=== PATIENT | male | born 1945 | race Hispanic/Latino ===

== ENCOUNTER 2017-01-03 11:14 | Inpatient (IN) | payer MEDICARE ==
[2017-01-03 11:20] VITALS: BMI 33.9
[2017-01-03] MEDS ORDERED: Morphine 4 mg/ml ISec ONE (11:23)
[2017-01-03] MEDS ORDERED: Amiodarone 150 mg/D5W 100 ml 150 MG/100 ML BAG ONE (11:35)
[2017-01-03] MEDS ORDERED: Amiodarone 360 mg/D5W 200 ml 360 MG/200 ML BAG IV ONE (11:35)
[2017-01-03] MEDS ORDERED: Succinylcholine 200 mg/10 ml Inj IV STA (11:52)
[2017-01-03] MEDS ORDERED: Etomidate 20 mg/10ml Inj IVP STA (11:52)
[2017-01-03 11:54] LABS: BASO # 0.07 K/mm3 (0.0-2.0); BASO % 0.4 % (0.0-3.0); EOS # 0.4 (0.0-0.7); EOS % 2.4 % (1.5-5.0); GRAN # 9.15 (1.4-6.5); GRAN % 57.4 % (50.0-68.0); LYMPH # 5.4 (1.2-3.4); LYMPH % 33.8 % (22.0-35.0); MEAN CELL VOLUME 97.6 fl (80.0-105.0); MEAN CORPUSCULAR HEMOGLOBIN 31.1 pg (25.0-35.0); MEAN CORPUSCULAR HGB CONC 31.9 g/dl (31.0-37.0); MEAN PLATELET VOLUME 10.7 fl (7.0-11.0); RED CELL DISTRIBUTION WIDTH 15.6 % (11.5-14.5); WHITE BLOOD COUNT 15.9 10^3/ul (4.5-11.0)
[2017-01-03] MEDS ORDERED: Sodium Chloride 0.9% 1,000 ML IV STA (11:54)
[2017-01-03] MEDS ORDERED: DOBUTamine 500mg/250ml D5W 500 MG/250 ML BAG IV PRN (12:00)
[2017-01-03] MEDS ORDERED: Amiodarone 360 mg/D5W 200 ml 360 MG/200 ML BAG IV SCH ×2 (12:00→19:32)
[2017-01-03] MEDS ORDERED: DOBUTamine 500mg/250ml D5W 500 MG/250 ML BAG ONE (12:01)
[2017-01-03 12:06] LABS: INR 0.93 (0.93-1.08); PARTIAL THROMBOPLASTIN TIME 30.4 Seconds (25.1-36.5)
[2017-01-03 12:10] LABS: BLOOD UREA NITROGEN 10 mg/dL (7-21); CALCIUM 9.8 mg/dL (8.4-10.5); CARBON DIOXIDE 17 mmol/L (21-33); CHLORIDE 98 mmol/L (98-107); GFR AFRICAN-AMERICAN > 60; SODIUM 142 mmol/L (132-148); TOTAL PROTEIN 7.9 g/dL (5.8-8.3)
[2017-01-03 12:11] LABS: ALB/GLOB RATIO 1.4 (1.1-1.8); ALKALINE PHOSPHATASE 151 U/L (38-126); ALT/SGPT 51 U/L (7-56); AST/SGOT 61 U/L (17-59); BILIRUBIN,TOTAL 0.6 mg/dL (0.2-1.3)
[2017-01-03 12:16] LABS: TROPONIN I 0.02 ng/mL
[2017-01-03 12:27] LABS: VENOUS BLOOD GAS BASE EXCESS -16.5 mmol/L (0.0-2.0); VENOUS BLOOD PH 6.92 (7.32-7.43)
[2017-01-03 12:30] LABS: GLUCOSE,RANDOM 449 mg/dL (70-110)
[2017-01-03] MEDS ORDERED: Propofol 10 mg/ml 1,000 MG/100 ML VIAL ONE ×2 (12:44→15:48)
[2017-01-03] MEDS ORDERED: Morphine 2 mg/ml ISec IVP STA (12:47)
[2017-01-03] MEDS ORDERED: Enoxaparin 40 mg Syringe SC SCH (13:00)
[2017-01-03] MEDS ORDERED: cefTRIAXone 1 gm 1 GM/100 ML BAG IVPB SCH (13:00)
--- NOTE | 2017-01-03 13:07 | ED PDOC ---
Arrival/HPI - General Chief Complaint: Respiratory Distress Time Seen by Provider: 01/03/17 11:15 Historian: Patient, EMS - History of Present Illness Narrative History of Present Illness (Text): 01/03/17 12:50 A 71 year old male, whose past medical history includes CHF, tachyarrhythmia, and DM, presents to the emergency department via EMS for acute respiratory distress. The EMS reports that the patient began feeling shortness of breath yesterday and it worsened this morning. The patient denies any chest pain, fevers, cough, or other complaints at this time. He took a couple of his nitro this morning when he started feeling badly. HPI is limited due to acute care. Family later arrived and reported that he may have had some high salty food and this morning wasn't feeling well. They reported that he was having trouble breathing. Denied any chest pain. PMD: Dr. Pettit Industrial Safety Engineer: Dr. Mcclain Time/Duration: 24 hours Symptom Onset: Sudden Symptom Course: Worsening Context: Home Past Medical History - Provider Review Nursing Documentation Reviewed: Yes - Infectious Disease Hx of Infectious Diseases: None - Cardiac Hx Angina: Yes (unstable angina) Hx Congestive Heart Failure: Yes Hx CO: Yes Hx Hypertension: Yes Hx Pacemaker: Yes Other/Comment: L sided pacemaker+defibrillator. Cardiomyopathy. S/P Angioplasty with stent placement - Pulmonary Hx Respiratory Disorders: Yes Hx Pneumonia: Yes - Neurological Hx Neurological Disorder: No - HEENT Hx HEENT Disorder: No (WEARS RX GLASSES) - Renal Hx Renal Disorder: No - Endocrine/Metabolic Hx Endocrine Disorders: Yes Hx Diabetes Mellitus Type 2: Yes - Hematological/Oncological Hx Blood Disorders: Yes Hx Anemia: Yes Other/Comment: h/o L subclavian vein occlusive thrombosis - Integumentary Hx Dermatological Disorder: No - Musculoskeletal/Rheumatological Hx Arthritis: Yes - Gastrointestinal Hx Gastrointestinal Disorders: No - Genitourinary/Gynecological Hx Genitourinary Disorders: No - Psychiatric Hx Psychophysiologic Disorder: No Hx Emotional Abuse: No Hx Physical Abuse: No Hx Substance Use: No - Surgical History Hx Coronary Stent: Yes - Anesthesia Hx Anesthesia: Yes Hx Anesthesia Reactions: No Hx Malignant Hyperthermia: No - Suicidal Assessment Feels Threatened In Home Enviroment: No Family/Social History - Physician Review Nursing Documentation Reviewed: Yes Family/Social History: No Known Family HX Smoking Status: Former Smoker Hx Alcohol Use: No Hx Substance Use: No Allergies/Home Meds Allergies/Adverse Reactions: Allergies No Known Allergies Allergy (Verified 06/24/15 15:39) Home Medications: Home Meds Medication Instructions Recorded Confirmed Atorvastatin [Lipitor] 40 mg PO DAILY 11/04/14 01/03/17 Glipizide [Glipizide ER] 5 mg PO BID 11/04/14 01/03/17 Isosorbide Mononitrate [Imdur] 60 mg PO BID 11/04/14 01/03/17 metFORMIN [glucOPHAGE] 1,000 mg PO BID 11/04/14 01/03/17 Furosemide [Lasix] 40 mg PO BID 01/28/15 01/03/17 Nitroglycerin [Nitrostat] 0.4 mg SL PRN PRN 01/28/15 01/03/17 Oxycodone HCl/Acetaminophen 1 tab PO BID PRN 01/28/15 01/03/17 [Percocet 5-325 mg Tablet] Cholecalciferol (Vitamin D3) 2,000 iu PO DAILY 03/11/15 01/03/17 [Vitamin D3] Metoprolol Tartrate [Lopressor] 50 mg PO BID 03/11/15 01/03/17 Clopidogrel [Plavix] 75 mg PO DAILY 06/19/16 01/03/17 Review of Systems - Physician Review All systems were reviewed & negative as marked: Yes - Review of Systems Constitutional: absent: Fevers Respiratory: SOB. absent: Cough Cardiovascular: absent: Chest Pain Physical Exam Vital Signs Reviewed: Yes Vital Signs Temp Pulse BP Pulse Ox 01/03/17 12:23 96.1 F L 102 H 102/55 L 82 L 01/03/17 12:16 97 H 90/52 L 84 L 01/03/17 12:09 93 H 85/52 L 01/03/17 12:08 87 77/47 L 01/03/17 12:05 69 80/49 L 01/03/17 12:02 72 71/43 L 01/03/17 11:58 67 62/47 L 01/03/17 11:54 68 69/43 L 01/03/17 11:44 94 H 103/67 01/03/17 11:35 120 H 72/53 L 01/03/17 11:24 72/53 L Temperature: Afebrile Pulse: Tachycardic Respiratory Rate: Tachypneic Appearance: Positive for: Ill-Appearing, Uncomfortable Pain Distress: None Mental Status: Positive for: Confused Finger Stick Blood Glucose: 263 - Systems Exam Head: Present: Atraumatic Pupils: Present: PERRL Extroacular Muscles: Present: EOMI Conjunctiva: Present: Normal Mouth: Present: Moist Mucous Membranes Pharnyx: Present: Normal Nose (External): Present: Atraumatic Nose (Internal): Present: Normal Inspection, No Active Bleeding Neck: Present: Normal Range of Motion. No: Meningeal Signs Respiratory/Chest: Present: Respiratory Distress, Accessory Muscle Use, Rales ( diffuse and b/l), Tachypneic Cardiovascular: Present: Tachycardic Abdomen: Present: Normal Bowel Sounds. No: Tenderness, Distention Back: Present: Normal Inspection Upper Extremity: Present: Normal Inspection Lower Extremity: Present: Normal Inspection Neurological: Present: GCS=15, CN II-XII Intact, Speech Normal, Motor Func Grossly Intact, Normal Sensory Function Psychiatric: Present: Other (drowsy and respiratory distress and answering limited questions) Medical Decision Making ED Course and Treatment: 01/03/17 11:15 Impression: A 71 year old male in respiratory distress. Differential Diagnosis included but are not limited to: CHF exacerbation, Cardiogenic Shock Plan: -- EKG (3) -- Chest X-ray -- Labs -- Urinary Catheter -- Nasogastric Tube -- Fingerstick -- Urinalysis -- Lasix 40mg IVP stat -- Patient was on BiPAP on arrival and we continued this immediately on arrival with Respiratory. Progress Notes: 01/03/17 11:24 Patient went into worsening respiratory distress. His defibillator fired 3 times in the ED. Patient then become unresponsive and pulseless. Started to ventilate patient immediately with BVM. Respiratory already at bedside. ACLS was started on patient immediately. Epi x 1 given. Amiodarone drip initiated. 01/03/17 11:28 Pulse was detected on patient. Etomidate and Succynlcholine were given for RSI. 88% Oxy Sat with BVM. Patient was intubated after 2nd attempt and placed on ventilator. See procedure note. NGT placed. Ramirez placed. 01/03/17 11:39 No pulse was detected. ACLS started again. Epi given x 1. 01/03/17 11:45 Pulse was checked; pulse was detected. 01/03/17 11:48 Patient went into ventricular fibrillation and shocked externally. Defibrillator did not fire. 01/03/17 11:49 Patient went back to paced rhythm. 01/03/17 12:09 Dr. Mcclain, Industrial Safety Engineer was present in the ED. Dobutamine drip started in addition to Levophed drip. He recommended increased Dobutamine and while improving blood pressure and decreasing levophed. A central line was placed in the left IJ by me with ultrasound guidance, minimal blood loss is noted. See procedure note. 01/03/17 12:16 The patient's blood pressure begins to return to normal at 90/52. 01/03/17 12:23 The patient's blood pressure is at 102/55. 01/03/17 12:39 Case was discussed with Dr. Arevalo, ICU Professional Development Manager. Case was accepted. Case was discussed with Dr. Pettit PMD. 01/03/17 13:23. Patient started to have long run of Vtach in the ED. Shocked patient externally. Dr. Arevalo at bedside. We discussed case again with Dr. Mcclain. We agreed to give Amiodarone 300mg IVP. Continued on Amiodarine drip. CXR showed CHF pattern, right great infiltrates then left. Antibiotics discussed with Dr. Mcclain and Dr. Arevalo. Dr. Pettit ordered Rocephin IV. It was communicated to CHEESEMAKING LABORER by Sapna RN to give first dose stat. 01/03/17 13:32 Patient noted to have hypokalemia and treated with IV potassium. Patient noted to have hyperglycemia and treated with IV insulin. Dr. Arevalo aware of treatment. 01/03/17 11:28 PROCEDURE: INTUBATION Performed by the emergency provider Time: 11:28 Consent: Discussion of the risks, benefits, and alternatives to the procedure, along with informed consent was precluded by the urgency of the procedure and the patient condition. Timeout: A timeout to verify the correct patient, procedure, and site was performed. Indication: Respiratory distress Pre-oxygenation: [id number] Medications: Etomidate and Succynlcholine. See MAR for details. ETT Size: 7.5 Confirmation: Cords directly visualized as tube passed, good bilateral breath sounds, positive CO2 detector color change, tube fogging, adequate chest rise, improving pulse oximetry reading, improved skin color, and absence of gastric sounds,. ETT Secured: The cuff was inflated and the tube was secured appropriately at a distance of 23 cm at the lip. Post-Procedure: There were no immediate complications. CXR Confirmation: YES, ETT above the sen 01/03/17 12:09 PROCEDURE: CENTRAL LINE PLACEMENT Performed by the emergency provider, Time: 12:09 Consent: Discussion of the risks, benefits, and alternatives to the procedure, along with informed consent was precluded by the urgency of the procedure and the patient condition. Timeout: A timeout to verify the correct patient, procedure, and site was performed. Indication: Need for multiple line access due to amiodarine, levophed, dobutamine drips Anesthesia: Local anesthesia: None. See MAR for details. Skin Preparation: Hand hygiene performed prior to central venous catheter insertion. Sterile field, sterile drape, sterile technique, and cap and gown were used. The area was cleansed with 2% Chlorhexidine. Patient position: Trendelenberg Location: Left IJ Ultrasound guidance: {YES} Technique: The landmarks for the line placement were identified. The vessel was cannulated and a non-tunneled 7.0 Fr triple lumen andwas placed using the Seldinger technique. Successful placement: {YES}. Line sutured with silk and appropriate dressing applied. Assessment: Good patency and blood return through all three lumens. The ports were appropriately flushed. See post procedure X-Ray interpretation. Central in proper location. Post-procedure: Patient tolerated the procedure well with no immediate complications. - Critical Care Critical Care Minutes: 60 minutes - Lab Interpretations Lab Results: 01/03/17 11:45 01/03/17 11:45 Lab Results 01/03/17 12:05: pO2 26 L, VBG pH 6.92 L*, VBG pCO2 85.0 H*, VBG HCO3 17.4 L, VBG Total CO2 20.0 L, VBG O2 Sat (Calc) 27.3 L, VBG Base Excess -16.5 L, VBG Potassium 4.4, Glucose 433 H*, Lactate 13.3 H*, FiO2 21.0, Sodium 141.0, Chloride 95.0 L, Venous Blood Potassium 4.4 01/03/17 11:45: Magnesium 2.4 H 01/03/17 11:45: Sodium 142, Potassium 3.0 L, Chloride 98, Carbon Dioxide 17 L, Anion Gap 29 H, BUN 10, Creatinine 1.2, Est GFR ( Amer) > 60, Est GFR ( Non-Af Amer) 60, Random Glucose 449 H* D, Calcium 9.8, Total Bilirubin 0.6, AST 61 H, ALT 51, Alkaline Phosphatase 151 H, Lactate Dehydrogenase 448, Total Creatine Kinase 78, Troponin I 0.02 D, NT-Pro-B Natriuret Pep 1570 H, Total Protein 7.9, Albumin 4.6, Globulin 3.3, Albumin/Globulin Ratio 1.4 01/03/17 11:45: WBC 15.9 H D, RBC 5.33, Hgb 16.6, Hct 52.0, MCV 97.6, MCH 31.1, MCHC 31.9, RDW 15.6 H, Plt Count 241, MPV 10.7, Gran % 57.4, Lymph % (Auto) 33.8 , [place] % (Auto) 6.0, Eos % (Auto) 2.4, Baso % (Auto) 0.4, Gran # 9.15 H, Lymph # 5.4 H, [place] # 1.0 H, Eos # 0.4, Baso # 0.07 01/03/17 11:45: PT 10.2, INR 0.93, APTT 30.4 01/03/17 11:22: pCO2 48 H, pO2 80.0, HCO3 13.6 L, ABG pH 7.06 L*, ABG Total CO2 15.1 L, ABG O2 Saturation 94.6 L, ABG O2 Content 19.3, ABG Base Excess -16.7 L, ABG Hemoglobin 14.7, ABG Carboxyhemoglobin 1.4, POC ABG HHb (Measured) 5.3 H, ABG Methemoglobin 0.1, ABG O2 Capacity 20.4, Hgb O2 Saturation 93.2 L, FiO2 100.0 Interpretation: Abnormal lab values - RAD Interpretation Radiology Orders: 01/03/17 11:48 CHEST PORTABLE [RAD] Stat Lace Tearing Supervisor: ED Physician - EKG Interpretation Interpreted by ED Physician: Yes Type: 12 lead EKG - Medication Orders Current Medication Orders: Enoxaparin Sodium (Lovenox) 40 mg SC DAILY SERGIO PRN Reason: Protocol NOREPINEPHRINE BIT/0.9 % NACL (Levophed 4 Mg/ 250 Ml Ns Premixed) 4 mg in 250 mls @ 15 mls/hr IV .[id number] PRN; Protocol; 4 MCG/MIN PRN Reason: TITRATE PER MD ORDER Last Admin: 01/03/17 13:18 Dose: 4 mcg/min, 15 mls/hr eMAR Start Stop Document 01/03/17 13:18 MR (Rec: 01/03/17 13:19 MR [id number]) Intravenous Solution Start Date 01/03/17 Start Time 11:40 Titration Intervention Document 01/03/17 13:18 MR (Rec: 01/03/17 13:19 MR [id number]) Titration Intake Waste Amount 0 Container Volume 250 Titration Dosing Titration Dose 4 IV Rate 15 Intake/Decrease Started Amiodarone HCl/Dextrose (Nexterone 360 Mg In D5w 200 Ml (Premix)) 360 mg in 200 mls @ 33.333 mls/hr IV .Q6H SERGIO; 1 MG/MIN PRN Reason: Protocol Last Admin: 01/03/17 13:22 Dose: 33.333 mls/hr eMAR Start Stop Document 01/03/17 13:22 MR (Rec: 01/03/17 13:31 MR [id number]) Intravenous Solution Start Date 01/03/17 Start Time 11:50 Propofol (Diprivan) 1,000 mg in 100 mls @ 3.402 mls/hr IV .Q24H PRN; Protocol; 5 MCG/KG/MIN PRN Reason: TITRATE PER MD ORDER Last Admin: 01/03/17 14:02 Dose: 5 mcg/kg/min, 3.402 mls/hr eMAR Start Stop Document 01/03/17 14:02 MR (Rec: 01/03/17 14:03 MR [id number]) Intravenous Solution Start Date 01/03/17 Start Time 12:46 Titration Intervention Document 01/03/17 14:02 MR (Rec: 01/03/17 14:03 MR [id number]) Titration Intake Waste Amount 0 Container Volume 100 Titration Dosing Titration Dose 5 IV Rate 3.402 Intake/Decrease Started Doxycycline Hyclate 100 mg/ (Sodium Chloride) 100 mls @ 100 mls/hr IVPB Q12 SERGIO PRN Reason: Protocol Potassium Chloride (Potassium Chloride 20 Meq/100 Ml) 20 meq in 100 mls @ 50 mls/hr IVPB Q2H SERGIO Stop: 01/03/17 16:59 Last Admin: 01/03/17 14:05 Dose: 50 mls/hr eMAR Start Stop Document 01/03/17 14:05 MR (Rec: 01/03/17 14:05 [id number]) Intravenous Solution Start Date 01/03/17 Start Time 13:42 End Date 01/03/17 End time 14:42 Total Infusion Time 60 Ceftriaxone Sodium (Rocephin 1 Gram Ivpb) 1 gm in 100 mls @ 100 mls/hr IVPB DAILY SERGIO PRN Reason: Protocol Milrinone Lactate/Dextrose (Primacor 20mg/100ml D5w) 100 mls @ 6.804 mls/hr IV .[id number] PRN; Protocol; 0.2 MCG/KG/MIN PRN Reason: TITRATE PER MD ORDER Fentanyl Citrate (Fentanyl Citrate/Sodium Chloride 1 Mg/100 Ml) 1,000 mcg in 100 mls @ 2 mls/hr IV .Q24H PRN; Protocol; 20 MCG/HR PRN Reason: TITRATE PER MD ORDER Last Admin: 01/03/17 14:07 Dose: 20 mcg/hr, 2 mls/hr eMAR Start Stop Document 01/03/17 14:07 MR (Rec: 01/03/17 14:08 [id number]) Intravenous Solution Start Date 01/03/17 Start Time 13:54 Titration Intervention Document 01/03/17 14:07 MR (Rec: 01/03/17 14:08 [id number]) Titration Intake Waste Amount 0 Container Volume 100 Titration Dosing Titration Dose 20 IV Rate 2 Intake/Decrease Started Pantoprazole Sodium (Protonix Inj) 40 mg IVP Q12 SERGIO Discontinued Medications Etomidate (Amidate) 30 mg IVP STAT STA Stop: 01/03/17 11:53 Last Admin: 01/03/17 11:32 Dose: 30 mg IVP Administration Document 01/03/17 11:32 MR (Rec: 01/03/17 13:17 [id number]) Charges for Administration # of IVP Administrations 1 Furosemide (Lasix) 40 mg IVP STAT STA Stop: 01/03/17 12:48 Last Admin: 01/03/17 11:24 Dose: 40 mg MAR Blood Pressure Document 01/03/17 11:24 MR (Rec: 01/03/17 14:04 MR [id number]) Blood Pressure Blood Pressure (100/60-150/90) 72/53 IVP Administration Document 01/03/17 11:24 MR (Rec: 01/03/17 14:04 MR [id number]) Charges for Administration # of IVP Administrations 1 Sodium Chloride (Sodium Chloride 0.9%) 1,000 mls @ 999 mls/hr IV .Q1H1M STA Stop: 01/03/17 12:54 Last Admin: 01/03/17 13:20 Dose: 999 mls/hr eMAR Start Stop Document 01/03/17 13:20 MR (Rec: 01/03/17 13:20 MR [id number]) Intravenous Solution Start Date 01/03/17 Start Time 11:37 End Date 01/03/17 End time 12:37 Total Infusion Time 60 Potassium Chloride 10 meq/ (Sodium Chloride) 105 mls @ 105 mls/hr IV ONCE ONE Stop: 01/03/17 13:32 Last Admin: 01/03/17 14:00 Dose: 105 mls/hr eMAR Start Stop Document 01/03/17 14:00 MR (Rec: 01/03/17 14:02 MR [id number]) Intravenous Solution Start Date 01/03/17 Start Time 13:42 End Date 01/03/17 End time 14:40 Total Infusion Time 58 Insulin Human Regular (Humulin R) 6 units IV STAT STA Stop: 01/03/17 13:54 Last Admin: 01/03/17 14:12 Dose: 6 units eMAR Start Stop Document 01/03/17 14:12 MR (Rec: 01/03/17 14:13 MR [id number]) Intravenous Solution Start Date 01/03/17 Start Time 13:57 End Date 01/03/17 End time 13:57 Total Infusion Time 0 MAR Blood Glucose Document 01/03/17 14:12 MR (Rec: 01/03/17 14:13 MR [id number]) Blood Glucose Finger Stick Blood Glucose (70-120) 460 Morphine Sulfate (Morphine) 2 mg IVP STAT STA Stop: 01/03/17 12:48 Last Admin: 01/03/17 11:24 Dose: 2 mg MAR Pain Assessment Document 01/03/17 11:24 MR (Rec: 01/03/17 14:05 MR [id number]) Pain Reassessment Is this a pain reassessment? No Sleep Is patient sleeping during reassessment? No Description Pain Behavior Facial Grimacing IVP Administration Document 01/03/17 11:24 MR (Rec: 01/03/17 14:05 MR [id number]) Charges for Administration # of IVP Administrations 1 Succinylcholine Chloride (Quelicin) 100 mg IV STAT STA Stop: 01/03/17 11:53 Last Admin: 01/03/17 13:19 Dose: 100 mg eMAR Start Stop Document 01/03/17 13:19 MR (Rec: 01/03/17 13:19 MR [id number]) Intravenous Solution Start Date 01/03/17 Start Time 11:32 End Date 01/03/17 End time 11:32 Total Infusion Time 0 - Scribe Statement The provider has reviewed the documentation as recorded by the Sammi Stallings Provider Scribe Attestation: All medical record entries made by the Scribswati were at my direction and personally dictated by me. I have reviewed the chart and agree that the record accurately reflects my personal performance of the history, physical exam, medical decision making, and the department course for this patient. I have also personally directed, reviewed, and agree with the discharge instructions and disposition. Disposition/Present on Arrival - Present on Arrival Any Indicators Present on Arrival: Yes History of DVT/PE: Yes History of Uncontrolled Diabetes: No Urinary Catheter: No History of Decub. Ulcer: No History Surgical Site Infection Following: None - Disposition Have Diagnosis and Disposition been Completed?: Yes Diagnosis: Congestive heart failure, Hypokalemia, Cardiogenic shock, Hyperglycemia Disposition: HOSPITALIZED Disposition Time: 12:39 Patient Plan: Admission Patient Problems: Current Active Problems Problem Status Onset Cardiogenic shock Acute Congestive heart failure Acute Hyperglycemia Acute Hypokalemia Acute Condition: CRITICAL
--- NOTE | 2017-01-03 13:16 | RAD ---
HISTORY: SOB. COMPARISON: No comparison made with chest radiograph 12/26/2016 FINDINGS: In situ ETT, tip of which lies approximately 3.6 cm above sen. Is in situ left subclavian central venous line with tip in the brachiocephalic vein. LUNGS: Mild pulmonary vascular congestive changes with bilateral lower lobe alveolar-type infiltrates right greater than left. Questionable small left effusion. PLEURA: As above. No apparent pneumothorax Pneumothorax . CARDIOVASCULAR: No change multi lead pacemaker/ defibrillator. Heart remains enlarged. OSSEOUS STRUCTURES: No significant abnormalities. VISUALIZED UPPER ABDOMEN: Normal. OTHER FINDINGS: None. IMPRESSION: Above ETT and left subclavian central line as above. Mild pulmonary vascular congestive changes with bilateral lower lobe alveolar-type infiltrates right greater than left. Questionable small left effusion.
[2017-01-03] MEDS: NOREPINEPHRINE BIT/0.9 % NACL 4 MG/250 ML BAG IV PRN ×2 (13:18→15:57)
[2017-01-03] MEDS ORDERED: Milrinone 20mg/100ml D5W 100 ML IV PRN (13:28)
[2017-01-03 13:42] LABS: ARTERIAL BLOOD GAS HCO3 13.6 mmol/L (21-28); ARTERIAL BLOOD GAS O2 CAPACITY 20.4 mL/dl (16-24); ARTERIAL BLOOD GAS O2 CONTENT 19.3 ML/dl (15-23); ARTERIAL BLOOD HGB O2 SAT 93.2 % (95.0-98.0); CARBOXYHEMOGLOBIN 1.4 % (0.5-1.5); HHB 5.3 % (0-5); METHEMOGLOBIN 0.1 % (0.0-3.0)
[2017-01-03] MEDS ORDERED: Insulin Regular 1 UNITS/0.01 ML ML IV STA (13:53)
--- NOTE | 2017-01-03 13:54 | CON ---
DATE: 01/03/2017 HISTORY OF PRESENT ILLNESS: The patient is a 71-year-old male who presented to the emergency room with progressive shortness of breath, with marked respiratory distress as well as hypotension. The patient was intubated. I was called to see the patient in the emergency room where the patient was on a ventilator. His blood pressure was in the 60 systolic. 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 He has symptoms of CAD, which he has documented patent stents. A recent stress test showed a compromised left ventricle with no new ischemic areas. On discussion with the family, it is likely that the patient has experienced dietary indiscretion over the past 24 hours and slowly became short of breath overnight until this morning, had difficulty in terms of breathing. His other risk factors includes diabetes mellitus. SOCIAL HISTORY: The patient does not smoke. REVIEW OF SYSTEMS: A 14-point review of systems is unavailable. PHYSICAL EXAMINATION: VITAL SIGNS: After conversion from Levophed to dobutamine, the patient currently has blood pressure of 117/80 with heart rates in the 90s. NECK: Negative JVD. LUNGS: Decreased breath sounds bilaterally. HEART: S1 and S2. EXTREMITIES: Without edema. DIAGNOSTIC STUDIES: EKG shows no wide complex rhythm, consistent with left bundle-branch block. LABORATORY DATA: Initial troponin is unremarkable. BUN and creatinine unremarkable. Hemoglobin is 16 with a white count of 15.9. IMPRESSION: 1. Acute pulmonary edema. 2. Respiratory failure. 3. End-stage dilated cardiomyopathy. 4. Coronary artery disease. 5. Diabetes mellitus. 7. Cardiogenic shock. PLAN: Given these findings, it is likely the patient's salt overload has led to fluid overload with pulmonary edema and transient hypoxia with hypotension. IV dobutamine has been able to stabilize his hemodynamics. From a cardiac perspective, if he makes urine and is able to diurese, we should be able to hopefully attempt to extubate the patient. If he survives this hospitalization, we will transfer the patient to [facility] for potential evaluation for heart transplantation. Anuj Mcclain MD
[2017-01-03] MEDS ORDERED: Insulin Regular 1 UNITS/0.01 ML ML ONE (13:55)
[2017-01-03] MEDS: Propofol 10 mg/ml 1,000 MG/100 ML VIAL IV PRN ×2 (14:02→20:25)
[2017-01-03 14:04] LABS: ARTERIAL BLOOD GAS PH 7.06 (7.35-7.45)
[2017-01-03] MEDS: Fentanyl 1000mcg/100ml NS 1,000 MCG/100 ML BAG IV PRN ×2 (14:07→23:15)
[2017-01-03] MEDS ORDERED: Insulin Lispro (humaLOG) MEDIUM Coverage SC SCH (15:00)
[2017-01-03] MEDS: DOBUTamine 500mg/250ml D5W 500 MG/250 ML BAG IV PRN (15:08)
[2017-01-03] MEDS ORDERED: Influenza Vaccine 60 mcg/0.5 mL SYR (4YR UP) IM ONE (15:19)
[2017-01-03] MEDS ORDERED: Pneumococcal 23-Valent Vaccine IM ONE (15:19)
[2017-01-03 16:32] LABS: TROPONIN I 9.76 ng/mL
[2017-01-03 16:36] LABS: VENOUS BLOOD GAS BASE EXCESS -9.8 mmol/L (0.0-2.0)
[2017-01-03 16:45] LABS: VENOUS BLOOD PH 7.18 (7.32-7.43)
[2017-01-03 16:51] LABS: ABG MECHANICAL RATE 18; ARTERIAL BLOOD GAS PH 7.21 (7.35-7.45); ATERIAL BLOOD GAS PEEP 5
[2017-01-03] MEDS ORDERED: Propofol 10 mg/ml Inj (20 ML) IVP ONE (17:14)
--- NOTE | 2017-01-03 17:26 | CON ---
DATE: 01/03/2017 HISTORY OF PRESENT ILLNESS: This 71-year-old male with past and history of severe left ventricular systolic dysfunction, tachyarrhythmia, status post pacemaker defibrillator, who presented to ER this time in acute respiratory distress. The patient reportedly had some chest tightness that was preceeded by indulgence on salty and fatty diet. His shortness of breath was getting worse since yesterday and culminated by today's admission to [facility] ER. Initially, ASHRAF was on exertion; however, later became evident also at the rest. No fevers. No cough. No other complaints. PAST MEDICAL HISTORY: CHF, MT, hypertension, pacemaker, diabetes type 2. ALLERGIES: NKDA. SOCIAL HISTORY: The patient is an ex-smoker. No alcohol or illicit drug abuse. HOME MEDICATION: Lipitor, glipizide, Imdur, metformin, Lasix, nitroglycerin p.r.n., Percocet, vitamin D3, metoprolol, Plavix. REVIEW OF SYSTEM: Reveal a 12-point review of system other than mentioned in history of present illness is negative. FAMILY HISTORY: Noncontributory. Chest x-ray showed right interstitial infiltrate versus vascular congestion; however, it would be asymmetric as right side has more prominent congestion than the left one. EKG showed left bundle-branch block. Cardiology service at bedside at present time. PHYSICAL EXAMINATION: VITAL SIGNS: Heart rate varies between 105 to 120, blood pressure currently 102/55, oxygen saturation 95% on 100% FiO2. The patient is intubated. ABG is pending. HEENT: Head and neck atraumatic. LUNGS: Few crackles bibasilar. HEART: Regular rate and rhythm. S1 and S2 distant. ABDOMEN: Soft, nontender, nondistended. MUSCULOSKELETAL: Trace bilateral pedal and ankle edema. NEUROLOGIC: The patient is sedated with propofol. LABORATORY DATA: WBC 15.9, hemoglobin 16.6, platelet count 241. Sodium 142, potassium 3 supplemented, magnesium 2.4, AST 61, ALT 51, bilirubin 0.6, pro-BNP 1517. VBG before intubation 6.92, lactic acid 13.3. ASSESSMENT AND PLAN: This is 71-year-old gentleman who presented in cardiogenic shock with MODS including pulmonary edema, respiratory failure, requiring intubation, BARRY, encephalopathy, severe lactic acidosis likely due to new ischemic event in the setting of already existing severe LV systolic dysfunction. Neuro: The patient is sedated with propofol. Propofol will also help with afterload reduction which may increase 02 delivery and CI Pulmonary: We will continue with conservative fluid management, protective lung ventilation strategy including lung tidal volume 6 to 8 mL per predicted body weight and maintain plateau pressure below 30 cm of water. Head of bed elevated at >35 degrees, oral hygiene, DVT and GI prophylaxis. Cardiovascular: The patient is in cardiogenic shock. We will maintain perfusion pressure with an vasopressor support with Levophed. Ionotropic support will be provided with dobutmaine. Afterload reduction provided with propofol and positive pressure ventilation. Spoke with Dr. Mcclain (Cardiology service), if continue to deteriorate will put ABP in. The patient is known to have severe left ventricular systolic dysfunction with ejection fraction at about 13% and severe pulmonary hypertension. The patient had a few episodes of sustained VT and was given amiodarone bolus and then started on drip which is continued at present time. Pacemaker and defibrillator would need to be interrogated. GI: The patient will be n.p.o. on GI prophylaxis. ID: The patient has leukocytosis and has asymmetric interstitial infiltrate on the right side. The patient will be covered with ceftriaxone and doxycycline. Azithromycin will be avoided due to potential for QTc prolongation, and the patient is already has ventricular tachycardia. Septic workup initiated. Procalcitonin will be ordered. Blood, urine culture, urine for streptococcal and Legionella antigen will be orders well. Renal: The patient has acute kidney injury most likely related to cardiogenic shock. We will maintain mean arterial pressure about 65, we will avoid nephrotoxic medication but not at expense of treatment of underlying disease. We will try to tread on faint balance between the kidney hyperperfusion and conservative fluid management to optimize respiratory status carefully. Endocrine: We will continue to maintain blood glucose within 140 to 180 range according to night sugar trial. We will continue with DVT and GI prophylaxis. Addendum: troponin returned at 9.2 after being intermediate first. aspirin, plavix and TAC started (bolus wasnt given as patient received Lovenox 40 mg s/c earlier). procalcitonin <0.05-->unlikely bacterial infection-->may peel off abx. Levophed weaned down to 10 mcg/min from 30, insulin drip and bicarb drip started with accu q1, will repeat CBC and CMP, to make sure lytes, AG and glucose improved, fi02 down to 70-->will increase PEEP to keep tapering fi02 down, CXR daily, adjuted vent setting will repeat ABG, Lactic acid down to 6 from 13, acidosis improved 7.21 from 6.95 ccm time 40 min Kieran Arevalo MD [place]
[2017-01-03] MEDS: Insulin Regular 100 UNITS in Sodium Chloride 0.9% 99 ML IV PRN (18:34)
[2017-01-03] MEDS ORDERED: Heparin25000 units/250ml 1/2NS 25,000 UNITS/250 ML BAG IV SCH (18:45)
--- NOTE | 2017-01-03 18:58 | PCM.SEPTIC ---
Sepsis Progress Note - Reassessment Type Reassessment Type: Non-invasive reassessment - Non Invasive Reassessment Were the most recent vital sign reviewed: Yes Vital Sign (Latest): Temp Pulse Resp BP Pulse Ox 98 F 116 H 21 124/67 94 L 01/03/17 16:00 01/03/17 16:50 01/03/17 16:50 01/03/17 16:35 01/03/17 16:50 Cardiovascular: Yes: Tachycardia Respiratory: Yes: Decreased Breath Sounds Capillary Refill: Delayed Pulses: Decreased Radial, Decreased Dorsalis Pedis, Decreased Posterior Tibialis Skin: Pale
[2017-01-03 19:10] LABS: PH,URINE 5.5 (4.7-8.0); URINE BILIRUBIN NEGATIVE (NEGATIVE); URINE BLOOD LARGE (NEGATIVE); URINE GLUCOSE (UA) >=1000 mg/dL (NEGATIVE); URINE KETONE NEGATIVE (NEGATIVE); URINE LEUKOCYTE ESTERASE NEGATIVE Leu/uL (NEGATIVE); URINE PROTEIN 100 mg/dL (<30 mg/dL); URINE UROBILINOGEN 0.2 E.U./dL (<1 E.U./dL)
[2017-01-03 19:13] LABS: BASO # 0.02 K/mm3 (0.0-2.0); BASO % 0.1 % (0.0-3.0); GRAN # 15.07 (1.4-6.5); GRAN % 92.5 % (50.0-68.0); HEMATOCRIT 43.9 % (42.0-52.0); LYMPH # 0.8 (1.2-3.4); LYMPH % 5.2 % (22.0-35.0); MEAN CORPUSCULAR HEMOGLOBIN 30.8 pg (25.0-35.0); MEAN CORPUSCULAR HGB CONC 32.8 g/dl (31.0-37.0); MEAN PLATELET VOLUME 10.1 fl (7.0-11.0); MONO # 0.4 (0.1-0.6); MONO % 2.2 % (1.0-6.0); PLATELET COUNT 193 10^3/uL (120.0-450.0); RED CELL DISTRIBUTION WIDTH 15.8 % (11.5-14.5); WHITE BLOOD COUNT 16.3 10^3/ul (4.5-11.0)
[2017-01-03 19:14] LABS: MEAN CELL VOLUME 93.8 fl (80.0-105.0)
[2017-01-03 19:15] LABS: URINE APPEARANCE CLOUDY (CLEAR); URINE COLOR YELLOW (YELLOW)
[2017-01-03 19:18] LABS: URINE RBC TNTC /hpf (0-2); URINE WBC 0 - 2 /hpf (0-6)
[2017-01-03 19:19] LABS: URINE BACTERIA MOD (NEG)
[2017-01-03 19:34] VITALS: RESP 22
[2017-01-03 19:37] LABS: ALB/GLOB RATIO 1.3 (1.1-1.8); CALCIUM 7.8 mg/dL (8.4-10.5); POTASSIUM 4.5 mmol/L (3.6-5.0); TOTAL PROTEIN 6.1 g/dL (5.8-8.3)
[2017-01-03 19:38] LABS: BILIRUBIN,TOTAL 0.8 mg/dL (0.2-1.3)
--- NOTE | 2017-01-03 19:42 | CARD ---
APPROVED REPORT EKG Measurement Heart [id number] <Conclusion> Electronic ventricular pacemaker
--- NOTE | 2017-01-03 19:43 | CARD ---
APPROVED REPORT EKG Measurement Heart [id number] [id number] <Conclusion> Electronic ventricular pacemaker
[2017-01-03 19:53] LABS: BAND 3 % (0-2); MYELOCYTE 1 %; NEUTROPHIL 90 % (50.0-70.0)
[2017-01-03 19:54] LABS: PLATELET ESTIMATE NORMAL (NORMAL)
[2017-01-03] MEDS: Levalbuterol 0.63 MG/3 ML Inhal Soln UD IH SCH (20:20)
[2017-01-03 20:54] LABS: ARTERIAL BLOOD GAS HCO3 17.3 mmol/L (21-28); ARTERIAL BLOOD GAS O2 CAPACITY 19.6 mL/dl (16-24); ARTERIAL BLOOD GAS O2 CONTENT 18.5 ML/dl (15-23); ARTERIAL BLOOD GAS PH 7.34 (7.35-7.45); ARTERIAL BLOOD HGB O2 SAT 92.1 % (95.0-98.0); CARBOXYHEMOGLOBIN 1.4 % (0.5-1.5); HHB 5.6 % (0-5); METHEMOGLOBIN 0.9 % (0.0-3.0)
--- NOTE | 2017-01-03 21:56 | OP ---
PROCEDURE DATE: 01/03/2017 HISTORY: The patient is in cardiogenic shock. PROCEDURE: Arterial line placement, left axillary artery. INDICATION: Hemodynamic monitoring. DESCRIPTION OF PROCEDURE: After obtaining an informed consent, operational area was sterilized. Maximum barrier precautions used. Axillary artery cannulated by sterile Seldinger technique with real-time ultrasound guidance. Guidewire removed, hemostasis achieved, sterile dressing applied. Good waveform appreciated. Blood pressure 140/80. Levophed tapering started. Family notified. No immediate complications. ESTIMATED BLOOD LOSS: minimal. Kieran Arevalo MD [place]
[2017-01-03] MEDS: Midazolam 100 mg/100ml in NS 100 MG/100 ML SOL IV PRN (21:58)
--- NOTE | 2017-01-03 23:42 | HP ---
HISTORY OF PRESENT ILLNESS: The patient is a 71-year-old male who was brought into the [facility] Emergency Room by the [facility], most of the history is obtained through the [facility] triage ER physician note and the and the family. According to the ER triage note, the patient came to the emergency room by [facility]. The patient was brought in the Emergency Room for short shortness of breath for 2 days, which was getting worse in the morning. The patient was brought into the ER with CPAP and BiPAP on. While the patient was in the Emergency Room, the patient had a cardiac arrest with V-tach cardiac arrest. The patient was intubated by the ER physician in the ER and the patient had a defibrillator shock with that and the patient had a period of asystole and the patient was given epinephrine and atropine in the Emergency Room as per the ER physician. The patient was intubated in the Emergency Room. The patient's states that the he has been alone for last 4 to 5 days, and according to the patient's family, the patient has probable been eating high salty food and the patient was supposed to come down to the family in [place] where the patient's was. While in the ER, the patient went into worsening respiratory distress. His defibrillator fired x3. The patient became unresponsive and pulseless. The patient was ventilated. The patient's ACLS was started, epinephrine was given, amiodarone was initiated. The patient regained pulse at 11:28, pulse ox was 88%. The patient was intubated in the ER after second attempt, placed on ventilator. NG tube was placed. The patient's ACLS continued. The patient was given epinephrine. The patient was noted to be in ventricular fibrillation. The patient was shocked, defibrillator did not fire this time. The patient was converted into paced rhythm. The patient was evaluated and seen in the Emergency Room by Dr. Mcclain, where dobutamine drip was started, Levophed drip was started. Central line was placed via the left internal jugular, ultrasound guided. The patient regained blood pressure up to 90/52 to 102/55. The patient was seen and evaluated in the ER by Dr. Arevalo, the ICU coal shoveler. The patient had sustained run of ventricular tachycardia. The patient was then shocked externally. The patient was given amiodarone bolus 300 mg and drip was started. The patient was intubated with 7.5-Anguillan ET tube. Central line was placed. CODE STATUS: FULL CODE. LIVING WILL ADVANCE DIRECTIVE: None. Height is 6 feet. Weight is 250. BMI is 34. HOME MEDICATIONS: Metformin 1000 mg twice a day, Percocet 5/325 b.i.d. p.r.n. Supplement nitroglycerin. Lopressor 50 twice a day, Imdur 60 mg twice a day, glipizide 5 or 10 mg twice a day, Lasix 40 mg twice a day, Plavix 75 mg daily, vitamin D3 2000 international units daily, Lipitor 40 mg daily, and Ecotrin 81 mg daily. SOCIAL HISTORY: Positive for former smoker. Denies alcohol or drug use. PAST MEDICAL AND SURGICAL HISTORY: History of lung carcinoma treated, history of coronary artery disease, history of ischemic dilated cardiomyopathy, history of cardiac arrhythmia, history of ventricular tachycardia, history of AICD placement, history of left upper extremity DVT post AICD placement, history of cervical spine degenerative disk disease with cervical disk disease and chronic pain syndrome, history of angina, history of dilated ischemic cardiomyopathy, history of congestive heart failure, history of hypovitaminosis D, history of vitamin B12 deficiency, history of iron-deficiency anemia, history of dyslipidemia, history of atherosclerotic heart disease, history of nicotine dependence in the past, history of lipoma. The patient has history of angioplasty and stent placement of the circumflex artery, history of stent placement of the left anterior descending artery, history of left ventricle ejection fraction of 15%. 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 The patient's past medical history is also significant for left ventricle ejection fraction of 12-13%, history of pulmonary arterial hypertension with right ventricular systolic pressure of 68 mmHg. History of left ventricular hypertrophy, history of septal and apical hypokinesis, history of severely impaired left ventricle systolic function, history of moderately dilated left atrium, history of [id number] mitral regurgitation, [id number] pulmonary arterial hypertension and tricuspid regurgitation. The patient's past medical history is also significant for last cardiac catheterization in 03/2015, history of angioplasty stent placement of the left anterior descending, obtuse marginal branch of the circumflex, history of PTCA of the AV groove branch of the circumflex, history of dilated cardiomyopathy, history of IV Primacor treatment with not positive response. The patient's past medical history is also significant for ischemic cardiomyopathy, history of degenerative joint disease of the knees and the cervical spine, history of hypovitaminosis D, history of multivessel coronary artery disease, history of non-ST elevation myocardial infarction, history of lung carcinoma status post chemotherapy, history of former smoker. PHYSICAL EXAMINATION: GENERAL: The patient is seen in ICU bed 6. The patient is intubated. VITAL SIGNS: T-max is 96.1; heart rate 120, 94, 67, 87, 93, 97 and 102; blood pressure 72/53, 72/53, 103/67, 69/43, 80/49, 77/49, 90/52, 102/55; respiration 43, that is only documented respiration; O2 sat 94, 84, and 82. LABORATORY DATA: WBC 15.9, hemoglobin/hematocrit 16.6/52.0, platelet 241. PT/PTT 10.2/30.4. VBG shows a lactate of 13.3. ABG on 100% FIO2, pH of 7.06, pCO2 of 48, pO2 of 80, bicarb is 14, saturation 95%. Chemistry; sodium 142, potassium 3.0, chloride 98, CO2 of 13, anion gap 29, BUN 10, creatinine 1.2, GFR greater than 60. Random glucose 449 and 460. Calcium 9.8, magnesium 2.4. AST 61, alk phos 151. Troponin . BNP 1570. Chest x-ray was reviewed, which shows right middle lobe and right lower lobe infiltrate and haziness and opacity with increased vascular markings bilaterally.. The patient's EKG was reviewed which shows intermittent paced rhythm with left bundle-branch block pattern. IMPRESSION AND PLAN: 1. Ventricular tachycardia, ventricular fibrillation, cardiac arrest. 2. Brief period of asystole. 3. Ventilator-dependent respiratory failure. 4. Acute systolic congestive heart failure. 5. Cardiogenic versus hypotensive versus septic shock with hypotension. 6. Tachycardia. 7. Hypothermia. 8. Hypertension. 9. Hypoxemia. 10. Leukocytosis. 11. Lactic acidosis. 12. Metabolic acidosis. 13. Hypokalemia. 14. Increased anion gap metabolic acidosis. 15. Hyperglycemia. 16. Transaminitis. 17. Acute systolic congestive heart failure and pulmonary edema with elevated BNP of 1570. 18. Status post left internal jugular triple-lumen catheter placement. 19. Status post cardiac resuscitation. 20. Questionable aspiration versus community-acquired pneumonia. 21. Acute systolic congestive heart failure with pulmonary vascular congestion. 22. Bilateral multilobar pneumonia. 23. Transient left bundle-branch block pattern with nonspecific ST changes. 24. Ventricular tachycardia, ventricle fibrillation arrest. PLAN: At this time, the patient has been admitted to ICU. The patient is to be maintained on ventilator support. The patient has been started on Levophed and dobutamine drip. The patient has been ordered serial BNP, lactic acid ordered, serial CMP, cardiac enzymes, LFTs, CBC ordered, repeat daily ABGs ordered. Blood urine cultures ordered. Consultation with Cardiology and Infectious Disease. Procalcitonin level ordered. The patient received etomidate 30 mg in the ER. The patient is started on IV amiodarone drip. The patient is on Vibramycin 100 mg IV q. 12. The patient is on fentanyl drip with 20 mcg per hour. The patient is on amiodarone drip at 1 mg per minute. The patient is on Humalog medium dose sliding scale coverage q. 6. The patient was given Lasix 40 IV in the ER and 6 units of IV insulin was given in the ER. The patient is on Lovenox 40 mg subcu daily. The patient is on Levophed drip at 4 mcg per minute. The patient's potassium has been supplemented with IV potassium riders. The patient is on milrinone drip, Primacor drip at 0.2 mcg/kg/minute. The patient is on Diprivan drip at 5 mcg/kg/minute. The patient is started on GI prophylaxis with Protonix 40 IV q. 12, Rocephin 1 g IV daily. The patient is on Xopenex 0.63 mg q. 6 hours. daily chest x-ray ordered, daily EKG ordered. SCDs, VAMSI stockings, Ramirez catheter NG tube ordered. The patient's condition, diagnosis, test results overall clinical condition, recommendation by all the physicians involved in the care of the patient was discussed and explained to the patient's and the family who I met in the ICU waiting room and I have extensively discussed every detail of the patient's present clinical condition and past medical history in layman's language. All questions concerned answered. I have also explained to the patient's and the family about the patient's extremely critical condition and high risk of developing multiple complications and worsening clinical condition. I have specifically stated to the patient's and the family that the patient's family need to be prepared for any kind of situation and the scenario and there is an extremely high likelihood that the patient will develop multiple complications and his likelihood of developing more complications is much higher at this present condition. Time spent in review of entire management, review of entire data, discussing with family and discussed with the nursing staff more than 1 hour 55 minutes. Dictated and electronically signed, not read. Signing off, Andres Pettit MD
[2017-01-04 00:19] LABS: TROPONIN I 87.9 ng/mL
[2017-01-04] MEDS: NOREPINEPHRINE BIT/0.9 % NACL 4 MG/250 ML BAG IV PRN ×2 (01:15→05:57)
[2017-01-04] MEDS: Levalbuterol 0.63 MG/3 ML Inhal Soln UD IH SCH (01:18)
[2017-01-04 01:52] LABS: TROPONIN I 82.6 ng/mL
--- NOTE | 2017-01-04 04:18 | CP.PCM.CON ---
History of Present Illness - History of Present Illness History of Present Illness: Surgery Consult note. Dr. Coleman Surgery consulted for emergent TLC access. 71yo M with PMHx of Hx of Lung CA, CAD, Left upper extremity DVT, CHF, here with cardiogenic shock. Critical Care attending requested emergent need for TLC catheter. As per staff, they noticed left IJ which was placed earlier today seemed to be pulled back almost out of the skin and IV fluids and infusions from the left IJ were noted to be leaking out around the patient's neck. Patient 's family was at bedside and gave written consent. Review of Systems - Review of Systems Systems not reviewed;Unavailable: Acuity of Condition, Unstable Vital Signs, Altered Mental Status, Intubated Past Patient History - Infectious Disease Hx of Infectious Diseases: None - Past Social History Smoking Status: Former Smoker - CARDIAC Hx Angina: Yes (unstable angina) Hx Congestive Heart Failure: Yes Hx Heart Attack: Yes Hx Hypertension: Yes Hx Pacemaker: Yes Other/Comment: L sided pacemaker+defibrillator. Cardiomyopathy. S/P Angioplasty with stent placement - PULMONARY Hx Respiratory Disorders: Yes Hx Pneumonia: Yes - NEUROLOGICAL Hx Neurological Disorder: No - HEENT Hx HEENT Problems: No (WEARS RX GLASSES) - RENAL Hx Chronic Kidney Disease: No - ENDOCRINE/METABOLIC Hx Endocrine Disorders: Yes Hx Diabetes Mellitus Type 2: Yes - HEMATOLOGICAL/ONCOLOGICAL Hx Blood Disorders: Yes Hx Anemia: Yes Other/Comment: h/o L subclavian vein occlusive thrombosis - INTEGUMENTARY Hx Dermatological Problems: No - MUSCULOSKELETAL/RHEUMATOLOGICAL Hx Falls: No - GASTROINTESTINAL Hx Gastrointestinal Disorders: No - GENITOURINARY/GYNECOLOGICAL Hx Genitourinary Disorders: No - PSYCHIATRIC Hx Substance Use: No - SURGICAL HISTORY Hx Coronary Stent: Yes - ANESTHESIA Hx Anesthesia: Yes Hx Anesthesia Reactions: No Hx Malignant Hyperthermia: No Meds Allergies/Adverse Reactions: Allergies Allergy/AdvReac Type Severity Reaction Status Date / Time No Known Allergies Allergy Verified 06/24/15 15:39 - Medications Medications: Current Medications Aspirin (Aspirin Chewable) 81 mg PO DAILY SERGIO Clopidogrel Bisulfate (Plavix) 75 mg PO DAILY SERGIO NOREPINEPHRINE BIT/0.9 % NACL (Levophed 4 Mg/ 250 Ml Ns Premixed) 4 mg in 250 mls @ 15 mls/hr IV .U61C33M PRN; Protocol; 4 MCG/MIN PRN Reason: TITRATE PER MD ORDER Last Titration: 01/04/17 02:05 Dose: 15 mcg/min, 56.25 mls/hr Propofol (Diprivan) 1,000 mg in 100 mls @ 3.402 mls/hr IV .Q24H PRN; Protocol; 5 MCG/KG/MIN PRN Reason: TITRATE PER MD ORDER Last Titration: 01/03/17 22:10 Dose: 0 mcg/kg/min, 0 mls/hr Ceftriaxone Sodium (Rocephin 1 Gram Ivpb) 1 gm in 100 mls @ 100 mls/hr IVPB DAILY SERGIO PRN Reason: Protocol Last Admin: 01/03/17 15:12 Dose: 100 mls/hr Fentanyl Citrate (Fentanyl Citrate/Sodium Chloride 1 Mg/100 Ml) 1,000 mcg in 100 mls @ 2 mls/hr IV .Q24H PRN; Protocol; 20 MCG/HR PRN Reason: TITRATE PER MD ORDER Last Titration: 01/04/17 00:15 Dose: 100 mcg/hr, 10 mls/hr Dobutamine HCl/Dextrose (Dobutamine/Dextrose 5% 500mg/250ml) 500 mg in 250 mls @ 17.01 mls/hr IV .[id number] PRN; Protocol; 5 MCG/KG/MIN PRN Reason: TITRATE PER PROTOCOL Last Admin: 01/03/17 15:08 Dose: 17.01 mls/hr Insulin Human Regular 100 (units/ Sodium Chloride) 100 mls @ 0 mls/hr IV .Q0M PRN; Protocol; Titrate PRN Reason: TITRATE PER MD ORDER Last Titration: 01/04/17 02:38 Dose: 4 unit/hr, 4 mls/hr Sodium Bicarbonate 75 meq/ (Sodium Chloride) 1,075 mls @ 125 mls/hr IV .Q8H36M SERGIO Last Admin: 01/03/17 18:30 Dose: 125 mls/hr Heparin Sodium/Sodium Chloride (Heparin 62765 Units/250ml 1/2 Normal Saline) 25 ,000 units in 250 mls @ 13.608 mls/hr IV .[id number] SERGIO; 12 UNITS/KG/HR PRN Reason: Protocol Last Titration: 01/04/17 03:25 Dose: 0 units/kg/hr, 0 mls/hr Amiodarone HCl/Dextrose (Nexterone 360 Mg In D5w 200 Ml (Premix)) 360 mg in 200 mls @ 16.667 mls/hr IV .Q12H SERGIO; 0.5 MG/MIN PRN Reason: Protocol Last Admin: 01/03/17 17:30 Dose: 16.667 mls/hr Midazolam 100 mg/100ml in NS (Midazolam 100 Mg/100ml In Ns) 100 mg in 100 mls @ 1 mls/hr IV .Q24H PRN; Protocol; 1 MG/HR PRN Reason: Agitation Last Titration: 01/04/17 01:15 Dose: 4 mg/hr, 4 mls/hr Doxycycline Hyclate 100 mg/ (Sodium Chloride) 100 mls @ 100 mls/hr IVPB 0600, 1800 SERGIO PRN Reason: Protocol Levalbuterol HCl (Xopenex) 0.63 mg IH [id number] SERGIO Last Admin: 01/04/17 01:18 Dose: Not Given Pantoprazole Sodium (Protonix Inj) 40 mg IVP Q12 SERGIO Last Admin: 01/03/17 22:51 Dose: 40 mg Physical Exam - Constitutional Appears: Toxic, Chronically Ill - Head Exam Head Exam: ATRAUMATIC, NORMAL INSPECTION, NORMOCEPHALIC - Neck Exam Additional comments: left IJ noted to be pulled back and only about 5cm were still inside skin. Left IJ side noted to be saturated with leaking IV fluids - Respiratory Exam Respiratory Exam: NORMAL BREATHING PATTERN. absent: Accessory Muscle Use, Rales , Rhonchi, Respiratory Distress Additional comments: Intubated - Cardiovascular Exam Cardiovascular Exam: absent: JVD - Extremities Exam Extremities exam: Positive for: normal inspection Results - Vital Signs Recent Vital Signs: Last Vital Signs Temp 98 F 01/03/17 16:00 Pulse 132 H 01/03/17 22:10 Resp 22 01/03/17 17:00 BP 80/50 L 01/03/17 22:00 Pulse Ox 93 L 01/03/17 22:10 - Labs Result Diagrams: 01/03/17 19:00 01/03/17 19:00 Labs: Laboratory Results - last 24 hr 01/03/17 01/03/17 01/03/17 13:52 15:00 15:00 WBC RBC Hgb Hct MCV MCH MCHC RDW Plt Count MPV Gran % Lymph % (Auto) [place] % (Auto) Eos % (Auto) Baso % (Auto) Gran # Lymph # [place] # Eos # Baso # Neutrophils % (Manual) Band Neutrophils % Lymphocytes % (Manual) Monocytes % (Manual) Myelocytes % Platelet Evaluation APTT pCO2 pO2 HCO3 ABG pH ABG Total CO2 ABG O2 Saturation ABG O2 Content ABG Base Excess ABG Hemoglobin ABG Carboxyhemoglobin POC ABG HHb (Measured) ABG Methemoglobin ABG O2 Capacity ABG Potassium VBG pH VBG pCO2 VBG HCO3 VBG Total CO2 VBG O2 Sat (Calc) VBG Base Excess VBG Potassium Hgb O2 Saturation Sodium Chloride Glucose Lactate Mechanical Rate FiO2 Tidal Volume PEEP Potassium Carbon Dioxide Anion Gap BUN Creatinine Est GFR ( Amer) Est GFR (Non-Af Amer) POC Glucose (mg/dL) 460 H* Random Glucose Lactic Acid 7.3 H* Calcium Total Bilirubin AST ALT Alkaline Phosphatase Total Creatine Kinase 1292 H CK-MB (CK-2) 106.0 H CK-MB (CK-2) % 8.2 H Troponin I 9.76 H* D Total Protein Albumin Globulin Albumin/Globulin Ratio Arterial Blood Potassium Venous Blood Potassium Urine Color Urine Appearance Urine pH Ur Specific [place] Urine Protein Urine Glucose (UA) Urine Ketones Urine Blood Urine Nitrate Urine Bilirubin Urine Urobilinogen Ur Leukocyte Esterase Urine RBC Urine WBC Urine Bacteria Blood Type Antibody Screen BBK History Checked 01/03/17 01/03/17 01/03/17 15:42 16:25 16:25 WBC RBC Hgb Hct MCV MCH MCHC RDW Plt Count MPV Gran % Lymph % (Auto) [place] % (Auto) Eos % (Auto) Baso % (Auto) Gran # Lymph # [place] # Eos # Baso # Neutrophils % (Manual) Band Neutrophils % Lymphocytes % (Manual) Monocytes % (Manual) Myelocytes % Platelet Evaluation APTT pCO2 pO2 44 HCO3 ABG pH ABG Total CO2 ABG O2 Saturation ABG O2 Content ABG Base Excess ABG Hemoglobin ABG Carboxyhemoglobin POC ABG HHb (Measured) ABG Methemoglobin ABG O2 Capacity ABG Potassium VBG pH 7.18 L* VBG pCO2 50.0 VBG HCO3 18.7 L VBG Total CO2 20.2 L VBG O2 Sat (Calc) 77.0 H VBG Base Excess -9.8 L VBG Potassium 5.4 H Hgb O2 Saturation Sodium 137.0 Chloride 100.0 Glucose 463 H* Lactate 6.6 H* Mechanical Rate FiO2 21.0 Tidal Volume PEEP Potassium Carbon Dioxide Anion Gap BUN Creatinine Est GFR ( Amer) Est GFR (Non-Af Amer) POC Glucose (mg/dL) 364 H Random Glucose Lactic Acid Calcium Total Bilirubin AST ALT Alkaline Phosphatase Total Creatine Kinase CK-MB (CK-2) CK-MB (CK-2) % Troponin I Total Protein Albumin Globulin Albumin/Globulin Ratio Arterial Blood Potassium Venous Blood Potassium 5.4 H Urine Color Urine Appearance Urine pH Ur Specific [place] Urine Protein Urine Glucose (UA) Urine Ketones Urine Blood Urine Nitrate Urine Bilirubin Urine Urobilinogen Ur Leukocyte Esterase Urine RBC Urine WBC Urine Bacteria Blood Type O NEGATIVE Antibody Screen Negative BBK History Checked Patient has bt 01/03/17 01/03/17 01/03/17 16:45 18:23 19:00 WBC RBC Hgb Hct MCV MCH MCHC RDW Plt Count MPV Gran % Lymph % (Auto) [place] % (Auto) Eos % (Auto) Baso % (Auto) Gran # Lymph # [place] # Eos # Baso # Neutrophils % (Manual) Band Neutrophils % Lymphocytes % (Manual) Monocytes % (Manual) Myelocytes % Platelet Evaluation APTT pCO2 40 pO2 89.0 HCO3 16.0 L ABG pH 7.21 L ABG Total CO2 17.2 L ABG O2 Saturation 97.1 ABG O2 Content ABG Base Excess -11.3 L ABG Hemoglobin ABG Carboxyhemoglobin POC ABG HHb (Measured) ABG Methemoglobin ABG O2 Capacity ABG Potassium 4.7 VBG pH VBG pCO2 VBG HCO3 VBG Total CO2 VBG O2 Sat (Calc) VBG Base Excess VBG Potassium Hgb O2 Saturation Sodium 136.0 Chloride 103.0 Glucose 432 H* Lactate 5.7 H* Mechanical Rate 18 FiO2 100.0 Tidal Volume 500 PEEP 5 Potassium Carbon Dioxide Anion Gap BUN Creatinine Est GFR ( Amer) Est GFR (Non-Af Amer) POC Glucose (mg/dL) 331 H Random Glucose Lactic Acid Calcium Total Bilirubin AST ALT Alkaline Phosphatase Total Creatine Kinase CK-MB (CK-2) CK-MB (CK-2) % Troponin I Total Protein Albumin Globulin Albumin/Globulin Ratio Arterial Blood Potassium 4.7 Venous Blood Potassium Urine Color Yellow Urine Appearance Cloudy Urine pH 5.5 Ur Specific [place] >= 1.030 Urine Protein 100 H Urine Glucose (UA) >=1000 Urine Ketones Negative Urine Blood Large H Urine Nitrate Negative Urine Bilirubin Negative Urine Urobilinogen 0.2 Ur Leukocyte Esterase Negative Urine RBC Tntc Urine WBC 0 - 2 Urine Bacteria Mod Blood Type Antibody Screen BBK History Checked 01/03/17 01/03/17 01/03/17 19:00 19:00 19:00 WBC 16.3 H RBC 4.68 Hgb 14.4 D Hct 43.9 MCV 93.8 D MCH 30.8 MCHC 32.8 RDW 15.8 H Plt Count 193 MPV 10.1 Gran % 92.5 H Lymph % (Auto) 5.2 L [place] % (Auto) 2.2 Eos % (Auto) 0.0 L Baso % (Auto) 0.1 Gran # 15.07 H Lymph # 0.8 L [place] # 0.4 Eos # 0.0 Baso # 0.02 Neutrophils % (Manual) 90 H Band Neutrophils % 3 H Lymphocytes % (Manual) 5 L Monocytes % (Manual) 1 Myelocytes % 1 Platelet Evaluation Normal APTT 34.4 pCO2 pO2 HCO3 ABG pH ABG Total CO2 ABG O2 Saturation ABG O2 Content ABG Base Excess ABG Hemoglobin ABG Carboxyhemoglobin POC ABG HHb (Measured) ABG Methemoglobin ABG O2 Capacity ABG Potassium VBG pH VBG pCO2 VBG HCO3 VBG Total CO2 VBG O2 Sat (Calc) VBG Base Excess VBG Potassium Hgb O2 Saturation Sodium 137 Chloride 105 Glucose Lactate Mechanical Rate FiO2 Tidal Volume PEEP Potassium 4.5 Carbon Dioxide 20 L Anion Gap 17 BUN 16 Creatinine 1.5 Est GFR ( Amer) 56 Est GFR (Non-Af Amer) 46 POC Glucose (mg/dL) Random Glucose 349 H* D Lactic Acid Calcium 7.8 L Total Bilirubin 0.8 AST 415 H D ALT 124 H Alkaline Phosphatase 119 Total Creatine Kinase 2700 H CK-MB (CK-2) 190.0 H CK-MB (CK-2) % Troponin I 47.00 H* D Total Protein 6.1 Albumin 3.4 Globulin 2.7 Albumin/Globulin Ratio 1.3 Arterial Blood Potassium Venous Blood Potassium Urine Color Urine Appearance Urine pH Ur Specific [place] Urine Protein Urine Glucose (UA) Urine Ketones Urine Blood Urine Nitrate Urine Bilirubin Urine Urobilinogen Ur Leukocyte Esterase Urine RBC Urine WBC Urine Bacteria Blood Type Antibody Screen BBK History Checked 01/03/17 01/03/17 01/03/17 19:48 20:35 20:45 WBC RBC Hgb Hct MCV MCH MCHC RDW Plt Count MPV Gran % Lymph % (Auto) [place] % (Auto) Eos % (Auto) Baso % (Auto) Gran # Lymph # [place] # Eos # Baso # Neutrophils % (Manual) Band Neutrophils % Lymphocytes % (Manual) Monocytes % (Manual) Myelocytes % Platelet Evaluation APTT pCO2 32 L pO2 32 62.0 L HCO3 17.3 L ABG pH 7.34 L ABG Total CO2 18.3 L ABG O2 Saturation 94.3 L ABG O2 Content 18.5 ABG Base Excess -7.3 L ABG Hemoglobin 14.3 ABG Carboxyhemoglobin 1.4 POC ABG HHb (Measured) 5.6 H ABG Methemoglobin 0.9 ABG O2 Capacity 19.6 ABG Potassium VBG pH 7.30 L VBG pCO2 46.0 VBG HCO3 22.6 VBG Total CO2 24.0 VBG O2 Sat (Calc) 66.7 H VBG Base Excess -4.0 L VBG Potassium 4.0 Hgb O2 Saturation 92.1 L Sodium 141.0 Chloride 104.0 Glucose 276 H Lactate 4.0 H* Mechanical Rate FiO2 21.0 50.0 Tidal Volume PEEP Potassium Carbon Dioxide Anion Gap BUN Creatinine Est GFR ( Amer) Est GFR (Non-Af Amer) POC Glucose (mg/dL) 302 H Random Glucose Lactic Acid Calcium Total Bilirubin AST ALT Alkaline Phosphatase Total Creatine Kinase CK-MB (CK-2) CK-MB (CK-2) % Troponin I Total Protein Albumin Globulin Albumin/Globulin Ratio Arterial Blood Potassium Venous Blood Potassium 4.0 Urine Color Urine Appearance Urine pH Ur Specific [place] Urine Protein Urine Glucose (UA) Urine Ketones Urine Blood Urine Nitrate Urine Bilirubin Urine Urobilinogen Ur Leukocyte Esterase Urine RBC Urine WBC Urine Bacteria Blood Type Antibody Screen BBK History Checked 01/03/17 01/03/17 01/03/17 20:53 21:28 22:29 WBC RBC Hgb Hct MCV MCH MCHC RDW Plt Count MPV Gran % Lymph % (Auto) [place] % (Auto) Eos % (Auto) Baso % (Auto) Gran # Lymph # [place] # Eos # Baso # Neutrophils % (Manual) Band Neutrophils % Lymphocytes % (Manual) Monocytes % (Manual) Myelocytes % Platelet Evaluation APTT pCO2 pO2 HCO3 ABG pH ABG Total CO2 ABG O2 Saturation ABG O2 Content ABG Base Excess ABG Hemoglobin ABG Carboxyhemoglobin POC ABG HHb (Measured) ABG Methemoglobin ABG O2 Capacity ABG Potassium VBG pH VBG pCO2 VBG HCO3 VBG Total CO2 VBG O2 Sat (Calc) VBG Base Excess VBG Potassium Hgb O2 Saturation Sodium Chloride Glucose Lactate Mechanical Rate FiO2 Tidal Volume PEEP Potassium Carbon Dioxide Anion Gap BUN Creatinine Est GFR ( Amer) Est GFR (Non-Af Amer) POC Glucose (mg/dL) 247 H 216 H 184 H Random Glucose Lactic Acid Calcium Total Bilirubin AST ALT Alkaline Phosphatase Total Creatine Kinase CK-MB (CK-2) CK-MB (CK-2) % Troponin I Total Protein Albumin Globulin Albumin/Globulin Ratio Arterial Blood Potassium Venous Blood Potassium Urine Color Urine Appearance Urine pH Ur Specific [place] Urine Protein Urine Glucose (UA) Urine Ketones Urine Blood Urine Nitrate Urine Bilirubin Urine Urobilinogen Ur Leukocyte Esterase Urine RBC Urine WBC Urine Bacteria Blood Type Antibody Screen BBK History Checked 01/03/17 01/03/17 01/04/17 22:45 23:32 00:42 WBC RBC Hgb Hct MCV MCH MCHC RDW Plt Count MPV Gran % Lymph % (Auto) [place] % (Auto) Eos % (Auto) Baso % (Auto) Gran # Lymph # [place] # Eos # Baso # Neutrophils % (Manual) Band Neutrophils % Lymphocytes % (Manual) Monocytes % (Manual) Myelocytes % Platelet Evaluation APTT pCO2 pO2 HCO3 ABG pH ABG Total CO2 ABG O2 Saturation ABG O2 Content ABG Base Excess ABG Hemoglobin ABG Carboxyhemoglobin POC ABG HHb (Measured) ABG Methemoglobin ABG O2 Capacity ABG Potassium VBG pH VBG pCO2 VBG HCO3 VBG Total CO2 VBG O2 Sat (Calc) VBG Base Excess VBG Potassium Hgb O2 Saturation Sodium Chloride Glucose Lactate Mechanical Rate FiO2 Tidal Volume PEEP Potassium Carbon Dioxide Anion Gap BUN Creatinine Est GFR ( Amer) Est GFR (Non-Af Amer) POC Glucose (mg/dL) 183 H 172 H Random Glucose Lactic Acid Calcium Total Bilirubin AST ALT Alkaline Phosphatase Total Creatine Kinase 3902 H CK-MB (CK-2) 159.0 H CK-MB (CK-2) % 4.1 H Troponin I 87.90 H* D Total Protein Albumin Globulin Albumin/Globulin Ratio Arterial Blood Potassium Venous Blood Potassium Urine Color Urine Appearance Urine pH Ur Specific [place] Urine Protein Urine Glucose (UA) Urine Ketones Urine Blood Urine Nitrate Urine Bilirubin Urine Urobilinogen Ur Leukocyte Esterase Urine RBC Urine WBC Urine Bacteria Blood Type Antibody Screen BBK History Checked 01/04/17 01/04/17 01:00 02:40 WBC RBC Hgb Hct MCV MCH MCHC RDW Plt Count MPV Gran % Lymph % (Auto) [place] % (Auto) Eos % (Auto) Baso % (Auto) Gran # Lymph # [place] # Eos # Baso # Neutrophils % (Manual) Band Neutrophils % Lymphocytes % (Manual) Monocytes % (Manual) Myelocytes % Platelet Evaluation APTT 102.1 H* pCO2 pO2 HCO3 ABG pH ABG Total CO2 ABG O2 Saturation ABG O2 Content ABG Base Excess ABG Hemoglobin ABG Carboxyhemoglobin POC ABG HHb (Measured) ABG Methemoglobin ABG O2 Capacity ABG Potassium VBG pH VBG pCO2 VBG HCO3 VBG Total CO2 VBG O2 Sat (Calc) VBG Base Excess VBG Potassium Hgb O2 Saturation Sodium Chloride Glucose Lactate Mechanical Rate FiO2 Tidal Volume PEEP Potassium Carbon Dioxide Anion Gap BUN Creatinine Est GFR ( Amer) Est GFR (Non-Af Amer) POC Glucose (mg/dL) Random Glucose Lactic Acid Calcium Total Bilirubin AST ALT Alkaline Phosphatase Total Creatine Kinase 3631 H CK-MB (CK-2) 119.0 H CK-MB (CK-2) % Troponin I 82.60 H* Total Protein Albumin Globulin Albumin/Globulin Ratio Arterial Blood Potassium Venous Blood Potassium Urine Color Urine Appearance Urine pH Ur Specific [place] Urine Protein Urine Glucose (UA) Urine Ketones Urine Blood Urine Nitrate Urine Bilirubin Urine Urobilinogen Ur Leukocyte Esterase Urine RBC Urine WBC Urine Bacteria Blood Type Antibody Screen BBK History Checked Assessment & Plan - Assessment and Plan (Free Text) Assessment: 71yo M in probable shock, surgery consulted for Triple Lumen Catheter access. - Consent obtained and on chart. - Placed Right IJ TLC under direct US guidance - Please refer to the procedure note. Ernst West PGY1 surg pager: [phone]
--- NOTE | 2017-01-04 04:27 | PCM.PROC ---
Procedures Attestation:: I certify that I have explained the specified Operation(s) or Procedure(s), risks, benefits and reasonable alternatives to the Patient and/or other person responsible. The opportunity was given to ask questions and all questions answered - Central Line Placement Right Internal Jugular Triple Lumen Catheter Aseptic technique was employed throughout the procedure: Hand Hygiene done prior to procedure, Full sterile barriers (mask, hair cover, sterile gown, sterile gloves), Full body sterile drape, Chloraprep Antiseptic: 30 second prep for IJ or SC sites CVP Time Out Performed: Yes Pt. Placed on Pulse Ox Monitor: Yes Central Line Prep: Chlorhexidine-Alcohol Combination Amount of Anesthesia Used (mls): 0 (Patient already intubated and sedated) Ultrasound Used for Placement: Yes Central Line Lumen Inserted: triple Central Line Length: 20 cm Post Procedure: Sutured in Place, Good Blood Return, All Ports Aspirated, Flushed, Capped, Sterile Dressing Applied Secured by: Suture Post procedure dressing: Chlorhexidine disc (Biopatch) Post Procedure X-Ray: Yes Patient Tolerated Procedure: Well, No Complications Immediate Complications: None Additional Comments: Patient tolerated procedure well. No immediate complications noted. Post- procedure Xray obtained with adequate placement of Right IJ TLC
[2017-01-04 05:13] LABS: BASO # 0.04 K/mm3 (0.0-2.0); BASO % 0.2 % (0.0-3.0); GRAN # 15.05 (1.4-6.5); GRAN % 79.5 % (50.0-68.0); HEMATOCRIT 42.3 % (42.0-52.0); LYMPH # 2.5 (1.2-3.4); LYMPH % 13.3 % (22.0-35.0); MEAN CELL VOLUME 92.2 fl (80.0-105.0); MEAN CORPUSCULAR HEMOGLOBIN 30.9 pg (25.0-35.0); MEAN CORPUSCULAR HGB CONC 33.6 g/dl (31.0-37.0); MEAN PLATELET VOLUME 10.4 fl (7.0-11.0); MONO # 1.3 (0.1-0.6); RED CELL DISTRIBUTION WIDTH 15.9 % (11.5-14.5); WHITE BLOOD COUNT 18.9 10^3/ul (4.5-11.0)
[2017-01-04 05:46] LABS: ALB/GLOB RATIO 1.2 (1.1-1.8); BILIRUBIN,DIRECT 0.5 mg/dL (0.0-0.4); BILIRUBIN,TOTAL 0.5 mg/dL (0.2-1.3); MAGNESIUM 1.5 mg/dL (1.7-2.2); POTASSIUM 4.7 mmol/L (3.6-5.0); TOTAL PROTEIN 5.9 g/dL (5.8-8.3)
[2017-01-04 05:51] LABS: ARTERIAL BLOOD GAS HCO3 18.9 mmol/L (21-28); ARTERIAL BLOOD GAS O2 CAPACITY 19.6 mL/dl (16-24); ARTERIAL BLOOD GAS O2 CONTENT 19.4 ML/dl (15-23); ARTERIAL BLOOD GAS PH 7.34 (7.35-7.45); CARBOXYHEMOGLOBIN 1.1 % (0.5-1.5); HHB 1.2 % (0-5); METHEMOGLOBIN 0.7 % (0.0-3.0)
[2017-01-04] MEDS ORDERED: Piperacillin/Tazobact 3.375 gm 100 ML IVPB SCH (06:00)
[2017-01-04] MEDS ORDERED: Vancomycin 1gm in NS 250ml 1 GM/250 ML BAG IVPB STA (06:46)
[2017-01-04] MEDS: Fentanyl 1000mcg/100ml NS 1,000 MCG/100 ML BAG IV PRN ×2 (06:47→12:30)
[2017-01-04] MEDS: Meropenem 500 MG in Sodium Chloride 0.9% 50 ML IVPB SCH ×3 (07:03→21:44)
[2017-01-04] MEDS ORDERED: Magnesium Sulfate 1 gm in D5W 1 GM/100 ML BAG IVPB ONE (07:31)
[2017-01-04] MEDS ORDERED: Magnesium Sulfate 2 GM in Sodium Chloride 0.9% 100 ML IVPB ONE (08:05)
--- NOTE | 2017-01-04 09:03 | RAD ---
HISTORY: placement COMPARISON: 01/03/2017 FINDINGS: LUNGS: There is a dense alveolar infiltrate at the right lung base. There is a new right internal jugular line that terminates at the junction of the SVC and right atrium. There is no pneumothorax PLEURA: No significant pleural effusion identified, no pneumothorax apparent. CARDIOVASCULAR: Normal. OSSEOUS STRUCTURES: No significant abnormalities. VISUALIZED UPPER ABDOMEN: Normal. OTHER FINDINGS: Endotracheal and nasogastric tubes unchanged IMPRESSION: There is a dense alveolar infiltrate at the right lung base. There is a new right internal jugular line that terminates at the junction of the SVC and right atrium. There is no pneumothorax
[2017-01-04] MEDS: Midazolam 100 mg/100ml in NS 100 MG/100 ML SOL IV PRN (09:07)
[2017-01-04] MEDS ORDERED: Sodium Chloride 0.9% 250 ML IV SCH (09:15)
--- NOTE | 2017-01-04 10:03 | PN ---
DATE: 01/04/2017 SUBJECTIVE: The patient is seen and examined at bedside. He is sedated with fentanyl 150 mcg per hour and Versed 4 mg per hour. He is on PRVC 450/25/10/50. On that setting, his oxygen saturation is 97%. He is on Levophed 4 mcg per minute. He is on dobutamine 5 mcg/kg/minute. OBJECTIVE: VITAL SIGNS: His blood pressure on that varies between 100 and 102/50 to 51 with mean arterial pressure of 68. Temperature 101.7, heart rate 124, respiratory rate 25. ENT: Head and neck atraumatic. LUNGS: Some crackles and bronchial sounds in the left base. HEART: Regular rate and rhythm. S1, S2 distant. ABDOMEN: Soft, nontender and nondistended. MUSCULOSKELETAL: No C/C/E. SKIN: Color moist. PSYCH: The patient is sedated. LABORATORY DATA: Sodium 139, potassium 4.7, chloride 17, carbon dioxide 25, BUN 23, creatinine 2.4 up from 1.5. 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 Lactic acid 2.1, magnesium 1.5. AST 430, ALT 125 (amiodarone stopped, even though shock liver is more likely diagnosis. Continued amiodarone may need to risk him due to its potential contribution to transaminitis). CPK 3631. Troponin 82.6 down from 87.9. ProBNP 15,000, albumin 3.3, PTT 102.1. The patient is on heparin drip. WBC 18.9, hemoglobin 14.2, platelet count 184. Urine is negative for leukocyte esterase and bilirubin as well as negative for nitrates. Blood gas today morning showed 7.34/35/102 on 60% FiO2 (FiO2 went down to 50%). MEDICATIONS: Amiodarone was stopped. Statins were stopped. Due to substantial rise in LFTs, Tylenol p.r.n. was stopped for the same reason. Aspirin, Plavix, dobutamine, doxycycline, heparin drip, insulin drip currently at 4 units per hour, (Xopenex held), magnesium supplementation, meropenem, norepinephrine, Protonix 40 mg IV q. 12 h., bicarb drip was held yesterday, vancomycin and Versed. Chest x-ray today showed more dense infiltrate in the right lower lobe. ASSESSMENT AND PLAN: This is 71-year-old gentleman with cardiogenic shock due to ischemic coronary event complicated by sustained ventricular tachycardia, required cardioversion x2. Cardiogenic shock with multiorgan dysfunction syndrome including respiratory failure, shock liver, acute kidney injury, encephalopathy, lactic acidosis. Neuro: The patient is sedated with fentanyl drip and Versed. Propofol was tried before, however, despite incremental doses, the patient continued to be agitated. We will try to wean sedation as much as tolerated to RASS-2. Pulmonary: The patient has dense right lower lobe infiltrate. We will continue with protective lung ventilation strategy to maintain tidal volume 6-8 mL per predicted body weight and plateau pressure less than 30 cm of water. Head of bed elevated more than 35 degrees. Oral hygiene. VAP bundle. The patient is on 50% FiO2 went PEEP 10. If tolerates well, we might go down on PEEP little bit. Once shock resolves, we will proceed with diuresis. Conservative 02 and fluid management Cardiovascular: The patient is in cardiogenic shock due to ischemic coronary event. In light of rising leukocytosis, dense RLL infiltrate and fever , cant rule out component of distribituve shock pathophysiology The patient was on amiodarone which is stopped now due to rising transaminitis. Statins are stopped as well due to rising transaminitis. The patient is on aspirin, Plavix and therapeutic anticoagulation as the patient is in shock and on inotropic support with dobutamine. beta-blockers withheld. May hold Plavix now as patient may need CT surgery for LVADs implantation (discussed with Dr. Mcclain-cardiology service). The patient is known to have very low ejection fraction at baseline which most likely exacerbated by recent ischemic or hypotensive event. Cardiology service is following the patient as well. 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 Positive pressure ventilation provides afterload reduction as well. ID: The patient has rising leukocytosis, fever and right lower lobe infiltrate. Possibility of community-acquired pneumonia cannot be ruled out; however, in the setting of very low procalcitonin, viral infection appears to be more likely. I will start the patient on Tamiflu, will do rapid flu test and discuss this with Dr. Walter. Blood, urine culture, sputum culture as well as urine for Legionella and streptococcal antigen were sent. The patient is on broad-spectrum antibiotics by ID service. We will trend procalcitonin as well. GI: Once the patient's vasopressors requirements decreased little bit more, we will start enteral nutrition. Continue with GI prophylaxis and head of bed elevated more than 35 degrees. Endocrine: We will maintain blood glucose within 140-180 range. At present time, the patient is on insulin drip, however, we will switch to regular insulin sliding scale. We will continue with GI prophylaxis. ccm time 40 min Kieran Arevalo MD [place]
[2017-01-04] MEDS: Insulin Regular 100 UNITS in Sodium Chloride 0.9% 99 ML IV PRN (10:39)
--- NOTE | 2017-01-04 11:11 | PN ---
DATE OF SERVICE: 01/04/2017 LOCATION: Patient is seen in ICU, bed 6. SUBJECTIVE: Patient's family is at bedside. The patient is still intubated on ventilator on. Overnight events were noted. The patient has been spiking high-grade fever. T-max in the last 24 hours and 12 hours is 103.8 down to 101.5. Telemetry shows sinus tachycardia in 120s, 130s. Blood pressure averaging around systolic high 80s to low 90s systolic, diastolic in 50 mmHg. Respiratory rate in high 20s to low 30s per minute. O2 saturation is 97-98% on vent. The patient's output has only been 300 mL and draining dark urine. Overnight nurse's notes were reviewed. The patient had a right internal jugular new triple-lumen catheter placement. The patient had a left axillary arterial line placed. OBJECTIVE: HEENT: The patient's head examination normocephalic, atraumatic. HEENT examination shows positive ET tube, positive NG tube. [place] conjunctivae. Anicteric sclerae. Dry oral mucosa. NECK: No neck rigidity. CHEST: Positive left upper chest defibrillator. LUNGS: Shows positive rhonchi, creps bilaterally right more than the left. CARDIOVASCULAR: S1, S2, tachycardic rhythm. Positive systolic murmur, right second intercostal space, left sternal border, left second intercostal space. ABDOMEN: Protuberant. GENITALIA: Male. Positive Ramirez catheter. EXTREMITY: Shows no pitting edema, no calf tenderness, no Homans' sign. NEUROLOGIC: Neurologically, patient is sedated on ventilator. MUSCULOSKELETAL: Shows a body mass index of 35.9. Cranial nerves II-XII limited. Gait examination, bedridden. PSYCHIATRIC: Not applicable. VASCULAR: Palpable pulses. DIAGNOSTICS: On 01/04/2017; WBC count has increased to 19,000 from 15.9, hemoglobin/hematocrit 14.2/42.3, platelets 184. Granulocytes; 79% segs, 90% neutrophil, 3 bands. PTT is 102.1. The patient is started on heparin drip. ABG on 60% FiO2; pH of 7.34, pCO2 of 35, pO2 of 108, bicarb 19, saturation of 98.8%. Sodium 139, potassium 4.7, chloride 107, CO2 of 25, anion gap 12, BUN 23, creatinine 2.4, GFR 32. Fingerstick blood sugar 175, 174, 149, 139. Lactic acid is down to 2.1 from 7.3 yesterday. Magnesium 1.5, calcium 8.0, AST 430 up from 61 on admission, ALT is 125 up from 51 from admission. BNP is 15,000 up from 1570 on admission. Peak troponin is 87.9. Peak CPK is 3900. Procalcitonin less than 0.05. Urine; pH 5.5, specific gravity greater than 1.030, 100 protein, glucose greater than 1000, large blood, too numerous to count RBC, moderate bacteria. Influenza serologies are negative. Blood type O negative. Chest x-ray was done on 01/04/2017, which shows right lower lobe, right middle lobe dense infiltrate with new right internal jugular triple-lumen catheter. ET tube and NG tube unchanged. EKG done today, 01/04/2017, shows paced rhythm. IMPRESSION AND PLAN: 1. Ventilator-dependent respiratory failure. 2. Cardiogenic shock versus hypotensive hypovolemic shock versus septic shock. 3. Multiple organ dysfunction syndrome. 4. Acute renal failure and acute kidney injury. 5. Severe lactic acidosis and increase anion gap metabolic acidosis. 6. End-stage dilated ischemic cardiomyopathy. 7. Status post ventricular tachycardia, ventricular fibrillation, cardiac arrest. 8. High-grade fever of greater than 103 degrees Fahrenheit. 9. Sinus tachycardia. 10. Refractory/persistent hypotension. 11. Decreasing urine output and with acute kidney injury and acute renal failure. 12. Leukocytosis with granulocytosis and bandemia. 13. Acute myocardial infarction with elevated troponin. 14. Increase anion gap metabolic acidosis with lactic acidosis. 15. Uncontrolled diabetes mellitus with hyperglycemia. 16. Hypomagnesemia. 17. Shocked liver with severe transaminitis. 18. Elevated CPK and elevated troponin secondary to acute myocardial infarction and cardiogenic shock. 19. Probable acute systolic pulmonary edema and systolic congestive heart failure with elevated BNP. 20. Status post right internal jugular triple-lumen catheter placement. 21. Status post left axillary arterial line placement. 22. Left axillary arterial line placement. 23. Right lower lobe and right middle lobe pneumonia, questionable community-acquired versus aspiration versus healthcare-associated pneumonia. 24. Acute systolic congestive heart failure. 25. Multilobar bilateral alveolar infiltrate. 26. Multivessel coronary artery disease. 27. Cardiogenic shock. 1. Ventricular tachycardia, ventricular fibrillation, cardiac arrest. 2. Brief period of asystole. 3. Ventilator-dependent respiratory failure. 4. Acute systolic congestive heart failure. 5. Cardiogenic versus hypotensive versus septic shock with hypotension. 6. Tachycardia. 7. Hypothermia. 8. Hypertension. 9. Hypoxemia. 10. Leukocytosis. 11. Lactic acidosis. 12. Metabolic acidosis. 13. Hypokalemia. 14. Increased anion gap metabolic acidosis. 15. Hyperglycemia. 16. Transaminitis. 17. Acute systolic congestive heart failure and pulmonary edema with elevated BNP of 1570. 18. Status post left internal jugular triple-lumen catheter placement. 19. Status post cardiac resuscitation. 20. Questionable aspiration versus community-acquired pneumonia. 21. Acute systolic congestive heart failure with pulmonary vascular congestion. 22. Bilateral multilobar pneumonia. 23. Transient left bundle-branch block pattern with nonspecific ST changes. 24. Ventricular tachycardia, ventricle fibrillation arrest. 1. Ventricular tachycardia, ventricular fibrillation, cardiac arrest. 2. Brief period of asystole. 3. Ventilator-dependent respiratory failure. 4. Acute systolic congestive heart failure. 5. Cardiogenic versus hypotensive versus septic shock with hypotension. 6. Tachycardia. 7. Hypothermia. 8. Hypertension. 9. Hypoxemia. 10. Leukocytosis. 11. Lactic acidosis. 12. Metabolic acidosis. 13. Hypokalemia. 14. Increased anion gap metabolic acidosis. 15. Hyperglycemia. 16. Transaminitis. 17. Acute systolic congestive heart failure and pulmonary edema with elevated BNP of 1570. 18. Status post left internal jugular triple-lumen catheter placement. 19. Status post cardiac resuscitation. 20. Questionable aspiration versus community-acquired pneumonia. 21. Acute systolic congestive heart failure with pulmonary vascular congestion. 22. Bilateral multilobar pneumonia. 23. Transient left bundle-branch block pattern with nonspecific ST changes. 24. Ventricular tachycardia, ventricle fibrillation arrest. PLAN: At this time, the patient has been ordered serial labs. Serial ABGs ordered. The patient's blood cultures, urine cultures pending. Sputum cultures still pending. Current Consultations: Cardiology, Dr. Mcclain. Infectious Disease, Dr. Walter. Nephrology, Dr. High. Patient's medications are; patient's amiodarone has been held because of transaminitis. The patient is on aspirin 81 daily, dobutamine drip, Ventolin drip, heparin drip and insulin drip. The patient is being given magnesium sulfate rider. The patient is on meropenem 500 IV q.8. Levophed drip is active on MAR at 4 mcg per minute. Plavix 75 daily, Protonix 40 IV q.12, bicarb drip at 125 mL an hour. The patient was given fluid bolus of 250 mL. The patient is on Tylenol suppository q.6 p.r.n. Patient was given 1 g of vancomycin by Dr. Walter. Patient is on doxycycline 100 mg IV q.12, Xopenex nebulizer 0.63 every 6 hours. Repeat chest x-ray, repeat EKG ordered. Echo with Doppler ordered. The patient is on VAMSI stockings, SCDs. I have met with the patient's and the rest of the family at bedside. I have explained to the patient's and the family about overall the patient's worsening clinical condition and multisystem organ dysfunction was explained to the patient's and the rest of the family in layman's language. I have also explained to the patient's family about patient's critical condition. Also, patient's family was explained about the likelihood of patient's developing more complication is extremely high at this situation. The patient will be continued to be treated aggressively in the intensive care unit with all multispecialty consultation. Time spent in the entire management more than 35 minutes. Dictated and electronically signed, not read. Signing off, Andres Pettit MD [facility]
--- NOTE | 2017-01-04 11:42 | PN ---
DATE: 01/04/2017 SUBJECTIVE: The patient remains on a ventilator. OBJECTIVE: VITAL SIGNS: Blood pressure is between 93 and 100 systolic on IV dobutamine. Temperature is now 101. The heart rate is approximately 110-120. NECK: Negative JVD. LUNG: Decreased breath sounds. HEART: S1 and S2. EXTREMITIES: Without change. LABORATORY DATA: Hemoglobin is 14.2, white count is up to 18.9. Chemistries, glucose is 149 and BUN and creatinine are 23 and 2.4. IMPRESSION: 1. Cardiogenic shock. 2. Acute pulmonary edema. 3. End-stage dilated cardiomyopathy. 4. Acute renal injury. 5. Transient hypotension resulting in multiorgan injury. PLAN: Given these findings, I have contacted [facility] for possible transfer to the heart failure program for possible LVAD. I have discussed this with the family in detail. Anuj Mcclain MD
--- NOTE | 2017-01-04 12:40 | US ---
PROCEDURE: Ultrasound of the Kidneys HISTORY: [facility] COMPARISON: None available. TECHNIQUE: Sonogram of the kidneys. FINDINGS: RIGHT KIDNEY: Measures: 5.9 x 10.4 cm. Normal in size, contour and echogenicity. No stone, solid mass lesion or hydronephrosis visualized. LEFT KIDNEY: Measures: 5.4 x 12.7 cm. Normal in size, contour and echogenicity. No stone, solid mass lesion or hydronephrosis visualized. OTHER FINDINGS: None. IMPRESSION: Unremarkable renal sonogram.
--- NOTE | 2017-01-04 13:51 | CP.PCM.CON ---
History of Present Illness - History of Present Illness History of Present Illness: Initial Nephrology Consultation: Assessment: critical Oliguric Acute Kidney Injury (N17.9) likely due to acute tubular necrosis due to cardiogenic/acute PR and septic shock, requiring pressors Hypomagnesemia, acute respi failure, lactic acidosis hx of severe systolic CHF, hx of PPM, pulmonary HTN, DM, HTN Plan No acute need for renal replacement therapy at this time but may need soon. pt apparently planned for transfer to tertiary care center by cardiology which will be better from renal perspective too as he can receive CRRT there if and when needed. maintain hemodynamics stable as possible. No ACEI/ARB due to BARRY supplement electolytes agree with holding bicarb drip as pH much better now Monitor Input/Output, daily weights and renal function with basic metabolic panel no contraindication from renal perspective for him to get PICC line as pt in B[place] but due to life threatening condition, will need IV access. Check urine Na, spot protein/creatinine and albumin/creatinine ratio, renal sonogram. Dose meds/antibiotics for reduced GFR <10. Avoid fleets enema/magnesium based laxatives. Avoid nephrotoxins/NSAIDs/ iodinated contrast (unless needed emergently) Glycemic control Further work up/management as per primary team Thanks for allowing me to participate in care of your patient. Will follow patient with you. Please call if any Qs. d/w ICU Dr Pablito Moyer Office: [phone] Chief Complaint; unable reason for consult: BARRY HPI: Pt is a 71 y/o M with hx of severe systolic CHF, hx of PPM, pulmonary HTN, DM, HTN presented with complaints of shortness of breath and was intubated for acute respi failure as pt had cardiogenic/septic shock with lactic acidosis, elevated troponin. renal consulted for BARRY pt intubated unable to provide any hx No recent iodinated contrast exposure. had episodes of low BP and required pressors. ROS: Unable Physical Examination: General Appearance: obese male. ill appearing, intubated, sedated, vent setting as 50% FiO2 and PEEP 8 RR 25 TV 450, O2 sat 93% Vitals reviewed and noted as below Head; Atraumatic, normocephalic ENT: no ulcers no thrush. Tongue is midline. Oropharynx: no rash or ulcers. he is orally intubated EYES: Pupils are equal, round and sluggish to light accommodation.Sclera is anicteric. Neck; supple no lymphadenopathy, no thyromegaly or bruit Lungs: intubated Breath sounds bilateral equal and clear anteriorly Heart: Increased rate. s1s2 normal. No rub or gallop. Extremities: no edema. No varicose veins Neurological: Patient is sedated Skin: Warm and dry. Normal turgor. No rash. Palpitation: Normal elasticity for age Abdomen: Abdomen is soft. Bowel sounds +. There is no abdominal tenderness, no guarding/rigidity no organomegaly Psych: unable MSK: no joint tenderness or swelling. Digits and nails normal, no deformity : kidney or bladder not palpable. has blood in urine Labs/imaging/EKG reviewed. Past medical history, past surgical history, family history, social history, allergy reviewed and noted as below Family hx: no hx of CKD. Rest non-contributory work up: renal sono neg ABG pH 7.34 Trop 90 Past Patient History - Infectious Disease Hx of Infectious Diseases: None - Past Social History Smoking Status: Former Smoker - CARDIAC Hx Angina: Yes (unstable angina) Hx Congestive Heart Failure: Yes Hx Heart Attack: Yes Hx Hypertension: Yes Hx Pacemaker: Yes Other/Comment: L sided pacemaker+defibrillator. Cardiomyopathy. S/P Angioplasty with stent placement - PULMONARY Hx Respiratory Disorders: Yes Hx Pneumonia: Yes - NEUROLOGICAL Hx Neurological Disorder: No - HEENT Hx HEENT Problems: No (WEARS RX GLASSES) - RENAL Hx Chronic Kidney Disease: No - ENDOCRINE/METABOLIC Hx Endocrine Disorders: Yes Hx Diabetes Mellitus Type 2: Yes - HEMATOLOGICAL/ONCOLOGICAL Hx Blood Disorders: Yes Hx Anemia: Yes Other/Comment: h/o L subclavian vein occlusive thrombosis - INTEGUMENTARY Hx Dermatological Problems: No - MUSCULOSKELETAL/RHEUMATOLOGICAL Hx Falls: No - GASTROINTESTINAL Hx Gastrointestinal Disorders: No - GENITOURINARY/GYNECOLOGICAL Hx Genitourinary Disorders: No - PSYCHIATRIC Hx Substance Use: No - SURGICAL HISTORY Hx Coronary Stent: Yes - ANESTHESIA Hx Anesthesia: Yes Hx Anesthesia Reactions: No Hx Malignant Hyperthermia: No Meds Allergies/Adverse Reactions: Allergies Allergy/AdvReac Type Severity Reaction Status Date / Time No Known Allergies Allergy Verified 06/24/15 15:39 - Medications Medications: Current Medications Acetaminophen (Tylenol 650 Mg Supp) 650 mg RC Q6H PRN PRN Reason: Fever >=99.5f Aspirin (Aspirin Chewable) 81 mg PO DAILY [facility] Last Admin: 01/04/17 10:53 Dose: 81 mg Clopidogrel Bisulfate (Plavix) 75 mg PO DAILY [facility] Last Admin: 01/04/17 10:53 Dose: 75 mg NOREPINEPHRINE BIT/0.9 % NACL (Levophed 4 Mg/ 250 Ml Ns Premixed) 4 mg in 250 mls @ 15 mls/hr IV .[id number] PRN; Protocol; 4 MCG/MIN PRN Reason: TITRATE PER MD ORDER Last Titration: 01/04/17 07:25 Dose: 0 mcg/min, 0 mls/hr Propofol (Diprivan) 1,000 mg in 100 mls @ 3.402 mls/hr IV .Q24H PRN; Protocol; 5 MCG/KG/MIN PRN Reason: TITRATE PER MD ORDER Last Titration: 01/03/17 22:10 Dose: 0 mcg/kg/min, 0 mls/hr Fentanyl Citrate (Fentanyl Citrate/Sodium Chloride 1 Mg/100 Ml) 1,000 mcg in 100 mls @ 2 mls/hr IV .Q24H PRN; Protocol; 20 MCG/HR PRN Reason: TITRATE PER MD ORDER Last Admin: 01/04/17 12:30 Dose: 150 mcg/hr, 15 mls/hr Dobutamine HCl/Dextrose (Dobutamine/Dextrose 5% 500mg/250ml) 500 mg in 250 mls @ 17.01 mls/hr IV .[id number] PRN; Protocol; 5 MCG/KG/MIN PRN Reason: TITRATE PER PROTOCOL Last Admin: 01/03/17 15:08 Dose: 17.01 mls/hr Insulin Human Regular 100 (units/ Sodium Chloride) 100 mls @ 0 mls/hr IV .Q0M PRN; Protocol; Titrate PRN Reason: TITRATE PER MD ORDER Last Titration: 01/04/17 13:24 Dose: 4 unit/hr, 4 mls/hr Sodium Bicarbonate 75 meq/ (Sodium Chloride) 1,075 mls @ 125 mls/hr IV .[id number] [facility] Last Admin: 01/03/17 18:30 Dose: 125 mls/hr Heparin Sodium/Sodium Chloride (Heparin 54164 Units/250ml 1/2 Normal Saline) 25 ,000 units in 250 mls @ 13.608 mls/hr IV .[id number] SERGIO; 12 UNITS/KG/HR PRN Reason: Protocol Last Titration: 01/04/17 12:21 Dose: 7 units/kg/hr, 7.938 mls/hr Amiodarone HCl/Dextrose (Nexterone 360 Mg In D5w 200 Ml (Premix)) 360 mg in 200 mls @ 16.667 mls/hr IV .Q12H SERGIO; 0.5 MG/MIN PRN Reason: Protocol Last Admin: 01/03/17 17:30 Dose: 16.667 mls/hr Midazolam 100 mg/100ml in NS (Midazolam 100 Mg/100ml In Ns) 100 mg in 100 mls @ 1 mls/hr IV .Q24H PRN; Protocol; 1 MG/HR PRN Reason: Agitation Last Admin: 01/04/17 09:07 Dose: 4 mg/hr, 4 mls/hr Doxycycline Hyclate 100 mg/ (Sodium Chloride) 100 mls @ 100 mls/hr IVPB 0600, 1800 SERGIO PRN Reason: Protocol Last Admin: 01/04/17 05:31 Dose: 100 mls/hr Meropenem 500 mg/ Sodium (Chloride) 50 mls @ 100 mls/hr IVPB Q8 SERGIO PRN Reason: Protocol Stop: 01/12/17 07:01 Last Admin: 01/04/17 07:03 Dose: 100 mls/hr Sodium Chloride (Sodium Chloride 0.9%) 250 mls @ 999 mls/hr IV .Q16M SERG[facility] Last Admin: 01/04/17 09:15 Dose: 999 mls/hr Levalbuterol HCl (Xopenex) 0.63 mg IH [id number] SERGIO Last Admin: 01/04/17 01:18 Dose: Not Given Pantoprazole Sodium (Protonix Inj) 40 mg IVP Q12 SERGIO Last Admin: 01/04/17 10:52 Dose: 40 mg Results - Vital Signs Recent Vital Signs: Last Vital Signs Temp 101.5 F H 01/04/17 08:00 Pulse 124 H 01/04/17 08:00 Resp 22 01/03/17 17:00 BP 93/50 L 01/04/17 08:00 Pulse Ox 97 01/04/17 08:00 - Labs Result Diagrams: 01/04/17 04:45 01/04/17 04:45 Labs: Laboratory Results - last 24 hr 01/03/17 01/03/17 01/03/17 13:52 15:00 15:00 WBC RBC Hgb Hct MCV MCH MCHC RDW Plt Count MPV Gran % Lymph % (Auto) Mcdowell % (Auto) Eos % (Auto) Baso % (Auto) Gran # Lymph # Mcdowell # Eos # Baso # Neutrophils % (Manual) Band Neutrophils % Lymphocytes % (Manual) Monocytes % (Manual) Myelocytes % Platelet Evaluation APTT pCO2 pO2 HCO3 ABG pH ABG Total CO2 ABG O2 Saturation ABG O2 Content ABG Base Excess ABG Hemoglobin ABG Carboxyhemoglobin POC ABG HHb (Measured) ABG Methemoglobin ABG O2 Capacity ABG Potassium VBG pH VBG pCO2 VBG HCO3 VBG Total CO2 VBG O2 Sat (Calc) VBG Base Excess VBG Potassium Hgb O2 Saturation Sodium Chloride Glucose Lactate Mechanical Rate FiO2 Tidal Volume PEEP Potassium Carbon Dioxide Anion Gap BUN Creatinine Est GFR ( Amer) Est GFR (Non-Af Amer) POC Glucose (mg/dL) 460 H* Random Glucose Lactic Acid 7.3 H* Calcium Magnesium Total Bilirubin Direct Bilirubin AST ALT Alkaline Phosphatase Total Creatine Kinase 1292 H CK-MB (CK-2) 106.0 H CK-MB (CK-2) % 8.2 H Troponin I 9.76 H* D NT-Pro-B Natriuret Pep Total Protein Albumin Globulin Albumin/Globulin Ratio Arterial Blood Potassium Venous Blood Potassium Urine Color Urine Appearance Urine pH Ur Specific Rescue Urine Protein Urine Glucose (UA) Urine Ketones Urine Blood Urine Nitrate Urine Bilirubin Urine Urobilinogen Ur Leukocyte Esterase Urine RBC Urine WBC Urine Bacteria U Random Total Protein Ur Random Sodium Influenza Typ A,B (EIA) Ur L.pneumophila Ag Blood Type Antibody Screen BBK History Checked 01/03/17 01/03/17 01/03/17 15:42 16:25 16:25 WBC RBC Hgb Hct MCV MCH MCHC RDW Plt Count MPV Gran % Lymph % (Auto) Mcdowell % (Auto) Eos % (Auto) Baso % (Auto) Gran # Lymph # Mcd[place] # Eos # Baso # Neutrophils % (Manual) Band Neutrophils % Lymphocytes % (Manual) Monocytes % (Manual) Myelocytes % Platelet Evaluation APTT pCO2 pO2 44 HCO3 ABG pH ABG Total CO2 ABG O2 Saturation ABG O2 Content ABG Base Excess ABG Hemoglobin ABG Carboxyhemoglobin POC ABG HHb (Measured) ABG Methemoglobin ABG O2 Capacity ABG Potassium VBG pH 7.18 L* VBG pCO2 50.0 VBG HCO3 18.7 L VBG Total CO2 20.2 L VBG O2 Sat (Calc) 77.0 H VBG Base Excess -9.8 L VBG Potassium 5.4 H Hgb O2 Saturation Sodium 137.0 Chloride 100.0 Glucose 463 H* Lactate 6.6 H* Mechanical Rate FiO2 21.0 Tidal Volume PEEP Potassium Carbon Dioxide Anion Gap BUN Creatinine Est GFR ( Amer) Est GFR (Non-Af Amer) POC Glucose (mg/dL) 364 H Random Glucose Lactic Acid Calcium Magnesium Total Bilirubin Direct Bilirubin AST ALT Alkaline Phosphatase Total Creatine Kinase CK-MB (CK-2) CK-MB (CK-2) % Troponin I NT-Pro-B Natriuret Pep Total Protein Albumin Globulin Albumin/Globulin Ratio Arterial Blood Potassium Venous Blood Potassium 5.4 H Urine Color Urine Appearance Urine pH Ur Specific Rescue Urine Protein Urine Glucose (UA) Urine Ketones Urine Blood Urine Nitrate Urine Bilirubin Urine Urobilinogen Ur Leukocyte Esterase Urine RBC Urine WBC Urine Bacteria U Random Total Protein Ur Random Sodium Influenza Typ A,B (EIA) Ur L.pneumophila Ag Blood Type O NEGATIVE Antibody Screen Negative BBK History Checked Patient has bt 01/03/17 01/03/17 01/03/17 16:45 18:23 19:00 WBC RBC Hgb Hct MCV MCH MCHC RDW Plt Count MPV Gran % Lymph % (Auto) Mcdowell % (Auto) Eos % (Auto) Baso % (Auto) Gran # Lymph # Mcd[place] # Eos # Baso # Neutrophils % (Manual) Band Neutrophils % Lymphocytes % (Manual) Monocytes % (Manual) Myelocytes % Platelet Evaluation APTT pCO2 40 pO2 89.0 HCO3 16.0 L ABG pH 7.21 L ABG Total CO2 17.2 L ABG O2 Saturation 97.1 ABG O2 Content ABG Base Excess -11.3 L ABG Hemoglobin ABG Carboxyhemoglobin POC ABG HHb (Measured) ABG Methemoglobin ABG O2 Capacity ABG Potassium 4.7 VBG pH VBG pCO2 VBG HCO3 VBG Total CO2 VBG O2 Sat (Calc) VBG Base Excess VBG Potassium Hgb O2 Saturation Sodium 136.0 Chloride 103.0 Glucose 432 H* Lactate 5.7 H* Mechanical Rate 18 FiO2 100.0 Tidal Volume 500 PEEP 5 Potassium Carbon Dioxide Anion Gap BUN Creatinine Est GFR ( Amer) Est GFR (Non-Af Amer) POC Glucose (mg/dL) 331 H Random Glucose Lactic Acid Calcium Magnesium Total Bilirubin Direct Bilirubin AST ALT Alkaline Phosphatase Total Creatine Kinase CK-MB (CK-2) CK-MB (CK-2) % Troponin I NT-Pro-B Natriuret Pep Total Protein Albumin Globulin Albumin/Globulin Ratio Arterial Blood Potassium 4.7 Venous Blood Potassium Urine Color Yellow Urine Appearance Cloudy Urine pH 5.5 Ur Specific Rescue >= 1.030 Urine Protein 100 H Urine Glucose (UA) >=1000 Urine Ketones Negative Urine Blood Large H Urine Nitrate Negative Urine Bilirubin Negative Urine Urobilinogen 0.2 Ur Leukocyte Esterase Negative Urine RBC Tntc Urine WBC 0 - 2 Urine Bacteria Mod U Random Total Protein Ur Random Sodium Influenza Typ A,B (EIA) Ur L.pneumophila Ag Blood Type Antibody Screen BBK History Checked 01/03/17 01/03/17 01/03/17 19:00 19:00 19:00 WBC 16.3 H RBC 4.68 Hgb 14.4 D Hct 43.9 MCV 93.8 D MCH 30.8 MCHC 32.8 RDW 15.8 H Plt Count 193 MPV 10.1 Gran % 92.5 H Lymph % (Auto) 5.2 L Mcdowell % (Auto) 2.2 Eos % (Auto) 0.0 L Baso % (Auto) 0.1 Gran # 15.07 H Lymph # 0.8 L Mcdowell # 0.4 Eos # 0.0 Baso # 0.02 Neutrophils % (Manual) 90 H Band Neutrophils % 3 H Lymphocytes % (Manual) 5 L Monocytes % (Manual) 1 Myelocytes % 1 Platelet Evaluation Normal APTT 34.4 pCO2 pO2 HCO3 ABG pH ABG Total CO2 ABG O2 Saturation ABG O2 Content ABG Base Excess ABG Hemoglobin ABG Carboxyhemoglobin POC ABG HHb (Measured) ABG Methemoglobin ABG O2 Capacity ABG Potassium VBG pH VBG pCO2 VBG HCO3 VBG Total CO2 VBG O2 Sat (Calc) VBG Base Excess VBG Potassium Hgb O2 Saturation Sodium 137 Chloride 105 Glucose Lactate Mechanical Rate FiO2 Tidal Volume PEEP Potassium 4.5 Carbon Dioxide 20 L Anion Gap 17 BUN 16 Creatinine 1.5 Est GFR ( Amer) 56 Est GFR (Non-Af Amer) 46 POC Glucose (mg/dL) Random Glucose 349 H* D Lactic Acid Calcium 7.8 L Magnesium Total Bilirubin 0.8 Direct Bilirubin AST 415 H D ALT 124 H Alkaline Phosphatase 119 Total Creatine Kinase 2700 H CK-MB (CK-2) 190.0 H CK-MB (CK-2) % Troponin I 47.00 H* D NT-Pro-B Natriuret Pep Total Protein 6.1 Albumin 3.4 Globulin 2.7 Albumin/Globulin Ratio 1.3 Arterial Blood Potassium Venous Blood Potassium Urine Color Urine Appearance Urine pH Ur Specific Rescue Urine Protein Urine Glucose (UA) Urine Ketones Urine Blood Urine Nitrate Urine Bilirubin Urine Urobilinogen Ur Leukocyte Esterase Urine RBC Urine WBC Urine Bacteria U Random Total Protein Ur Random Sodium Influenza Typ A,B (EIA) Ur L.pneumophila Ag Blood Type Antibody Screen BBK History Checked 01/03/17 01/03/17 01/03/17 19:48 20:35 20:45 WBC RBC Hgb Hct MCV MCH MCHC RDW Plt Count MPV Gran % Lymph % (Auto) Mcdowell % (Auto) Eos % (Auto) Baso % (Auto) Gran # Lymph # Mcd[place] # Eos # Baso # Neutrophils % (Manual) Band Neutrophils % Lymphocytes % (Manual) Monocytes % (Manual) Myelocytes % Platelet Evaluation APTT pCO2 32 L pO2 32 62.0 L HCO3 17.3 L ABG pH 7.34 L ABG Total CO2 18.3 L ABG O2 Saturation 94.3 L ABG O2 Content 18.5 ABG Base Excess -7.3 L ABG Hemoglobin 14.3 ABG Carboxyhemoglobin 1.4 POC ABG HHb (Measured) 5.6 H ABG Methemoglobin 0.9 ABG O2 Capacity 19.6 ABG Potassium VBG pH 7.30 L VBG pCO2 46.0 VBG HCO3 22.6 VBG Total CO2 24.0 VBG O2 Sat (Calc) 66.7 H VBG Base Excess -4.0 L VBG Potassium 4.0 Hgb O2 Saturation 92.1 L Sodium 141.0 Chloride 104.0 Glucose 276 H Lactate 4.0 H* Mechanical Rate FiO2 21.0 50.0 Tidal Volume PEEP Potassium Carbon Dioxide Anion Gap BUN Creatinine Est GFR ( Amer) Est GFR (Non-Af Amer) POC Glucose (mg/dL) 302 H Random Glucose Lactic Acid Calcium Magnesium Total Bilirubin Direct Bilirubin AST ALT Alkaline Phosphatase Total Creatine Kinase CK-MB (CK-2) CK-MB (CK-2) % Troponin I NT-Pro-B Natriuret Pep Total Protein Albumin Globulin Albumin/Globulin Ratio Arterial Blood Potassium Venous Blood Potassium 4.0 Urine Color Urine Appearance Urine pH Ur Specific Rescue Urine Protein Urine Glucose (UA) Urine Ketones Urine Blood Urine Nitrate Urine Bilirubin Urine Urobilinogen Ur Leukocyte Esterase Urine RBC Urine WBC Urine Bacteria U Random Total Protein Ur Random Sodium Influenza Typ A,B (EIA) Ur L.pneumophila Ag Blood Type Antibody Screen BBK History Checked 01/03/17 01/03/17 01/03/17 20:53 21:28 22:29 WBC RBC Hgb Hct MCV MCH MCHC RDW Plt Count MPV Gran % Lymph % (Auto) Mcdowell % (Auto) Eos % (Auto) Baso % (Auto) Gran # Lymph # Mcd[place] # Eos # Baso # Neutrophils % (Manual) Band Neutrophils % Lymphocytes % (Manual) Monocytes % (Manual) Myelocytes % Platelet Evaluation APTT pCO2 pO2 HCO3 ABG pH ABG Total CO2 ABG O2 Saturation ABG O2 Content ABG Base Excess ABG Hemoglobin ABG Carboxyhemoglobin POC ABG HHb (Measured) ABG Methemoglobin ABG O2 Capacity ABG Potassium VBG pH VBG pCO2 VBG HCO3 VBG Total CO2 VBG O2 Sat (Calc) VBG Base Excess VBG Potassium Hgb O2 Saturation Sodium Chloride Glucose Lactate Mechanical Rate FiO2 Tidal Volume PEEP Potassium Carbon Dioxide Anion Gap BUN Creatinine Est GFR ( Amer) Est GFR (Non-Af Amer) POC Glucose (mg/dL) 247 H 216 H 184 H Random Glucose Lactic Acid Calcium Magnesium Total Bilirubin Direct Bilirubin AST ALT Alkaline Phosphatase Total Creatine Kinase CK-MB (CK-2) CK-MB (CK-2) % Troponin I NT-Pro-B Natriuret Pep Total Protein Albumin Globulin Albumin/Globulin Ratio Arterial Blood Potassium Venous Blood Potassium Urine Color Urine Appearance Urine pH Ur Specific Rescue Urine Protein Urine Glucose (UA) Urine Ketones Urine Blood Urine Nitrate Urine Bilirubin Urine Urobilinogen Ur Leukocyte Esterase Urine RBC Urine WBC Urine Bacteria U Random Total Protein Ur Random Sodium Influenza Typ A,B (EIA) Ur L.pneumophila Ag Blood Type Antibody Screen BBK History Checked 01/03/17 01/03/17 01/04/17 22:45 23:32 00:42 WBC RBC Hgb Hct MCV MCH MCHC RDW Plt Count MPV Gran % Lymph % (Auto) Mcdowell % (Auto) Eos % (Auto) Baso % (Auto) Gran # Lymph # [place]cd[place] # Eos # Baso # Neutrophils % (Manual) Band Neutrophils % Lymphocytes % (Manual) Monocytes % (Manual) Myelocytes % Platelet Evaluation APTT pCO2 pO2 HCO3 ABG pH ABG Total CO2 ABG O2 Saturation ABG O2 Content ABG Base Excess ABG Hemoglobin ABG Carboxyhemoglobin POC ABG HHb (Measured) ABG Methemoglobin ABG O2 Capacity ABG Potassium VBG pH VBG pCO2 VBG HCO3 VBG Total CO2 VBG O2 Sat (Calc) VBG Base Excess VBG Potassium Hgb O2 Saturation Sodium Chloride Glucose Lactate Mechanical Rate FiO2 Tidal Volume PEEP Potassium Carbon Dioxide Anion Gap BUN Creatinine Est GFR ( Amer) Est GFR (Non-Af Amer) POC Glucose (mg/dL) 183 H 172 H Random Glucose Lactic Acid Calcium Magnesium Total Bilirubin Direct Bilirubin AST ALT Alkaline Phosphatase Total Creatine Kinase 3902 H CK-MB (CK-2) 159.0 H CK-MB (CK-2) % 4.1 H Troponin I 87.90 H* D NT-Pro-B Natriuret Pep Total Protein Albumin Globulin Albumin/Globulin Ratio Arterial Blood Potassium Venous Blood Potassium Urine Color Urine Appearance Urine pH Ur Specific Rescue Urine Protein Urine Glucose (UA) Urine Ketones Urine Blood Urine Nitrate Urine Bilirubin Urine Urobilinogen Ur Leukocyte Esterase Urine RBC Urine WBC Urine Bacteria U Random Total Protein Ur Random Sodium Influenza Typ A,B (EIA) Ur L.pneumophila Ag Blood Type Antibody Screen BBK History Checked 01/04/17 01/04/17 01/04/17 01:00 01:31 02:38 WBC RBC Hgb Hct MCV MCH MCHC RDW Plt Count MPV Gran % Lymph % (Auto) [place]cd[place] % (Auto) Eos % (Auto) Baso % (Auto) Gran # Lymph # Mcd[place] # Eos # Baso # Neutrophils % (Manual) Band Neutrophils % Lymphocytes % (Manual) Monocytes % (Manual) Myelocytes % Platelet Evaluation APTT pCO2 pO2 HCO3 ABG pH ABG Total CO2 ABG O2 Saturation ABG O2 Content ABG Base Excess ABG Hemoglobin ABG Carboxyhemoglobin POC ABG HHb (Measured) ABG Methemoglobin ABG O2 Capacity ABG Potassium VBG pH VBG pCO2 VBG HCO3 VBG Total CO2 VBG O2 Sat (Calc) VBG Base Excess VBG Potassium Hgb O2 Saturation Sodium Chloride Glucose Lactate Mechanical Rate FiO2 Tidal Volume PEEP Potassium Carbon Dioxide Anion Gap BUN Creatinine Est GFR ( Amer) Est GFR (Non-Af Amer) POC Glucose (mg/dL) 168 H 162 H Random Glucose Lactic Acid Calcium Magnesium Total Bilirubin Direct Bilirubin AST ALT Alkaline Phosphatase Total Creatine Kinase 3631 H CK-MB (CK-2) 119.0 H CK-MB (CK-2) % Troponin I 82.60 H* NT-Pro-B Natriuret Pep Total Protein Albumin Globulin Albumin/Globulin Ratio Arterial Blood Potassium Venous Blood Potassium Urine Color Urine Appearance Urine pH Ur Specific Rescue Urine Protein Urine Glucose (UA) Urine Ketones Urine Blood Urine Nitrate Urine Bilirubin Urine Urobilinogen Ur Leukocyte Esterase Urine RBC Urine WBC Urine Bacteria U Random Total Protein Ur Random Sodium Influenza Typ A,B (EIA) Ur L.pneumophila Ag Blood Type Antibody Screen BBK History Checked 01/04/17 01/04/17 01/04/17 02:40 04:16 04:45 WBC 18.9 H RBC 4.59 Hgb 14.2 Hct 42.3 MCV 92.2 MCH 30.9 MCHC 33.6 RDW 15.9 H Plt Count 184 MPV 10.4 Gran % 79.5 H Lymph % (Auto) 13.3 L Mcdowell % (Auto) 7.0 H Eos % (Auto) 0.0 L Baso % (Auto) 0.2 Gran # 15.05 H Lymph # 2.5 Mcdowell # 1.3 H Eos # 0.0 Baso # 0.04 Neutrophils % (Manual) Band Neutrophils % Lymphocytes % (Manual) Monocytes % (Manual) Myelocytes % Platelet Evaluation APTT 102.1 H* pCO2 pO2 HCO3 ABG pH ABG Total CO2 ABG O2 Saturation ABG O2 Content ABG Base Excess ABG Hemoglobin ABG Carboxyhemoglobin POC ABG HHb (Measured) ABG Methemoglobin ABG O2 Capacity ABG Potassium VBG pH VBG pCO2 VBG HCO3 VBG Total CO2 VBG O2 Sat (Calc) VBG Base Excess VBG Potassium Hgb O2 Saturation Sodium Chloride Glucose Lactate Mechanical Rate FiO2 Tidal Volume PEEP Potassium Carbon Dioxide Anion Gap BUN Creatinine Est GFR ( Amer) Est GFR (Non-Af Amer) POC Glucose (mg/dL) 139 H Random Glucose Lactic Acid Calcium Magnesium Total Bilirubin Direct Bilirubin AST ALT Alkaline Phosphatase Total Creatine Kinase CK-MB (CK-2) CK-MB (CK-2) % Troponin I NT-Pro-B Natriuret Pep Total Protein Albumin Globulin Albumin/Globulin Ratio Arterial Blood Potassium Venous Blood Potassium Urine Color Urine Appearance Urine pH Ur Specific Rescue Urine Protein Urine Glucose (UA) Urine Ketones Urine Blood Urine Nitrate Urine Bilirubin Urine Urobilinogen Ur Leukocyte Esterase Urine RBC Urine WBC Urine Bacteria U Random Total Protein Ur Random Sodium Influenza Typ A,B (EIA) Ur L.pneumophila Ag Blood Type Antibody Screen BBK History Checked 01/04/17 01/04/17 01/04/17 04:45 04:45 05:09 WBC RBC Hgb Hct MCV MCH MCHC RDW Plt Count MPV Gran % Lymph % (Auto) Mcd[place] % (Auto) Eos % (Auto) Baso % (Auto) Gran # Lymph # Mcd[place] # Eos # Baso # Neutrophils % (Manual) Band Neutrophils % Lymphocytes % (Manual) Monocytes % (Manual) Myelocytes % Platelet Evaluation APTT pCO2 pO2 HCO3 ABG pH ABG Total CO2 ABG O2 Saturation ABG O2 Content ABG Base Excess ABG Hemoglobin ABG Carboxyhemoglobin POC ABG HHb (Measured) ABG Methemoglobin ABG O2 Capacity ABG Potassium VBG pH VBG pCO2 VBG HCO3 VBG Total CO2 VBG O2 Sat (Calc) VBG Base Excess VBG Potassium Hgb O2 Saturation Sodium 139 Chloride 107 Glucose Lactate Mechanical Rate FiO2 Tidal Volume PEEP Potassium 4.7 Carbon Dioxide 25 Anion Gap 12 BUN 23 H Creatinine 2.4 H Est GFR ( Amer) 32 Est GFR (Non-Af Amer) 27 POC Glucose (mg/dL) 174 H Random Glucose 149 H Lactic Acid 2.1 Calcium 8.0 L Magnesium 1.5 L Total Bilirubin 0.5 Direct Bilirubin 0.5 H AST 430 H ALT 125 H Alkaline Phosphatase 91 Total Creatine Kinase CK-MB (CK-2) CK-MB (CK-2) % Troponin I NT-Pro-B Natriuret Pep 61719 H Total Protein 5.9 Albumin 3.3 Globulin 2.7 Albumin/Globulin Ratio 1.2 Arterial Blood Potassium Venous Blood Potassium Urine Color Urine Appearance Urine pH Ur Specific Rescue Urine Protein Urine Glucose (UA) Urine Ketones Urine Blood Urine Nitrate Urine Bilirubin Urine Urobilinogen Ur Leukocyte Esterase Urine RBC Urine WBC Urine Bacteria U Random Total Protein Ur Random Sodium Influenza Typ A,B (EIA) Ur L.pneumophila Ag Blood Type Antibody Screen BBK History Checked 01/04/17 01/04/17 01/04/17 05:48 07:18 07:41 WBC RBC Hgb Hct MCV MCH MCHC RDW Plt Count MPV Gran % Lymph % (Auto) [place]cd[place] % (Auto) Eos % (Auto) Baso % (Auto) Gran # Lymph # Mcd[place] # Eos # Baso # Neutrophils % (Manual) Band Neutrophils % Lymphocytes % (Manual) Monocytes % (Manual) Myelocytes % Platelet Evaluation APTT pCO2 35 pO2 108.0 H HCO3 18.9 L ABG pH 7.34 L ABG Total CO2 20.0 L ABG O2 Saturation 98.8 H ABG O2 Content 19.4 ABG Base Excess -6.1 L ABG Hemoglobin 14.1 ABG Carboxyhemoglobin 1.1 POC ABG HHb (Measured) 1.2 ABG Methemoglobin 0.7 ABG O2 Capacity 19.6 ABG Potassium VBG pH VBG pCO2 VBG HCO3 VBG Total CO2 VBG O2 Sat (Calc) VBG Base Excess VBG Potassium Hgb O2 Saturation 97.0 Sodium Chloride Glucose Lactate Mechanical Rate FiO2 60.0 Tidal Volume PEEP Potassium Carbon Dioxide Anion Gap BUN Creatinine Est GFR ( Amer) Est GFR (Non-Af Amer) POC Glucose (mg/dL) 175 H Random Glucose Lactic Acid Calcium Magnesium Total Bilirubin Direct Bilirubin AST ALT Alkaline Phosphatase Total Creatine Kinase CK-MB (CK-2) CK-MB (CK-2) % Troponin I NT-Pro-B Natriuret Pep Total Protein Albumin Globulin Albumin/Globulin Ratio Arterial Blood Potassium Venous Blood Potassium Urine Color Urine Appearance Urine pH Ur Specific Rescue Urine Protein Urine Glucose (UA) Urine Ketones Urine Blood Urine Nitrate Urine Bilirubin Urine Urobilinogen Ur Leukocyte Esterase Urine RBC Urine WBC Urine Bacteria U Random Total Protein Ur Random Sodium Influenza Typ A,B (EIA) Negative for flu a/b Ur L.pneumophila Ag Blood Type Antibody Screen BBK History Checked 01/04/17 01/04/17 01/04/17 08:30 09:50 10:34 WBC RBC Hgb Hct MCV MCH MCHC RDW Plt Count MPV Gran % Lymph % (Auto) Mcdowell % (Auto) Eos % (Auto) Baso % (Auto) Gran # Lymph # Mcdowell # Eos # Baso # Neutrophils % (Manual) Band Neutrophils % Lymphocytes % (Manual) Monocytes % (Manual) Myelocytes % Platelet Evaluation APTT pCO2 pO2 HCO3 ABG pH ABG Total CO2 ABG O2 Saturation ABG O2 Content ABG Base Excess ABG Hemoglobin ABG Carboxyhemoglobin POC ABG HHb (Measured) ABG Methemoglobin ABG O2 Capacity ABG Potassium VBG pH VBG pCO2 VBG HCO3 VBG Total CO2 VBG O2 Sat (Calc) VBG Base Excess VBG Potassium Hgb O2 Saturation Sodium Chloride Glucose Lactate Mechanical Rate FiO2 Tidal Volume PEEP Potassium Carbon Dioxide Anion Gap BUN Creatinine Est GFR ( Amer) Est GFR (Non-Af Amer) POC Glucose (mg/dL) 193 H Random Glucose Lactic Acid Calcium Magnesium Total Bilirubin Direct Bilirubin AST ALT Alkaline Phosphatase Total Creatine Kinase CK-MB (CK-2) CK-MB (CK-2) % Troponin I NT-Pro-B Natriuret Pep Total Protein Albumin Globulin Albumin/Globulin Ratio Arterial Blood Potassium Venous Blood Potassium Urine Color Urine Appearance Urine pH Ur Specific Rescue Urine Protein Urine Glucose (UA) Urine Ketones Urine Blood Urine Nitrate Urine Bilirubin Urine Urobilinogen Ur Leukocyte Esterase Urine RBC Urine WBC Urine Bacteria U Random Total Protein 298 Ur Random Sodium 41 Influenza Typ A,B (EIA) Ur L.pneumophila Ag Negative Blood Type Antibody Screen BBK History Checked 01/04/17 01/04/17 01/04/17 11:05 11:31 13:21 WBC RBC Hgb Hct MCV MCH MCHC RDW Plt Count MPV Gran % Lymph % (Auto) Mcdowell % (Auto) Eos % (Auto) Baso % (Auto) Gran # Lymph # Mcdowell # Eos # Baso # Neutrophils % (Manual) Band Neutrophils % Lymphocytes % (Manual) Monocytes % (Manual) Myelocytes % Platelet Evaluation APTT 93.2 H pCO2 pO2 HCO3 ABG pH ABG Total CO2 ABG O2 Saturation ABG O2 Content ABG Base Excess ABG Hemoglobin ABG Carboxyhemoglobin POC ABG HHb (Measured) ABG Methemoglobin ABG O2 Capacity ABG Potassium VBG pH VBG pCO2 VBG HCO3 VBG Total CO2 VBG O2 Sat (Calc) VBG Base Excess VBG Potassium Hgb O2 Saturation Sodium Chloride Glucose Lactate Mechanical Rate FiO2 Tidal Volume PEEP Potassium Carbon Dioxide Anion Gap BUN Creatinine Est GFR ( Amer) Est GFR (Non-Af Amer) POC Glucose (mg/dL) 144 H 158 H Random Glucose Lactic Acid Calcium Magnesium Total Bilirubin Direct Bilirubin AST ALT Alkaline Phosphatase Total Creatine Kinase CK-MB (CK-2) CK-MB (CK-2) % Troponin I NT-Pro-B Natriuret Pep Total Protein Albumin Globulin Albumin/Globulin Ratio Arterial Blood Potassium Venous Blood Potassium Urine Color Urine Appearance Urine pH Ur Specific Rescue Urine Protein Urine Glucose (UA) Urine Ketones Urine Blood Urine Nitrate Urine Bilirubin Urine Urobilinogen Ur Leukocyte Esterase Urine RBC Urine WBC Urine Bacteria U Random Total Protein Ur Random Sodium Influenza Typ A,B (EIA) Ur L.pneumophila Ag Blood Type Antibody Screen BBK History Checked
--- NOTE | 2017-01-04 14:47 | CON ---
DATE: The patient is seen earlier this morning in the ICU 128, bed 6. The patient's and daughter were at the bedside. History has been obtained from the patient's and daughter. CHIEF COMPLAINT: Respiratory failure x1 duration. HISTORY OF PRESENT ILLNESS: This is a 71-year-old male with past medical history significant for lung cancer and the patient has severe ischemic cardiomyopathy with left ventricular ejection fraction of 15%. Lung cancer was treated in the past with Dr. 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 The patient's states that he was perfectly fine and then he became acutely short of breath and the event was acute in presentation. He did not have any fevers or chills at home. No chest pain. No abdominal pain, diarrhea or constipation. No bright red blood per rectum. The patient was admitted to the emergency room, was seen by Dr. Will Terry, who states that the patient past medical history of tachyarrhythmia, congestive heart failure, diabetes, admitted with shortness of breath. In the emergency room, the patient was treated and the patient is intubated on a ventilator in the ICU. The patient did have a temperature of 103 and now intubated on a ventilator. No diarrhea. No bright red blood per rectum. The patient is unresponsive. PAST MEDICAL HISTORY: Significant for severe cardiomyopathy with ejection fraction of 15%, lung cancer with rib metastasis, congestive heart failure, coronary artery disease, myocardial infarction, hypertension, diabetes mellitus, and arthritis. PAST SURGICAL HISTORY: Significant for defibrillator and cardiac catheterization. ALLERGIES: THE PATIENT HAS NO KNOWN ALLERGIES. SOCIAL HISTORY: He is an ex-smoker and had stopped smoking. MEDICATIONS AT HOME: Include metformin, oxycodone, nitroglycerine, metoprolol, isosorbide, glipizide, furosemide, Plavix, Lipitor, and aspirin. PHYSICAL EXAMINATION: GENERAL: He is intubated on a ventilator, appears critical. VITAL SIGNS: Temperature of 101.5, T-max is 103, heart rate of 125, and blood pressure 93/54. The patient did have a blood pressure less than 86/49. HEENT: Reveals ET tube in place. NECK: Supple. LUNGS: Have decreased breath sounds. HEART: Normal S1 and S2. ABDOMEN: Soft and nontender. LABORATORY DATA: Reveals white count of 15,900, hemoglobin of 16, and platelets of 241. Chemistries reveals the patient has a BUN of 23, creatinine of 2.4, initial creatinine yesterday was 1.2, AST is 430, and ALT of 125 with alkaline phosphatase of normal. Procalcitonin is less than 0.05. Urinalysis reveals 0-2 WBCs, too numerous to count RBCs, moderate bacteria. Influenza serology is negative. Microbiology is pending. The patient had a chest x-ray with pulmonary vascular congestion changes and bilateral lower alveolar type infiltrate, right greater than the left, multi-lead pacemaker defibrillator is noted. ASSESSMENT AND PLAN: This is a 71-year-old male with severe end-stage cardiomyopathy with 15% ejection fraction, lung cancer with rib metastasis, congestive heart failure, coronary artery disease, myocardial infarction, hypertension, diabetes mellitus, arthritis, and defibrillator, admitted with septic shock with respiratory failure, intubated on a ventilator with community-acquired pneumonia, with acute systolic congestive heart failure on top of chronic congestive heart failure and acute kidney injury, must rule out bacteremia. We will check on the blood cultures, urine cultures, sputum cultures, urine for Legionella antigen, treat the patient with one dose of vancomycin, meropenem, and doxycycline since the patient has prolonged QTc interval, unable to use quinolones and macrolides pending initial workup results. Case was discussed with the patient's and daughter at length. Case is also discussed with Dr. Pettit at length and nursing staff. We will follow up closely with you. Chapito Walter MD
[2017-01-04] MEDS: DOBUTamine 500mg/250ml D5W 500 MG/250 ML BAG IV PRN (17:45)
[2017-01-04] MEDS: Propofol 10 mg/ml 1,000 MG/100 ML VIAL IV PRN (18:02)
--- NOTE | 2017-01-04 21:12 | CT ---
EXAM: CT Head Without Intravenous Contrast EXAM DATE/TIME: 01/04/2017 3:41 PM CLINICAL HISTORY: 71 years old, male; Signs and symptoms; Altered mental status/memory loss; Additional info: Cardiogenic shock; Intubated; Eval TECHNIQUE: Axial computed tomography images of the head/brain without intravenous contrast. All CT scans at this facility use one or more dose reduction techniques, viz.: automated exposure control; ma/kV adjustment per patient size (including targeted exams where dose is matched to indication; i.e. head); or iterative reconstruction technique. COMPARISON: There are no prior studies for comparison. FINDINGS: Artifacts: Streak artifact degrades image quality. Motion artifact degrades image quality. Brain: There is prominence of sulci gyri and ventricles. There is no midline shift. Allowing for streak and motion, there are no focal hemorrhages or masses. Hylton-white differentiation is visualized. Ventricles: See above. Bones: Cranial vault is intact. Soft tissues: unremarkable Sinuses: There are small air-fluid levels in the maxillary sinuses. There is mucoperiosteal thickening in the frontal, ethmoid and sphenoid sinuses. Ears and mastoids: Middle ears and mastoids are unremarkable. Orbits: Orbital contents are unremarkable. Tubes, lines and devices: Endotracheal tube is present. IMPRESSION: Limited by patient motion, mild atrophy, no bleed
[2017-01-04 22:04] LABS: CALCIUM 7.5 mg/dL (8.4-10.5); MAGNESIUM 2.1 mg/dL (1.7-2.2); PHOSPHOROUS 3.6 mg/dL (2.5-4.5); POTASSIUM 4.3 mmol/L (3.6-5.0)
[2017-01-04 23:40] VITALS: TEMP 100.6; O2SAT 99
[2017-01-04 23:42] VITALS: BP 99/53
--- NOTE | 2017-01-04 23:54 | CON ---
HISTORY OF PRESENT ILLNESS: This is a 71-year-old male with past medical history of lung cancer and severe ischemic cardiomyopathy with ventricular ejection fraction less than 15%. The patient's family at bedside called to evaluate the patient. The patient came to the hospital because he was severely short of breath. In the hospital, he was intubated and they are trying to transfer him to [facility], they called for a Neurology consult. PAST MEDICAL HISTORY: As above. ALLERGIES: NO KNOWN DRUG ALLERGY. PHYSICAL EXAMINATION: HEENT: Normocephalic and atraumatic. NECK: Supple. NEUROLOGIC: The patient was intubated and not following simple commands and sedated, pupil sluggishly reactive to light and no spontaneous movement of either extremities was noted, but moves with noxious stimuli. Deep tendon reflexes 1+. Both plantars are downgoing. Sensory appears possibly intact. Cerebellar, gait deferred. IMPRESSION: A 71-year-old male with end-stage cardiomyopathy and lung cancer with metastasis to the ribs, severe congestive heart failure, coronary artery disease, hypertension, diabetes, arthritis and defibrillator, admitted with septic shock and with the respiratory failure. Dr. Mcclain is on the case and they are trying to transfer him to [facility], need Cardiology and Neurology consult. Workup in progress. We will follow up. We will do CAT scan of the head without contrast. Norman Lucas MD
[2017-01-05] MEDS: Propofol 10 mg/ml 1,000 MG/100 ML VIAL IV PRN (00:16)
[2017-01-05] MEDS ORDERED: DOBUTamine 500mg/250ml D5W 500 MG/250 ML BAG IV PRN (00:56)
[2017-01-05 02:47] VITALS: PULSE 110
[2017-01-05 03:05] LABS: CREATININE, RANDOM URINE 184 mg/dL (20-370)
--- NOTE | 2017-01-05 09:11 | CARD ---
APPROVED REPORT EXAM: Two-dimensional and M-mode echocardiogram with Doppler and color Doppler. Other Information Quality : PoorRhythm : INDICATION Congestive Heart Failure 2D DIMENSIONS IVSd1.1 (0.7-1.1cm)LVDd6.4 (3.9-5.9cm) PWd1.3 (0.7-1.1cm)LVDs6.0 (2.5-4.0cm) FS (%) 6.4 %LVEF (%)14.0 (>50%) M-Mode DIMENSIONS Aortic Root3.30 (2.2-3.7cm)Aortic Cusp Exc.2.00 (1.5-2.0cm) Aortic Valve AoV Peak [id number]/s Mitral Valve E/A ratio0.0 TDI E/Lateral E'0.0E/Medial E'0.0 Pulmonary Valve PV Peak Uzbuqgyt16.0cm/sPV Peak Grad.2mmHg Tricuspid Valve TR Peak [id number] [id number] Peak Gr.31mmHg [id number] LEFT VENTRICLE The Left Ventricle is mildly dilated. There is normal left ventricular wall thickness. Left ventricle systolic function is severely impaired. The Ejection Fraction is 10-15%. There is severe global hypokinesis (limited Study of LV) RIGHT VENTRICLE The right ventricle is normal size. ATRIA The left atrium size is normal. The right atrium size is normal. The interatrial septum is intact with no evidence for an atrial septal defect. AORTIC VALVE The aortic valve is normal in structure. MITRAL VALVE The mitral valve is normal in structure. TRICUSPID VALVE The tricuspid valve is not well visualized. There is mild to moderate tricuspid regurgitation. There is moderate pulmonary hypertension. PULMONIC VALVE The pulmonic valve is not well visualized. GREAT VESSELS The aortic root is normal in size. PERICARDIAL EFFUSION There is no pericardial effusion. <Conclusion> This is a limited study on vented patient in ICU. The Left Ventricle is mildly dilated. There is normal left ventricular wall thickness. Left ventricle systolic function is severely impaired. The Ejection Fraction is 10-15%. There is severe global hypokinesis (limited Study of LV) There is mild to moderate tricuspid regurgitation. There is moderate pulmonary hypertension.
--- NOTE | 2017-01-05 09:29 | CARD ---
APPROVED REPORT EKG Measurement Heart [id number] <Conclusion> Undetermined rhythm Possible V. Paced with PVC's and NSVT - 5 beats, new Wandering baseline and low voltage. STTW changes c/w ischemia. Prolonged QTc
--- NOTE | 2017-01-05 09:42 | CARD ---
APPROVED REPORT EKG Measurement Heart [id number] <Conclusion> Electronic ventricular pacemaker: 100 % V. Paced/A. Sensed. No change
--- NOTE | 2017-01-07 22:27 | CP.PCM.DIS ---
Provider - Provider Date of Admission: 01/03/17 12:45 Attending physician: Andres Pettit MD Primary care physician: Andres Pettit MD Time Spent in preparation of Discharge (in minutes): 45 Hospital Course - Lab Results Lab Results: Micro Results 01/04/17 15:30 Sputum Gram Stain - Final 01/04/17 15:30 Sputum Sputum Culture - Final Staphylococcus Aureus 01/04/17 04:35 Blood-Venous Blood Culture - Preliminary NO GROWTH AFTER 3 DAYS 01/04/17 02:40 Blood-Venous Blood Culture - Preliminary NO GROWTH AFTER 3 DAYS 01/04/17 05:15 Urine,Ramirez Urine Culture - Final No Growth (<1,000 CFU/ML) 01/03/17 22:15 Urine Urine Culture - Final No Growth (<1,000 CFU/ML) 01/03/17 15:55 Nose MRSA Culture (Admit) - Final MRSA NOT DETECTED Most Recent Lab Values WBC 18.9 10^3/ul (4.5-11.0) H 01/04/17 04:45 RBC 4.59 10^6/uL (3.5-6.1) 01/04/17 04:45 Hgb 14.2 g/dL (14.0-18.0) 01/04/17 04:45 Hct 42.3 % (42.0-52.0) 01/04/17 04:45 MCV 92.2 fl (80.0-105.0) 01/04/17 04:45 MCH 30.9 pg (25.0-35.0) 01/04/17 04:45 MCHC 33.6 g/dl (31.0-37.0) 01/04/17 04:45 RDW 15.9 % (11.5-14.5) H 01/04/17 04:45 Plt Count 184 10^3/uL (120.0-450.0) 01/04/17 04:45 MPV 10.4 fl (7.0-11.0) 01/04/17 04:45 Gran % 79.5 % (50.0-68.0) H 01/04/17 04:45 Lymph % (Auto) 13.3 % (22.0-35.0) L 01/04/17 04:45 Williams % (Auto) 7.0 % (1.0-6.0) H 01/04/17 04:45 Eos % (Auto) 0.0 % (1.5-5.0) L 01/04/17 04:45 Baso % (Auto) 0.2 % (0.0-3.0) 01/04/17 04:45 Gran # 15.05 (1.4-6.5) H 01/04/17 04:45 Lymph # 2.5 (1.2-3.4) 01/04/17 04:45 Williams # 1.3 (0.1-0.6) H 01/04/17 04:45 Eos # 0.0 (0.0-0.7) 01/04/17 04:45 Baso # 0.04 K/mm3 (0.0-2.0) 01/04/17 04:45 Neutrophils % (Manual) 90 % (50.0-70.0) H 01/03/17 19:00 Band Neutrophils % 3 % (0-2) H 01/03/17 19:00 Lymphocytes % (Manual) 5 % (22.0-35.0) L 01/03/17 19:00 Monocytes % (Manual) 1 % (1.0-6.0) 01/03/17 19:00 Myelocytes % 1 % 01/03/17 19:00 Platelet Evaluation Normal (NORMAL) 01/03/17 19:00 PT 10.2 SECONDS (9.4-12.5) 01/03/17 11:45 INR 0.93 (0.93-1.08) 01/03/17 11:45 APTT 30.8 Seconds (25.1-36.5) 01/04/17 21:41 pCO2 35 mm/Hg (35-45) 01/04/17 05:48 pO2 108.0 mm/Hg (80-100) H 01/04/17 05:48 HCO3 18.9 mmol/L (21-28) L 01/04/17 05:48 ABG pH 7.34 (7.35-7.45) L 01/04/17 05:48 ABG Total CO2 20.0 mmol.L (22-28) L 01/04/17 05:48 ABG O2 Saturation 98.8 % (95-98) H 01/04/17 05:48 ABG O2 Content 19.4 ML/dl (15-23) 01/04/17 05:48 ABG Base Excess -6.1 mmol/L (-2.0-3.0) L 01/04/17 05:48 ABG Hemoglobin 14.1 g/dL (11.7-17.4) 01/04/17 05:48 ABG Carboxyhemoglobin 1.1 % (0.5-1.5) 01/04/17 05:48 POC ABG HHb (Measured) 1.2 % (0-5) 01/04/17 05:48 ABG Methemoglobin 0.7 % (0.0-3.0) 01/04/17 05:48 ABG O2 Capacity 19.6 mL/dl (16-24) 01/04/17 05:48 ABG Potassium 4.7 mmol/L (3.6-5.2) 01/03/17 16:45 VBG pH 7.30 (7.32-7.43) L 01/03/17 20:35 VBG pCO2 46.0 (40-60) 01/03/17 20:35 VBG HCO3 22.6 mmol/l (21-28) 01/03/17 20:35 VBG Total CO2 24.0 mmol.L (22-28) 01/03/17 20:35 VBG O2 Sat (Calc) 66.7 % (40-65) H 01/03/17 20:35 VBG Base Excess -4.0 mmol/L (0.0-2.0) L 01/03/17 20:35 VBG Potassium 4.0 mmol/L (3.6-5.2) 01/03/17 20:35 Hgb O2 Saturation 97.0 % (95.0-98.0) 01/04/17 05:48 Sodium 141.0 mmol/L (132-148) 01/03/17 20:35 Chloride 104.0 mmol/L (98-107) 01/03/17 20:35 Glucose 276 mg/dl (75-110) H 01/03/17 20:35 Lactate 4.0 mmol/L (0.7-2.1) H* 01/03/17 20:35 Mechanical Rate 18 01/03/17 16:45 FiO2 60.0 % 01/04/17 05:48 Tidal Volume 500 01/03/17 16:45 PEEP 5 01/03/17 16:45 Sodium 136 mmol/L (132-148) 01/04/17 21:41 Potassium 4.3 mmol/L (3.6-5.0) 01/04/17 21:41 Chloride 108 mmol/L (98-107) H 01/04/17 21:41 Carbon Dioxide 20 mmol/L (21-33) L 01/04/17 21:41 Anion Gap 13 (10-20) 01/04/17 21:41 BUN 33 mg/dL (7-21) H 01/04/17 21:41 Creatinine 3.2 mg/dl (0.8-1.5) H 01/04/17 21:41 Est GFR ( Amer) 23 01/04/17 21:41 Est GFR (Non-Af Amer) 19 01/04/17 21:41 POC Glucose (mg/dL) 151 mg/dL (65-110) H 01/05/17 02:13 Random Glucose 138 mg/dL (70-110) H 01/04/17 21:41 Lactic Acid 2.1 mmol/L (0.7-2.1) 01/04/17 04:45 Calcium 7.5 mg/dL (8.4-10.5) L 01/04/17 21:41 Phosphorus 3.6 mg/dL (2.5-4.5) 01/04/17 21:41 Magnesium 2.1 mg/dL (1.7-2.2) 01/04/17 21:41 Total Bilirubin 0.5 mg/dL (0.2-1.3) 01/04/17 04:45 Direct Bilirubin 0.5 mg/dL (0.0-0.4) H 01/04/17 04:45 AST 430 U/L (17-59) H 01/04/17 04:45 ALT 125 U/L (7-56) H 01/04/17 04:45 Alkaline Phosphatase 91 U/L (38-126) 01/04/17 04:45 Lactate Dehydrogenase 448 U/L (333-699) 01/03/17 11:45 Total Creatine Kinase 3631 U/L (35-230) H 01/04/17 01:00 CK-MB (CK-2) 119.0 ng/mL (0.0-3.6) H 01/04/17 01:00 CK-MB (CK-2) % 4.1 % (2.5-3.0) H 01/03/17 22:45 Troponin I 82.60 ng/mL H* 01/04/17 01:00 NT-Pro-B Natriuret Pep 63841 pg/mL (0-450) H 01/04/17 04:45 Total Protein 5.9 g/dL (5.8-8.3) 01/04/17 04:45 Albumin 3.3 g/dL (3.0-4.8) 01/04/17 04:45 Globulin 2.7 gm/dL 01/04/17 04:45 Albumin/Globulin Ratio 1.2 (1.1-1.8) 01/04/17 04:45 Procalcitonin < 0.05 NG/ML (0.19-0.49) L 01/03/17 11:45 Arterial Blood Potassium 4.7 mmol/L (3.6-5.2) 01/03/17 16:45 Venous Blood Potassium 4.0 mmol/L (3.6-5.2) 01/03/17 20:35 Urine Color Yellow (YELLOW) 01/03/17 19:00 Urine Appearance Cloudy (CLEAR) 01/03/17 19:00 Urine pH 5.5 (4.7-8.0) 01/03/17 19:00 Ur Specific [place] >= 1.030 (1.005-1.035) 01/03/17 19:00 Urine Protein 100 mg/dL (<30 mg/dL) H 01/03/17 19:00 Urine Glucose (UA) >=1000 mg/dL (NEGATIVE) 01/03/17 19:00 Urine Ketones Negative mg/dL (NEGATIVE) 01/03/17 19:00 Urine Blood Large (NEGATIVE) H 01/03/17 19:00 Urine Nitrate Negative (NEGATIVE) 01/03/17 19:00 Urine Bilirubin Negative (NEGATIVE) 01/03/17 19:00 Urine Urobilinogen 0.2 E.U./dL (<1 E.U./dL) 01/03/17 19:00 Ur Leukocyte Esterase Negative Ramya/uL (NEGATIVE) 01/03/17 19:00 Urine RBC Tntc /hpf (0-2) 01/03/17 19:00 Urine WBC 0 - 2 /hpf (0-6) 01/03/17 19:00 Urine Bacteria Mod (NEG) 01/03/17 19:00 U Random Total Protein 2238 mg/g creat (22-128) H 01/04/17 10:34 Ur Random Sodium 41 meq/L 01/04/17 10:34 Influenza Typ A,B (EIA) Negative for flu a/b (NEGATIVE) 01/04/17 07:41 Ur L.pneumophila Ag Negative (NEGATIVE) 01/04/17 08:30 Blood Type O NEGATIVE 01/03/17 16:25 Antibody Screen Negative 01/03/17 16:25 BBK History Checked Patient has bt 01/03/17 16:25 - Hospital Course Hospital Course: LOCATION: Patient is seen in ICU, bed 6. SUBJECTIVE: Patient's family is at bedside. The patient is still intubated on ventilator on. Overnight events were noted. The patient has been spiking high-grade fever. T-max in the last 24 hours and 12 hours is 103.8 down to 101.5. Telemetry shows sinus tachycardia in 120s, 130s. Blood pressure averaging around systolic high 80s to low 90s systolic, diastolic in 50 mmHg. Respiratory rate in high 20s to low 30s per minute. O2 saturation is 97-98% on vent. The patient's output has only been 300 mL and draining dark urine. Overnight nurse's notes were reviewed. The patient had a right internal jugular new triple-lumen catheter placement. The patient had a left axillary arterial line placed. OBJECTIVE: HEENT: The patient's head examination normocephalic, atraumatic. HEENT examination shows positive ET tube, positive NG tube. [place] conjunctivae. Anicteric sclerae. Dry oral mucosa. NECK: No neck rigidity. CHEST: Positive left upper chest defibrillator. LUNGS: Shows positive rhonchi, creps bilaterally right more than the left. CARDIOVASCULAR: S1, S2, tachycardic rhythm. Positive systolic murmur, right second intercostal space, left sternal border, left second intercostal space. ABDOMEN: Protuberant. GENITALIA: Male. Positive Ramirez catheter. EXTREMITY: Shows no pitting edema, no calf tenderness, no Homans' sign. NEUROLOGIC: Neurologically, patient is sedated on ventilator. MUSCULOSKELETAL: Shows a body mass index of 35.9. Cranial nerves II-XII limited. Gait examination, bedridden. PSYCHIATRIC: Not applicable. VASCULAR: Palpable pulses. DIAGNOSTICS: On 01/04/2017; WBC count has increased to 19,000 from 15.9, hemoglobin/hematocrit 14.2/42.3, platelets 184. Granulocytes; 79% segs, 90% neutrophil, 3 bands. PTT is 102.1. The patient is started on heparin drip. ABG on 60% FiO2; pH of 7.34, pCO2 of 35, pO2 of 108, bicarb 19, saturation of 98.8%. Sodium 139, potassium 4.7, chloride 107, CO2 of 25, anion gap 12, BUN 23, creatinine 2.4, GFR 32. Fingerstick blood sugar 175, 174, 149, 139. Lactic acid is down to 2.1 from 7.3 yesterday. Magnesium 1.5, calcium 8.0, AST 430 up from 61 on admission, ALT is 125 up from 51 from admission. BNP is 15,000 up from 1570 on admission. Peak troponin is 87.9. Peak CPK is 3900. Procalcitonin less than 0.05. Urine; pH 5.5, specific gravity greater than 1.030, 100 protein, glucose greater than 1000, large blood, too numerous to count RBC, moderate bacteria. Influenza serologies are negative. Blood type O negative. Chest x-ray was done on 01/04/2017, which shows right lower lobe, right middle lobe dense infiltrate with new right internal jugular triple-lumen catheter. ET tube and NG tube unchanged. EKG done today, 01/04/2017, shows paced rhythm. IMPRESSION AND PLAN: 1. Ventilator-dependent respiratory failure. 2. Cardiogenic shock versus hypotensive hypovolemic shock versus septic shock. 3. Multiple organ dysfunction syndrome. 4. Acute renal failure and acute kidney injury. 5. Severe lactic acidosis and increase anion gap metabolic acidosis. 6. End-stage dilated ischemic cardiomyopathy. 7. Status post ventricular tachycardia, ventricular fibrillation, cardiac arrest. 8. High-grade fever of greater than 103 degrees Fahrenheit. 9. Sinus tachycardia. 10. Refractory/persistent hypotension. 11. Decreasing urine output and with acute kidney injury and acute renal failure. 12. Leukocytosis with granulocytosis and bandemia. 13. Acute myocardial infarction with elevated troponin. 14. Increase anion gap metabolic acidosis with lactic acidosis. 15. Uncontrolled diabetes mellitus with hyperglycemia. 16. Hypomagnesemia. 17. Shocked liver with severe transaminitis. 18. Elevated CPK and elevated troponin secondary to acute myocardial infarction and cardiogenic shock. 19. Probable acute systolic pulmonary edema and systolic congestive heart failure with elevated BNP. 20. Status post right internal jugular triple-lumen catheter placement. 21. Status post left axillary arterial line placement. 22. Left axillary arterial line placement. 23. Right lower lobe and right middle lobe pneumonia, questionable community-acquired versus aspiration versus healthcare-associated pneumonia. 24. Acute systolic congestive heart failure. 25. Multilobar bilateral alveolar infiltrate. 26. Multivessel coronary artery disease. 27. Cardiogenic shock. 1. Ventricular tachycardia, ventricular fibrillation, cardiac arrest. 2. Brief period of asystole. 3. Ventilator-dependent respiratory failure. 4. Acute systolic congestive heart failure. 5. Cardiogenic versus hypotensive versus septic shock with hypotension. 6. Tachycardia. 7. Hypothermia. 8. Hypertension. 9. Hypoxemia. 10. Leukocytosis. 11. Lactic acidosis. 12. Metabolic acidosis. 13. Hypokalemia. 14. Increased anion gap metabolic acidosis. 15. Hyperglycemia. 16. Transaminitis. 17. Acute systolic congestive heart failure and pulmonary edema with elevated BNP of 1570. 18. Status post left internal jugular triple-lumen catheter placement. 19. Status post cardiac resuscitation. 20. Questionable aspiration versus community-acquired pneumonia. 21. Acute systolic congestive heart failure with pulmonary vascular congestion. 22. Bilateral multilobar pneumonia. 23. Transient left bundle-branch block pattern with nonspecific ST changes. 24. Ventricular tachycardia, ventricle fibrillation arrest. 1. Ventricular tachycardia, ventricular fibrillation, cardiac arrest. 2. Brief period of asystole. 3. Ventilator-dependent respiratory failure. 4. Acute systolic congestive heart failure. 5. Cardiogenic versus hypotensive versus septic shock with hypotension. 6. Tachycardia. 7. Hypothermia. 8. Hypertension. 9. Hypoxemia. 10. Leukocytosis. 11. Lactic acidosis. 12. Metabolic acidosis. 13. Hypokalemia. 14. Increased anion gap metabolic acidosis. 15. Hyperglycemia. 16. Transaminitis. 17. Acute systolic congestive heart failure and pulmonary edema with elevated BNP of 1570. 18. Status post left internal jugular triple-lumen catheter placement. 19. Status post cardiac resuscitation. 20. Questionable aspiration versus community-acquired pneumonia. 21. Acute systolic congestive heart failure with pulmonary vascular congestion. 22. Bilateral multilobar pneumonia. 23. Transient left bundle-branch block pattern with nonspecific ST changes. 24. Ventricular tachycardia, ventricle fibrillation arrest. PLAN: At this time, the patient has been ordered serial labs. Serial ABGs ordered. The patient's blood cultures, urine cultures pending. Sputum cultures still pending. Current Consultations: Cardiology, Dr. Mcclain. Infectious Disease, Dr. Walter. Nephrology, Dr. High. Patient's medications are; patient's amiodarone has been held because of transaminitis. The patient is on aspirin 81 daily, dobutamine drip, Ventolin drip, heparin drip and insulin drip. The patient is being given magnesium sulfate rider. The patient is on meropenem 500 IV q.8. Levophed drip is active on MAR at 4 mcg per minute. Plavix 75 daily, Protonix 40 IV q.12, bicarb drip at 125 mL an hour. The patient was given fluid bolus of 250 mL. The patient is on Tylenol suppository q.6 p.r.n. Patient was given 1 g of vancomycin by Dr. Walter. Patient is on doxycycline 100 mg IV q.12, Xopenex nebulizer 0.63 every 6 hours. Repeat chest x-ray, repeat EKG ordered. Echo with Doppler ordered. The patient is on VAMSI stockings, SCDs. I have met with the patient's and the rest of the family at bedside. I have explained to the patient's and the family about overall the patient's worsening clinical condition and multisystem organ dysfunction was explained to the patient's and the rest of the family in layman's language. I have also explained to the patient's family about patient's critical condition. Also, patient's family was explained about the likelihood of patient's developing more complication is extremely high at this situation. The patient will be continued to be treated aggressively in the intensive care unit with all multispecialty consultation. Time spent in the entire management more than 35 minutes. Dictated and electronically signed, not read. Signing off, Andres Pettit MD Discharge Exam - Head Exam Head Exam: ATRAUMATIC, NORMAL INSPECTION, NORMOCEPHALIC - Additional Findings Additional findings: LOCATION: Patient is seen in ICU, bed 6. SUBJECTIVE: Patient's family is at bedside. The patient is still intubated on ventilator on. Overnight events were noted. The patient has been spiking high-grade fever. T-max in the last 24 hours and 12 hours is 103.8 down to 101.5. Telemetry shows sinus tachycardia in 120s, 130s. Blood pressure averaging around systolic high 80s to low 90s systolic, diastolic in 50 mmHg. Respiratory rate in high 20s to low 30s per minute. O2 saturation is 97-98% on vent. The patient's output has only been 300 mL and draining dark urine. Overnight nurse's notes were reviewed. The patient had a right internal jugular new triple-lumen catheter placement. The patient had a left axillary arterial line placed. OBJECTIVE: HEENT: The patient's head examination normocephalic, atraumatic. HEENT examination shows positive ET tube, positive NG tube. [place] conjunctivae. Anicteric sclerae. Dry oral mucosa. NECK: No neck rigidity. CHEST: Positive left upper chest defibrillator. LUNGS: Shows positive rhonchi, creps bilaterally right more than the left. CARDIOVASCULAR: S1, S2, tachycardic rhythm. Positive systolic murmur, right second intercostal space, left sternal border, left second intercostal space. ABDOMEN: Protuberant. GENITALIA: Male. Positive Ramirez catheter. EXTREMITY: Shows no pitting edema, no calf tenderness, no Homans' sign. NEUROLOGIC: Neurologically, patient is sedated on ventilator. MUSCULOSKELETAL: Shows a body mass index of 35.9. Cranial nerves II-XII limited. Gait examination, bedridden. PSYCHIATRIC: Not applicable. VASCULAR: Palpable pulses. DIAGNOSTICS: On 01/04/2017; WBC count has increased to 19,000 from 15.9, hemoglobin/hematocrit 14.2/42.3, platelets 184. Granulocytes; 79% segs, 90% neutrophil, 3 bands. PTT is 102.1. The patient is started on heparin drip. ABG on 60% FiO2; pH of 7.34, pCO2 of 35, pO2 of 108, bicarb 19, saturation of 98.8%. Sodium 139, potassium 4.7, chloride 107, CO2 of 25, anion gap 12, BUN 23, creatinine 2.4, GFR 32. Fingerstick blood sugar 175, 174, 149, 139. Lactic acid is down to 2.1 from 7.3 yesterday. Magnesium 1.5, calcium 8.0, AST 430 up from 61 on admission, ALT is 125 up from 51 from admission. BNP is 15,000 up from 1570 on admission. Peak troponin is 87.9. Peak CPK is 3900. Procalcitonin less than 0.05. Urine; pH 5.5, specific gravity greater than 1.030, 100 protein, glucose greater than 1000, large blood, too numerous to count RBC, moderate bacteria. Influenza serologies are negative. Blood type O negative. Chest x-ray was done on 01/04/2017, which shows right lower lobe, right middle lobe dense infiltrate with new right internal jugular triple-lumen catheter. ET tube and NG tube unchanged. EKG done today, 01/04/2017, shows paced rhythm. IMPRESSION AND PLAN: 1. Ventilator-dependent respiratory failure. 2. Cardiogenic shock versus hypotensive hypovolemic shock versus septic shock. 3. Multiple organ dysfunction syndrome. 4. Acute renal failure and acute kidney injury. 5. Severe lactic acidosis and increase anion gap metabolic acidosis. 6. End-stage dilated ischemic cardiomyopathy. 7. Status post ventricular tachycardia, ventricular fibrillation, cardiac arrest. 8. High-grade fever of greater than 103 degrees Fahrenheit. 9. Sinus tachycardia. 10. Refractory/persistent hypotension. 11. Decreasing urine output and with acute kidney injury and acute renal failure. 12. Leukocytosis with granulocytosis and bandemia. 13. Acute myocardial infarction with elevated troponin. 14. Increase anion gap metabolic acidosis with lactic acidosis. 15. Uncontrolled diabetes mellitus with hyperglycemia. 16. Hypomagnesemia. 17. Shocked liver with severe transaminitis. 18. Elevated CPK and elevated troponin secondary to acute myocardial infarction and cardiogenic shock. 19. Probable acute systolic pulmonary edema and systolic congestive heart failure with elevated BNP. 20. Status post right internal jugular triple-lumen catheter placement. 21. Status post left axillary arterial line placement. 22. Left axillary arterial line placement. 23. Right lower lobe and right middle lobe pneumonia, questionable community-acquired versus aspiration versus healthcare-associated pneumonia. 24. Acute systolic congestive heart failure. 25. Multilobar bilateral alveolar infiltrate. 26. Multivessel coronary artery disease. 27. Cardiogenic shock. 1. Ventricular tachycardia, ventricular fibrillation, cardiac arrest. 2. Brief period of asystole. 3. Ventilator-dependent respiratory failure. 4. Acute systolic congestive heart failure. 5. Cardiogenic versus hypotensive versus septic shock with hypotension. 6. Tachycardia. 7. Hypothermia. 8. Hypertension. 9. Hypoxemia. 10. Leukocytosis. 11. Lactic acidosis. 12. Metabolic acidosis. 13. Hypokalemia. 14. Increased anion gap metabolic acidosis. 15. Hyperglycemia. 16. Transaminitis. 17. Acute systolic congestive heart failure and pulmonary edema with elevated BNP of 1570. 18. Status post left internal jugular triple-lumen catheter placement. 19. Status post cardiac resuscitation. 20. Questionable aspiration versus community-acquired pneumonia. 21. Acute systolic congestive heart failure with pulmonary vascular congestion. 22. Bilateral multilobar pneumonia. 23. Transient left bundle-branch block pattern with nonspecific ST changes. 24. Ventricular tachycardia, ventricle fibrillation arrest. 1. Ventricular tachycardia, ventricular fibrillation, cardiac arrest. 2. Brief period of asystole. 3. Ventilator-dependent respiratory failure. 4. Acute systolic congestive heart failure. 5. Cardiogenic versus hypotensive versus septic shock with hypotension. 6. Tachycardia. 7. Hypothermia. 8. Hypertension. 9. Hypoxemia. 10. Leukocytosis. 11. Lactic acidosis. 12. Metabolic acidosis. 13. Hypokalemia. 14. Increased anion gap metabolic acidosis. 15. Hyperglycemia. 16. Transaminitis. 17. Acute systolic congestive heart failure and pulmonary edema with elevated BNP of 1570. 18. Status post left internal jugular triple-lumen catheter placement. 19. Status post cardiac resuscitation. 20. Questionable aspiration versus community-acquired pneumonia. 21. Acute systolic congestive heart failure with pulmonary vascular congestion. 22. Bilateral multilobar pneumonia. 23. Transient left bundle-branch block pattern with nonspecific ST changes. 24. Ventricular tachycardia, ventricle fibrillation arrest. PLAN: At this time, the patient has been ordered serial labs. Serial ABGs ordered. The patient's blood cultures, urine cultures pending. Sputum cultures still pending. Current Consultations: Cardiology, Dr. Mcclain. Infectious Disease, Dr. Walter. Nephrology, Dr. High. Patient's medications are; patient's amiodarone has been held because of transaminitis. The patient is on aspirin 81 daily, dobutamine drip, Ventolin drip, heparin drip and insulin drip. The patient is being given magnesium sulfate rider. The patient is on meropenem 500 IV q.8. Levophed drip is active on APR at 4 mcg per minute. Plavix 75 daily, Protonix 40 IV q.12, bicarb drip at 125 mL an hour. The patient was given fluid bolus of 250 mL. The patient is on Tylenol suppository q.6 p.r.n. Patient was given 1 g of vancomycin by Dr. Walter. Patient is on doxycycline 100 mg IV q.12, Xopenex nebulizer 0.63 every 6 hours. Repeat chest x-ray, repeat EKG ordered. Echo with Doppler ordered. The patient is on VAMSI stockings, SCDs. I have met with the patient's and the rest of the family at bedside. I have explained to the patient's and the family about overall the patient's worsening clinical condition and multisystem organ dysfunction was explained to the patient's and the rest of the family in layman's language. I have also explained to the patient's family about patient's critical condition. Also, patient's family was explained about the likelihood of patient's developing more complication is extremely high at this situation. The patient will be continued to be treated aggressively in the intensive care unit with all multispecialty consultation. Time spent in the entire management more than 35 minutes. Dictated and electronically signed, not read. Signing off, Andres Pettit MD Discharge Plan - Follow Up Plan Condition: CRITICAL Disposition: OTHER INSTITUTION Instructions: Heart Failure (ED) Additional Instructions: PATIENT TRANSFERRED TO [facility] BY FOR MEDICAL AND CARDIAC CARE FOR EVALUATION OF LVAD. Referrals: Andres Pettit MD [Primary Care Provider] - Follow up with primary
== END 2017-01-05 02:30 | disposition short-term general hospital (02) | DRG 871 ==
LOC: ED 11:14 → ERH 12:45 → CCU 12:57
PROVIDERS: ADMIT Internal Medicine; ATTEND Internal Medicine
PROC: 5A1945Z Respiratory Ventilation, 24-96 Consecutive Hours (ICD-10-PCS; principal; 2017-01-03)
PROC: 0BH17EZ Insertion of Endotracheal Airway into Trachea, Via Natural or Artificial Opening (ICD-10-PCS; 2017-01-03)
PROC: 03H633Z Insertion of Infusion Device into Left Axillary Artery, Percutaneous Approach (ICD-10-PCS; 2017-01-03)
PROC: 3E053XZ Introduction of Vasopressor into Peripheral Artery, Percutaneous Approach (ICD-10-PCS; 2017-01-03)
PROC: 5A2204Z Restoration of Cardiac Rhythm, Single (ICD-10-PCS; 2017-01-03)
PROC: 02HV33Z Insertion of Infusion Device into Superior Vena Cava, Percutaneous Approach (ICD-10-PCS; 2017-01-04)
PROC: B543ZZA Ultrasonography of Right Jugular Veins, Guidance (ICD-10-PCS; 2017-01-04)
DX: A41.9 Sepsis, unspecified organism (principal); I21.9 Acute myocardial infarction, unspecified; I49.01 Ventricular fibrillation; J96.91 Respiratory failure, unspecified with hypoxia; N17.0 Acute kidney failure with tubular necrosis; K72.00 Acute and subacute hepatic failure without coma; J18.9 Pneumonia, unspecified organism; I50.23 Acute on chronic systolic (congestive) heart failure; R57.0 Cardiogenic shock; R57.1 Hypovolemic shock; G93.40 Encephalopathy, unspecified; I46.9 Cardiac arrest, cause unspecified; R65.21 Severe sepsis with septic shock; C79.51 Secondary malignant neoplasm of bone; E87.2 Acidosis; I42.0 Dilated cardiomyopathy; E11.65 Type 2 diabetes mellitus with hyperglycemia; I11.0 Hypertensive heart disease with heart failure; I25.5 Ischemic cardiomyopathy; I25.10 Atherosclerotic heart disease of native coronary artery without angina pectoris; E87.6 Hypokalemia; M17.0 Bilateral primary osteoarthritis of knee; E55.9 Vitamin D deficiency, unspecified; I44.7 Left bundle-branch block, unspecified; E83.42 Hypomagnesemia; M50.30 Other cervical disc degeneration, unspecified cervical region; Z79.84 Long term (current) use of oral hypoglycemic drugs; Z87.891 Personal history of nicotine dependence; Z95.810 Presence of automatic (implantable) cardiac defibrillator; Z85.118 Personal history of other malignant neoplasm of bronchus and lung; I25.2 Old myocardial infarction; Z86.718 Personal history of other venous thrombosis and embolism

== ENCOUNTER 2017-06-26 12:42 | Inpatient (IN) | payer MEDICARE, OTHER ==
[2017-06-26 12:44] VITALS: BMI 31.4
[2017-06-26] MEDS ORDERED: Nitroglycerin 50mg in D5W 50 MG/250 ML BOTTLE IV ONE (12:53)
[2017-06-26] MEDS ORDERED: Albuterol-Ipratrop 3 mg / 0.5 (3 ml) UD IH STA ×2 (12:53→13:54)
[2017-06-26] MEDS ORDERED: Nitroglycerin 2% Ointment Foilpak UD TOP ONE (12:53)
[2017-06-26] MEDS ORDERED: Aspirin 325 mg EC Tablets PO STA (12:53)
[2017-06-26] MEDS ORDERED: Nitroglycerin 2% Ointment Foilpak UD TOP STA (12:55)
[2017-06-26] MEDS ORDERED: Nitroglycerin 50mg in D5W 50 MG/250 ML BOTTLE IV PRN (13:00)
--- NOTE | 2017-06-26 13:04 | ED PDOC ---
Arrival/HPI - General Chief Complaint: Shortness Of Breath Time Seen by Provider: 06/26/17 12:53 Historian: Patient, Spouse ( at bedside), EMS - History of Present Illness Narrative History of Present Illness (Text): 06/26/17 12:58 72 year old male, whose past medical history includes Lung carcinoma, CAD, ventricular tachycardia, history of left upper extremity DVT, CHF, diabetes, and cardiac arrest and intubated on 01/04/17, presents to the emergency department via EMS complaining of acute onset of shortness of breath after getting out of the shower this morning. As per , patient became diaphoretic and acutely shortness of breath. Patient denies chest pain. EMS was contacted who arrived and found patient severely diaphoretic, and applied a non- rebreather mask and noted pt's Pulse Ox displaying ~ 80%; pt was immediately placed on CPAP and given lasix 20mg IV and 1 SL Nitroglycerin, pt was quickly transported to Emergency department for further eval. As per , patient also gained 8 pounds over the last 2 days. pt also admits to stop taking his lasix over the last 2 days because he ran out of his medication, and even took a friends lasix; Patient denies any fever/chills, chest pain/palpitations, abdominal pain/nausea/vomiting, numbness/tingling, urinary/bowel changes/ complaints, fall/trauma, or any other complaints. 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 PMD: Dr. Pettit Ticketing Clerk: Dr. Mcclain Time/Duration: Prior to Arrival Symptom Onset: Sudden Symptom Course: Unchanged Activities at Onset: Light Context: Home Past Medical History - Provider Review Nursing Documentation Reviewed: Yes - Travel History Have you recently traveled outside [place] w/in the past 3 mons?: No - Past History Past History: No Previous - Infectious Disease Hx of Infectious Diseases: None - Tetanus Immunization Tetanus Immunization: Unknown - Cardiac Hx HI: Yes Hx Pacemaker: Yes - Pulmonary Hx Respiratory Disorders: Yes Hx Pneumonia: Yes - Neurological Hx Neurological Disorder: No - HEENT Hx HEENT Disorder: No (WEARS RX GLASSES) - Renal Hx Renal Disorder: No - Endocrine/Metabolic Hx Endocrine Disorders: Yes Hx Diabetes Mellitus Type 2: Yes - Hematological/Oncological Hx Blood Disorders: Yes Hx Anemia: Yes Other/Comment: h/o L subclavian vein occlusive thrombosis - Integumentary Hx Dermatological Disorder: No - Musculoskeletal/Rheumatological Hx Falls: No - Gastrointestinal Hx Gastrointestinal Disorders: No - Genitourinary/Gynecological Hx Genitourinary Disorders: No - Psychiatric Hx Psychophysiologic Disorder: No Hx Emotional Abuse: No Hx Physical Abuse: No Hx Substance Use: No - Surgical History Hx Coronary Stent: Yes - Anesthesia Hx Anesthesia: Yes Hx Anesthesia Reactions: No Hx Malignant Hyperthermia: No - Suicidal Assessment Feels Threatened In Home Enviroment: No Family/Social History - Physician Review Nursing Documentation Reviewed: Yes Family/Social History: No Known Family HX Smoking Status: Former Smoker Hx Alcohol Use: No Hx Substance Use: No Hx Substance Use Treatment: No Allergies/Home Meds Allergies/Adverse Reactions: Allergies No Known Allergies Allergy (Verified 06/26/17 17:11) Home Medications: Home Meds Medication Instructions Recorded Confirmed Amiodarone [Cordarone] 200 mg PO DAILY 02/22/17 06/26/17 Atorvastatin [Lipitor] 40 mg PO DAILY 02/22/17 06/26/17 Carvedilol [Coreg] 12.5 mg PO BID 02/22/17 06/26/17 Cholecalciferol (Vitamin D3) 1,000 unit PO BID 02/22/17 06/26/17 [Vitamin D3] MetFORMIN [glucOPHAGE] 1,000 mg PO BID 02/22/17 06/26/17 Multivitamin [Daily Benjamin] 1 tab PO DAILY 02/22/17 06/26/17 Sacubitril/Valsartan [Entresto 24 1 each PO BID 02/22/17 06/26/17 mg-26 mg Tablet] Spironolactone [Aldactone] 12.5 mg PO DAILY 02/22/17 06/26/17 Torsemide [Demadex] 20 mg PO TID 02/22/17 06/26/17 Cyanocobalamin (Vitamin B-12) 1 vial IM Q30D 06/26/17 06/26/17 [B-12 Compliance] Dexlansoprazole [Dexilant] 1 cap PO DAILY 06/26/17 06/26/17 Ezetimibe [Zetia] 1 tab PO DAILY 06/26/17 06/26/17 Febuxostat [Uloric] 80 mg PO DAILY 06/26/17 06/26/17 Folic Acid [Folic Acid] 1 tab PO DAILY 06/26/17 06/26/17 Levothyroxine [Synthroid] 1 tab PO DAILY 06/26/17 06/26/17 Magnesium Oxide [Mag-Ox] 1 tab PO DAILY 06/26/17 06/26/17 oxyCODONE/Acetaminophen [Percocet 1 tab PO TID PRN 06/26/17 06/26/17 5/325 mg Tab] Review of Systems - Physician Review All systems were reviewed & negative as marked: Yes - Review of Systems Constitutional: Fatigue. absent: Fevers, Night Sweats, Other Eyes: Normal ENT: Normal Respiratory: SOB Cardiovascular: absent: Chest Pain, Palpitations Gastrointestinal: absent: Abdominal Pain, Stool Changes, Diarrhea, Nausea, Vomiting Genitourinary Male: absent: Urinary Output Changes Musculoskeletal: Normal Skin: Normal Neurological: Normal Endocrine: Normal Hemo/Lymphatic: Normal Psychiatric: Normal Physical Exam - Physical Exam Narrative Physical Exam (Text): General: alert/awake, GCS = 15, oriented x 3, resting in bed, uncomfortable, cooperative, interactive; + severe distress due to sob Head: NC/AT EYE: PERRLA, EOMI, sclera anicteric, no nystagmus, no photophobia; visual field intact b/l Facial: WNL Oral: uvula/tongue are midline, no exudate/lesions, no drooling/stridor, no dysphonia; fair dentitions; BIPAP - facemask is noted NECK: intact ROM, no midline tenderness, no nuchal rigidity, no meningeal signs ; NO JVD noted, no step off Chest: decr BS noted to right lung field, b/l rales/slight wheezing noted; + tachypenia, mild accessory muscle use noted, + right mild rhonchi is noted; no chest tendernes noted, no crepitus noted Cardiac: +S1, +S2, no m/r/r Abdominal: +BS, soft/nd/nt, well nourished/slight obese patient; no masses/ rebound/guarding/rigidity; no mcburney's point tenderness, no thomas's sign ext: intact ROM, strength 5/5 grossly intact in all limbs, neurovasc intact b/l ; no pitting edema noted b/l, no wendi's sign noted b/l SKIN: cap refill ~ 1 sec, no ulcerations, no petechiae, no rashes; + slight diaphoresis; + mild pallor NEURO: CNII-XII WNL, no facial asymmetries, no slurr speech, oriented x 3 NIH stroke scale ~ 0 Psych: normal insight, normal affect Vital Signs Reviewed: Yes Vital Signs Temp Pulse Pulse Resp BP BP Pulse Ox 06/26/17 14:55 98 F 70 20 116/70 98 06/26/17 14:36 136/70 06/26/17 12:54 160/107 H 06/26/17 12:53 70 26 H 180/109 H 92 L 06/26/17 12:45 97.8 F 114 H 28 H 152/107 H 88 L Temperature: Afebrile Blood Pressure: Hypertensive Pulse: Tachycardic Respiratory Rate: Tachypneic Appearance: Positive for: Well-Appearing, Non-Toxic, Ill-Appearing, Uncomfortable Pain Distress: None Mental Status: Positive for: Alert and Oriented X 3 - Systems Exam Head: Present: Atraumatic, Normocephalic Medical Decision Making ED Course and Treatment: 06/26/17 13:00 Impression: sob/on bipap/severe diaphoresis 72 year old male presents for acute onset of shortness of breath after getting out of the shower this morning. I have considered all differential diagnoses regarding patients chief medical complaints/clinical findings which include but are not limited to: r/o acute on chronic chf; r/o cardiac disorder, r/o infection Plan: -- ABG -- EKG -- Labs -- Chest X-ray -- Douneb, Ecotrin, Lasix, Nitro-Bid 2% Oint, Nitroglycerin -- BIPAP/CPAP -- Urinalysis -- Reassess and disposition Prior Visits: Notes and results from previous visits were reviewed. Patient last seen in the ED on 01/03/17 presents for acute respiratory distress. Patient was admitted. Progress Notes: pt is currently on BiPAP, will continue to monitor 06/26/17 13:[address] Bush (intensivisits economics instructor), who is aware, and agrees with the plan, will continue to monitor. 06/26/17 13:[address] Pettit, who is aware and agrees with the plan. Accepts patient into his service. 06/26/17 13:45 with patient on the BiPAP x 30min, pt is appearing improved, with improved breathing pt denied chest pain pt denied lightheadedness LUNG re-exam: improved aeration is noted, + decr BS remains to right lung umaña ; decr rales noted bibasiliar, no wheezing noted b/l, NO tachypenia, no accessory muscle use noted with improving breathing, i do not recommend intubation currently, family agrees will admit patient to Dr Pettit and place in the ICU 1400 - Dr Bush is at bedside, re-eval patient, agrees with Emergency department mgt/txt/dx, will accept patient into the ICU 1430 - Family/patient are made aware of pt's medical results agrees with admission Re-evaluation Time: 13:45 Reassessment Condition: Improving,but remains with symptoms - Critical Care Critical Care Minutes: 60 minutes Critical Care Time: Excluding Proc Time Narrative Critical Care (Text): 06/26/17 17:59 critical care time: 60min, excluding procedure time, excluding time teaching residents/students/mid-level providers; including initial eval/diagnosis, diagnostic interpretation, re-eval, consultations, final disposition - Lab Interpretations Lab Results: 06/26/17 13:05 06/26/17 13:05 Lab Results 06/26/17 13:05: Sodium 145, Potassium 5.1 H, Chloride 108 H, Carbon Dioxide 20 L , Anion Gap 23 H, BUN 17, Creatinine 1.2, Est GFR ( Amer) > 60, Est GFR ( Non-Af Amer) 60, Random Glucose 254 H, Calcium 8.8, Magnesium 2.4 H, Total Bilirubin 0.5, AST 32, ALT 25, Alkaline Phosphatase 112, Lactate Dehydrogenase 460, Total Creatine Kinase 50, Troponin I < 0.01 D, NT-Pro-B Natriuret Pep 1800 H, Total Protein 7.7, Albumin 4.6, Globulin 3.1, Albumin/Globulin Ratio 1.5 06/26/17 13:05: PT 9.9, INR 0.86 L, APTT 28.5 06/26/17 13:05: WBC 18.2 H, RBC 4.41, Hgb 13.8 L, Hct 42.0, MCV 95.2 D, MCH 31.3, MCHC 32.9, RDW 15.0 H, Plt Count 256, MPV 10.0, Gran % 69.3 H, Lymph % ( Auto) 25.0, [place] % (Auto) 3.8, Eos % (Auto) 1.4 L, Baso % (Auto) 0.5, Gran # 12.60 H, Lymph # (Auto) 4.6 H, [place] # (Auto) 0.7 H, Eos # (Auto) 0.3, Baso # ( Auto) 0.10 I have reviewed the lab results: Yes Interpretation: Abnormal lab values (elevated WBCs, elevated BNP) - RAD Interpretation Narrative RAD Interpretations (Text): 06/26/17 13:48 PROCEDURE: Chest X-ray Dictator : Brian Tolentino MD Report Date : 06/26/2017 13:26:12 IMPRESSION: There is dense alveolar infiltrate in the right lower lobe consistent with pneumonia Radiology Orders: 06/26/17 12:54 CHEST PORTABLE [RAD] Stat Veneer Taper: Radiologist - EKG Interpretation EKG Interpretation (Text): 06/26/17 17:58 pacemaker rate at 100 bpm, diffuse low voltage inf leads, no ectopy, ABNL EKG; unchanged compare with old ekg 12/2016 Interpreted by ED Physician: Yes Type: 12 lead EKG Comparison: Similar to previous EKG - Medication Orders Current Medication Orders: Amiodarone HCl (Cordarone) 200 mg PO DAILY [facility] Aspirin (Aspirin Chewable) 81 mg PO DAILY [facility] Atorvastatin Calcium (Lipitor) 40 mg PO DAILY [facility] Carvedilol (Coreg) 12.5 mg PO BID [facility] Last Admin: 06/26/17 17:56 Dose: 12.5 mg [facility] Pulse and Blood Pressure Document 06/26/17 17:56 ED (Rec: 06/26/17 17:57 ED [facility]) Pulse Pulse Rate (60-90) 90 Blood Pressure Blood Pressure (100/60-150/90) 113/66 Cholecalciferol (Vitamin D) 1,000 intlu PO BID [facility] Last Admin: 06/26/17 18:03 Dose: 1,000 intlu Clopidogrel Bisulfate (Plavix) 75 mg PO DAILY [facility] Ezetimibe (Zetia) 10 mg PO DAILY [facility] Folic Acid (Folic Acid) 1 mg PO DAILY [facility] Furosemide (Lasix) 40 mg IVP Q12H [facility] Last Admin: 06/26/17 14:36 Dose: 40 mg MAR Blood Pressure Document 06/26/17 14:36 [facility] (Rec: 06/26/17 14:36 [id number] Blood Pressure Blood Pressure (100/60-150/90) 136/70 IVP Administration Document 06/26/17 14:36 [facility] (Rec: 06/26/17 14:36 [id number][facility] Charges for Administration # of IVP Administrations 2 Heparin Sodium (Porcine) (Heparin) 5,000 units SC Q8 [facility]GIO PRN Reason: Protocol Nitroglycerin/Dextrose (Nitroglycerin 50 Mg/250 Ml D5w) 50 mg in 250 mls @ 1.5 mls/hr IV .Q24H PRN; Protocol; 5 MCG/MIN PRN Reason: Other Last Admin: 06/26/17 12:55 Dose: 5 mcg/min, 1.5 mls/hr eMAR Start Stop Document 06/26/17 12:55 [facility] (Rec: 06/26/17 14:34 [id number][facility] Intravenous Solution Start Date 06/26/17 Start Time 12:55 [facility] Pulse and Blood Pressure Document 06/26/17 12:55 [facility] (Rec: 06/26/17 14:34 [id number] Pulse Pulse Rate (60-90) 71 Blood Pressure Blood Pressure (100/60-150/90) 160/107 Titration Intervention Document 06/26/17 12:55 [facility] (Rec: 06/26/17 14:34 [id number][facility] Titration Intake Waste Amount 0 Container Volume 250 Titration Dosing Titration Dose 5 IV Rate 1.5 Intake/Decrease Started Doxycycline Hyclate 100 mg/ (Sodium Chloride) 100 mls @ 100 mls/hr IVPB Q12 SERGIO PRN Reason: Protocol Milrinone Lactate/Dextrose (Primacor 20mg/100ml D5w) 100 mls @ 10.869 mls/hr IV .Q9H13M PRN; Protocol; 0.375 MCG/KG/MIN PRN Reason: TITRATE PER MD ORDER Insulin Human Lispro (Humalog Med) 0 units SC Q6H [facility]GIO PRN Reason: Protocol Insulin Human NPH (Humulin N) 10 units SC ACBD [facility] Levalbuterol HCl (Xopenex) 0.63 mg IH [id number] [facility] Levothyroxine Sodium (Synthroid) 25 mcg PO DAILY [facility] Methylprednisolone (Solu-Medrol) 20 mg IVP Q12 [facility] Non-Formulary Medication (Febuxostat [Uloric]) 80 mg PO DAILY [facility] Oxycodone/Acetaminophen (Percocet 5/325 Mg Tab) 1 tab PO TID PRN PRN Reason: Pain, severe (8-10) Stop: 06/29/17 14:41 Last Admin: 06/26/17 18:38 Dose: 1 tab MAR Pain Assessment Document 06/26/17 18:38 ED (Rec: 06/26/17 18:40 ED [facility]) Pain Reassessment Is this a pain reassessment? Yes Sleep Is patient sleeping during reassessment? No Presence of Pain Presence of Pain Yes Pain Scale Used Pain Scale Used Numeric Location Upper or Lower Lower Pain Location Body Site Back Description Description Intermittent Intensity of Pain at present 7 Alleviating Factors/Management Medication Techniques Alleviating Factors Medication Pantoprazole Sodium (Protonix Inj) 40 mg IVP DAILY [facility] Sacubitril/Valsartan (Entresto 24 Mg-26 Mg Tablet) 1 each PO BID [facility] Last Admin: 06/26/17 18:30 Dose: 1 each Spironolactone (Aldactone) 12.5 mg PO DAILY [facility] Discontinued Medications Albuterol/Ipratropium (Duoneb 3 Mg/0.5 Mg (3 Ml) Ud) 3 ml IH STAT STA Stop: 06/26/17 12:54 Last Admin: 06/26/17 12:53 Dose: 3 ml Albuterol/Ipratropium (Duoneb 3 Mg/0.5 Mg (3 Ml) Ud) 3 ml IH STAT STA Stop: 06/26/17 13:55 Last Admin: 06/26/17 14:35 Dose: 3 ml Aspirin (Ecotrin) 325 mg PO STAT STA Stop: 06/26/17 12:54 Last Admin: 06/26/17 14:17 Dose: 325 mg Furosemide (Lasix) 60 mg IVP STAT STA Stop: 06/26/17 12:54 Last Admin: 06/26/17 12:54 Dose: 60 mg Comments: duplicate MAR Blood Pressure Document 06/26/17 12:54 MARKETING PROFESSOR (Rec: 06/26/17 14:27 MARKETING PROFESSOR [id number]) Blood Pressure Blood Pressure (100/60-150/90) 160/107 IVP Administration Document 06/26/17 12:54 [facility] (Rec: 06/26/17 14:27 [id number][facility] Charges for Administration # of IVP Administrations 1 Ceftriaxone Sodium (Rocephin 1 Gram Ivpb) 1 gm in 100 mls @ 200 mls/hr IVPB STAT STA PRN Reason: Protocol Stop: 06/26/17 13:53 Last Admin: 06/26/17 14:19 Dose: 200 mls/hr eMAR Start Stop Document 06/26/17 14:19 [facility] (Rec: 06/26/17 14:20 [id number][facility] Intravenous Solution Start Date 06/26/17 Start Time 14:19 End Date 06/26/17 End time 14:49 Total Infusion Time 30 Azithromycin (Zithromax 500mg In Ns) 500 mg in 250 mls @ 167 mls/hr IVPB STAT STA PRN Reason: Protocol Stop: 06/26/17 14:54 Piperacillin Sod/Tazobactam Sod (Zosyn 4.5 Gm In Ns 100ml) 4.5 gm in 100 mls @ 200 mls/hr IVPB STAT STA PRN Reason: Protocol Stop: 06/26/17 14:30 Last Admin: 06/26/17 15:15 Dose: 200 mls/hr eMAR Start Stop Document 06/26/17 15:15 ED (Rec: 06/26/17 18:06 [facility]) Intravenous Solution Start Date 06/26/17 Start Time 15:15 End Date 06/26/17 End time 16:15 Total Infusion Time 60 Vancomycin HCl (Vancomycin 1gm) 1 gm in 250 mls @ 167 mls/hr IVPB STAT STA PRN Reason: Protocol Stop: 06/26/17 16:00 Last Admin: 06/26/17 18:01 Dose: 167 mls/hr eMAR Start Stop Document 06/26/17 18:01 ED (Rec: 06/26/17 18:02 ED [id number] Intravenous Solution Start Date 06/26/17 Start Time 18:01 End Date 06/26/17 End time 19:35 Total Infusion Time 94 Insulin Human NPH (Humulin N) 10 units SC AC SERGIO Last Admin: 06/26/17 18:30 Dose: 10 units MAR Blood Glucose Document 06/26/17 18:30 ED (Rec: 06/26/17 18:32 ED [id number]) Blood Glucose Finger Stick Blood Glucose (70-120) 130 Subcutaneous Administrations Document 06/26/17 18:30 ED (Rec: 06/26/17 18:32 ED [id number]) Injection Site MAR Injection Site Right Arm Charges for Administration # of Subcutaneous Administrations 1 Oxycodone/Acetaminophen (Percocet 5/325 Mg Tab) 1 tab PO STAT STA Stop: 06/26/17 13:56 Last Admin: 06/26/17 14:17 Dose: 1 tab MAR Pain Assessment Document 06/26/17 14:17 MARKETING PROFESSOR (Rec: 06/26/17 14:18 MARKETING PROFESSOR [id number] Pain Reassessment Is this a pain reassessment? No Oxycodone/Acetaminophen (Percocet 5/325 Mg Tab) 1 tab PO TID PRN PRN Reason: Pain, severe (8-10) Stop: 06/30/17 14:41 Pantoprazole Sodium (Protonix Inj) 40 mg IVP Q12 [facility] - Scribe Statement The provider has reviewed the documentation as recorded by the Sammi Gleason Provider Scribe Attestation: All medical record entries made by the Scribe were at my direction and personally dictated by me. I have reviewed the chart and agree that the record accurately reflects my personal performance of the history, physical exam, medical decision making, and the department course for this patient. I have also personally directed, reviewed, and agree with the discharge instructions and disposition. Disposition/Present on Arrival - Present on Arrival Any Indicators Present on Arrival: No History of DVT/PE: No History of Uncontrolled Diabetes: No Urinary Catheter: Yes (light red urine inserted in ed) History of Decub. Ulcer: No History Surgical Site Infection Following: None - Disposition Have Diagnosis and Disposition been Completed?: Yes Diagnosis: Respiratory distress, acute, Pneumonia, Acute on chronic congestive heart failure, At risk for sepsis, Elevated blood pressure reading Disposition: HOSPITALIZED Disposition Time: 13:30 Patient Plan: Admission, ICU Patient Problems: Current Active Problems Problem Status Onset Respiratory distress, acute Acute Pneumonia Acute Acute on chronic congestive heart failure Acute At risk for sepsis Acute Elevated blood pressure reading Acute Condition: STABLE
[2017-06-26 13:16] LABS: BASO # 0.1 K/mm3 (0.0-2.0); BASO % 0.5 % (0.0-3.0); EOS # 0.3 (0.0-0.7); EOS % 1.4 % (1.5-5.0); GRAN # 12.6 (1.4-6.5); GRAN % 69.3 % (50.0-68.0); HEMOGLOBIN 13.8 g/dL (14.0-18.0); LYMPH # 4.6 (1.2-3.4); MEAN CELL VOLUME 95.2 fl (80.0-105.0); MEAN CORPUSCULAR HEMOGLOBIN 31.3 pg (25.0-35.0); MEAN CORPUSCULAR HGB CONC 32.9 g/dl (31.0-37.0); MONO # 0.7 (0.1-0.6); MONO % 3.8 % (1.0-6.0); RBC 4.41 10^6/uL (3.5-6.1); WHITE BLOOD COUNT 18.2 10^3/ul (4.5-11.0)
[2017-06-26] MEDS ORDERED: cefTRIAXone 1 gm 1 GM/100 ML BAG IVPB STA (13:24)
[2017-06-26] MEDS ORDERED: Azithromycin 500MG/NS 250ml 500 MG/250 ML BAG IVPB STA (13:25)
[2017-06-26 13:27] LABS: ALB/GLOB RATIO 1.5 (1.1-1.8); ALBUMIN 4.6 g/dL (3.0-4.8); ALT/SGPT 25 U/L (7-56); AST/SGOT 32 U/L (17-59); BLOOD UREA NITROGEN 17 mg/dL (7-21); CALCIUM 8.8 mg/dL (8.4-10.5); GFR AFRICAN-AMERICAN > 60; GFR NON-AFRICAN AMERICAN 60
--- NOTE | 2017-06-26 13:27 | RAD ---
HISTORY: acute sob COMPARISON: 02/21/2017 FINDINGS: LUNGS: There is dense alveolar infiltrate in the right lower lobe consistent with pneumonia PLEURA: No significant pleural effusion identified, no pneumothorax apparent. CARDIOVASCULAR: Normal. OSSEOUS STRUCTURES: No significant abnormalities. VISUALIZED UPPER ABDOMEN: Normal. OTHER FINDINGS: Pacemaker IMPRESSION: There is dense alveolar infiltrate in the right lower lobe consistent with pneumonia
[2017-06-26 13:29] LABS: INR 0.86 (0.93-1.08); PARTIAL THROMBOPLASTIN TIME 28.5 Seconds (25.1-36.5); PROTHROMBIN TIME 9.9 SECONDS (9.4-12.5)
[2017-06-26 13:38] LABS: B-TYPE NATRIURETIC PEPTIDE 1800 pg/mL (0-450); TROPONIN I < 0.01 ng/mL
[2017-06-26 13:46] LABS: ARTERIAL BLOOD GAS HCO3 17.1 mmol/L (21-28); ARTERIAL BLOOD GAS HEMOGLOBIN 13.2 g/dL (11.7-17.4); ARTERIAL BLOOD GAS O2 CAPACITY 18.6 mL/dl (16-24); ARTERIAL BLOOD GAS O2 CONTENT 17.8 ML/dl (15-23); ARTERIAL BLOOD GAS O2 SAT 95.6 % (95-98); ARTERIAL BLOOD GAS PCO2 34 mm/Hg (35-45); ARTERIAL BLOOD GAS PH 7.31 (7.35-7.45); ARTERIAL BLOOD GAS TCO2 18.1 mmol.L (22-28)
[2017-06-26] MEDS ORDERED: Oxycodone/Acetaminophen 5/325 mg Tab PO STA (13:55)
[2017-06-26] MEDS ORDERED: Piperacill/Tazo 4.5gm in NS 4.5 GM/100 ML BAG IVPB STA (14:01)
--- NOTE | 2017-06-26 14:13 | CP.PCM.HP ---
<Edu Gutiérrez - Last Filed: 06/26/17 15:07> History of Present Illness - History of Present Illness History of Present Illness: 72 year old male, whose past medical history includes Lung carcinoma treated with chemotherapy, CAD with ischemic cardiomyopathy, ventricular tachycardia, defibrillator, history of left upper extremity DVT, CHF, diabetes, and cardiac arrest with intubated on 01/04/17, presents with shortness of breath after getting out of the shower this morning. As per , patient became diaphoretic and acutely shortness of breath. states patient has not been taking his diuretic for the past 2 days because he ran out of it. Patient states he uses 2 pillows at night to elevate head and for the past 3 days he has been feeling worse. He denies any orthopnea. EMS was contacted who arrived and found patient severely diaphoretic with oxygen saturation of 80%. He was placed on CPAP immediately and given lasix 20mg IV. As per , patient also gained 10 pounds over the last 2 days. Patient denies any chest pain, palpitations, fever, chills , abdominal pain, nausea, vomiting, or any other complaints at this time. PMH: Lung carcinoma treated with chemotherapy, CAD with stents, ventricular tachycardia, defibrillator, history of left upper extremity DVT, CHF, diabetes, and cardiac arrest with intubated on 01/04/17, arthritis PSH: stent placement Allergies: NKDA Meds: Per MAR Social History: quit smoking at 29, denies alcohol or illicit drug use Family History: father had NM when he was 19 Present on Admission - Present on Admission Any Indicators Present on Admission: No Review of Systems - Constitutional Constitutional: absent: Anorexia, Chills - EENT Eyes: absent: Blurred Vision, Change in Vision Nose/Mouth/Throat: absent: Nasal Congestion, Nasal Discharge - Cardiovascular Cardiovascular: Dyspnea, Lightheadedness. absent: Chest Pain, Edema, Orthopnea , Palpitations - Respiratory Respiratory: Dyspnea, Dyspnea on Exertion. absent: Cough, Hemoptysis, Wheezing , Pain on Inspiration, Excessive Mucous Production, Pain with Coughing - Gastrointestinal Gastrointestinal: absent: Abdominal Pain, Bloating, Nausea, Vomiting - Genitourinary Genitourinary: absent: Difficulty Urinating, Dysuria - Neurological Neurological: absent: Dizziness, Syncope Past Patient History - Infectious Disease Hx of Infectious Diseases: None - Past Social History Smoking Status: Former Smoker - CARDIAC Hx Heart Attack: Yes Hx Pacemaker: Yes - PULMONARY Hx Respiratory Disorders: Yes Hx Pneumonia: Yes - NEUROLOGICAL Hx Neurological Disorder: No - HEENT Hx HEENT Problems: No (WEARS RX GLASSES) - RENAL Hx Chronic Kidney Disease: No - ENDOCRINE/METABOLIC Hx Endocrine Disorders: Yes Hx Diabetes Mellitus Type 2: Yes - HEMATOLOGICAL/ONCOLOGICAL Hx Blood Disorders: Yes Hx Anemia: Yes Other/Comment: h/o L subclavian vein occlusive thrombosis - INTEGUMENTARY Hx Dermatological Problems: No - MUSCULOSKELETAL/RHEUMATOLOGICAL Hx Falls: No - GASTROINTESTINAL Hx Gastrointestinal Disorders: No - GENITOURINARY/GYNECOLOGICAL Hx Genitourinary Disorders: No - PSYCHIATRIC Hx Psychophysiologic Disorder: No Hx Emotional Abuse: No Hx Physical Abuse: No Hx Substance Use: No - SURGICAL HISTORY Hx Coronary Stent: Yes - ANESTHESIA Hx Anesthesia: Yes Hx Anesthesia Reactions: No Hx Malignant Hyperthermia: No Meds Allergies/Adverse Reactions: Allergies Allergy/AdvReac Type Severity Reaction Status Date / Time No Known Allergies Allergy Verified 06/26/17 17:11 Physical Exam - Constitutional Appears: Toxic - Head Exam Head Exam: ATRAUMATIC, NORMAL INSPECTION, NORMOCEPHALIC - Eye Exam Eye Exam: Normal appearance - ENT Exam ENT Exam: Mucous Membranes Moist - Respiratory Exam Respiratory Exam: Decreased Breath Sounds, Rales Additional comments: on BIPAP - Cardiovascular Exam Cardiovascular Exam: +S1, +S2 - GI/Abdominal Exam GI & Abdominal Exam: Normal Bowel Sounds, Soft. absent: Distended - Extremities Exam Extremities exam: Positive for: pedal pulses present. Negative for: calf tenderness, pedal edema - Neurological Exam Neurological exam: Alert, Oriented x3 - Skin Skin Exam: Diaphoretic Results - Vital Signs Recent Vital Signs: Last Vital Signs Temp 97.8 F 06/26/17 12:45 Pulse 114 H 06/26/17 12:45 Resp 28 H 06/26/17 12:45 BP 152/107 H 06/26/17 12:45 Pulse Ox 88 L 06/26/17 12:45 - Labs Result Diagrams: 06/26/17 13:05 06/26/17 13:05 Labs: Laboratory Results - last 24 hr 06/26/17 13:42 pCO2 34 L pO2 88.0 HCO3 17.1 L ABG pH 7.31 L ABG Total CO2 18.1 L ABG O2 Saturation 95.6 ABG O2 Content 17.8 ABG Base Excess -8.2 L ABG Hemoglobin 13.2 ABG Carboxyhemoglobin 0.2 L POC ABG HHb (Measured) 4.4 ABG Methemoglobin 0.0 ABG O2 Capacity 18.6 Hgb O2 Saturation 95.4 FiO2 100.0 Assessment & Plan - Assessment and Plan (Free Text) Assessment: 72 year old male, whose past medical history includes Lung carcinoma treated with chemotherapy, CAD, ventricular tachycardia, defibrillator, history of left upper extremity DVT, CHF, diabetes, and cardiac arrest with intubated on , presents with shortness of breath after getting out of the shower this morning. Patient has gained 10 pounds in 2 days and has not taken his diuretic. Plan: 1. Shortness of Breath -likely secondary to CHF exacerbation with possible underlying Pneumonia -chest xray shows congestion, possible pneumonia -ABG showing improvement in oxygenation with pA02 of 88 and pCO2 of 34 -BIPAP -VBG with shock panel -Lasix 40 IVP Q12 -Solumedrol with tapering daily -duonebs scheduled and PRN -given one dose of vancomycin -continue azithromycin and doxycycline -BNP 1800 -echo pending -MUGA scan pending -ID consulted, Boshossian, follow recs -ICU consult, follow recs -CT chest without contrast pending -milrinone drip per ICU for decompensated CHF -daily weights -Strict Is and Os 2. Leukocytosis -procal pending -continue with antibiotics -ID consulted, follow recs -blood and urine cultures pending 3. DM -hold oral hypoglycemics -basal NPH 10 units at breakfast and dinner -ISS Humalog medium -Accuchecks -low salt, carb consistent diet 4. CAD with history of arrhythmia -continue home plavix -continue home statin -continue amiodarone -continue home coreg 5. History of provoked DVT in upper extremity -heparin SC 6. Hypokalemia -K 5.1 -no acute EKG changes -continue to monitor GI/DVT Prophylaxis -Protonix -DVT prophylaxis <Andres Pettit - Last Filed: 06/30/17 09:27> Results - Vital Signs Recent Vital Signs: Last Vital Signs Temp 98 F 06/27/17 16:00 Pulse 68 06/28/17 11:00 Resp 18 06/28/17 11:00 BP 98/52 L 06/28/17 10:00 Pulse Ox 98 06/28/17 10:00 - Labs Result Diagrams: 06/28/17 05:55 06/28/17 05:55 Attending/Attestation - Attestation I have personally seen and examined this patient.: Yes I have fully participated in the care of the patient.: Yes I have reviewed all pertinent clinical information: Yes Notes (Text): Please see/read my dictated notes.
[2017-06-26] MEDS ORDERED: Vancomycin 1gm in NS 250ml 1 GM/250 ML BAG IVPB STA (14:31)
[2017-06-26 15:10] LABS: VENOUS BLOOD GAS BASE EXCESS -4.7 mmol/L (0.0-2.0); VENOUS BLOOD GAS PO2 53 mm/Hg (30-55); VENOUS BLOOD PH 7.27 (7.32-7.43)
--- NOTE | 2017-06-26 16:03 | CT ---
PROCEDURE: CT Chest without contrast HISTORY: Pneumonia; rule out ben malignancy COMPARISON: Comparison made with CT chest 12/28/2015. TECHNIQUE: Contiguous axial images were obtained through the chest without intravenous contrast enhancement. Sagittal and coronal reconstructions were performed. Radiation dose (DLP): 793.88 mGy-cm. This CT exam was performed using one or more of the following dose reduction techniques: Automated exposure control, adjustment of the mA and/or kV according to patient size, and/or use of iterative reconstruction technique. FINDINGS: LUNGS: There are the fluffy alveolar-type infiltrates throughout of both right and right upper lobes on former more significant than the latter. The changes in the right upper lobe lung more translucent. Similar but less severe alveolar-type appearing infiltrates seen in the left upper and lower lobes. . . Note that the changes in the upper lobes are more translucent and less dense than the right lower lobe infiltrates Findings could represent multifocal pneumonia however the possibility of a asymmetric pulmonary edema/ CHF not excluded. There are small bilateral effusions right larger than left MEDIASTINUM: Cardiomegaly. Small pericardial effusion. Multiple small to borderline enlarged nonspecific mediastinal lymph nodes, the largest right paratracheal lymph node measures approximately 19 mm. Evaluation for hilar adenopathy is limited due to the lack of circulating intravenous contrast material. Central airways are midline and patent. No large central endoluminal lesions. There is a small hiatal hernia with slight wall thickening of the distal esophagus likely due to protrusion of gastric mucosa. PLEURA: As above. No evidence of pneumothorax BONES: Multilevel degenerative spondylosis of the thoracic spine. No acute compression fractures nor retropulsed fragments. UPPER ABDOMEN: Grossly unremarkable. OTHER FINDINGS: None. IMPRESSION: There are the fluffy alveolar-type infiltrates throughout of both right and right upper lobes on former more significant than the latter. The changes in the right upper lobe lung more translucent. Similar but less severe alveolar-type appearing infiltrates seen in the left upper and lower lobes. . . Note that the changes in the upper lobes are more translucent and less dense than the right lower lobe infiltrates Findings could represent multifocal pneumonia however the possibility of a asymmetric pulmonary edema/ CHF not excluded. There are small bilateral effusions right larger than left Cardiomegaly with small pericardial effusion. Borderline on right paratracheal mediastinal lymph node. The the
[2017-06-26] MEDS ORDERED: Insulin Lispro (humaLOG) MEDIUM Coverage SC SCH (16:30)
[2017-06-26] MEDS ORDERED: Insulin Reg-LOW-Coverage SC SCH (16:30)
[2017-06-26] MEDS ORDERED: Insulin Human NPH 1 UNITS/0.01 ML SC SCH (16:30)
[2017-06-26] MEDS ORDERED: Non Formulary Medication (Cholecalciferol (Vitamin D3) [Vitamin D3] 1,000 UNIT) PO SCH (18:00)
[2017-06-26] MEDS ORDERED: SACUBITRIL 24mg/VALSARTAN 26mg tab PO SCH (18:00)
[2017-06-26] MEDS: Cholecalciferol 1,000 INTLU TAB PO SCH (18:03)
--- NOTE | 2017-06-26 18:05 | CON ---
DATE: 06/26/2017 HISTORY OF PRESENT ILLNESS: This is a 72-year-old gentleman with history of severe left ventricular systolic dysfunction, cardiac arrest about 6 months ago, history of DVT, diabetes mellitus, hypertension, who presented this time with acute onset of shortness of breath, triggered by some exertion. It appears that the patient initially had some chest tightness; however, no acute pain, no fever, no chills, no abdominal pain, no nausea, no vomiting. The SOB was associated with some diaphoresis and was accentuated by physical exertion. Upon arrival of EMS, the patient was found to be hypoxemic with oxygen saturation 80%, despite almost 100% FiO2 supplementation. The patient was taken to [facility] where he was placed on BiPAP, given diuretics, antibiotics with subsequent clinical improvement. PAST MEDICAL HISTORY: Lung cancer, coronary artery disease, ventricular tachycardia, CHF, diabetes mellitus type 2, cardiac arrest on 01/04/2017. ALLERGIES: NKDA. FAMILY HISTORY: Noncontributory. SOCIAL HISTORY: No alcohol or illicit drug abuse. No tobacco smoking. REVIEW OF SYSTEMS: Review of 12-point systems other than mentioned in the history of present illness is negative. MEDICATIONS AT HOME : Vitamin D3, Uloric, Zetia, Percocet, Synthroid, magnesium oxide, folic acid, Demadex, Dexilant, vitamin B12, Coreg, Lipitor, Glucophage, Plavix, Aldactone, Entresto, aspirin, amiodarone. PHYSICAL EXAMINATION: VITAL SIGNS: Temperature 97.8, heart rate 114, blood pressure 152/107, respiratory rate 28 on admission with subsequent improvement about 20, on BiPAP 15/7. FiO2 dropped down to 80% with oxygen saturation about 95%-98% on the monitor. HEENT: Head and neck atraumatic. LUNGS: Few crackles bibasilar, few wheezes bilaterally. HEART: Regular rate and rhythm. S1 and S2 normal. ABDOMEN: Soft, nontender, nondistended. MUSCULOSKELETAL: Trace bilateral pedal and ankle edema. NEURO: The patient moves all extremities spontaneously. SKIN: Moist. PSYCHIATRIC: The patient is alert, awake, in mild respiratory distress; however, reports subjectively feeling better since admission to [facility] ER. LABORATORY DATA: Sodium 145, potassium 5.1, chloride 108, carbon dioxide 20, BUN 17, creatinine 1.2, glucose 254, AST 32, ALT 25, total bilirubin 0.5. ProBNP 1800. Troponin less than 0.01. WBC 18.2, hemoglobin 13.8, platelet count 256. INR 0.86. ABG showed 7.31/34/88 on 100% FiO2. Chest x-ray Showed bilateral vascular congestion with more prominent right lower lobe infiltrate (lobar). ASSESSMENT AND PLAN: This is a 72-year-old gentleman, who presented with hypoxemic respiratory failure secondary to either congestive heart failure exacerbation or acute severe community-acquired pneumonia. At present time, we will proceed with BiPAP application, nitroglycerin drip, milrinone drip. We will continue with Entresto for afterload reduction. I will hold beta blockers until we have a little bit more of a gist as to his hemodynamic status. I agree with conservative fluid management with aggressive diuresis (as hemodynamics allows). Meanwhile, I will continue with empiric antibiotic coverage, septic workup, procalcitonin and CRP were ordered. The patient is currently on Zosyn, vancomycin and doxycycline. One dose of azithromycin was given in the Emergency Room. Urine for Legionella and streptococcal antigen will be sent. The patient will be started on low-dose steroids and Solu-Medrol 20 mg IV every 12. ID consult was called for consultation by primary medical doctor. We will repeat troponin and if negative we will forgo therapeutic anticoagulation. Nevertheless, we will proceed with dual antiplatelet therapy, statins. We will continue to taper down oxygen supplementation. However, we will maintain O2 sat more than 90. ccm time 40 min Kieran Arevalo MD [facility]
[2017-06-26] MEDS: SACUBITRIL 24mg/VALSARTAN 26mg tab PO SCH (18:30)
[2017-06-26] MEDS: Oxycodone/Acetaminophen 5/325 mg Tab PO PRN (18:38)
[2017-06-26] MEDS: Levalbuterol 0.63 MG/3 ML Inhal Soln UD IH SCH (20:00)
[2017-06-26 20:19] LABS: VENOUS BLOOD GAS BASE EXCESS -1.7 mmol/L (0.0-2.0); VENOUS BLOOD GAS PO2 188 mm/Hg (30-55); VENOUS BLOOD PH 7.42 (7.32-7.43)
[2017-06-26 20:28] LABS: URIC ACID 6.6 mg/dL (3.5-8.5)
[2017-06-26 20:40] LABS: TROPONIN I 0.09 ng/mL
[2017-06-26] MEDS ORDERED: Pneumococcal 23-Valent Vaccine IM ONE (20:44)
--- NOTE | 2017-06-26 21:11 | CARD ---
APPROVED REPORT EKG Measurement Heart [id number] OR [id number] <Conclusion> Atrial sensed, ventricular paced rhythm
[2017-06-26] MEDS: Insulin Lispro (humaLOG) MEDIUM Coverage SC SCH (21:30)
[2017-06-26] MEDS: MethylPREDNISolone 40 mg Vial IVP SCH (21:31)
[2017-06-26] MEDS: Meropenem IV 1 gm in NS 50 ML IVPB SCH (22:11)
[2017-06-26] MEDS ORDERED: Oxycodone/Acetaminophen 5/325 mg Tab PO ONE (23:42)
[2017-06-27] MEDS: Milrinone 20mg/100ml D5W 100 ML IV PRN ×3 (00:34→22:17)
[2017-06-27] MEDS: Levalbuterol 0.63 MG/3 ML Inhal Soln UD IH SCH ×4 (02:41→19:47)
[2017-06-27] MEDS: Insulin Lispro (humaLOG) MEDIUM Coverage SC SCH ×3 (04:39→22:03)
--- NOTE | 2017-06-27 04:43 | HP ---
HISTORY OF PRESENT ILLNESS: The patient is a 72-year-old male who presented to the [facility] Emergency Room by the [facility] complaining of shortness of breath. According to the patient and the patient's , the patient has been shortness of breath since last 2 days and the patient also noted dyspnea on exertion during his cardiac rehab, but did not pay attention. The patient was brought to the emergency room by [facility] on CPAP. The patient received Lasix 20 IV in the field . The patient also did not contact the office for his medications. Apparently, the patient has been out of his diuretics for some time, but did not call the office for appointment and medication refill. The patient was examined. The patient's vital signs, diagnostic data all reviewed. For further details of the patient's medical history, please review the history and physical examination by the medical tech. IMPRESSION: 1. Shortness of breath with dyspnea and exertion. 2. Hypoxemia. 3. Possible impending BiPAP requiring respiratory failure. 4. Transient tachycardia. 5. Uncontrolled hypertension. 6. Leukocytosis with granulocytosis. 7. Lactic acidosis. 8. Increased anion gap metabolic acidosis. 9. Insulin-requiring diabetes mellitus with hyperglycemia. 10. Mild hyperkalemia. 11. Bilateral multilobar community-acquired pneumonia with bilateral alveolar infiltrates. 12. Acute exacerbation of systolic congestive heart failure and pulmonary edema. 13. Cardiomegaly. 14. Pericardial effusion. 15. Nonspecific mediastinal and paratracheal lymphadenopathy. 16. Hiatal hernia. 17. Questionable gastroesophageal reflux with distal esophageal wall thickening. 18. Multilevel degenerative joint disease of the thoracic spine and spondylosis. 19. Multifocal multilobar bilateral pneumonia with acute exacerbation of systolic congestive heart failure and pulmonary edema. 20. Status post automatic implantable cardioverter-defibrillator. 21. History of cardiac arrest. 22. History of cardiogenic shock. 23. Hypoxic respiratory failure, BiPAP requiring. 24. History of lung carcinoma, history of coronary artery disease, history of coronary angioplasty, history of dilated ischemic cardiomyopathy. 25. History of ventricular tachycardia, history of defibrillator implant, history of left upper extremity provoked deep vein thrombosis, post automatic implantable cardioverter-defibrillator implant, history of congestive heart failure, history of insulin-requiring diabetes mellitus, history of kidney injury, history of cardiac arrest, history of vitamin B12 deficiency, history of iron-deficiency anemia, history of leukocytosis, history of hypovitaminosis D, history of hyperuricemia, history of narcotic-dependent cervical spine degenerative disk disease, history of hypothyroidism, history of hypomagnesemia, history of vitamin B12 deficiency, history of hyperlipidemia, history of ventilator-dependent respiratory failure, history of cardiogenic shock, hypotensive, hypovolemic shock and septic shock, history of multiple organ dysfunction syndrome, history of acute renal failure, history of end-stage dilated ischemic cardiomyopathy, history of ventricle tachycardia, ventricle fibrillation, cardiac arrest, history of acute myocardial infarction, history of uncontrolled diabetes mellitus, history of shock liver with severe transaminitis, history of multilobar pneumonia, history of hypothermia, history of hypoxemia, history of multivessel coronary artery disease with history of multiple angioplasty and stent placement, history of left upper extremity deep vein thrombosis placement, history of moderate to severe pulmonary hypertension, history of moderate mitral regurgitation, history of multiple non-ST elevation myocardial infarction, history of lung carcinoma status post chemotherapy. Please refer to the detailed history and physical examination dictated by the medical tech for other details. At present, the patient was treated in the emergency room by the ER physician. The patient is to be admitted to ICU. The patient will be continued on BiPAP. The patient has been ordered serial labs, serial cardiac enzymes. Blood cultures ordered. Urine cultures ordered. CONSULTATIONS: Cardiology and Infectious Disease. Procalcitonin level is ordered. The patient is resumed on Aldactone 12.5 daily, aspirin 81 daily, amiodarone 200 mg daily, Coreg 12.5 twice a day. The patient is started on Vibramycin 100 mg IV every 12 hours. The patient is resumed on Entresto twice a day. Uloric 80 mg daily, folic acid 1 mg daily, heparin 5000 subcu every 8 hours, Humalog medium dose sliding scale coverage every 6 hours, NPH 10 units before breakfast and dinner. The patient has been ordered Lasix 40 IV every 12 hours, Lipitor 40 daily. The patient was treated in the emergency room with IV nitroglycerin. The patient is on Percocet 5/325 one tablet t.i.d. p.r.n., Plavix 75 daily. The patient is started on Pulmicort drip at 0.375 mcg daily, Protonix 40 IV daily, Solu-Medrol was started at 20 IV every 12 hours by pairer inspector, Synthroid 25 mcg daily. The patient received vancomycin 1 g IV in the emergency room. The patient is on vitamin D3 2000 units daily, Xopenex nebulizer 0.63 mg every 6 hours, Zetia 10 mg daily. The patient received Zosyn 4.5 g IV in the emergency room. The patient is to be treated with chest PT and BiPAP at 15/7, 100% FIO2, rate of 16. The patient has been ordered repeat EKG, echo with Doppler ordered. Consistent carbohydrate diet ordered. Bladder scan every shift. Fingerstick blood sugar. Head of the bed, SCDs, VAMSI stockings all ordered. The patient's condition, diagnosis, management discussed at length with the patient and the patient's in the ICU. All questions concerned answered, which they acknowledged and understand. The patient was re-advised about strict compliance with medication, diet, activity, and the close followup in the office. The patient was re-advised to contact the office in case of medication refills and in case if the patient is not feeling well. All above discussed and explained to the patient and the patient's at length and all questions concerned answered. Time spent in the entire management, treatment, review of all the diagnostic data, and discussion more than 1 hour 55 minutes. Dictated and electronically signed, not read. Andres Pettit MD
[2017-06-27] MEDS: Meropenem IV 1 gm in NS 50 ML IVPB SCH ×3 (05:52→22:02)
[2017-06-27] MEDS: Oxycodone/Acetaminophen 5/325 mg Tab PO PRN ×3 (06:55→22:04)
[2017-06-27 06:56] LABS: VENOUS BLOOD GAS BASE EXCESS -0.3 mmol/L (0.0-2.0); VENOUS BLOOD GAS PO2 37 mm/Hg (30-55); VENOUS BLOOD PH 7.41 (7.32-7.43)
[2017-06-27 06:59] LABS: URINE BILIRUBIN NEGATIVE (NEGATIVE); URINE BLOOD NEGATIVE (NEGATIVE); URINE GLUCOSE (UA) NEGATIVE (NEGATIVE); URINE LEUKOCYTE ESTERASE NEGATIVE Leu/uL (NEGATIVE); URINE PROTEIN NEGATIVE mg/dL (<30 mg/dL); URINE UROBILINOGEN 0.2 E.U./dL (<1 E.U./dL)
[2017-06-27 07:00] LABS: BASO # 0.01 K/mm3 (0.0-2.0); BASO % 0.1 % (0.0-3.0); GRAN # 9.11 (1.4-6.5); GRAN % 90.2 % (50.0-68.0); LYMPH # 0.6 (1.2-3.4); LYMPH % 5.9 % (22.0-35.0); MEAN CELL VOLUME 91.9 fl (80.0-105.0); MEAN CORPUSCULAR HEMOGLOBIN 30.4 pg (25.0-35.0); MEAN PLATELET VOLUME 9.5 fl (7.0-11.0); MONO # 0.4 (0.1-0.6); MONO % 3.8 % (1.0-6.0); PLATELET COUNT 201 10^3/uL (120.0-450.0); RBC 3.69 10^6/uL (3.5-6.1); WHITE BLOOD COUNT 10.1 10^3/ul (4.5-11.0)
[2017-06-27 07:03] LABS: URINE APPEARANCE CLEAR (CLEAR); URINE COLOR YELLOW (YELLOW)
[2017-06-27 07:11] LABS: HEMOGLOBIN 11.2 g/dL (14.0-18.0)
[2017-06-27 07:16] LABS: LDL CHOLESTEROL 84 mg/dL (0-129)
[2017-06-27 07:33] LABS: ALB/GLOB RATIO 1.5 (1.1-1.8); ALT/SGPT 31 U/L (7-56); AST/SGOT 31 U/L (17-59); BILIRUBIN,DIRECT 0.3 mg/dL (0.0-0.4); BLOOD UREA NITROGEN 22 mg/dL (7-21); CALCIUM 8.3 mg/dL (8.4-10.5); GFR AFRICAN-AMERICAN > 60; GFR NON-AFRICAN AMERICAN 50; HDL CHOLESTEROL 45 mg/dL (29-60)
[2017-06-27 08:10] LABS: LYMPHOCYTE 5 % (22.0-35.0); MONOCYTE 4 % (1.0-6.0); NEUTROPHIL 91 % (50.0-70.0); PLATELET ESTIMATE NORMAL (NORMAL)
[2017-06-27] MEDS: Insulin Human NPH 1 UNITS/0.01 ML SC SCH ×2 (08:24→15:58)
[2017-06-27 08:50] LABS: TROPONIN I 0.08 ng/mL
--- NOTE | 2017-06-27 09:23 | CP.PCM.PN ---
<Edu Gutiérrez - Last Filed: 06/27/17 10:53> Subjective - Date & Time of Evaluation Date of Evaluation: 06/27/17 Time of Evaluation: 06:00 - Subjective Subjective: Patient seen and evaluated bedside. No acute issues overnight. Patient state he feels better and shortness of breath has improved. He was seated comfortably in chair out of bed. He denies any chest pain, palpitations, abdominal pain or any other complaints. Objective - Vital Signs/Intake and Output Vital Signs (last 24 hours): Temp Pulse Resp BP Pulse Ox 97.8 F 93 H 18 99/59 L 94 L 06/27/17 06:00 06/27/17 06:00 06/27/17 05:45 06/27/17 06:00 06/27/17 06:15 Intake and Output: 06/27/17 06/27/17 06:59 18:59 Intake Total 632 Output Total 1200 Balance -568 - Medications Medications: Current Medications Amiodarone HCl (Cordarone) 200 mg PO DAILY [facility] Aspirin (Aspirin Chewable) 81 mg PO DAILY [facility] Atorvastatin Calcium (Lipitor) 40 mg PO DAILY [facility] Carvedilol (Coreg) 12.5 mg PO BID [facility] Last Admin: 06/26/17 17:56 Dose: 12.5 mg Cholecalciferol (Vitamin D) 1,000 intlu PO BID [facility] Last Admin: 06/26/17 18:03 Dose: 1,000 intlu Clopidogrel Bisulfate (Plavix) 75 mg PO DAILY [facility] Ezetimibe (Zetia) 10 mg PO DAILY [facility] Folic Acid (Folic Acid) 1 mg PO DAILY [facility] Furosemide (Lasix) 40 mg IVP Q12H [facility] Last Admin: 06/27/17 02:30 Dose: 40 mg Heparin Sodium (Porcine) (Heparin) 5,000 units SC Q8 [facility] PRN Reason: Protocol Last Admin: 06/27/17 05:52 Dose: 5,000 units Nitroglycerin/Dextrose (Nitroglycerin 50 Mg/250 Ml D5w) 50 mg in 250 mls @ 1.5 mls/hr IV .Q24H PRN; Protocol; 5 MCG/MIN PRN Reason: Other Last Admin: 06/26/17 12:55 Dose: 5 mcg/min, 1.5 mls/hr Doxycycline Hyclate 100 mg/ (Sodium Chloride) 100 mls @ 100 mls/hr IVPB Q12 [facility] PRN Reason: Protocol Last Admin: 06/26/17 21:32 Dose: 100 mls/hr Milrinone Lactate/Dextrose (Primacor 20mg/100ml D5w) 100 mls @ 10.869 mls/hr IV .Q9H13M PRN; Protocol; 0.375 MCG/KG/MIN PRN Reason: TITRATE PER MD ORDER Last Admin: 06/27/17 00:34 Dose: 0.375 mcg/kg/min, 10.869 mls/hr Meropenem (Merrem Iv 1 Gm Premix) 50 mls @ 100 mls/hr IVPB Q8 [facility] PRN Reason: Protocol Stop: 07/05/17 22:01 Last Admin: 06/27/17 05:52 Dose: 100 mls/hr Insulin Human Lispro (Humalog Med) 0 units SC Q6H [facility] PRN Reason: Protocol Last Admin: 06/27/17 04:39 Dose: Not Given Insulin Human NPH (Humulin N) 10 units SC ACBD [facility] Last Admin: 06/27/17 08:24 Dose: 10 units Levalbuterol HCl (Xopenex) 0.63 mg IH [id number] [facility] Last Admin: 06/27/17 07:36 Dose: 0.63 mg Levothyroxine Sodium (Synthroid) 25 mcg PO DAILY [facility] Methylprednisolone (Solu-Medrol) 20 mg IVP Q12 [facility] Last Admin: 06/26/17 21:31 Dose: 20 mg Non-Formulary Medication (Febuxostat [Uloric]) 80 mg PO DAILY [facility] Oxycodone/Acetaminophen (Percocet 5/325 Mg Tab) 1 tab PO QID [facility] Stop: 06/30/17 10:01 Pantoprazole Sodium (Protonix Inj) 40 mg IVP DAILY [facility] Sacubitril/Valsartan (Entresto 24 Mg-26 Mg Tablet) 1 each PO BID [facility] Last Admin: 06/26/17 18:30 Dose: 1 each Spironolactone (Aldactone) 12.5 mg PO DAILY [facility] - Labs Labs: 06/27/17 06:00 06/27/17 06:00 PT 9.9 SECONDS (9.4-12.5) 06/26/17 13:05 INR 0.86 (0.93-1.08) L 06/26/17 13:05 APTT 28.5 Seconds (25.1-36.5) 06/26/17 13:05 Assessment and Plan - Assessment and Plan (Free Text) Assessment: 72 year old male, whose past medical history includes Lung carcinoma treated with chemotherapy, CAD, ventricular tachycardia, defibrillator, history of left upper extremity DVT, CHF, diabetes, and cardiac arrest with intubated on , presents with shortness of breath after getting out of the shower this morning. Patient has gained 10 pounds in 2 days and has not taken his diuretic. Plan: 1. Decompensated CHF with questionable pneumonia -initial chest xray shows congestion, possible pneumonia -ABG showing improvement in oxygenation -BIPAP as needed -VBG with shock panel -Lasix 40 IVP Q12 -Solumedrol with tapering daily -duonebs scheduled and PRN -given one dose of vancomycin -azithromycin and doxycycline -BNP 1800 initial -echo pending -MUGA scan pending -ID consulted, [place], follow recs -ICU consult, follow recs -CT chest without contrast : fluffy alveolar-type infiltrates throughout of both right and right upper lobes on former more significant than the latter. The changes in the right upper lobe lung more translucent. Similar but less severe alveolar-type appearing infiltrates seen in the left upper and lower lobes. . . Note that the changes in the upper lobes are more translucent and less dense than the right lower lobe infiltrates Findings could represent multifocal pneumonia however the possibility of a asymmetric pulmonary edema/ CHF not excluded. There are small bilateral effusions right larger than left -daily weights -Strict Is and Os 2. Leukocytosis-resolved -procal pending -ID consulted, follow recs -blood and urine cultures pending 3. DM -hold oral hypoglycemics -basal NPH 10 units at breakfast and dinner -ISS Humalog medium -Accuchecks -low salt, carb consistent diet 4. CAD with history of arrhythmia -continue home plavix -continue home statin -continue amiodarone -continue home coreg 5. History of provoked DVT in upper extremity -heparin SC 6. Hypokalemia-resolved -continue to monitor GI/DVT Prophylaxis -Protonix -DVT prophylaxis <Andres Pettit - Last Filed: 06/30/17 09:27> Objective - Vital Signs/Intake and Output Vital Signs (last 24 hours): Temp Pulse Resp BP Pulse Ox 98 F 68 18 98/52 L 98 06/27/17 16:00 06/28/17 11:00 06/28/17 11:00 06/28/17 10:00 06/28/17 10:00 - Labs Labs: 06/28/17 05:55 06/28/17 05:55 PT 9.9 SECONDS (9.4-12.5) 06/26/17 13:05 INR 0.86 (0.93-1.08) L 06/26/17 13:05 APTT 28.5 Seconds (25.1-36.5) 06/26/17 13:05 Attending/Attestation - Attestation I have personally seen and examined this patient.: Yes I have fully participated in the care of the patient.: Yes I have reviewed all pertinent clinical information, including history, physical exam and plan: Yes Notes (Text): Please see/read my dictated notes.
[2017-06-27] MEDS ORDERED: Levothyroxine 25 MCG TAB PO SCH (10:00)
[2017-06-27] MEDS ORDERED: SACUBITRIL 24mg/VALSARTAN 26mg tab PO SCH (10:00)
[2017-06-27] MEDS ORDERED: Oxycodone/Acetaminophen 5/325 mg Tab PO SCH (10:00)
--- NOTE | 2017-06-27 10:05 | CP.CCUPN ---
<Willis Owen - Last Filed: 06/27/17 10:02> CCU Subjective - Physician Review Subjective (Free Text): ICU Progress Note Pt seen and examined at bedside. No acute overnight events. Patient resting comfortably out of bed in chair. Patient states that breathing is improved. Pt denies CP, SOB, n/v/d, abdominal pain, fever, chills, CASTE[place]OS, or dizziness. CCU Objective - Vital Signs / Intake & Output Vital Signs (Last 4 hours): Vital Signs Pulse Ox 06/27/17 06:15 94 L Intake and Output (Last 8hrs): Intake & Output 06/26/17 06/27/17 06/27/17 22:59 06:59 14:59 Intake Total 866 632 Output Total 1900 1200 Balance -1034 -568 Weight 96.615 kg Intake: IV 626 332 Right Forearm 26 200 Right Hand 600 132 Oral 240 300 Output: Urine 1900 1200 Urine, Voided 1900 1200 Stool 0 Other: Voiding Method Urinal # Bowel Movements 0 - Physical Exam Head: Positive for: Atraumatic, Normocephalic Mouth: Positive for: Moist Mucous Membranes Neck: Positive for: Normal Range of Motion Respiratory/Chest: Positive for: Clear to Auscultation. Negative for: Respiratory Distress, Wheezes, Rales, Rhonchi Cardiovascular: Positive for: Regular Rate and Rhythm, Normal S1, S2. Negative for: Murmurs, Rub, Gallop, Muffled Abdomen: Positive for: Tenderness. Negative for: Distention, Peritoneal Signs, Rebound Upper Extremity: Positive for: Normal Inspection. Negative for: Cyanosis, Edema Lower Extremity: Positive for: Normal Inspection. Negative for: Edema Neurological: Positive for: GCS=15, CN II-XII Intact, Speech Normal Skin: Positive for: Warm, Dry, Rashes, Normal Color Psychiatric: Positive for: Alert, Oriented x 3, Normal Insight, Normal Concentration - Medications Active Medications: Active Medications Generic Name Dose Route Start Last Admin Trade Name Freq PRN Reason Stop Dose Admin Amiodarone HCl 200 mg 06/27/17 10:00 Cordarone PO DAILY [facility] Aspirin 81 mg 06/27/17 10:00 Aspirin Chewable PO DAILY [facility] Atorvastatin Calcium 40 mg 06/27/17 10:00 Lipitor PO DAILY [facility] Carvedilol 12.5 mg 06/26/17 18:00 06/26/17 17:56 Coreg PO 12.5 mg BID SERGIO Administration Cholecalciferol 1,000 intlu 06/26/17 18:00 06/26/17 18:03 Vitamin D PO 1,000 intlu BID SERGOI Administration Clopidogrel Bisulfate 75 mg 06/27/17 10:00 Plavix PO DAILY SERGIO Ezetimibe 10 mg 06/27/17 10:00 Zetia PO DAILY SERGIO Folic Acid 1 mg 06/27/17 10:00 Folic Acid PO DAILY SERGIO Furosemide 40 mg 06/26/17 14:15 06/27/17 02:30 Lasix IVP 40 mg Q12H SERGIO Administration Heparin Sodium (Porcine) 5,000 units 06/26/17 22:00 06/27/17 05:52 Heparin SC 5,000 units Q8 SERGIO Administration Protocol Nitroglycerin/Dextrose 50 mg in 250 mls @ 1.5 mls/hr 06/26/17 13:00 06/26/17 12:55 Nitroglycerin 50 Mg/250 Ml D5w IV 5 mcg/min .Q24H PRN 1.5 mls/hr Other Administration Protocol 5 MCG/MIN Doxycycline Hyclate 100 mg/ 100 mls @ 100 mls/hr 06/26/17 22:00 06/26/17 21: 32 Sodium Chloride IVPB 100 mls/hr Q12 SERGIO Administration Protocol Milrinone Lactate/Dextrose 100 mls @ 10.869 mls/hr 06/26/17 14:29 06/27/17 00 :34 Primacor 20mg/100ml D5w IV 0.375 mcg/kg/min .Q9H13M PRN 10.869 mls/hr TITRATE PER MD ORDER Administration Protocol 0.375 MCG/KG/MIN Meropenem 50 mls @ 100 mls/hr 06/26/17 22:00 06/27/17 05:52 Merrem Iv 1 Gm Premix IVPB 07/05/17 22:01 100 mls/hr Q8 SERGIO Administration Protocol Insulin Human Lispro 0 units 06/26/17 15:01 06/27/17 04:39 Humalog Med SC Not Given Q6H SERGIO Protocol Insulin Human NPH 10 units 06/27/17 07:30 06/27/17 08:24 Humulin N SC 10 units ACBD SERGIO Administration Levalbuterol HCl 0.63 mg 06/26/17 15:00 06/27/17 07:36 Xopenex IH 0.63 mg [id number] SERGIO Administration Levothyroxine Sodium 25 mcg 06/27/17 10:00 Synthroid PO DAILY SERGIO Methylprednisolone 20 mg 06/26/17 22:00 06/26/17 21:31 Solu-Medrol IVP 20 mg Q12 SERGIO Administration Non-Formulary Medication 80 mg 06/27/17 10:00 Febuxostat [Uloric] PO DAILY SERGIO Oxycodone/Acetaminophen 1 tab 06/27/17 10:00 Percocet 5/325 Mg Tab PO 06/30/17 10:01 QID SERGIO Pantoprazole Sodium 40 mg 06/27/17 10:00 Protonix Inj IVP DAILY [facility] Sacubitril/Valsartan 1 each 06/26/17 18:00 06/26/17 18:30 Entresto 24 Mg-26 Mg Tablet PO 1 each BID SERGIO Administration Spironolactone 12.5 mg 06/27/17 10:00 Aldactone PO DAILY SERGIO - Patient Studies Lab Studies: Lab Studies 06/27/17 06/27/17 06/27/17 Range/Units 08:15 07:52 06:30 WBC (4.5-11.0) 10^3/ul RBC (3.5-6.1) 10^6/uL Hgb (14.0-18.0) g/dL Hct (42.0-52.0) % MCV (80.0-105.0) fl MCH (25.0-35.0) pg MCHC (31.0-37.0) g/dl RDW (11.5-14.5) % Plt Count (120.0-450.0) 10^3/uL MPV (7.0-11.0) fl Gran % (50.0-68.0) % Lymph % (Auto) (22.0-35.0) % [place] % (Auto) (1.0-6.0) % Eos % (Auto) (1.5-5.0) % Baso % (Auto) (0.0-3.0) % Gran # (1.4-6.5) Lymph # (Auto) (1.2-3.4) [place] # (Auto) (0.1-0.6) Eos # (Auto) (0.0-0.7) Baso # (Auto) (0.0-2.0) K/mm3 Neutrophils % (Manual) (50.0-70.0) % Lymphocytes % (Manual) (22.0-35.0) % Monocytes % (Manual) (1.0-6.0) % Platelet Evaluation (NORMAL) pCO2 (35-45) mm/Hg pO2 37 (80-100) mm/Hg HCO3 (21-28) mmol/L ABG pH (7.35-7.45) ABG Total CO2 (22-28) mmol.L ABG O2 Saturation (95-98) % ABG O2 Content (15-23) ML/dl ABG Base Excess (-2.0-3.0) mmol/L ABG Hemoglobin (11.7-17.4) g/dL ABG Carboxyhemoglobin (0.5-1.5) % POC ABG HHb (Measured) (0-5) % ABG Methemoglobin (0.0-3.0) % ABG O2 Capacity (16-24) mL/dl VBG pH 7.41 (7.32-7.43) VBG pCO2 38.0 L (40-60) VBG HCO3 24.1 (21-28) mmol/l VBG Total CO2 25.3 (22-28) mmol.L VBG O2 Sat (Calc) 74.2 H (40-65) % VBG Base Excess -0.3 L (0.0-2.0) mmol/L VBG Potassium 4.4 (3.6-5.2) mmol/L Hgb O2 Saturation (95.0-98.0) % Sodium 138.0 (132-148) mmol/L Chloride 105.0 (98-107) mmol/L Glucose 194 H (75-110) mg/dl Lactate 1.5 (0.7-2.1) mmol/L FiO2 21.0 % Potassium (3.6-5.0) mmol/L Carbon Dioxide (21-33) mmol/L Anion Gap (10-20) BUN (7-21) mg/dL Creatinine (0.8-1.5) mg/dl Est GFR ( Amer) Est GFR (Non-Af Amer) POC Glucose (mg/dL) 161 H (65-110) mg/dL Random Glucose (70-110) mg/dL Uric Acid (3.5-8.5) mg/dL Calcium (8.4-10.5) mg/dL Magnesium (1.7-2.2) mg/dL Total Bilirubin (0.2-1.3) mg/dL Direct Bilirubin (0.0-0.4) mg/dL AST (17-59) U/L ALT (7-56) U/L Alkaline Phosphatase (38-126) U/L Total Creatine Kinase 47 (35-230) U/L Troponin I 0.08 ng/mL Total Protein (5.8-8.3) g/dL Albumin (3.0-4.8) g/dL Globulin gm/dL Albumin/Globulin Ratio (1.1-1.8) Triglycerides (35-160) mg/dL Cholesterol (130-200) mg/dL LDL Cholesterol Direct (0-129) mg/dL HDL Cholesterol (29-60) mg/dL Venous Blood Potassium 4.4 (3.6-5.2) mmol/L Urine Color (YELLOW) Urine Appearance (CLEAR) Urine pH (4.7-8.0) Ur Specific [place] (1.005-1.035) Urine Protein (<30 mg/dL) mg/dL Urine Glucose (UA) (NEGATIVE) mg/dL Urine Ketones (NEGATIVE) mg/dL Urine Blood (NEGATIVE) Urine Nitrate (NEGATIVE) Urine Bilirubin (NEGATIVE) Urine Urobilinogen (<1 E.U./dL) E.U./dL Ur Leukocyte Esterase (NEGATIVE) Ramya/uL 06/27/17 06/27/17 06/27/17 Range/Units 06:30 06:00 06:00 WBC 10.1 D (4.5-11.0) 10^3/ul RBC 3.69 (3.5-6.1) 10^6/uL Hgb 11.2 L D (14.0-18.0) g/dL Hct 33.9 L (42.0-52.0) % MCV 91.9 D (80.0-105.0) fl MCH 30.4 (25.0-35.0) pg MCHC 33.0 (31.0-37.0) g/dl RDW 15.0 H (11.5-14.5) % Plt Count 201 (120.0-450.0) 10^3/uL MPV 9.5 (7.0-11.0) fl Gran % 90.2 H (50.0-68.0) % Lymph % (Auto) 5.9 L (22.0-35.0) % [place] % (Auto) 3.8 (1.0-6.0) % Eos % (Auto) 0.0 L (1.5-5.0) % Baso % (Auto) 0.1 (0.0-3.0) % Gran # 9.11 H (1.4-6.5) Lymph # (Auto) 0.6 L (1.2-3.4) [place] # (Auto) 0.4 (0.1-0.6) Eos # (Auto) 0.0 (0.0-0.7) Baso # (Auto) 0.01 (0.0-2.0) K/mm3 Neutrophils % (Manual) 91 H (50.0-70.0) % Lymphocytes % (Manual) 5 L (22.0-35.0) % Monocytes % (Manual) 4 (1.0-6.0) % Platelet Evaluation Normal (NORMAL) pCO2 (35-45) mm/Hg pO2 (80-100) mm/Hg HCO3 (21-28) mmol/L ABG pH (7.35-7.45) ABG Total CO2 (22-28) mmol.L ABG O2 Saturation (95-98) % ABG O2 Content (15-23) ML/dl ABG Base Excess (-2.0-3.0) mmol/L ABG Hemoglobin (11.7-17.4) g/dL ABG Carboxyhemoglobin (0.5-1.5) % POC ABG HHb (Measured) (0-5) % ABG Methemoglobin (0.0-3.0) % ABG O2 Capacity (16-24) mL/dl VBG pH (7.32-7.43) VBG pCO2 (40-60) VBG HCO3 (21-28) mmol/l VBG Total CO2 (22-28) mmol.L VBG O2 Sat (Calc) (40-65) % VBG Base Excess (0.0-2.0) mmol/L VBG Potassium (3.6-5.2) mmol/L Hgb O2 Saturation (95.0-98.0) % Sodium 143 (132-148) mmol/L Chloride 105 (98-107) mmol/L Glucose (75-110) mg/dl Lactate (0.7-2.1) mmol/L FiO2 % Potassium 4.5 (3.6-5.0) mmol/L Carbon Dioxide 23 (21-33) mmol/L Anion Gap 20 (10-20) BUN 22 H (7-21) mg/dL Creatinine 1.4 (0.8-1.5) mg/dl Est GFR ( Amer) > 60 Est GFR (Non-Af Amer) 50 POC Glucose (mg/dL) (65-110) mg/dL Random Glucose 182 H (70-110) mg/dL Uric Acid (3.5-8.5) mg/dL Calcium 8.3 L (8.4-10.5) mg/dL Magnesium 2.0 (1.7-2.2) mg/dL Total Bilirubin 0.6 (0.2-1.3) mg/dL Direct Bilirubin 0.3 (0.0-0.4) mg/dL AST 31 (17-59) U/L ALT 31 (7-56) U/L Alkaline Phosphatase 63 (38-126) U/L Total Creatine Kinase (35-230) U/L Troponin I ng/mL Total Protein 6.7 (5.8-8.3) g/dL Albumin 4.0 (3.0-4.8) g/dL Globulin 2.7 gm/dL Albumin/Globulin Ratio 1.5 (1.1-1.8) Triglycerides 167 H (35-160) mg/dL Cholesterol 167 (130-200) mg/dL LDL Cholesterol Direct 84 (0-129) mg/dL HDL Cholesterol 45 (29-60) mg/dL Venous Blood Potassium (3.6-5.2) mmol/L Urine Color Yellow (YELLOW) Urine Appearance Clear (CLEAR) Urine pH 6.0 (4.7-8.0) Ur Specific [place] 1.015 (1.005-1.035) Urine Protein Negative (<30 mg/dL) mg/dL Urine Glucose (UA) Negative (NEGATIVE) mg/dL Urine Ketones Negative (NEGATIVE) mg/dL Urine Blood Negative (NEGATIVE) Urine Nitrate Negative (NEGATIVE) Urine Bilirubin Negative (NEGATIVE) Urine Urobilinogen 0.2 (<1 E.U./dL) E.U./dL Ur Leukocyte Esterase Negative (NEGATIVE) Ramya/uL 06/27/17 06/26/17 06/26/17 Range/Units 04:34 20:27 20:05 WBC (4.5-11.0) 10^3/ul RBC (3.5-6.1) 10^6/uL Hgb (14.0-18.0) g/dL Hct (42.0-52.0) % MCV (80.0-105.0) fl MCH (25.0-35.0) pg MCHC (31.0-37.0) g/dl RDW (11.5-14.5) % Plt Count (120.0-450.0) 10^3/uL MPV (7.0-11.0) fl Gran % (50.0-68.0) % Lymph % (Auto) (22.0-35.0) % [place] % (Auto) (1.0-6.0) % Eos % (Auto) (1.5-5.0) % Baso % (Auto) (0.0-3.0) % Gran # (1.4-6.5) Lymph # (Auto) (1.2-3.4) [place] # (Auto) (0.1-0.6) Eos # (Auto) (0.0-0.7) Baso # (Auto) (0.0-2.0) K/mm3 Neutrophils % (Manual) (50.0-70.0) % Lymphocytes % (Manual) (22.0-35.0) % Monocytes % (Manual) (1.0-6.0) % Platelet Evaluation (NORMAL) pCO2 (35-45) mm/Hg pO2 188 H (80-100) mm/Hg HCO3 (21-28) mmol/L ABG pH (7.35-7.45) ABG Total CO2 (22-28) mmol.L ABG O2 Saturation (95-98) % ABG O2 Content (15-23) ML/dl ABG Base Excess (-2.0-3.0) mmol/L ABG Hemoglobin (11.7-17.4) g/dL ABG Carboxyhemoglobin (0.5-1.5) % POC ABG HHb (Measured) (0-5) % ABG Methemoglobin (0.0-3.0) % ABG O2 Capacity (16-24) mL/dl VBG pH 7.42 (7.32-7.43) VBG pCO2 34.0 L (40-60) VBG HCO3 22.1 (21-28) mmol/l VBG Total CO2 23.1 (22-28) mmol.L VBG O2 Sat (Calc) 96.9 H (40-65) % VBG Base Excess -1.7 L (0.0-2.0) mmol/L VBG Potassium 4.8 (3.6-5.2) mmol/L Hgb O2 Saturation (95.0-98.0) % Sodium 137.0 (132-148) mmol/L Chloride 107.0 (98-107) mmol/L Glucose 202 H (75-110) mg/dl Lactate 2.4 H (0.7-2.1) mmol/L FiO2 21.0 % Potassium (3.6-5.0) mmol/L Carbon Dioxide (21-33) mmol/L Anion Gap (10-20) BUN (7-21) mg/dL Creatinine (0.8-1.5) mg/dl Est GFR ( Amer) Est GFR (Non-Af Amer) POC Glucose (mg/dL) 170 H 173 H (65-110) mg/dL Random Glucose (70-110) mg/dL Uric Acid (3.5-8.5) mg/dL Calcium (8.4-10.5) mg/dL Magnesium (1.7-2.2) mg/dL Total Bilirubin (0.2-1.3) mg/dL Direct Bilirubin (0.0-0.4) mg/dL AST (17-59) U/L ALT (7-56) U/L Alkaline Phosphatase (38-126) U/L Total Creatine Kinase (35-230) U/L Troponin I ng/mL Total Protein (5.8-8.3) g/dL Albumin (3.0-4.8) g/dL Globulin gm/dL Albumin/Globulin Ratio (1.1-1.8) Triglycerides (35-160) mg/dL Cholesterol (130-200) mg/dL LDL Cholesterol Direct (0-129) mg/dL HDL Cholesterol (29-60) mg/dL Venous Blood Potassium 4.8 (3.6-5.2) mmol/L Urine Color (YELLOW) Urine Appearance (CLEAR) Urine pH (4.7-8.0) Ur Specific [place] (1.005-1.035) Urine Protein (<30 mg/dL) mg/dL Urine Glucose (UA) (NEGATIVE) mg/dL Urine Ketones (NEGATIVE) mg/dL Urine Blood (NEGATIVE) Urine Nitrate (NEGATIVE) Urine Bilirubin (NEGATIVE) Urine Urobilinogen (<1 E.U./dL) E.U./dL Ur Leukocyte Esterase (NEGATIVE) Ramya/uL 06/26/17 06/26/17 06/26/17 Range/Units 20:05 17:52 15:00 WBC (4.5-11.0) 10^3/ul RBC (3.5-6.1) 10^6/uL Hgb (14.0-18.0) g/dL Hct (42.0-52.0) % MCV (80.0-105.0) fl MCH (25.0-35.0) pg MCHC (31.0-37.0) g/dl RDW (11.5-14.5) % Plt Count (120.0-450.0) 10^3/uL MPV (7.0-11.0) fl Gran % (50.0-68.0) % Lymph % (Auto) (22.0-35.0) % [place] % (Auto) (1.0-6.0) % Eos % (Auto) (1.5-5.0) % Baso % (Auto) (0.0-3.0) % Gran # (1.4-6.5) Lymph # (Auto) (1.2-3.4) [place] # (Auto) (0.1-0.6) Eos # (Auto) (0.0-0.7) Baso # (Auto) (0.0-2.0) K/mm3 Neutrophils % (Manual) (50.0-70.0) % Lymphocytes % (Manual) (22.0-35.0) % Monocytes % (Manual) (1.0-6.0) % Platelet Evaluation (NORMAL) pCO2 (35-45) mm/Hg pO2 53 (80-100) mm/Hg HCO3 (21-28) mmol/L ABG pH (7.35-7.45) ABG Total CO2 (22-28) mmol.L ABG O2 Saturation (95-98) % ABG O2 Content (15-23) ML/dl ABG Base Excess (-2.0-3.0) mmol/L ABG Hemoglobin (11.7-17.4) g/dL ABG Carboxyhemoglobin (0.5-1.5) % POC ABG HHb (Measured) (0-5) % ABG Methemoglobin (0.0-3.0) % ABG O2 Capacity (16-24) mL/dl VBG pH 7.27 L (7.32-7.43) VBG pCO2 49.0 (40-60) VBG HCO3 22.5 (21-28) mmol/l VBG Total CO2 24.0 (22-28) mmol.L VBG O2 Sat (Calc) 85.6 H (40-65) % VBG Base Excess -4.7 L (0.0-2.0) mmol/L VBG Potassium 6.0 H (3.6-5.2) mmol/L Hgb O2 Saturation (95.0-98.0) % Sodium 135.0 (132-148) mmol/L Chloride 104.0 (98-107) mmol/L Glucose 253 H (75-110) mg/dl Lactate 2.4 H (0.7-2.1) mmol/L FiO2 21.0 % Potassium (3.6-5.0) mmol/L Carbon Dioxide (21-33) mmol/L Anion Gap (10-20) BUN (7-21) mg/dL Creatinine (0.8-1.5) mg/dl Est GFR ( Amer) Est GFR (Non-Af Amer) POC Glucose (mg/dL) 130 H (65-110) mg/dL Random Glucose (70-110) mg/dL Uric Acid 6.6 (3.5-8.5) mg/dL Calcium (8.4-10.5) mg/dL Magnesium (1.7-2.2) mg/dL Total Bilirubin (0.2-1.3) mg/dL Direct Bilirubin (0.0-0.4) mg/dL AST (17-59) U/L ALT (7-56) U/L Alkaline Phosphatase (38-126) U/L Total Creatine Kinase 52 (35-230) U/L Troponin I 0.09 D ng/mL Total Protein (5.8-8.3) g/dL Albumin (3.0-4.8) g/dL Globulin gm/dL Albumin/Globulin Ratio (1.1-1.8) Triglycerides (35-160) mg/dL Cholesterol (130-200) mg/dL LDL Cholesterol Direct (0-129) mg/dL HDL Cholesterol (29-60) mg/dL Venous Blood Potassium 6.0 H (3.6-5.2) mmol/L Urine Color (YELLOW) Urine Appearance (CLEAR) Urine pH (4.7-8.0) Ur Specific [place] (1.005-1.035) Urine Protein (<30 mg/dL) mg/dL Urine Glucose (UA) (NEGATIVE) mg/dL Urine Ketones (NEGATIVE) mg/dL Urine Blood (NEGATIVE) Urine Nitrate (NEGATIVE) Urine Bilirubin (NEGATIVE) Urine Urobilinogen (<1 E.U./dL) E.U./dL Ur Leukocyte Esterase (NEGATIVE) Ramya/uL 06/26/17 Range/Units 13:42 WBC (4.5-11.0) 10^3/ul RBC (3.5-6.1) 10^6/uL Hgb (14.0-18.0) g/dL Hct (42.0-52.0) % MCV (80.0-105.0) fl MCH (25.0-35.0) pg MCHC (31.0-37.0) g/dl RDW (11.5-14.5) % Plt Count (120.0-450.0) 10^3/uL MPV (7.0-11.0) fl Gran % (50.0-68.0) % Lymph % (Auto) (22.0-35.0) % [place] % (Auto) (1.0-6.0) % Eos % (Auto) (1.5-5.0) % Baso % (Auto) (0.0-3.0) % Gran # (1.4-6.5) Lymph # (Auto) (1.2-3.4) [place] # (Auto) (0.1-0.6) Eos # (Auto) (0.0-0.7) Baso # (Auto) (0.0-2.0) K/mm3 Neutrophils % (Manual) (50.0-70.0) % Lymphocytes % (Manual) (22.0-35.0) % Monocytes % (Manual) (1.0-6.0) % Platelet Evaluation (NORMAL) pCO2 34 L (35-45) mm/Hg pO2 88.0 (80-100) mm/Hg HCO3 17.1 L (21-28) mmol/L ABG pH 7.31 L (7.35-7.45) ABG Total CO2 18.1 L (22-28) mmol.L ABG O2 Saturation 95.6 (95-98) % ABG O2 Content 17.8 (15-23) ML/dl ABG Base Excess -8.2 L (-2.0-3.0) mmol/L ABG Hemoglobin 13.2 (11.7-17.4) g/dL ABG Carboxyhemoglobin 0.2 L (0.5-1.5) % POC ABG HHb (Measured) 4.4 (0-5) % ABG Methemoglobin 0.0 (0.0-3.0) % ABG O2 Capacity 18.6 (16-24) mL/dl VBG pH (7.32-7.43) VBG pCO2 (40-60) VBG HCO3 (21-28) mmol/l VBG Total CO2 (22-28) mmol.L VBG O2 Sat (Calc) (40-65) % VBG Base Excess (0.0-2.0) mmol/L VBG Potassium (3.6-5.2) mmol/L Hgb O2 Saturation 95.4 (95.0-98.0) % Sodium (132-148) mmol/L Chloride (98-107) mmol/L Glucose (75-110) mg/dl Lactate (0.7-2.1) mmol/L FiO2 100.0 % Potassium (3.6-5.0) mmol/L Carbon Dioxide (21-33) mmol/L Anion Gap (10-20) BUN (7-21) mg/dL Creatinine (0.8-1.5) mg/dl Est GFR ( Amer) Est GFR (Non-Af Amer) POC Glucose (mg/dL) (65-110) mg/dL Random Glucose (70-110) mg/dL Uric Acid (3.5-8.5) mg/dL Calcium (8.4-10.5) mg/dL Magnesium (1.7-2.2) mg/dL Total Bilirubin (0.2-1.3) mg/dL Direct Bilirubin (0.0-0.4) mg/dL AST (17-59) U/L ALT (7-56) U/L Alkaline Phosphatase (38-126) U/L Total Creatine Kinase (35-230) U/L Troponin I ng/mL Total Protein (5.8-8.3) g/dL Albumin (3.0-4.8) g/dL Globulin gm/dL Albumin/Globulin Ratio (1.1-1.8) Triglycerides (35-160) mg/dL Cholesterol (130-200) mg/dL LDL Cholesterol Direct (0-129) mg/dL HDL Cholesterol (29-60) mg/dL Venous Blood Potassium (3.6-5.2) mmol/L Urine Color (YELLOW) Urine Appearance (CLEAR) Urine pH (4.7-8.0) Ur Specific [place] (1.005-1.035) Urine Protein (<30 mg/dL) mg/dL Urine Glucose (UA) (NEGATIVE) mg/dL Urine Ketones (NEGATIVE) mg/dL Urine Blood (NEGATIVE) Urine Nitrate (NEGATIVE) Urine Bilirubin (NEGATIVE) Urine Urobilinogen (<1 E.U./dL) E.U./dL Ur Leukocyte Esterase (NEGATIVE) Ramya/uL Laboratory Results - last 24 hr 06/26/17 06/26/17 06/26/17 13:42 15:00 17:52 WBC RBC Hgb Hct MCV MCH MCHC RDW Plt Count MPV Gran % Lymph % (Auto) [place] % (Auto) Eos % (Auto) Baso % (Auto) Gran # Lymph # (Auto) [place] # (Auto) Eos # (Auto) Baso # (Auto) Neutrophils % (Manual) Lymphocytes % (Manual) Monocytes % (Manual) Platelet Evaluation pCO2 34 L pO2 88.0 53 HCO3 17.1 L ABG pH 7.31 L ABG Total CO2 18.1 L ABG O2 Saturation 95.6 ABG O2 Content 17.8 ABG Base Excess -8.2 L ABG Hemoglobin 13.2 ABG Carboxyhemoglobin 0.2 L POC ABG HHb (Measured) 4.4 ABG Methemoglobin 0.0 ABG O2 Capacity 18.6 VBG pH 7.27 L VBG pCO2 49.0 VBG HCO3 22.5 VBG Total CO2 24.0 VBG O2 Sat (Calc) 85.6 H VBG Base Excess -4.7 L VBG Potassium 6.0 H Hgb O2 Saturation 95.4 Sodium 135.0 Chloride 104.0 Glucose 253 H Lactate 2.4 H FiO2 100.0 21.0 Potassium Carbon Dioxide Anion Gap BUN Creatinine Est GFR ( Amer) Est GFR (Non-Af Amer) POC Glucose (mg/dL) 130 H Random Glucose Uric Acid Calcium Magnesium Total Bilirubin Direct Bilirubin AST ALT Alkaline Phosphatase Total Creatine Kinase Troponin I Total Protein Albumin Globulin Albumin/Globulin Ratio Triglycerides Cholesterol LDL Cholesterol Direct HDL Cholesterol Venous Blood Potassium 6.0 H Urine Color Urine Appearance Urine pH Ur Specific [place] Urine Protein Urine Glucose (UA) Urine Ketones Urine Blood Urine Nitrate Urine Bilirubin Urine Urobilinogen Ur Leukocyte Esterase 06/26/17 06/26/17 06/26/17 20:05 20:05 20:27 WBC RBC Hgb Hct MCV MCH MCHC RDW Plt Count MPV Gran % Lymph % (Auto) [place] % (Auto) Eos % (Auto) Baso % (Auto) Gran # Lymph # (Auto) [place] # (Auto) Eos # (Auto) Baso # (Auto) Neutrophils % (Manual) Lymphocytes % (Manual) Monocytes % (Manual) Platelet Evaluation pCO2 pO2 188 H HCO3 ABG pH ABG Total CO2 ABG O2 Saturation ABG O2 Content ABG Base Excess ABG Hemoglobin ABG Carboxyhemoglobin POC ABG HHb (Measured) ABG Methemoglobin ABG O2 Capacity VBG pH 7.42 VBG pCO2 34.0 L VBG HCO3 22.1 VBG Total CO2 23.1 VBG O2 Sat (Calc) 96.9 H VBG Base Excess -1.7 L VBG Potassium 4.8 Hgb O2 Saturation Sodium 137.0 Chloride 107.0 Glucose 202 H Lactate 2.4 H FiO2 21.0 Potassium Carbon Dioxide Anion Gap BUN Creatinine Est GFR ( Amer) Est GFR (Non-Af Amer) POC Glucose (mg/dL) 173 H Random Glucose Uric Acid 6.6 Calcium Magnesium Total Bilirubin Direct Bilirubin AST ALT Alkaline Phosphatase Total Creatine Kinase 52 Troponin I 0.09 D Total Protein Albumin Globulin Albumin/Globulin Ratio Triglycerides Cholesterol LDL Cholesterol Direct HDL Cholesterol Venous Blood Potassium 4.8 Urine Color Urine Appearance Urine pH Ur Specific [place] Urine Protein Urine Glucose (UA) Urine Ketones Urine Blood Urine Nitrate Urine Bilirubin Urine Urobilinogen Ur Leukocyte Esterase 06/27/17 06/27/17 06/27/17 04:34 06:00 06:00 WBC 10.1 D RBC 3.69 Hgb 11.2 L D Hct 33.9 L MCV 91.9 D MCH 30.4 MCHC 33.0 RDW 15.0 H Plt Count 201 MPV 9.5 Gran % 90.2 H Lymph % (Auto) 5.9 L [place] % (Auto) 3.8 Eos % (Auto) 0.0 L Baso % (Auto) 0.1 Gran # 9.11 H Lymph # (Auto) 0.6 L [place] # (Auto) 0.4 Eos # (Auto) 0.0 Baso # (Auto) 0.01 Neutrophils % (Manual) 91 H Lymphocytes % (Manual) 5 L Monocytes % (Manual) 4 Platelet Evaluation Normal pCO2 pO2 HCO3 ABG pH ABG Total CO2 ABG O2 Saturation ABG O2 Content ABG Base Excess ABG Hemoglobin ABG Carboxyhemoglobin POC ABG HHb (Measured) ABG Methemoglobin ABG O2 Capacity VBG pH VBG pCO2 VBG HCO3 VBG Total CO2 VBG O2 Sat (Calc) VBG Base Excess VBG Potassium Hgb O2 Saturation Sodium 143 Chloride 105 Glucose Lactate FiO2 Potassium 4.5 Carbon Dioxide 23 Anion Gap 20 BUN 22 H Creatinine 1.4 Est GFR ( Amer) > 60 Est GFR (Non-Af Amer) 50 POC Glucose (mg/dL) 170 H Random Glucose 182 H Uric Acid Calcium 8.3 L Magnesium 2.0 Total Bilirubin 0.6 Direct Bilirubin 0.3 AST 31 ALT 31 Alkaline Phosphatase 63 Total Creatine Kinase Troponin I Total Protein 6.7 Albumin 4.0 Globulin 2.7 Albumin/Globulin Ratio 1.5 Triglycerides 167 H Cholesterol 167 LDL Cholesterol Direct 84 HDL Cholesterol 45 Venous Blood Potassium Urine Color Urine Appearance Urine pH Ur Specific [place] Urine Protein Urine Glucose (UA) Urine Ketones Urine Blood Urine Nitrate Urine Bilirubin Urine Urobilinogen Ur Leukocyte Esterase 06/27/17 06/27/17 06/27/17 06:30 06:30 07:52 WBC RBC Hgb Hct MCV MCH MCHC RDW Plt Count MPV Gran % Lymph % (Auto) [place] % (Auto) Eos % (Auto) Baso % (Auto) Gran # Lymph # (Auto) [place] # (Auto) Eos # (Auto) Baso # (Auto) Neutrophils % (Manual) Lymphocytes % (Manual) Monocytes % (Manual) Platelet Evaluation pCO2 pO2 37 HCO3 ABG pH ABG Total CO2 ABG O2 Saturation ABG O2 Content ABG Base Excess ABG Hemoglobin ABG Carboxyhemoglobin POC ABG HHb (Measured) ABG Methemoglobin ABG O2 Capacity VBG pH 7.41 VBG pCO2 38.0 L VBG HCO3 24.1 VBG Total CO2 25.3 VBG O2 Sat (Calc) 74.2 H VBG Base Excess -0.3 L VBG Potassium 4.4 Hgb O2 Saturation Sodium 138.0 Chloride 105.0 Glucose 194 H Lactate 1.5 FiO2 21.0 Potassium Carbon Dioxide Anion Gap BUN Creatinine Est GFR ( Amer) Est GFR (Non-Af Amer) POC Glucose (mg/dL) 161 H Random Glucose Uric Acid Calcium Magnesium Total Bilirubin Direct Bilirubin AST ALT Alkaline Phosphatase Total Creatine Kinase Troponin I Total Protein Albumin Globulin Albumin/Globulin Ratio Triglycerides Cholesterol LDL Cholesterol Direct HDL Cholesterol Venous Blood Potassium 4.4 Urine Color Yellow Urine Appearance Clear Urine pH 6.0 Ur Specific [place] 1.015 Urine Protein Negative Urine Glucose (UA) Negative Urine Ketones Negative Urine Blood Negative Urine Nitrate Negative Urine Bilirubin Negative Urine Urobilinogen 0.2 Ur Leukocyte Esterase Negative 06/27/17 08:15 WBC RBC Hgb Hct MCV MCH MCHC RDW Plt Count MPV Gran % Lymph % (Auto) [place] % (Auto) Eos % (Auto) Baso % (Auto) Gran # Lymph # (Auto) [place] # (Auto) Eos # (Auto) Baso # (Auto) Neutrophils % (Manual) Lymphocytes % (Manual) Monocytes % (Manual) Platelet Evaluation pCO2 pO2 HCO3 ABG pH ABG Total CO2 ABG O2 Saturation ABG O2 Content ABG Base Excess ABG Hemoglobin ABG Carboxyhemoglobin POC ABG HHb (Measured) ABG Methemoglobin ABG O2 Capacity VBG pH VBG pCO2 VBG HCO3 VBG Total CO2 VBG O2 Sat (Calc) VBG Base Excess VBG Potassium Hgb O2 Saturation Sodium Chloride Glucose Lactate FiO2 Potassium Carbon Dioxide Anion Gap BUN Creatinine Est GFR ( Amer) Est GFR (Non-Af Amer) POC Glucose (mg/dL) Random Glucose Uric Acid Calcium Magnesium Total Bilirubin Direct Bilirubin AST ALT Alkaline Phosphatase Total Creatine Kinase 47 Troponin I 0.08 Total Protein Albumin Globulin Albumin/Globulin Ratio Triglycerides Cholesterol LDL Cholesterol Direct HDL Cholesterol Venous Blood Potassium Urine Color Urine Appearance Urine pH Ur Specific [place] Urine Protein Urine Glucose (UA) Urine Ketones Urine Blood Urine Nitrate Urine Bilirubin Urine Urobilinogen Ur Leukocyte Esterase EKG/Cardiology Studies: Cardiology / EKG Studies 06/27/17 05:00 EKG [ELECTROCARDIOGRAM] DAILY Comment: Reason For Exam: CMP 06/28/17 05:00 EKG [ELECTROCARDIOGRAM] DAILY Comment: Reason For Exam: CMP 06/29/17 05:00 EKG [ELECTROCARDIOGRAM] DAILY Comment: Reason For Exam: CMP Fingerstick Blood Sugar Results: 161 Critical Care Progress Note - Nutrition Nutrition: Nutrition Category Date Time Status Consistent Carbohydrate [DIET] Diets 06/26/17 Dinner Ordered Assessment/Plan - Assessment and Plan (Free Text) Assessment: 72 yo M with PMH of lung cancer, CAD, ventricular tachycardia, DM2, and cardiac arrest [place] [facility] [place] onset of shortness of breath. Patient was admitted to ICU due to hypoxemic respiratory failure 2/2 CHF exacerbation. Patient was placed on BIPAP, nitro gtt, and milrinone gtt with improvement of his symptoms. Plan: Neuro: - AAOx3 - Maintain normothermia CV: - Hemodynamically stable - Maintain MAP > 65 - Echo (12/28): EF 14%, severe global hypokinesis, moderate pulmonary HTN - Repeat Echo ordered - Cont Milrinone gtt - Cont Lasix 40 mg IVP q12h - Cont Entresto, Aldactone, Coreg, Plavix, Lipitor, Amiodarone, ASA, Zetia - Cardio consulted Pulm: - Chest CT showed fluffly alveolar-type infiltrates b/l upper lobes, possible multifocal pneumonia vs. pulmonary edema/CHF, small b/l effusions, cardiomegaly - CXR showed dense alveolar infiltrate in the RLL consistent with pneumonia - Maintain O2 > 90% - O2 via NC prn - BIPAP prn - Cont Xopenex - Cont solumedrol 20 mg IVP q12h GI: - Carb consistent diet - Protonix for GI PPx Renal: - Maintain euvolemia - Monitor I's and O's - Monitor electrolytes and replete as needed Heme: - Heparin and AE hose for DVT PPx ID: - Procal ordered - Cont Doxycycline, Merrem - ID consulted Endo: - Maintain euglycemia - Cont Synthroid - Insulin NPH ACBD - ISS-med - Diabetic education Pt was seen and discussed in detail with Dr. Davison. Gerardo Owen, PGY1 <Charlie Davison - Last Filed: 06/27/17 12:01> CCU Objective - Vital Signs / Intake & Output Vital Signs (Last 4 hours): Vital Signs Pulse BP 06/27/17 10:07 92 H 104/55 L 06/27/17 10:06 88 104/55 L Intake and Output (Last 8hrs): Intake & Output 06/26/17 06/27/17 06/27/17 22:59 06:59 14:59 Intake Total 866 732 Output Total 1900 1200 Balance -1034 -468 Weight 213 lb Intake: IV 626 432 Right Forearm 26 200 Right Hand 600 132 Oral 240 300 Output: Urine 1900 1200 Urine, Voided 1900 1200 Stool 0 Other: Voiding Method Urinal # Bowel Movements 0 - Medications Active Medications: Active Medications Generic Name Dose Route Start Last Admin Trade Name Freq PRN Reason Stop Dose Admin Amiodarone HCl 200 mg 06/27/17 10:00 06/27/17 10:06 Cordarone PO 200 mg DAILY SERGIO Administration Aspirin 81 mg 06/27/17 10:00 06/27/17 10:08 Aspirin Chewable PO 81 mg DAILY SERGIO Administration Atorvastatin Calcium 40 mg 06/27/17 10:00 06/27/17 10:09 Lipitor PO 40 mg DAILY SERGIO Administration Carvedilol 12.5 mg 06/26/17 18:00 06/27/17 10:07 Coreg PO 12.5 mg BID SERGIO Administration Cholecalciferol 1,000 intlu 06/26/17 18:00 06/27/17 10:07 Vitamin D PO 1,000 intlu BID SERGIO Administration Clopidogrel Bisulfate 75 mg 06/27/17 10:00 06/27/17 10:08 Plavix PO 75 mg DAILY SERGIO Administration Ezetimibe 10 mg 06/27/17 10:00 06/27/17 10:07 Zetia PO 10 mg DAILY SERGIO Administration Folic Acid 1 mg 06/27/17 10:00 06/27/17 10:06 Folic Acid PO 1 mg DAILY SERGIO Administration Furosemide 40 mg 06/26/17 14:15 06/27/17 02:30 Lasix IVP 40 mg Q12H SERGIO Administration Heparin Sodium (Porcine) 5,000 units 06/26/17 22:00 06/27/17 05:52 Heparin SC 5,000 units Q8 SERGIO Administration Protocol Doxycycline Hyclate 100 mg/ 100 mls @ 100 mls/hr 06/26/17 22:00 06/27/17 10: 09 Sodium Chloride IVPB 100 mls/hr Q12 SERGIO Administration Protocol Milrinone Lactate/Dextrose 100 mls @ 10.869 mls/hr 06/26/17 14:29 06/27/17 10 :11 Primacor 20mg/100ml D5w IV 0.375 mcg/kg/min .[id number] PRN 10.869 mls/hr TITRATE PER MD ORDER Administration Protocol 0.375 MCG/KG/MIN Meropenem 50 mls @ 100 mls/hr 06/26/17 22:00 06/27/17 05:52 Merrem Iv 1 Gm Premix IVPB 07/05/17 22:01 100 mls/hr Q8 SERGIO Administration Protocol Insulin Human Lispro 0 units 06/26/17 15:01 06/27/17 04:39 Humalog Med SC Not Given Q6H SERGIO Protocol Insulin Human NPH 10 units 06/27/17 07:30 06/27/17 08:24 Humulin N SC 10 units ACBD SERGIO Administration Levalbuterol HCl 0.63 mg 06/26/17 15:00 06/27/17 07:36 Xopenex IH 0.63 mg [id number] SERGIO Administration Levothyroxine Sodium 25 mcg 06/27/17 10:00 06/27/17 10:06 Synthroid PO 25 mcg DAILY SERGIO Administration Oxycodone/Acetaminophen 1 tab 06/27/17 10:50 Percocet 5/325 Mg Tab PO 06/30/17 11:01 Q6H PRN Pain, moderate (4-7) Pantoprazole Sodium 40 mg 06/28/17 07:30 Protonix Ec Tab PO ACB SERGIO Sacubitril/Valsartan 1 each 06/26/17 18:00 06/27/17 10:11 Entresto 24 Mg-26 Mg Tablet PO 1 each BID SERGIO Administration Spironolactone 12.5 mg 06/27/17 10:00 06/27/17 10:01 Aldactone PO 12.5 mg DAILY SERGIO Administration - Patient Studies Lab Studies: Lab Studies 06/27/17 06/27/17 06/27/17 Range/Units 08:15 07:52 06:30 WBC (4.5-11.0) 10^3/ul RBC (3.5-6.1) 10^6/uL Hgb (14.0-18.0) g/dL Hct (42.0-52.0) % MCV (80.0-105.0) fl MCH (25.0-35.0) pg MCHC (31.0-37.0) g/dl RDW (11.5-14.5) % Plt Count (120.0-450.0) 10^3/uL MPV (7.0-11.0) fl Gran % (50.0-68.0) % Lymph % (Auto) (22.0-35.0) % [place] % (Auto) (1.0-6.0) % Eos % (Auto) (1.5-5.0) % Baso % (Auto) (0.0-3.0) % Gran # (1.4-6.5) Lymph # (Auto) (1.2-3.4) [place] # (Auto) (0.1-0.6) Eos # (Auto) (0.0-0.7) Baso # (Auto) (0.0-2.0) K/mm3 Neutrophils % (Manual) (50.0-70.0) % Lymphocytes % (Manual) (22.0-35.0) % Monocytes % (Manual) (1.0-6.0) % Platelet Evaluation (NORMAL) pCO2 (35-45) mm/Hg pO2 37 (80-100) mm/Hg HCO3 (21-28) mmol/L ABG pH (7.35-7.45) ABG Total CO2 (22-28) mmol.L ABG O2 Saturation (95-98) % ABG O2 Content (15-23) ML/dl ABG Base Excess (-2.0-3.0) mmol/L ABG Hemoglobin (11.7-17.4) g/dL ABG Carboxyhemoglobin (0.5-1.5) % POC ABG HHb (Measured) (0-5) % ABG Methemoglobin (0.0-3.0) % ABG O2 Capacity (16-24) mL/dl VBG pH 7.41 (7.32-7.43) VBG pCO2 38.0 L (40-60) VBG HCO3 24.1 (21-28) mmol/l VBG Total CO2 25.3 (22-28) mmol.L VBG O2 Sat (Calc) 74.2 H (40-65) % VBG Base Excess -0.3 L (0.0-2.0) mmol/L VBG Potassium 4.4 (3.6-5.2) mmol/L Hgb O2 Saturation (95.0-98.0) % Sodium 138.0 (132-148) mmol/L Chloride 105.0 (98-107) mmol/L Glucose 194 H (75-110) mg/dl Lactate 1.5 (0.7-2.1) mmol/L FiO2 21.0 % Potassium (3.6-5.0) mmol/L Carbon Dioxide (21-33) mmol/L Anion Gap (10-20) BUN (7-21) mg/dL Creatinine (0.8-1.5) mg/dl Est GFR ( Amer) Est GFR (Non-Af Amer) POC Glucose (mg/dL) 161 H (65-110) mg/dL Random Glucose (70-110) mg/dL Hemoglobin A1c (4.2-6.5) % Uric Acid (3.5-8.5) mg/dL Calcium (8.4-10.5) mg/dL Magnesium (1.7-2.2) mg/dL Total Bilirubin (0.2-1.3) mg/dL Direct Bilirubin (0.0-0.4) mg/dL AST (17-59) U/L ALT (7-56) U/L Alkaline Phosphatase (38-126) U/L Total Creatine Kinase 47 (35-230) U/L Troponin I 0.08 ng/mL C-React Prot High Sens (1.00-3.00) mg/L Total Protein (5.8-8.3) g/dL Albumin (3.0-4.8) g/dL Globulin gm/dL Albumin/Globulin Ratio (1.1-1.8) Triglycerides (35-160) mg/dL Cholesterol (130-200) mg/dL LDL Cholesterol Direct (0-129) mg/dL HDL Cholesterol (29-60) mg/dL Venous Blood Potassium 4.4 (3.6-5.2) mmol/L Urine Color (YELLOW) Urine Appearance (CLEAR) Urine pH (4.7-8.0) Ur Specific [place] (1.005-1.035) Urine Protein (<30 mg/dL) mg/dL Urine Glucose (UA) (NEGATIVE) mg/dL Urine Ketones (NEGATIVE) mg/dL Urine Blood (NEGATIVE) Urine Nitrate (NEGATIVE) Urine Bilirubin (NEGATIVE) Urine Urobilinogen (<1 E.U./dL) E.U./dL Ur Leukocyte Esterase (NEGATIVE) Ramya/uL 06/27/17 06/27/17 06/27/17 Range/Units 06:30 06:00 06:00 WBC (4.5-11.0) 10^3/ul RBC (3.5-6.1) 10^6/uL Hgb (14.0-18.0) g/dL Hct (42.0-52.0) % MCV (80.0-105.0) fl MCH (25.0-35.0) pg MCHC (31.0-37.0) g/dl RDW (11.5-14.5) % Plt Count (120.0-450.0) 10^3/uL MPV (7.0-11.0) fl Gran % (50.0-68.0) % Lymph % (Auto) (22.0-35.0) % [place] % (Auto) (1.0-6.0) % Eos % (Auto) (1.5-5.0) % Baso % (Auto) (0.0-3.0) % Gran # (1.4-6.5) Lymph # (Auto) (1.2-3.4) [place] # (Auto) (0.1-0.6) Eos # (Auto) (0.0-0.7) Baso # (Auto) (0.0-2.0) K/mm3 Neutrophils % (Manual) (50.0-70.0) % Lymphocytes % (Manual) (22.0-35.0) % Monocytes % (Manual) (1.0-6.0) % Platelet Evaluation (NORMAL) pCO2 (35-45) mm/Hg pO2 (80-100) mm/Hg HCO3 (21-28) mmol/L ABG pH (7.35-7.45) ABG Total CO2 (22-28) mmol.L ABG O2 Saturation (95-98) % ABG O2 Content (15-23) ML/dl ABG Base Excess (-2.0-3.0) mmol/L ABG Hemoglobin (11.7-17.4) g/dL ABG Carboxyhemoglobin (0.5-1.5) % POC ABG HHb (Measured) (0-5) % ABG Methemoglobin (0.0-3.0) % ABG O2 Capacity (16-24) mL/dl VBG pH (7.32-7.43) VBG pCO2 (40-60) VBG HCO3 (21-28) mmol/l VBG Total CO2 (22-28) mmol.L VBG O2 Sat (Calc) (40-65) % VBG Base Excess (0.0-2.0) mmol/L VBG Potassium (3.6-5.2) mmol/L Hgb O2 Saturation (95.0-98.0) % Sodium 143 (132-148) mmol/L Chloride 105 (98-107) mmol/L Glucose (75-110) mg/dl Lactate (0.7-2.1) mmol/L FiO2 % Potassium 4.5 (3.6-5.0) mmol/L Carbon Dioxide 23 (21-33) mmol/L Anion Gap 20 (10-20) BUN 22 H (7-21) mg/dL Creatinine 1.4 (0.8-1.5) mg/dl Est GFR ( Amer) > 60 Est GFR (Non-Af Amer) 50 POC Glucose (mg/dL) (65-110) mg/dL Random Glucose 182 H (70-110) mg/dL Hemoglobin A1c 6.4 (4.2-6.5) % Uric Acid (3.5-8.5) mg/dL Calcium 8.3 L (8.4-10.5) mg/dL Magnesium 2.0 (1.7-2.2) mg/dL Total Bilirubin 0.6 (0.2-1.3) mg/dL Direct Bilirubin 0.3 (0.0-0.4) mg/dL AST 31 (17-59) U/L ALT 31 (7-56) U/L Alkaline Phosphatase 63 (38-126) U/L Total Creatine Kinase (35-230) U/L Troponin I ng/mL C-React Prot High Sens (1.00-3.00) mg/L Total Protein 6.7 (5.8-8.3) g/dL Albumin 4.0 (3.0-4.8) g/dL Globulin 2.7 gm/dL Albumin/Globulin Ratio 1.5 (1.1-1.8) Triglycerides 167 H (35-160) mg/dL Cholesterol 167 (130-200) mg/dL LDL Cholesterol Direct 84 (0-129) mg/dL HDL Cholesterol 45 (29-60) mg/dL Venous Blood Potassium (3.6-5.2) mmol/L Urine Color Yellow (YELLOW) Urine Appearance Clear (CLEAR) Urine pH 6.0 (4.7-8.0) Ur Specific [place] 1.015 (1.005-1.035) Urine Protein Negative (<30 mg/dL) mg/dL Urine Glucose (UA) Negative (NEGATIVE) mg/dL Urine Ketones Negative (NEGATIVE) mg/dL Urine Blood Negative (NEGATIVE) Urine Nitrate Negative (NEGATIVE) Urine Bilirubin Negative (NEGATIVE) Urine Urobilinogen 0.2 (<1 E.U./dL) E.U./dL Ur Leukocyte Esterase Negative (NEGATIVE) Ramya/uL 06/27/17 06/27/17 06/26/17 Range/Units 06:00 04:34 20:27 WBC 10.1 D (4.5-11.0) 10^3/ul RBC 3.69 (3.5-6.1) 10^6/uL Hgb 11.2 L D (14.0-18.0) g/dL Hct 33.9 L (42.0-52.0) % MCV 91.9 D (80.0-105.0) fl MCH 30.4 (25.0-35.0) pg MCHC 33.0 (31.0-37.0) g/dl RDW 15.0 H (11.5-14.5) % Plt Count 201 (120.0-450.0) 10^3/uL MPV 9.5 (7.0-11.0) fl Gran % 90.2 H (50.0-68.0) % Lymph % (Auto) 5.9 L (22.0-35.0) % [place] % (Auto) 3.8 (1.0-6.0) % Eos % (Auto) 0.0 L (1.5-5.0) % Baso % (Auto) 0.1 (0.0-3.0) % Gran # 9.11 H (1.4-6.5) Lymph # (Auto) 0.6 L (1.2-3.4) [place] # (Auto) 0.4 (0.1-0.6) Eos # (Auto) 0.0 (0.0-0.7) Baso # (Auto) 0.01 (0.0-2.0) K/mm3 Neutrophils % (Manual) 91 H (50.0-70.0) % Lymphocytes % (Manual) 5 L (22.0-35.0) % Monocytes % (Manual) 4 (1.0-6.0) % Platelet Evaluation Normal (NORMAL) pCO2 (35-45) mm/Hg pO2 (80-100) mm/Hg HCO3 (21-28) mmol/L ABG pH (7.35-7.45) ABG Total CO2 (22-28) mmol.L ABG O2 Saturation (95-98) % ABG O2 Content (15-23) ML/dl ABG Base Excess (-2.0-3.0) mmol/L ABG Hemoglobin (11.7-17.4) g/dL ABG Carboxyhemoglobin (0.5-1.5) % POC ABG HHb (Measured) (0-5) % ABG Methemoglobin (0.0-3.0) % ABG O2 Capacity (16-24) mL/dl VBG pH (7.32-7.43) VBG pCO2 (40-60) VBG HCO3 (21-28) mmol/l VBG Total CO2 (22-28) mmol.L VBG O2 Sat (Calc) (40-65) % VBG Base Excess (0.0-2.0) mmol/L VBG Potassium (3.6-5.2) mmol/L Hgb O2 Saturation (95.0-98.0) % Sodium (132-148) mmol/L Chloride (98-107) mmol/L Glucose (75-110) mg/dl Lactate (0.7-2.1) mmol/L FiO2 % Potassium (3.6-5.0) mmol/L Carbon Dioxide (21-33) mmol/L Anion Gap (10-20) BUN (7-21) mg/dL Creatinine (0.8-1.5) mg/dl Est GFR ( Amer) Est GFR (Non-Af Amer) POC Glucose (mg/dL) 170 H 173 H (65-110) mg/dL Random Glucose (70-110) mg/dL Hemoglobin A1c (4.2-6.5) % Uric Acid (3.5-8.5) mg/dL Calcium (8.4-10.5) mg/dL Magnesium (1.7-2.2) mg/dL Total Bilirubin (0.2-1.3) mg/dL Direct Bilirubin (0.0-0.4) mg/dL AST (17-59) U/L ALT (7-56) U/L Alkaline Phosphatase (38-126) U/L Total Creatine Kinase (35-230) U/L Troponin I ng/mL C-React Prot High Sens (1.00-3.00) mg/L Total Protein (5.8-8.3) g/dL Albumin (3.0-4.8) g/dL Globulin gm/dL Albumin/Globulin Ratio (1.1-1.8) Triglycerides (35-160) mg/dL Cholesterol (130-200) mg/dL LDL Cholesterol Direct (0-129) mg/dL HDL Cholesterol (29-60) mg/dL Venous Blood Potassium (3.6-5.2) mmol/L Urine Color (YELLOW) Urine Appearance (CLEAR) Urine pH (4.7-8.0) Ur Specific [place] (1.005-1.035) Urine Protein (<30 mg/dL) mg/dL Urine Glucose (UA) (NEGATIVE) mg/dL Urine Ketones (NEGATIVE) mg/dL Urine Blood (NEGATIVE) Urine Nitrate (NEGATIVE) Urine Bilirubin (NEGATIVE) Urine Urobilinogen (<1 E.U./dL) E.U./dL Ur Leukocyte Esterase (NEGATIVE) Ramya/uL 06/26/17 06/26/17 06/26/17 Range/Units 20:05 20:05 20:05 WBC (4.5-11.0) 10^3/ul RBC (3.5-6.1) 10^6/uL Hgb (14.0-18.0) g/dL Hct (42.0-52.0) % MCV (80.0-105.0) fl MCH (25.0-35.0) pg MCHC (31.0-37.0) g/dl RDW (11.5-14.5) % Plt Count (120.0-450.0) 10^3/uL MPV (7.0-11.0) fl Gran % (50.0-68.0) % Lymph % (Auto) (22.0-35.0) % [place] % (Auto) (1.0-6.0) % Eos % (Auto) (1.5-5.0) % Baso % (Auto) (0.0-3.0) % Gran # (1.4-6.5) Lymph # (Auto) (1.2-3.4) [place] # (Auto) (0.1-0.6) Eos # (Auto) (0.0-0.7) Baso # (Auto) (0.0-2.0) K/mm3 Neutrophils % (Manual) (50.0-70.0) % Lymphocytes % (Manual) (22.0-35.0) % Monocytes % (Manual) (1.0-6.0) % Platelet Evaluation (NORMAL) pCO2 (35-45) mm/Hg pO2 188 H (80-100) mm/Hg HCO3 (21-28) mmol/L ABG pH (7.35-7.45) ABG Total CO2 (22-28) mmol.L ABG O2 Saturation (95-98) % ABG O2 Content (15-23) ML/dl ABG Base Excess (-2.0-3.0) mmol/L ABG Hemoglobin (11.7-17.4) g/dL ABG Carboxyhemoglobin (0.5-1.5) % POC ABG HHb (Measured) (0-5) % ABG Methemoglobin (0.0-3.0) % ABG O2 Capacity (16-24) mL/dl VBG pH 7.42 (7.32-7.43) VBG pCO2 34.0 L (40-60) VBG HCO3 22.1 (21-28) mmol/l VBG Total CO2 23.1 (22-28) mmol.L VBG O2 Sat (Calc) 96.9 H (40-65) % VBG Base Excess -1.7 L (0.0-2.0) mmol/L VBG Potassium 4.8 (3.6-5.2) mmol/L Hgb O2 Saturation (95.0-98.0) % Sodium 137.0 (132-148) mmol/L Chloride 107.0 (98-107) mmol/L Glucose 202 H (75-110) mg/dl Lactate 2.4 H (0.7-2.1) mmol/L FiO2 21.0 % Potassium (3.6-5.0) mmol/L Carbon Dioxide (21-33) mmol/L Anion Gap (10-20) BUN (7-21) mg/dL Creatinine (0.8-1.5) mg/dl Est GFR ( Amer) Est GFR (Non-Af Amer) POC Glucose (mg/dL) (65-110) mg/dL Random Glucose (70-110) mg/dL Hemoglobin A1c (4.2-6.5) % Uric Acid 6.6 (3.5-8.5) mg/dL Calcium (8.4-10.5) mg/dL Magnesium (1.7-2.2) mg/dL Total Bilirubin (0.2-1.3) mg/dL Direct Bilirubin (0.0-0.4) mg/dL AST (17-59) U/L ALT (7-56) U/L Alkaline Phosphatase (38-126) U/L Total Creatine Kinase 52 (35-230) U/L Troponin I 0.09 D ng/mL C-React Prot High Sens 3.73 H (1.00-3.00) mg/L Total Protein (5.8-8.3) g/dL Albumin (3.0-4.8) g/dL Globulin gm/dL Albumin/Globulin Ratio (1.1-1.8) Triglycerides (35-160) mg/dL Cholesterol (130-200) mg/dL LDL Cholesterol Direct (0-129) mg/dL HDL Cholesterol (29-60) mg/dL Venous Blood Potassium 4.8 (3.6-5.2) mmol/L Urine Color (YELLOW) Urine Appearance (CLEAR) Urine pH (4.7-8.0) Ur Specific [place] (1.005-1.035) Urine Protein (<30 mg/dL) mg/dL Urine Glucose (UA) (NEGATIVE) mg/dL Urine Ketones (NEGATIVE) mg/dL Urine Blood (NEGATIVE) Urine Nitrate (NEGATIVE) Urine Bilirubin (NEGATIVE) Urine Urobilinogen (<1 E.U./dL) E.U./dL Ur Leukocyte Esterase (NEGATIVE) Ramya/uL 06/26/17 06/26/17 06/26/17 Range/Units 17:52 15:00 13:42 WBC (4.5-11.0) 10^3/ul RBC (3.5-6.1) 10^6/uL Hgb (14.0-18.0) g/dL Hct (42.0-52.0) % MCV (80.0-105.0) fl MCH (25.0-35.0) pg MCHC (31.0-37.0) g/dl RDW (11.5-14.5) % Plt Count (120.0-450.0) 10^3/uL MPV (7.0-11.0) fl Gran % (50.0-68.0) % Lymph % (Auto) (22.0-35.0) % [place] % (Auto) (1.0-6.0) % Eos % (Auto) (1.5-5.0) % Baso % (Auto) (0.0-3.0) % Gran # (1.4-6.5) Lymph # (Auto) (1.2-3.4) [place] # (Auto) (0.1-0.6) Eos # (Auto) (0.0-0.7) Baso # (Auto) (0.0-2.0) K/mm3 Neutrophils % (Manual) (50.0-70.0) % Lymphocytes % (Manual) (22.0-35.0) % Monocytes % (Manual) (1.0-6.0) % Platelet Evaluation (NORMAL) pCO2 34 L (35-45) mm/Hg pO2 53 88.0 (80-100) mm/Hg HCO3 17.1 L (21-28) mmol/L ABG pH 7.31 L (7.35-7.45) ABG Total CO2 18.1 L (22-28) mmol.L ABG O2 Saturation 95.6 (95-98) % ABG O2 Content 17.8 (15-23) ML/dl ABG Base Excess -8.2 L (-2.0-3.0) mmol/L ABG Hemoglobin 13.2 (11.7-17.4) g/dL ABG Carboxyhemoglobin 0.2 L (0.5-1.5) % POC ABG HHb (Measured) 4.4 (0-5) % ABG Methemoglobin 0.0 (0.0-3.0) % ABG O2 Capacity 18.6 (16-24) mL/dl VBG pH 7.27 L (7.32-7.43) VBG pCO2 49.0 (40-60) VBG HCO3 22.5 (21-28) mmol/l VBG Total CO2 24.0 (22-28) mmol.L VBG O2 Sat (Calc) 85.6 H (40-65) % VBG Base Excess -4.7 L (0.0-2.0) mmol/L VBG Potassium 6.0 H (3.6-5.2) mmol/L Hgb O2 Saturation 95.4 (95.0-98.0) % Sodium 135.0 (132-148) mmol/L Chloride 104.0 (98-107) mmol/L Glucose 253 H (75-110) mg/dl Lactate 2.4 H (0.7-2.1) mmol/L FiO2 21.0 100.0 % Potassium (3.6-5.0) mmol/L Carbon Dioxide (21-33) mmol/L Anion Gap (10-20) BUN (7-21) mg/dL Creatinine (0.8-1.5) mg/dl Est GFR ( Amer) Est GFR (Non-Af Amer) POC Glucose (mg/dL) 130 H (65-110) mg/dL Random Glucose (70-110) mg/dL Hemoglobin A1c (4.2-6.5) % Uric Acid (3.5-8.5) mg/dL Calcium (8.4-10.5) mg/dL Magnesium (1.7-2.2) mg/dL Total Bilirubin (0.2-1.3) mg/dL Direct Bilirubin (0.0-0.4) mg/dL AST (17-59) U/L ALT (7-56) U/L Alkaline Phosphatase (38-126) U/L Total Creatine Kinase (35-230) U/L Troponin I ng/mL C-React Prot High Sens (1.00-3.00) mg/L Total Protein (5.8-8.3) g/dL Albumin (3.0-4.8) g/dL Globulin gm/dL Albumin/Globulin Ratio (1.1-1.8) Triglycerides (35-160) mg/dL Cholesterol (130-200) mg/dL LDL Cholesterol Direct (0-129) mg/dL HDL Cholesterol (29-60) mg/dL Venous Blood Potassium 6.0 H (3.6-5.2) mmol/L Urine Color (YELLOW) Urine Appearance (CLEAR) Urine pH (4.7-8.0) Ur Specific [place] (1.005-1.035) Urine Protein (<30 mg/dL) mg/dL Urine Glucose (UA) (NEGATIVE) mg/dL Urine Ketones (NEGATIVE) mg/dL Urine Blood (NEGATIVE) Urine Nitrate (NEGATIVE) Urine Bilirubin (NEGATIVE) Urine Urobilinogen (<1 E.U./dL) E.U./dL Ur Leukocyte Esterase (NEGATIVE) Ramya/uL Laboratory Results - last 24 hr 0506/26/17 06/26/17 13:42 15:00 17:52 WBC RBC Hgb Hct MCV MCH MCHC RDW Plt Count MPV Gran % Lymph % (Auto) [place] % (Auto) Eos % (Auto) Baso % (Auto) Gran # Lymph # (Auto) [place] # (Auto) Eos # (Auto) Baso # (Auto) Neutrophils % (Manual) Lymphocytes % (Manual) Monocytes % (Manual) Platelet Evaluation pCO2 34 L pO2 88.0 53 HCO3 17.1 L ABG pH 7.31 L ABG Total CO2 18.1 L ABG O2 Saturation 95.6 ABG O2 Content 17.8 ABG Base Excess -8.2 L ABG Hemoglobin 13.2 ABG Carboxyhemoglobin 0.2 L POC ABG HHb (Measured) 4.4 ABG Methemoglobin 0.0 ABG O2 Capacity 18.6 VBG pH 7.27 L VBG pCO2 49.0 VBG HCO3 22.5 VBG Total CO2 24.0 VBG O2 Sat (Calc) 85.6 H VBG Base Excess -4.7 L VBG Potassium 6.0 H Hgb O2 Saturation 95.4 Sodium 135.0 Chloride 104.0 Glucose 253 H Lactate 2.4 H FiO2 100.0 21.0 Potassium Carbon Dioxide Anion Gap BUN Creatinine Est GFR ( Amer) Est GFR (Non-Af Amer) POC Glucose (mg/dL) 130 H Random Glucose Hemoglobin A1c Uric Acid Calcium Magnesium Total Bilirubin Direct Bilirubin AST ALT Alkaline Phosphatase Total Creatine Kinase Troponin I C-React Prot High Sens Total Protein Albumin Globulin Albumin/Globulin Ratio Triglycerides Cholesterol LDL Cholesterol Direct HDL Cholesterol Venous Blood Potassium 6.0 H Urine Color Urine Appearance Urine pH Ur Specific [place] Urine Protein Urine Glucose (UA) Urine Ketones Urine Blood Urine Nitrate Urine Bilirubin Urine Urobilinogen Ur Leukocyte Esterase 06/26/17 06/26/17 06/26/17 20:05 20:05 20:05 WBC RBC Hgb Hct MCV MCH MCHC RDW Plt Count MPV Gran % Lymph % (Auto) [place] % (Auto) Eos % (Auto) Baso % (Auto) Gran # Lymph # (Auto) [place] # (Auto) Eos # (Auto) Baso # (Auto) Neutrophils % (Manual) Lymphocytes % (Manual) Monocytes % (Manual) Platelet Evaluation pCO2 pO2 188 H HCO3 ABG pH ABG Total CO2 ABG O2 Saturation ABG O2 Content ABG Base Excess ABG Hemoglobin ABG Carboxyhemoglobin POC ABG HHb (Measured) ABG Methemoglobin ABG O2 Capacity VBG pH 7.42 VBG pCO2 34.0 L VBG HCO3 22.1 VBG Total CO2 23.1 VBG O2 Sat (Calc) 96.9 H VBG Base Excess -1.7 L VBG Potassium 4.8 Hgb O2 Saturation Sodium 137.0 Chloride 107.0 Glucose 202 H Lactate 2.4 H FiO2 21.0 Potassium Carbon Dioxide Anion Gap BUN Creatinine Est GFR ( Amer) Est GFR (Non-Af Amer) POC Glucose (mg/dL) Random Glucose Hemoglobin A1c Uric Acid 6.6 Calcium Magnesium Total Bilirubin Direct Bilirubin AST ALT Alkaline Phosphatase Total Creatine Kinase 52 Troponin I 0.09 D C-React Prot High Sens 3.73 H Total Protein Albumin Globulin Albumin/Globulin Ratio Triglycerides Cholesterol LDL Cholesterol Direct HDL Cholesterol Venous Blood Potassium 4.8 Urine Color Urine Appearance Urine pH Ur Specific [place] Urine Protein Urine Glucose (UA) Urine Ketones Urine Blood Urine Nitrate Urine Bilirubin Urine Urobilinogen Ur Leukocyte Esterase 06/26/17 06/27/17 06/27/17 20:27 04:34 06:00 WBC 10.1 D RBC 3.69 Hgb 11.2 L D Hct 33.9 L MCV 91.9 D MCH 30.4 MCHC 33.0 RDW 15.0 H Plt Count 201 MPV 9.5 Gran % 90.2 H Lymph % (Auto) 5.9 L [place] % (Auto) 3.8 Eos % (Auto) 0.0 L Baso % (Auto) 0.1 Gran # 9.11 H Lymph # (Auto) 0.6 L [place] # (Auto) 0.4 Eos # (Auto) 0.0 Baso # (Auto) 0.01 Neutrophils % (Manual) 91 H Lymphocytes % (Manual) 5 L Monocytes % (Manual) 4 Platelet Evaluation Normal pCO2 pO2 HCO3 ABG pH ABG Total CO2 ABG O2 Saturation ABG O2 Content ABG Base Excess ABG Hemoglobin ABG Carboxyhemoglobin POC ABG HHb (Measured) ABG Methemoglobin ABG O2 Capacity VBG pH VBG pCO2 VBG HCO3 VBG Total CO2 VBG O2 Sat (Calc) VBG Base Excess VBG Potassium Hgb O2 Saturation Sodium Chloride Glucose Lactate FiO2 Potassium Carbon Dioxide Anion Gap BUN Creatinine Est GFR ( Amer) Est GFR (Non-Af Amer) POC Glucose (mg/dL) 173 H 170 H Random Glucose Hemoglobin A1c Uric Acid Calcium Magnesium Total Bilirubin Direct Bilirubin AST ALT Alkaline Phosphatase Total Creatine Kinase Troponin I C-React Prot High Sens Total Protein Albumin Globulin Albumin/Globulin Ratio Triglycerides Cholesterol LDL Cholesterol Direct HDL Cholesterol Venous Blood Potassium Urine Color Urine Appearance Urine pH Ur Specific [place] Urine Protein Urine Glucose (UA) Urine Ketones Urine Blood Urine Nitrate Urine Bilirubin Urine Urobilinogen Ur Leukocyte Esterase 06/27/17 06/27/17 06/27/17 06:00 06:00 06:30 WBC RBC Hgb Hct MCV MCH MCHC RDW Plt Count MPV Gran % Lymph % (Auto) [place] % (Auto) Eos % (Auto) Baso % (Auto) Gran # Lymph # (Auto) [place] # (Auto) Eos # (Auto) Baso # (Auto) Neutrophils % (Manual) Lymphocytes % (Manual) Monocytes % (Manual) Platelet Evaluation pCO2 pO2 HCO3 ABG pH ABG Total CO2 ABG O2 Saturation ABG O2 Content ABG Base Excess ABG Hemoglobin ABG Carboxyhemoglobin POC ABG HHb (Measured) ABG Methemoglobin ABG O2 Capacity VBG pH VBG pCO2 VBG HCO3 VBG Total CO2 VBG O2 Sat (Calc) VBG Base Excess VBG Potassium Hgb O2 Saturation Sodium 143 Chloride 105 Glucose Lactate FiO2 Potassium 4.5 Carbon Dioxide 23 Anion Gap 20 BUN 22 H Creatinine 1.4 Est GFR ( Amer) > 60 Est GFR (Non-Af Amer) 50 POC Glucose (mg/dL) Random Glucose 182 H Hemoglobin A1c 6.4 Uric Acid Calcium 8.3 L Magnesium 2.0 Total Bilirubin 0.6 Direct Bilirubin 0.3 AST 31 ALT 31 Alkaline Phosphatase 63 Total Creatine Kinase Troponin I C-React Prot High Sens Total Protein 6.7 Albumin 4.0 Globulin 2.7 Albumin/Globulin Ratio 1.5 Triglycerides 167 H Cholesterol 167 LDL Cholesterol Direct 84 HDL Cholesterol 45 Venous Blood Potassium Urine Color Yellow Urine Appearance Clear Urine pH 6.0 Ur Specific [place] 1.015 Urine Protein Negative Urine Glucose (UA) Negative Urine Ketones Negative Urine Blood Negative Urine Nitrate Negative Urine Bilirubin Negative Urine Urobilinogen 0.2 Ur Leukocyte Esterase Negative 06/27/17 06/27/17 06/27/17 06:30 07:52 08:15 WBC RBC Hgb Hct MCV MCH MCHC RDW Plt Count MPV Gran % Lymph % (Auto) [place] % (Auto) Eos % (Auto) Baso % (Auto) Gran # Lymph # (Auto) [place] # (Auto) Eos # (Auto) Baso # (Auto) Neutrophils % (Manual) Lymphocytes % (Manual) Monocytes % (Manual) Platelet Evaluation pCO2 pO2 37 HCO3 ABG pH ABG Total CO2 ABG O2 Saturation ABG O2 Content ABG Base Excess ABG Hemoglobin ABG Carboxyhemoglobin POC ABG HHb (Measured) ABG Methemoglobin ABG O2 Capacity VBG pH 7.41 VBG pCO2 38.0 L VBG HCO3 24.1 VBG Total CO2 25.3 VBG O2 Sat (Calc) 74.2 H VBG Base Excess -0.3 L VBG Potassium 4.4 Hgb O2 Saturation Sodium 138.0 Chloride 105.0 Glucose 194 H Lactate 1.5 FiO2 21.0 Potassium Carbon Dioxide Anion Gap BUN Creatinine Est GFR ( Amer) Est GFR (Non-Af Amer) POC Glucose (mg/dL) 161 H Random Glucose Hemoglobin A1c Uric Acid Calcium Magnesium Total Bilirubin Direct Bilirubin AST ALT Alkaline Phosphatase Total Creatine Kinase 47 Troponin I 0.08 C-React Prot High Sens Total Protein Albumin Globulin Albumin/Globulin Ratio Triglycerides Cholesterol LDL Cholesterol Direct HDL Cholesterol Venous Blood Potassium 4.4 Urine Color Urine Appearance Urine pH Ur Specific [place] Urine Protein Urine Glucose (UA) Urine Ketones Urine Blood Urine Nitrate Urine Bilirubin Urine Urobilinogen Ur Leukocyte Esterase EKG/Cardiology Studies: Cardiology / EKG Studies 06/27/17 05:00 EKG [ELECTROCARDIOGRAM] DAILY Comment: Reason For Exam: CMP 06/28/17 05:00 EKG [ELECTROCARDIOGRAM] DAILY Comment: Reason For Exam: CMP 06/29/17 05:00 EKG [ELECTROCARDIOGRAM] DAILY Comment: Reason For Exam: CMP Critical Care Progress Note - Nutrition Nutrition: Nutrition Category Date Time Status Consistent Carbohydrate [DIET] Diets 06/26/17 Dinner Ordered Assessment/Plan - Assessment and Plan (Free Text) Plan: Patient seen and examined on rounds with resident, agree with note with following additions/exceptions: Patient is 72 yo M with PMH of lung cancer, CAD, ventricular tachycardia, DM2, and cardiac arrest presented to hospital with complaints of SOB, patient ran out of Lasix. Patient initially placed on BIPAP, Lasix IV, Nitro drip, Milrinone Drip, then transitioned to 2LNC. Currently afebrile, HD stable, comfortable in NAD, reports SOB is significantly improved, lungs CTABL, adequate UOP. Acute decompensated CHF systolic, exacerbation SOB Leukocytosis DM Hypothyroid Recommend: - supp o2 as needed, BIPAP at night - panculture, UCx, BCx, Procal - Abx as per ID - Milrinone - Lasix IV diuresis - cont with Entresto - ECHO - Cardiology follow up - HH monitoring - FS control - GI ppx - DVT ppx - Monitor in CCU Critical care time 35 minutes
[2017-06-27] MEDS: Cholecalciferol 1,000 INTLU TAB PO SCH ×2 (10:07→17:24)
[2017-06-27] MEDS: MethylPREDNISolone 40 mg Vial IVP SCH (10:08)
[2017-06-27] MEDS: SACUBITRIL 24mg/VALSARTAN 26mg tab PO SCH ×2 (10:11→17:24)
--- NOTE | 2017-06-27 13:11 | CARD ---
APPROVED REPORT EKG Measurement Heart [id number] <Conclusion> Atrial sensed, ventricular paced rhythm PVCs
[2017-06-27] MEDS ORDERED: Oxycodone/Acetaminophen 5/325 mg Tab PO PRN (14:40)
--- NOTE | 2017-06-27 15:34 | PN ---
DATE: 06/27/2017 SUBJECTIVE: The patient is seen in ICU, bed 7. The patient is out of bed to recliner. The patient's breathing has significantly improved. Overnight nurse's notes were reviewed. The patient continued on Primacor drip. The patient refused BiPAP. PHYSICAL EXAMINATION: VITAL SIGNS: T-max 98.6. Telemetry shows paced rhythm; heart rate 88, 92, 94; blood pressure is 104/55, 99/59, 115/63, 120/60; respirations 18 to 20;, O2 saturation is 94 to 96 to 95%. Intake and output and intake 860, output 1900 yesterday. Today's intake 732, output 1200. HEENT: Head is normocephalic, atraumatic. HEENT examination shows pinkish conjunctivae. Anicteric sclerae. No oropharyngeal lesion. No neck rigidity. Soft carotid bruit. CHEST: Kyphosis. Positive left upper chest defibrillator. LUNGS: Shows no crackles, rales, or wheezing. Questionable decreased breath sound throughout the left base. Fine crepitations noted at the right base. CARDIOVASCULAR: Shows S1, S2. Regular rhythm. Positive systolic murmur, left sternal border, right second intercostal space. ABDOMEN: Soft. Positive bowel sound. GENITALIA: Male. RECTAL: Deferred. EXTREMITIES: Shows no pitting edema, no calf tenderness, no Homans' sign. NEUROLOGIC: The patient is alert, awake, oriented x3. Cranial nerves II through XII limited. Gait examination is not tested. Neuro examination without deficit. MUSCULOSKELETAL: Shows a body mass index of 31.5. DIAGNOSTICS: 06/27, WBC 10.1, hemoglobin/hematocrit 11.2 and 34, platelet 201. Granulocytes 90% segs. VBG from today shows a lactic acid of 1.5, down from 2.4. Sodium 143, potassium 4.5, chloride 105, CO2 23, anion gap 20, BUN 22, creatinine 1.4, GFR greater than 60. Glucose 161 and 182. Calcium 8.3, uric acid is 6.6. LFTs are normal. Peak troponin is 0.09, triglycerides 167, cholesterol 167, LDL 84. Urinalysis negative. . EKG shows paced rhythm. IMPRESSION AND PLAN: 1. Acute systolic pulmonary edema and systolic congestive heart failure with hypoxemia. 2. Hypoxic respiratory failure, transiently BiPAP requiring secondary to acute exacerbation of congestive heart failure. 3. Status post uncontrolled hypertension. 4. Asymptomatic hypotension. 5. Hypoxemia. 6. Leukocytosis. 7. Normocytic anemia. 8. Granulocytosis. 9. Increased anion gap, metabolic acidosis and lactic acidosis. 10. Insulin-requiring diabetes mellitus with hyperglycemia. 11. Transient hyperkalemia. 12. History of hyperuricemia. 13. Hypercholesteremia, hypertriglyceridemia. 14. Hyperglycemia. 15. Questionable bilateral multilobar community-acquired pneumonia with fluffy annular infiltrates. 16. Acute congestive heart failure and pulmonary edema. 17. Bilateral pleural effusion. 18. Cardiomegaly. 19. Nonspecific paratracheal mediastinal lymphadenopathy. 20. Small hiatal hernia with distal esophageal wall thickening. 21. 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 22. Status post automatic implantable cardioverter defibrillator implant. 1. Shortness of breath with dyspnea and exertion. 2. Hypoxemia. 3. Possible impending BiPAP requiring respiratory failure. 4. Transient tachycardia. 5. Uncontrolled hypertension. 6. Leukocytosis with granulocytosis. 7. Lactic acidosis. 8. Increased anion gap metabolic acidosis. 9. Insulin-requiring diabetes mellitus with hyperglycemia. 10. Mild hyperkalemia. 11. Bilateral multilobar community-acquired pneumonia with bilateral alveolar infiltrates. 12. Acute exacerbation of systolic congestive heart failure and pulmonary edema. 13. Cardiomegaly. 14. Pericardial effusion. 15. Nonspecific mediastinal and paratracheal lymphadenopathy. 16. Hiatal hernia. 17. Questionable gastroesophageal reflux with distal esophageal wall thickening. 18. Multilevel degenerative joint disease of the thoracic spine and spondylosis. 19. Multifocal multilobar bilateral pneumonia with acute exacerbation of systolic congestive heart failure and pulmonary edema. 20. Status post automatic implantable cardioverter-defibrillator. 21. History of cardiac arrest. 22. History of cardiogenic shock. 23. Hypoxic respiratory failure, BiPAP requiring. 24. History of lung carcinoma, history of coronary artery disease, history of coronary angioplasty, history of dilated ischemic cardiomyopathy. 25. History of ventricular tachycardia, history of defibrillator implant, history of left upper extremity provoked deep vein thrombosis, post automatic implantable cardioverter-defibrillator implant, history of congestive heart failure, history of insulin-requiring diabetes mellitus, history of kidney injury, history of cardiac arrest, history of vitamin B12 deficiency, history of iron-deficiency anemia, history of leukocytosis, history of hypovitaminosis D, history of hyperuricemia, history of narcotic-dependent cervical spine degenerative disk disease, history of hypothyroidism, history of hypomagnesemia, history of vitamin B12 deficiency, history of hyperlipidemia, history of ventilator-dependent respiratory failure, history of cardiogenic shock, hypotensive, hypovolemic shock and septic shock, history of multiple organ dysfunction syndrome, history of acute renal failure, history of end-stage dilated ischemic cardiomyopathy, history of ventricle tachycardia, ventricle fibrillation, cardiac arrest, history of acute myocardial infarction, history of uncontrolled diabetes mellitus, history of shock liver with severe transaminitis, history of multilobar pneumonia, history of hypothermia, history of hypoxemia, history of multivessel coronary artery disease with history of multiple angioplasty and stent placement, history of left upper extremity deep vein thrombosis placement, history of moderate to severe pulmonary hypertension, history of moderate mitral regurgitation, history of multiple non-ST elevation myocardial infarction, history of lung carcinoma status post chemotherapy. PLAN: At this time, the patient has been ordered serial labs. The patient will be considered for transfer out of the ICU to Telemetry. CURRENT CONSULTATIONS: Cardiology, Infectious Disease. The patient is referred to diabetic education evaluation. The patient's procalcitonin level is pending. CURRENT MEDICATIONS: Aldactone 12.5 mg daily, Ecotrin 81 mg daily, amiodarone 200 mg daily, Coreg 12.5 twice a day, vibramycin 100 mg every 12 hours, Entresto 24/26 mg twice a day, Uloric 80 mg, allopurinol 100 mg daily, folic acid 1 mg daily, heparin 5000 subcu every 8 hours, Humalog medium dose sliding scale coverage every 6 hours, NPH insulin 10 units with breakfast and dinner, Lasix 40 IV every 12 hours, Lipitor 40 daily. The patient is started on meropenem 1 g IV every 8 hours. The patient is on nitroglycerin drip, which will be considered for discontinuation. The patient is on Percocet 5/325 one tablet every 6 hours p.r.n. The patient is on Primacor drip at 0.375 mcg/kg, Protonix 40 daily. The patient is on Solu-Medrol 20 mg IV every 12 hours, which will be considered to be stopped. The patient is on Synthroid 25 mcg daily, vitamin D3 2000 international units twice a day, Xopenex nebulizer 0.63 mL every 6 hours, Zetia 10 mg daily. The patient is on BiPAP. Chest PT. Repeat EKG. Echo with Doppler pending. Consistent carbohydrate diet. Bladder scan ordered. Fingerstick blood sugar before meals and at bedtime, out of bed, VAMSI stockings thigh-high ordered. The patient will be considered for transfer out of the ICU. At present, the patient once out of the ICU, patient will be considered for out of bed to chair, VAMSI stockings, SCDs, DVT prophylaxis, daily weights, occupational therapy, physical therapy all ordered. The patient and the patient's updated about the patient's condition at length. All questions concerned answered. Dictated and electronically signed, not read. Andres Pettit MD [place]
[2017-06-27 16:07] VITALS: TEMP 98
--- NOTE | 2017-06-27 23:11 | CON ---
DATE: 06/27/2017 LOCATION: The patient is in bed, seen in 129, bed 7. The patient was seen early this morning. CHIEF COMPLAINT: Shortness of breath and weakness times several days. HISTORY OF PRESENT ILLNESS: This is a 72-year-old male with history of lung cancer with rib metastasis, had chemotherapy in the past, no recent chemo; diabetes, hypertension, arthritis, ischemic cardiomyopathy, congestive heart failure with left ventricular ejection fraction of 15%, history of myocardial infarction, history of left upper extremity DVT, had cardiac arrest, intubated in previous admissions; history of sensitive Staph aureus in the sputum culture, who was admitted now with a diagnosis of acute respiratory failure or distress, acute on chronic congestive heart failure. REVIEW OF SYSTEMS: A 12-point review of systems is performed. The patient has no fevers and no chills. Now, he did have a chills at home. No abdominal pain, diarrhea, or constipation. No bright red blood per rectum. No melena, dysuria, or frequency. PAST MEDICAL HISTORY: Significant for lung cancer and chemotherapy with diabetes mellitus, hypertension, arthritis, ischemic cardiomyopathy, congestive heart failure, myocardial infarction and left ventricular ejection fraction of 15%, left upper extremity DVT, cardiac arrest, respiratory failure, was intubated in the past admissions and history of sensitive Staph aureus sputum culture. PAST SURGICAL HISTORY: Significant for defibrillator and cardiac catheterization. ALLERGIES: THE PATIENT HAS NO KNOWN ALLERGIES. MEDICATION AT HOME: Are reviewed include vitamins, , Synthroid, magnesium, folic acid, Demadex, carvedilol, Plavix, multivitamins, amiodarone, aspirin. PHYSICAL EXAMINATION: VITAL SIGNS: On exam, the patient is in bed with a temperature of 97 and blood pressure is 104/50, respiratory rate of 18, it was up to 22 and heart rate of 92. HEENT: Unremarkable. NECK: Supple. LUNGS: Have decreased breath sounds. HEART: Normal S1, S2. ABDOMEN: Soft, nontender. No organomegaly. No rebound. No guarding. No masses. LABORATORY EXAMINATION: Reveals a white count of 18,000, hemoglobin of 13, platelets of 256 and coagulation is noted. Chemistries reveals a BUN of 22, creatinine of 1.4. The patient's procalcitonin is 1.29 and troponin is negative. Urinalysis is unremarkable. Microbiology is pending. The patient had a CAT scan of the chest, which showed an infiltrate and a chest x-ray showed a right lower lobe infiltrate. Dr. Davison's note is reviewed. ASSESSMENT AND PLAN: A 72-year-old male with a history of lung cancer, chemotherapy, rib metastases, diabetes, hypertension, arthritis, ischemic cardiomyopathy, congestive heart failure, myocardial infarction, ejection fraction of 15%, history of left upper extremity deep venous thrombosis, cardiac arrest by history and history of sensitive Staph aureus in the sputum in the past, now presenting with shortness of breath, tachycardia, leukocytosis and infiltrate with hypoxia with severe sepsis with a right lower lobe healthcare-associated pneumonia in face of acute systolic congestive heart failure on top of chronic congestive heart failure, most likely bacterial with an elevated procalcitonin. Currently, we will treat the patient with meropenem and doxycycline. Pending blood, urine, sputum cultures. We will trend the procalcitonin. The patient was given a dose of vancomycin. We will check on a blood cultures and we will make further recommendations. Chapito Walter MD
--- NOTE | 2017-06-28 00:07 | CON ---
DATE: 06/27/2017 CARDIOLOGY CONSULTATION HISTORY: The patient is a 72-year-old male who presents with shortness of breath and was found to be in congestive heart failure. The patient has a previous and well-known diagnosis of end-stage dilated cardiomyopathy. He has been evaluated at the heart failure and the heart transplant program at [facility]. There have been no plans for a heart transplantation noted. The patient has been on CHINEDU inhibitors as well as diuretics. He is status post ICD placement as well. According to the patient, he forgot to take his Lasix for the past 3 days and developed pedal edema and shortness of breath. SOCIAL HISTORY: Denies smoking. REVIEW OF SYSTEMS: Fourteen-point review of systems was reviewed in detail. No other cardiac symptomatology is noted. PHYSICAL EXAMINATION: VITAL SIGNS: Stable. The patient is comfortable without shortness of breath. NECK: Negative JVD. LUNGS: Clear to auscultation. HEART: Reveals S1, S2. EXTREMITIES: Without edema. EKG shows a paced rhythm. LABORATORY DATA: Troponins were negative. ProBNP was elevated. IMPRESSION: 1. Acute systolic congestive heart failure. 2. Exacerbated by noncompliance with diuretics. 3. End-stage dilated cardiomyopathy. 4. History of ventricular arrhythmias. 5. Dyspnea. 6. Pedal edema. PLAN: Given these findings, I have discussed with the patient and his about his need to be strict in terms of compliance given his severe dilated cardiomyopathy. We will continue the patient on milrinone for the next 24 hours. Anuj Mcclain MD
[2017-06-28] MEDS: Levalbuterol 0.63 MG/3 ML Inhal Soln UD IH SCH ×2 (02:18→07:27)
[2017-06-28] MEDS: Oxycodone/Acetaminophen 5/325 mg Tab PO PRN (05:39)
[2017-06-28] MEDS: Meropenem IV 1 gm in NS 50 ML IVPB SCH (05:39)
[2017-06-28] MEDS ORDERED: Levothyroxine 25 MCG TAB PO SCH (06:00)
[2017-06-28 06:51] LABS: GRAN # 8.03 (1.4-6.5); GRAN % 81.7 % (50.0-68.0); LYMPH % 10.5 % (22.0-35.0); MEAN CELL VOLUME 92.5 fl (80.0-105.0); MEAN CORPUSCULAR HEMOGLOBIN 30.5 pg (25.0-35.0); MEAN PLATELET VOLUME 9.6 fl (7.0-11.0); MONO # 0.8 (0.1-0.6); MONO % 7.8 % (1.0-6.0); RBC 3.21 10^6/uL (3.5-6.1); RED CELL DISTRIBUTION WIDTH 15.1 % (11.5-14.5); WHITE BLOOD COUNT 9.8 10^3/ul (4.5-11.0)
[2017-06-28 06:58] LABS: ALB/GLOB RATIO 1.4 (1.1-1.8); ALBUMIN 3.7 g/dL (3.0-4.8); ALT/SGPT 24 U/L (7-56); AST/SGOT 31 U/L (17-59); BILIRUBIN,DIRECT 0.3 mg/dL (0.0-0.4); BLOOD UREA NITROGEN 28 mg/dL (7-21); CALCIUM 8.1 mg/dL (8.4-10.5); GFR AFRICAN-AMERICAN > 60; GFR NON-AFRICAN AMERICAN 60
[2017-06-28 07:18] LABS: HEMOGLOBIN 9.8 g/dL (14.0-18.0)
[2017-06-28] MEDS ORDERED: Pantoprazole 40 mg EC Tab PO SCH (07:30)
[2017-06-28] MEDS: Insulin Lispro (humaLOG) MEDIUM Coverage SC SCH (08:11)
[2017-06-28] MEDS: Insulin Human NPH 1 UNITS/0.01 ML SC SCH (08:16)
[2017-06-28] MEDS: Cholecalciferol 1,000 INTLU TAB PO SCH (09:20)
[2017-06-28] MEDS: SACUBITRIL 24mg/VALSARTAN 26mg tab PO SCH (09:22)
[2017-06-28 09:54] LABS: IRON 68 ug/dL (45-180)
--- NOTE | 2017-06-28 09:56 | CP.PCM.PN ---
<Edu Gutiérrez - Last Filed: 06/28/17 09:52> Subjective - Date & Time of Evaluation Date of Evaluation: 06/28/17 Time of Evaluation: 06:00 - Subjective Subjective: Patient seen and evaluated bedside. No acute issues overnight. Patient states breathing has improved, denies any chest pain, palpitations or any other complaints at this time. Objective - Vital Signs/Intake and Output Vital Signs (last 24 hours): Temp Pulse Resp BP Pulse Ox 98 F 77 51 H 100/56 L 96 06/27/17 16:00 06/28/17 09:08 06/27/17 18:00 06/28/17 09:09 06/27/17 18:00 Intake and Output: 06/28/17 06/28/17 06:59 18:59 Intake Total 100 Balance 100 - Medications Medications: Current Medications Amiodarone HCl (Cordarone) 200 mg PO DAILY [facility] Last Admin: 06/28/17 09:08 Dose: 200 mg Aspirin (Aspirin Chewable) 81 mg PO DAILY [facility] Last Admin: 06/28/17 09:09 Dose: 81 mg Atorvastatin Calcium (Lipitor) 40 mg PO DAILY [facility] Last Admin: 06/28/17 09:08 Dose: 40 mg Carvedilol (Coreg) 12.5 mg PO BID [facility] Last Admin: 06/28/17 09:08 Dose: 12.5 mg Cholecalciferol (Vitamin D) 1,000 intlu PO BID [facility] Last Admin: 06/28/17 09:20 Dose: 1,000 intlu Clopidogrel Bisulfate (Plavix) 75 mg PO DAILY [facility] Last Admin: 06/28/17 09:21 Dose: 75 mg Ezetimibe (Zetia) 10 mg PO DAILY [facility] Last Admin: 06/28/17 09:21 Dose: 10 mg Folic Acid (Folic Acid) 1 mg PO DAILY [facility] Last Admin: 06/28/17 09:20 Dose: 1 mg Furosemide (Lasix) 40 mg IVP Q12H [facility] Last Admin: 06/28/17 09:09 Dose: 40 mg Heparin Sodium (Porcine) (Heparin) 5,000 units SC Q8 SERGIO PRN Reason: Protocol Last Admin: 06/28/17 05:38 Dose: 5,000 units Doxycycline Hyclate 100 mg/ (Sodium Chloride) 100 mls @ 100 mls/hr IVPB Q12 SERGIO PRN Reason: Protocol Last Admin: 06/28/17 09:23 Dose: 100 mls/hr Milrinone Lactate/Dextrose (Primacor 20mg/100ml D5w) 100 mls @ 10.869 mls/hr IV .Q9H13M PRN; Protocol; 0.375 MCG/KG/MIN PRN Reason: TITRATE PER MD ORDER Last Admin: 06/27/17 22:17 Dose: 0.2 mcg/kg/min, 5.797 mls/hr Meropenem (Merrem Iv 1 Gm Premix) 50 mls @ 100 mls/hr IVPB Q8 SERGIO PRN Reason: Protocol Stop: 07/05/17 22:01 Last Admin: 06/28/17 05:39 Dose: 100 mls/hr Insulin Human Lispro (Humalog Med) 0 units SC ACHS SERGIO PRN Reason: Protocol Last Admin: 06/28/17 08:11 Dose: Not Given Insulin Human NPH (Humulin N) 10 units SC ACBD [facility] Last Admin: 06/28/17 08:16 Dose: 10 units Levalbuterol HCl (Xopenex) 0.63 mg IH [id number] [facility] Last Admin: 06/28/17 07:27 Dose: 0.63 mg Levothyroxine Sodium (Synthroid) 25 mcg PO 0600 [facility] Last Admin: 06/28/17 05:39 Dose: 25 mcg Oxycodone/Acetaminophen (Percocet 5/325 Mg Tab) 1 tab PO Q6H PRN PRN Reason: Pain, moderate (4-7) Stop: 06/30/17 11:01 Last Admin: 06/28/17 05:39 Dose: 1 tab Pantoprazole Sodium (Protonix Ec Tab) 40 mg PO ACB [facility] Last Admin: 06/28/17 08:21 Dose: 40 mg Sacubitril/Valsartan (Entresto 24 Mg-26 Mg Tablet) 1 each PO BID [facility] Last Admin: 06/28/17 09:22 Dose: 1 each - Labs Labs: 06/28/17 05:55 06/28/17 05:55 PT 9.9 SECONDS (9.4-12.5) 06/26/17 13:05 INR 0.86 (0.93-1.08) L 06/26/17 13:05 APTT 28.5 Seconds (25.1-36.5) 06/26/17 13:05 - Constitutional Appears: Non-toxic, No Acute Distress - Head Exam Head Exam: ATRAUMATIC, NORMAL INSPECTION, NORMOCEPHALIC - Eye Exam Eye Exam: Normal appearance - ENT Exam ENT Exam: Mucous Membranes Moist - Respiratory Exam Respiratory Exam: Clear to Ausculation Bilateral, NORMAL BREATHING PATTERN - Cardiovascular Exam Cardiovascular Exam: REGULAR RHYTHM - GI/Abdominal Exam GI & Abdominal Exam: Soft - Neurological Exam Neurological Exam: Alert, Awake, Oriented x3 Assessment and Plan - Assessment and Plan (Free Text) Assessment: 72 year old male, whose past medical history includes Lung carcinoma treated with chemotherapy, CAD, ventricular tachycardia, defibrillator, history of left upper extremity DVT, CHF, diabetes, and cardiac arrest with intubated on , presents with shortness of breath after getting out of the shower this morning. Patient has gained 10 pounds in 2 days and has not taken his diuretic. Plan: 1. Decompensated CHF with questionable pneumonia -initial chest xray shows congestion, possible pneumonia -ABG showing improvement in oxygenation -BIPAP as needed -VBG with shock panel -Lasix 40 IVP Q12 -Solumedrol with tapering daily -duonebs scheduled and PRN -given one dose of vancomycin -meropenem and doxycycline -BNP 1800 initial -echo pending -MUGA scan pending -ID consulted, Boshossian, follow recs -ICU consult, follow recs -CT chest without contrast : fluffy alveolar-type infiltrates throughout of both right and right upper lobes on former more significant than the latter. The changes in the right upper lobe lung more translucent. Similar but less severe alveolar-type appearing infiltrates seen in the left upper and lower lobes. . . Note that the changes in the upper lobes are more translucent and less dense than the right lower lobe infiltrates Findings could represent multifocal pneumonia however the possibility of a asymmetric pulmonary edema/ CHF not excluded. There are small bilateral effusions right larger than left -daily weights -Strict Is and Os 2. Leukocytosis-resolved -procal 1.29, will trend -ID consulted, follow recs -blood and urine cultures pending 3. DM -hold oral hypoglycemics -basal NPH 10 units at breakfast and dinner -ISS Humalog medium -Accuchecks -low salt, carb consistent diet 4. CAD with history of arrhythmia -continue home plavix -continue home statin -continue amiodarone -continue home coreg 5. History of provoked DVT in upper extremity -heparin SC 6. Hypokalemia-resolved -continue to monitor 7. Anemia -anemia workup pending -continue to monitor 8. Hypotension -on milrinone drip -stopped aldactone GI/DVT Prophylaxis -Protonix -DVT prophylaxis <Andres Pettit - Last Filed: 06/30/17 09:29> Objective - Vital Signs/Intake and Output Vital Signs (last 24 hours): Temp Pulse Resp BP Pulse Ox 98 F 68 18 98/52 L 98 06/27/17 16:00 06/28/17 11:00 06/28/17 11:00 06/28/17 10:00 06/28/17 10:00 - Labs Labs: 06/28/17 05:55 06/28/17 05:55 PT 9.9 SECONDS (9.4-12.5) 06/26/17 13:05 INR 0.86 (0.93-1.08) L 06/26/17 13:05 APTT 28.5 Seconds (25.1-36.5) 06/26/17 13:05 Attending/Attestation - Attestation I have personally seen and examined this patient.: Yes I have fully participated in the care of the patient.: Yes I have reviewed all pertinent clinical information, including history, physical exam and plan: Yes Notes (Text): Please see/read my dictated notes.
[2017-06-28 10:03] LABS: % IRON SATURATION 23 % (20-55); TOTAL IRON BINDING CAPACITY 297 ug/dL (261-462)
[2017-06-28 10:26] VITALS: BP 98/52; O2SAT 98
--- NOTE | 2017-06-28 10:50 | PN ---
DATE: 06/28/2017 CARDIOLOGY FOLLOWUP SUBJECTIVE: The patient is ambulating without symptoms. His milrinone will be discontinued. PHYSICAL EXAMINATION: VITAL SIGNS: Blood pressure 110/56, heart rates in the 70s. NECK: Negative JVD. LUNGS: Without rales. HEART: Reveals S1, S2. EXTREMITIES: Without edema. LABORATORY DATA: Glucose is 137. BUN and creatinine are stable. IMPRESSION: 1. Status post congestive heart failure. 2. Noncompliance with medication. 3. End-stage dilated cardiomyopathy. 4. Diabetes mellitus. PLAN: Given these findings, the patient can be discharged and put back on his medications at home. I have discussed with the patient about his need to be compliant with his medication, especially his diuretics. Anuj cMclain MD
--- NOTE | 2017-06-28 11:38 | PN ---
DATE: 06/28/2017 CARDIOLOGY FOLLOWUP SUBJECTIVE: The patient is in a chair without shortness of breath. PHYSICAL EXAMINATION: VITAL SIGNS: Blood pressure 100/56, heart rates in the 70s. NECK: Negative JVD. LUNGS: Without rales. HEART: Revels S1, S2. EXTREMITIES: Without edema. LABORATORY DATA: Hemoglobin is 9.8. Chemistries: BUN and creatinine unremarkable. IMPRESSION: 1. Resolution of congestive heart failure. 2. Dilated cardiomyopathy. 3. Diabetes mellitus. 4. Noncompliance with medications. 5. History of implantable cardioverter-defibrillator placement. PLAN: Given these findings, we will discontinue his milrinone. From a cardiac perspective, the patient should be discharged today. Anuj Mcclain MD
--- NOTE | 2017-06-28 11:42 | CP.PCM.PN ---
Subjective - Date & Time of Evaluation Date of Evaluation: 06/28/17 Time of Evaluation: 10:25 - Subjective Subjective: Comfortable on a chair, no fevers, not in distress, breathing much better, no nausea, no diarrhea, no cough currently. Objective - Vital Signs/Intake and Output Vital Signs (last 24 hours): Temp Pulse Resp BP Pulse Ox 98 F 83 51 H 89/52 L 96 06/27/17 16:00 06/27/17 18:00 06/27/17 18:00 06/28/17 05:39 06/27/17 18:00 Intake and Output: 06/28/17 06/28/17 06:59 18:59 Intake Total 100 Balance 100 - Medications Medications: Current Medications Amiodarone HCl (Cordarone) 200 mg PO DAILY [facility] Last Admin: 06/27/17 10:06 Dose: 200 mg Aspirin (Aspirin Chewable) 81 mg PO DAILY [facility] Last Admin: 06/27/17 10:08 Dose: 81 mg Atorvastatin Calcium (Lipitor) 40 mg PO DAILY [facility] Last Admin: 06/27/17 10:09 Dose: 40 mg Carvedilol (Coreg) 12.5 mg PO BID [facility] Last Admin: 06/27/17 17:23 Dose: 12.5 mg Cholecalciferol (Vitamin D) 1,000 intlu PO BID [facility] Last Admin: 06/27/17 17:24 Dose: 1,000 intlu Clopidogrel Bisulfate (Plavix) 75 mg PO DAILY [facility] Last Admin: 06/27/17 10:08 Dose: 75 mg Ezetimibe (Zetia) 10 mg PO DAILY [facility] Last Admin: 06/27/17 10:07 Dose: 10 mg Folic Acid (Folic Acid) 1 mg PO DAILY [facility] Last Admin: 06/27/17 10:06 Dose: 1 mg Furosemide (Lasix) 40 mg IVP Q12H [facility] Last Admin: 06/28/17 05:39 Dose: Not Given Heparin Sodium (Porcine) (Heparin) 5,000 units SC Q8 SERGIO PRN Reason: Protocol Last Admin: 06/28/17 05:38 Dose: 5,000 units Doxycycline Hyclate 100 mg/ (Sodium Chloride) 100 mls @ 100 mls/hr IVPB Q12 SERGIO PRN Reason: Protocol Last Admin: 06/27/17 22:02 Dose: 100 mls/hr Milrinone Lactate/Dextrose (Primacor 20mg/100ml D5w) 100 mls @ 10.869 mls/hr IV .Q9H13M PRN; Protocol; 0.375 MCG/KG/MIN PRN Reason: TITRATE PER MD ORDER Last Admin: 06/27/17 22:17 Dose: 0.2 mcg/kg/min, 5.797 mls/hr Meropenem (Merrem Iv 1 Gm Premix) 50 mls @ 100 mls/hr IVPB Q8 SERGIO PRN Reason: Protocol Stop: 07/05/17 22:01 Last Admin: 06/28/17 05:39 Dose: 100 mls/hr Insulin Human Lispro (Humalog Med) 0 units SC ACHS SERGIO PRN Reason: Protocol Last Admin: 06/27/17 22:03 Dose: Not Given Insulin Human NPH (Humulin N) 10 units SC ACBD [facility] Last Admin: 06/27/17 15:58 Dose: 10 units Levalbuterol HCl (Xopenex) 0.63 mg IH [id number] [facility] Last Admin: 06/28/17 02:18 Dose: Not Given Levothyroxine Sodium (Synthroid) 25 mcg PO 0600 [facility] Last Admin: 06/28/17 05:39 Dose: 25 mcg Oxycodone/Acetaminophen (Percocet 5/325 Mg Tab) 1 tab PO Q6H PRN PRN Reason: Pain, moderate (4-7) Stop: 06/30/17 11:01 Last Admin: 06/28/17 05:39 Dose: 1 tab Pantoprazole Sodium (Protonix Ec Tab) 40 mg PO ACB [facility] Sacubitril/Valsartan (Entresto 24 Mg-26 Mg Tablet) 1 each PO BID [facility] Last Admin: 06/27/17 17:24 Dose: 1 each Spironolactone (Aldactone) 12.5 mg PO DAILY [facility] Last Admin: 06/27/17 10:01 Dose: 12.5 mg - Labs Labs: 06/27/17 06:00 06/28/17 05:55 PT 9.9 SECONDS (9.4-12.5) 06/26/17 13:05 INR 0.86 (0.93-1.08) L 06/26/17 13:05 APTT 28.5 Seconds (25.1-36.5) 06/26/17 13:05 - Constitutional Appears: Non-toxic - Head Exam Head Exam: NORMAL INSPECTION - ENT Exam ENT Exam: Mucous Membranes Moist - Neck Exam Neck Exam: absent: Lymphadenopathy, Meningismus - Respiratory Exam Respiratory Exam: Decreased Breath Sounds. absent: Rales - Cardiovascular Exam Cardiovascular Exam: +S1, +S2 - GI/Abdominal Exam GI & Abdominal Exam: Soft. absent: Tenderness Assessment and Plan - Assessment and Plan (Free Text) Plan: Assessment severe sepsis from right sided HCAP in this patient with acute on chronic CHF, clinically improving history of community-acquired pneumonia Severe ischemic cardiomyopathy with acute on top of chronic congestive heart failure, LV ejection fraction of 15% Diabetes mellitus Dyslipidemia HTN Lung CA with bony metastases Plan continue Cefepime and Doxycycline day 2 to complete 4-7 days of therapy; blood cx are negative, PCT is elevated at 1.29; may be able to switch to PO antibiotics when patient is ready to be discharged
[2017-06-28 12:38] VITALS: PULSE 68; RESP 18
--- NOTE | 2017-06-28 14:26 | DS ---
FINAL PROGRESS NOTE AND DISCHARGE SUMMARY DATE: 06/28/2017 SUBJECTIVE: The patient is seen in room ICU, bed 7. The patient is out of bed to recliner. The patient denies any chest pain. Denies shortness breath. Denies nausea, denies vomiting, denies hemoptysis or hematochezia. No melena. Overnight nurse's notes were reviewed. The patient had no adverse events documented. OBJECTIVE: VITAL SIGNS: T-max 98.2. Telemetry shows paced rhythm, heart rate 70-78, blood pressure , respirations 19, O2 sat 98%. HEENT: Head examination, normocephalic and atraumatic. HEENT examination shows pinkish pale conjunctivae. Anicteric sclerae. No oropharyngeal lesion. No jugular venous distention. Questionable soft carotid bruit. CHEST: Examination, kyphosis. LUNGS: Examination shows no crackles, rales, wheezing. Decreased breath sound at the bases, left more than the right. CARDIOVASCULAR: S1, S2, regular rhythm. Positive systolic murmur, left sternal border, right second intercostal space, left second intercostal space. ABDOMEN: Soft. Positive bowel sound. GENITALIA: Male. RECTAL: Deferred. EXTREMITIES: Shows no pitting edema, no calf tenderness, no Homans' sign. NEUROLOGIC: The patient is alert, awake, oriented x3. Cranial nerves II through XII intact. Gait examination is not tested. VASCULAR: Examination, palpable pulses. PSYCHIATRIC: Examination is not applicable. MUSCULOSKELETAL: Examination shows a body mass index of 31.5. DIAGNOSTICS: 06/28, WBC 9.8, hemoglobin/hematocrit 9.8 and 29.7, platelets 164. Granulocytes 82% segs. Reticulocyte count 1.16. Sodium 143, potassium 4.5, chloride 105, CO2 26, anion gap 16, BUN 28, creatinine 1.2, GFR greater than 60. Glucose 124, 137; calcium 8.1; magnesium 2.1. Iron 68, TIBC 297, iron saturation 23. LFTs are normal. FINAL IMPRESSION AND PLAN & DISCHARGE DIAGNOSES: 1. Severe sepsis with multilobar bilateral pneumonia, healthcare-associated pneumonia. 2. Acute exacerbation of systolic congestive heart failure. 3. Dilated ischemic cardiomyopathy. 4. Acute systolic pulmonary edema and systolic congestive heart failure with hypoxemia. 5. Hypoxic respiratory failure, transiently BiPAP requiring secondary to acute exacerbation of congestive heart failure. 6. Status post uncontrolled hypertension. 7. Hypotension. 8. Leukocytosis with granulocytosis. 9. Normocytic anemia. 10. Elevated reticulocyte count of 1.6. 11. Increased anion gap metabolic acidosis and lactic acidosis. 12. Prerenal kidney injury. 13. Insulin-requiring diabetes mellitus with hemoglobin A1c of 6.4. 14. Hypocalcemia. 15. Hypertriglyceridemia. 16. Hypercholesterolemia. 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 18. Non-hemolyzed hyperkalemia. 1. Acute systolic pulmonary edema and systolic congestive heart failure with hypoxemia. 2. Hypoxic respiratory failure, transiently BiPAP requiring secondary to acute exacerbation of congestive heart failure. 3. Status post uncontrolled hypertension. 4. Asymptomatic hypotension. 5. Hypoxemia. 6. Leukocytosis. 7. Normocytic anemia. 8. Granulocytosis. 9. Increased anion gap, metabolic acidosis and lactic acidosis. 10. Insulin-requiring diabetes mellitus with hyperglycemia. 11. Transient hyperkalemia. 12. History of hyperuricemia. 13. Hypercholesteremia, hypertriglyceridemia. 14. Hyperglycemia. 15. Questionable bilateral multilobar community-acquired pneumonia with fluffy annular infiltrates. 16. Acute congestive heart failure and pulmonary edema. 17. Bilateral pleural effusion. 18. Cardiomegaly. 19. Nonspecific paratracheal mediastinal lymphadenopathy. 20. Small hiatal hernia with distal esophageal wall thickening. 21. 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 22. Status post automatic implantable cardioverter defibrillator implant. 1. Shortness of breath with dyspnea and exertion. 2. Hypoxemia. 3. Possible impending BiPAP requiring respiratory failure. 4. Transient tachycardia. 5. Uncontrolled hypertension. 6. Leukocytosis with granulocytosis. 7. Lactic acidosis. 8. Increased anion gap metabolic acidosis. 9. Insulin-requiring diabetes mellitus with hyperglycemia. 10. Mild hyperkalemia. 11. Bilateral multilobar community-acquired pneumonia with bilateral alveolar infiltrates. 12. Acute exacerbation of systolic congestive heart failure and pulmonary edema. 13. Cardiomegaly. 14. Pericardial effusion. 15. Nonspecific mediastinal and paratracheal lymphadenopathy. 16. Hiatal hernia. 17. Questionable gastroesophageal reflux with distal esophageal wall thickening. 18. Multilevel degenerative joint disease of the thoracic spine and spondylosis. 19. Multifocal multilobar bilateral pneumonia with acute exacerbation of systolic congestive heart failure and pulmonary edema. 20. Status post automatic implantable cardioverter-defibrillator. 21. History of cardiac arrest. 22. History of cardiogenic shock. 23. Hypoxic respiratory failure, BiPAP requiring. 24. History of lung carcinoma, history of coronary artery disease, history of coronary angioplasty, history of dilated ischemic cardiomyopathy. 25. History of ventricular tachycardia, history of defibrillator implant, history of left upper extremity provoked deep vein thrombosis, post automatic implantable cardioverter-defibrillator implant, history of congestive heart failure PLAN: At this time, the patient has been ordered iron studies and anemia workup. The patient has been ordered ferritin, B12, folate, transferrin. Repeat CMP, LFTs, erythropoietin ordered. CBC ordered. Blood cultures reports are negative. CONSULTATIONS: Cardiology, Dr. Mcclain; Infectious Disease, Dr. Walter. Case referred for diabetic education evaluation, TCU evaluation. The patient's repeat procalcitonin level ordered. CURRENT MEDICATIONS AND DISCHARGE MEDICATIONS: 1. Aspirin 81 mg daily. 2. Amiodarone 200 mg daily. 3. Coreg 12.5 twice a day. 4. Vibramycin 100 mg IV every 12 hours. 5. Folic acid 1 mg daily. 6. Heparin 5000 subcutaneous every 8 hours. 7. Humalog medium dose sliding scale coverage before meals and at bedtime. 8. NPH 10 units with breakfast and dinner. 9. Lasix 40 mg IV every 12 hours. 10. Lipitor 40 mg daily. 11. Meropenem 1 g IV every 8 hours. 12. Percocet 5/325 one tablet every 6 hours p.r.n. 13. Plavix 75 mg daily. 14. IV milrinone drip at 0.75 mcg/kg per minute. 15. Protonix 40 mg daily. 16. Synthroid 75 mcg daily. 17. Vitamin D 2000 international units daily. 18. Xopenex nebulizer 0.63 mg every 6 hours. 19. Zetia 10 mg daily. PLUS UPDATED AMBULATORY ORDERS AND NEW SCRIPTS The patient is on BiPAP and chest PT. Repeat EKG done. Consistent carbohydrate diet, out of bed to chair. VAMSI stockings, SCDs, occupational therapy, physical therapy ordered. The patient is awaiting Cardiology evaluation for transfer out of the ICU. The patient updated about his prognosis condition in detail. All questions concerned answered, which he acknowledged to understand. PATIENT CLEARED FOR DISCHARGE BY CARDIOLOGY AND ID. DISCHARGE HOME FOLLOW UP OFFICE WITHIN 1 WEEK TIME SPENT IN DISCHARGE PROCESS >45 MINUTES. Dictated and electronically signed, not read. Andres Pettit MD [facility]
--- NOTE | 2017-06-28 16:52 | CARD ---
APPROVED REPORT EKG Measurement Heart [id number] <Conclusion> Atrial sensed, ventricular paced rhythm
[2017-06-28 17:47] LABS: FERRITIN 64.1 ng/mL
[2017-06-28 19:34] LABS: FOLATE 15.9 ng/mL
== END 2017-06-28 13:00 | disposition home or self-care (01) | DRG 291 ==
LOC: ED 12:42 → ERH 13:26 → CCU 17:02
PROVIDERS: ADMIT Internal Medicine; ATTEND Internal Medicine
PROC: 3E0F7GC Introduction of Other Therapeutic Substance into Respiratory Tract, Via Natural or Artificial Opening (ICD-10-PCS; principal; 2017-06-27)
DX: I11.0 Hypertensive heart disease with heart failure (principal); J18.9 Pneumonia, unspecified organism; J96.91 Respiratory failure, unspecified with hypoxia; A41.9 Sepsis, unspecified organism; E87.2 Acidosis; C79.51 Secondary malignant neoplasm of bone; I47.2 Ventricular tachycardia; E22.1 Hyperprolactinemia; I25.10 Atherosclerotic heart disease of native coronary artery without angina pectoris; E87.6 Hypokalemia; I25.5 Ischemic cardiomyopathy; E11.65 Type 2 diabetes mellitus with hyperglycemia; I50.23 Acute on chronic systolic (congestive) heart failure; Z79.4 Long term (current) use of insulin; E87.5 Hyperkalemia; K44.9 Diaphragmatic hernia without obstruction or gangrene; Y95 Nosocomial condition; I42.0 Dilated cardiomyopathy; E03.9 Hypothyroidism, unspecified; E78.00 Pure hypercholesterolemia, unspecified; E78.1 Pure hyperglyceridemia; D64.9 Anemia, unspecified; E55.9 Vitamin D deficiency, unspecified; E53.8 Deficiency of other specified B group vitamins; E78.5 Hyperlipidemia, unspecified; M47.814 Spondylosis without myelopathy or radiculopathy, thoracic region; I27.20 Pulmonary hypertension, unspecified; I34.0 Nonrheumatic mitral (valve) insufficiency; I25.2 Old myocardial infarction; Z85.118 Personal history of other malignant neoplasm of bronchus and lung; Z86.74 Personal history of sudden cardiac arrest; Z86.718 Personal history of other venous thrombosis and embolism; Z91.14 Patient's other noncompliance with medication regimen; Z95.0 Presence of cardiac pacemaker; Z95.810 Presence of automatic (implantable) cardiac defibrillator; Z87.891 Personal history of nicotine dependence

== ENCOUNTER 2017-08-08 06:48 | Inpatient (IN) | payer MEDICARE, OTHER ==
[2017-08-08 06:52] VITALS: BMI 30.1
--- NOTE | 2017-08-08 07:13 | ED PDOC ---
Arrival/HPI - General Chief Complaint: Shortness Of Breath Time Seen by Provider: 08/08/17 06:49 Historian: Patient, Spouse - History of Present Illness Narrative History of Present Illness (Text): 08/08/17 07:09 you were treated in the ED today for hx of heart disease/heart attacks on aspirin/plavix, cholesterol, hypertension, diabetes, heart failure, and entresto was decreased about 1 week ago and since for the past several days having progressive difficulty breathing; more so when walking or exerting but otherwise without any nausea/vomiting/headache/dizziness/chest pain/abdomen pain /numbness/tingling/loss of limb function/pain with urination/travel/prior blood clots. Time/Duration: Other (several days) Symptom Onset: Gradual Symptom Course: Unchanged Activities at Onset: Other (walking) Context: Walking Past Medical History - Provider Review Nursing Documentation Reviewed: Yes - Travel History Have you recently traveled outside [place] w/in the past 3 mons?: No - Past History Past History: No Previous - Infectious Disease Hx of Infectious Diseases: None - Tetanus Immunization Tetanus Immunization: Unknown - Cardiac Hx Congestive Heart Failure: Yes (Afib) - Pulmonary Hx Respiratory Disorders: Yes Hx Pneumonia: Yes - Neurological Hx Neurological Disorder: No - HEENT Hx HEENT Disorder: No (WEARS RX GLASSES) - Renal Hx Renal Disorder: No - Endocrine/Metabolic Hx Diabetes Mellitus Type 2: Yes - Hematological/Oncological Hx Blood Disorders: Yes Hx Anemia: Yes Other/Comment: h/o L subclavian vein occlusive thrombosis - Integumentary Hx Dermatological Disorder: No - Musculoskeletal/Rheumatological Hx Falls: No - Gastrointestinal Hx Gastrointestinal Disorders: No - Genitourinary/Gynecological Hx Genitourinary Disorders: No - Psychiatric Hx Psychophysiologic Disorder: No Hx Emotional Abuse: No Hx Physical Abuse: No Hx Substance Use: No - Surgical History Hx Coronary Stent: Yes - Anesthesia Hx Anesthesia: Yes Hx Anesthesia Reactions: No Hx Malignant Hyperthermia: No - Suicidal Assessment Feels Threatened In Home Enviroment: No Family/Social History - Physician Review Nursing Documentation Reviewed: Yes Family/Social History: No Known Family HX Smoking Status: Former Smoker Hx Alcohol Use: No Hx Substance Use: No Hx Substance Use Treatment: No Allergies/Home Meds Allergies/Adverse Reactions: Allergies No Known Allergies Allergy (Verified 08/08/17 14:47) Home Medications: Home Meds Medication Instructions Recorded Confirmed Amiodarone [Cordarone] 200 mg PO DAILY 02/22/17 08/08/17 Atorvastatin [Lipitor] 40 mg PO DAILY 02/22/17 08/08/17 Carvedilol [Coreg] 12.5 mg PO BID 02/22/17 08/08/17 Cholecalciferol (Vitamin D3) 1,000 unit PO BID 02/22/17 08/08/17 [Vitamin D3] MetFORMIN [glucoPHAGE] 1,000 mg PO BID 02/22/17 08/08/17 Multivitamin [Daily Benjamin] 1 tab PO DAILY 02/22/17 08/08/17 Sacubitril/Valsartan [Entresto 24 1 each PO BID 02/22/17 08/08/17 mg-26 mg Tablet] Spironolactone [Aldactone] 12.5 mg PO DAILY 02/22/17 08/08/17 Torsemide [Demadex] 20 mg PO TID 02/22/17 08/08/17 Febuxostat [Uloric] 80 mg PO DAILY 06/26/17 08/08/17 Levothyroxine [Synthroid] 1 tab PO DAILY 06/26/17 08/08/17 oxyCODONE/Acetaminophen [Percocet 1 tab PO TID PRN 06/26/17 08/08/17 5/325 mg Tab] Review of Systems - Review of Systems Constitutional: Normal Eyes: Normal ENT: Normal Respiratory: SOB Cardiovascular: Normal Gastrointestinal: Normal Genitourinary Male: Normal Musculoskeletal: Normal Skin: Normal Neurological: Normal Endocrine: Normal Hemo/Lymphatic: Normal Psychiatric: Normal Physical Exam Vital Signs Reviewed: Yes Vital Signs Temp Pulse Resp BP Pulse Ox 08/08/17 09:20 62 100/54 L 08/08/17 07:31 98 F 66 18 106/53 L 98 08/08/17 07:07 98.0 F 64 18 142/79 99 Temperature: Afebrile Blood Pressure: Hypertensive Pulse: Regular Respiratory Rate: Normal Appearance: Positive for: Well-Appearing, Non-Toxic, Comfortable Pain Distress: None Mental Status: Positive for: Alert and Oriented X 3 - Systems Exam Head: Present: Atraumatic, Normocephalic Pupils: Present: PERRL Extroacular Muscles: Present: EOMI Conjunctiva: Present: Normal Ears: Present: Normal Mouth: Present: Moist Mucous Membranes Pharnyx: Present: Normal Nose (External): Present: Atraumatic Nose (Internal): Present: Normal Inspection Neck: Present: Normal Range of Motion Respiratory/Chest: Present: Clear to Auscultation, Good Air Exchange Cardiovascular: Present: Regular Rate and Rhythm Abdomen: No: Tenderness, Distention, Normal Bowel Sounds, Peritoneal Signs, Rebound, Guarding, McBurney's Point Tender, Rovsing's Sign Present, Hernias, Feeding Tubes, Ostomy Tubes, Mass/Organomegaly, Scars, Other Back: Present: Normal Inspection Upper Extremity: Present: Normal Inspection Lower Extremity: Present: Normal Inspection Neurological: Present: GCS=15, CN II-XII Intact, Speech Normal, Motor Func Grossly Intact Skin: Present: Warm, Normal Color Psychiatric: Present: Alert, Oriented x 3, Normal Insight, Normal Concentration Medical Decision Making ED Course and Treatment: you were treated in the ED today for hx of heart disease/heart attacks on aspirin/plavix, cholesterol, hypertension, diabetes, heart failure, and entresto was decreased about 1 week ago and since for the past several days having progressive difficulty breathing; more so when walking or exerting but otherwise without any nausea/vomiting/headache/dizziness/chest pain/abdomen pain /numbness/tingling/loss of limb function/pain with urination/travel/prior blood clots. You were otherwise breathing easily, smiling with your and talking easily, good strength/sensation, walking, clear lungs, no abdomen tenderness, skin pink, alert/oriented, no fever temp 98, stable heart rate 64, stable breathing rate 18, excellent oxygen level 99% room air, elevated blood pressure 142/79 which we recommend repeat in 2-3 days primary care office to determine further treatment, you have blood tests no infection count 7, stable blood level hemoglobin 11/platelets 192, stable chemistry, heart blood test negative less than 0.01, bnp mildly elevated 1030 which is decreased from prior 1800, urine test pending, chest xray radiology mild vascular markings, ECG electronic ventricular pacemaker, observation done in the ED with improvement, d/w Dr. Mcclain who stated start 5mcg IV infusion of dobutamine and admit to Dr. Pettit who I spoke to you and agreed to admission. 08/08/17 08:36 08/09/17 07:49 08/09/17 07:50 Reassessment Condition: Re-examined, Improved - Lab Interpretations Lab Results: 08/08/17 07:04 08/08/17 07:04 Lab Results 08/08/17 07:04: Sodium 142, Potassium 3.9, Chloride 99, Carbon Dioxide 29, Anion Gap 17, BUN 20, Creatinine 1.3, Est GFR ( Amer) > 60, Est GFR (Non- Af Amer) 54, Random Glucose 191 H, Calcium 8.6, Magnesium 2.0, Total Bilirubin 0.3, AST 30, ALT 21, Alkaline Phosphatase 75, Lactate Dehydrogenase 348, Total Creatine Kinase 46, Troponin I < 0.01 D, NT-Pro-B Natriuret Pep 1030 H, Total Protein 6.9, Albumin 4.1, Globulin 2.8, Albumin/Globulin Ratio 1.5 08/08/17 07:04: PT 10.7, INR 0.93, APTT 28.2 08/08/17 07:04: WBC 7.1 D, RBC 3.64, Hgb 11.2 L, Hct 33.6 L, MCV 92.3, MCH 30.8 , MCHC 33.3, RDW 15.0 H, Plt Count 192, MPV 9.5, Gran % 64.6, Lymph % (Auto) 26.7, Butler % (Auto) 5.8, Eos % (Auto) 2.3, Baso % (Auto) 0.6, Gran # 4.58, Lymph # (Auto) 1.9, Butler # (Auto) 0.4, Eos # (Auto) 0.2, Baso # (Auto) 0.04 I have reviewed the lab results: Yes - RAD Interpretation Narrative RAD Interpretations (Text): 08/08/2017 08:35:00 Chest Xray FINDINGS: LUNGS: No active pulmonary disease. PLEURA: No significant pleural effusion identified, no pneumothorax apparent. CARDIOVASCULAR: AICD. No congestive change. Normal heart size. OSSEOUS STRUCTURES: No significant abnormalities. VISUALIZED UPPER ABDOMEN: Normal. OTHER FINDINGS: None. IMPRESSION: No active disease. Radiology Orders: 08/08/17 07:08 CHEST PORTABLE [RAD] Stat Senior Consumer Insights Consultant: ED Physician (cxr mild vascular markings), Radiologist - EKG Interpretation Interpreted by ED Physician: Yes (Electronic ventricular pacemaker) Type: 12 lead EKG - Medication Orders Current Medication Orders: Acetaminophen (Tylenol 650 Mg Supp) 650 mg RC Q6H PRN PRN Reason: Fever >=99.5f Amiodarone HCl (Cordarone) 200 mg PO DAILY [facility] Aspirin (Aspirin Chewable) 81 mg PO DAILY [facility] Atorvastatin Calcium (Lipitor) 40 mg PO DAILY [facility] Last Admin: 08/08/17 21:25 Dose: 40 mg Carvedilol (Coreg) 12.5 mg PO BID [facility] Last Admin: 08/08/17 17:39 Dose: 12.5 mg MAR Pulse and Blood Pressure Document 08/08/17 17:39 MF (Rec: 08/08/17 17:39 [id number] Pulse Pulse Rate (60-90) 85 Blood Pressure Blood Pressure (100/60-150/90) 142/81 Cholecalciferol (Vitamin D) 1,000 intlu PO BID [facility] Last Admin: 08/08/17 17:38 Dose: 1,000 intlu Clopidogrel Bisulfate (Plavix) 75 mg PO DAILY [facility] Enoxaparin Sodium (Lovenox) 40 mg SC DAILY [facility] PRN Reason: Protocol Last Admin: 08/08/17 10:38 Dose: 40 mg Subcutaneous Administrations Document 08/08/17 10:38 MF (Rec: 08/08/17 10:38 [id number] Injection Site MAR Injection Site Right Abdomen Charges for Administration # of Subcutaneous Administrations 1 Furosemide (Lasix) 40 mg PO BID [facility] Insulin Human Lispro (Humalog Med) 0 units SC AC [facility] PRN Reason: Protocol Last Admin: 08/09/17 07:40 Dose: Not Given Non-Admin Reason: Blood Sugar Parameter Levothyroxine Sodium (Synthroid) 25 mcg PO DAILY [facility] Multivitamins (Thera Tab) 1 tab PO DAILY [facility] Mupirocin (Bactroban Ointment) 0 gm TOP TID [facility] Last Admin: 08/08/17 18:30 Dose: 1 applic Oxycodone/Acetaminophen (Percocet 5/325 Mg Tab) 1 tab PO TID PRN PRN Reason: Pain, severe (8-10) Stop: 08/11/17 10:14 Last Admin: 08/09/17 05:14 Dose: 1 tab MAR Pain Assessment Document 08/09/17 05:14 FDE (Rec: 08/09/17 05:14 FDE [id number]) Pain Reassessment Is this a pain reassessment? Yes Sleep Is patient sleeping during reassessment? No Presence of Pain Presence of Pain Yes Pantoprazole Sodium (Protonix Ec Tab) 40 mg PO 0600 [facility] Last Admin: 08/09/17 05:10 Dose: 40 mg Discontinued Medications Furosemide (Lasix) 40 mg IVP Q12 SERGIO Last Admin: 08/08/17 21:25 Dose: 40 mg MAR Blood Pressure Document 08/08/17 21:25 FDE (Rec: 08/08/17 21:25 [id number]) Blood Pressure Blood Pressure (100/60-150/90) 130/70 IVP Administration Document 08/08/17 21:25 [facility] (Rec: 08/08/17 21:25 [id number]) Charges for Administration # of IVP Administrations 1 Dobutamine HCl/Dextrose (Dobutamine/Dextrose 5% 500mg/250ml) 500 mg in 250 mls @ 13.88 mls/hr IV .Q18H1M PRN; Protocol; 5 MCG/KG/MIN PRN Reason: TITRATE PER PROTOCOL Last Admin: 08/09/17 04:16 Dose: 5 mcg/kg/min, 13.88 mls/hr eMAR Start Stop Document 08/09/17 04:16 FDE (Rec: 08/09/17 04:16 [id number]) Intravenous Solution Start Date 08/09/17 Start Time 04:16 Titration Intervention Document 08/09/17 04:16 FDE (Rec: 08/09/17 04:16 [id number]) Titration Intake Cumulative Intake (Rx) 250 Waste Amount 0 Container Volume 250 Titration Dosing Titration Dose 5 IV Rate 13.88 Intake/Decrease Started/Running Cumulative Dose 500 Non-Formulary Medication (Multivitamin [Daily Benjamin]) 1 tab PO DAILY [facility] Pneumococcal Polyvalent Vaccine (Pneumovax 23 Vaccine) 0.5 ml IM .ONCE ONE Stop: 08/08/17 17:01 Last Admin: 08/08/17 17:36 Dose: MAR Immunization Data Document 08/08/17 17:36 (Rec: 08/08/17 17:36 [id number]) Immunization Data Vaccine Information Sheet Given No Associated Event Comment pt given vaccine in past 5 years Immunization Registry Document 08/08/17 17:36 (Rec: 08/08/17 17:36 [id number]) Immunization Registry Consent Date 12/26/16 Potassium Chloride (K-Dur 20 Meq Er Tab) 40 meq PO STAT STA Stop: 08/08/17 10:11 Last Admin: 08/08/17 10:38 Dose: 40 meq Disposition/Present on Arrival - Present on Arrival Any Indicators Present on Arrival: No History of DVT/PE: No History of Uncontrolled Diabetes: No Urinary Catheter: Yes (light red urine inserted in ed) History of Decub. Ulcer: No History Surgical Site Infection Following: None - Disposition Have Diagnosis and Disposition been Completed?: Yes Diagnosis: Acute on chronic congestive heart failure Disposition: HOSPITALIZED Disposition Time: 07:50 Patient Plan: Admission Condition: GOOD
[2017-08-08 07:23] LABS: BASO # 0.04 K/mm3 (0.0-2.0); BASO % 0.6 % (0.0-3.0); EOS # 0.2 (0.0-0.7); EOS % 2.3 % (1.5-5.0); GRAN # 4.58 (1.4-6.5); GRAN % 64.6 % (50.0-68.0); HEMOGLOBIN 11.2 g/dL (14.0-18.0); LYMPH # 1.9 (1.2-3.4); LYMPH % 26.7 % (22.0-35.0); MEAN CELL VOLUME 92.3 fl (80.0-105.0); MEAN CORPUSCULAR HEMOGLOBIN 30.8 pg (25.0-35.0); MEAN CORPUSCULAR HGB CONC 33.3 g/dl (31.0-37.0); MEAN PLATELET VOLUME 9.5 fl (7.0-11.0); MONO # 0.4 (0.1-0.6); MONO % 5.8 % (1.0-6.0); RBC 3.64 10^6/uL (3.5-6.1); WHITE BLOOD COUNT 7.1 10^3/ul (4.5-11.0)
[2017-08-08 07:34] LABS: ALB/GLOB RATIO 1.5 (1.1-1.8); ALBUMIN 4.1 g/dL (3.0-4.8); ALT/SGPT 21 U/L (7-56); AST/SGOT 30 U/L (17-59); BLOOD UREA NITROGEN 20 mg/dL (7-21); CALCIUM 8.6 mg/dL (8.4-10.5); GFR AFRICAN-AMERICAN > 60; GFR NON-AFRICAN AMERICAN 54
[2017-08-08 07:37] LABS: INR 0.93 (0.93-1.08); PARTIAL THROMBOPLASTIN TIME 28.2 Seconds (25.1-36.5); PROTHROMBIN TIME 10.7 SECONDS (9.4-12.5)
[2017-08-08 07:44] LABS: B-TYPE NATRIURETIC PEPTIDE 1030 pg/mL (0-450); TROPONIN I < 0.01 ng/mL
--- NOTE | 2017-08-08 08:36 | RAD ---
HISTORY: 72yoM, w sob COMPARISON: 06/26/2017 FINDINGS: LUNGS: No active pulmonary disease. PLEURA: No significant pleural effusion identified, no pneumothorax apparent. CARDIOVASCULAR: AICD. No congestive change. Normal heart size. OSSEOUS STRUCTURES: No significant abnormalities. VISUALIZED UPPER ABDOMEN: Normal. OTHER FINDINGS: None. IMPRESSION: No active disease.
[2017-08-08] MEDS: DOBUTamine 500mg/250ml D5W 500 MG/250 ML BAG IV PRN (09:20)
[2017-08-08] MEDS ORDERED: Potassium Chloride 20 mEq ER Tab PO STA (10:10)
[2017-08-08] MEDS ORDERED: Levothyroxine 25 MCG TAB PO SCH ×2 (10:15→11:06)
--- NOTE | 2017-08-08 10:35 | CP.PCM.HP ---
<Mikaela Sidhu - Last Filed: 08/08/17 10:24> History of Present Illness - History of Present Illness History of Present Illness: Mikaela Sidhu DO PGY1 - IM H&P for Dr. Pettit CC: Shortness of breath for 4-5 days HPI: 72 yo M with PMH of Lung carcinoma treated with chemotherapy, HTN, high cholesterol, DM, end stage dilated cardiomyopathy with CHF with LVEF 14% (Dec 2016) and s/p AICD placement, CAD s/p stents, prior cardiac arrest in 12/2016, and LUE DVT in the past - presents to the ER complaining of intermittent shortness of breath, worse than his baseline, for the past 4-5 days. He also reports "left chest fullness" which is intermittent, and similar to his baseline. He denies chest pain, cough, nausea, vomiting, diarrhea, fever, chills , dysuria, hematuria, abdominal pain, leg swelling, palpitations. He reports that about one week ago, his entresto dose was decreased to once-daily dosing from twice daily dosing, and he was also started on Uloric for high uric acid levels; there have otherwise been no changes in his diet, medications, or daily routine. He denies recently eating large salty meals, or any change in his diet. He denies weight gain/loss in the past week, and weighs himself daily. He admits to orthopnea, but no different than his baseline. is at bedside who is also supplementing the history. 12 point ROS was obtained and was negative except as above. PMH: Lung carcinoma treated with chemotherapy, HTN, high cholesterol, DM, end stage dilated cardiomyopathy with CHF with LVEF 14% (Dec 2016) and s/p AICD placement, CAD s/p stents, prior cardiac arrest in 12/2016, and LUE DVT in the past PSH: Denies Soc: Social History: quit smoking at 29, denies alcohol or illicit drug use FHx: Father with RI at age 19 All: NKDA Wet Process Miller: Dr. Mcclain Developmental Psychologist: Dr. Vitale Present on Admission - Present on Admission Any Indicators Present on Admission: Yes History of DVT/PE: Yes Past Patient History - Infectious Disease Hx of Infectious Diseases: None - Tetanus Immunizations Tetanus Immunization: Unknown - Past Social History Smoking Status: Former Smoker - CARDIAC Hx Congestive Heart Failure: Yes (Afib) - PULMONARY Hx Respiratory Disorders: Yes Hx Pneumonia: Yes - NEUROLOGICAL Hx Neurological Disorder: No - HEENT Hx HEENT Problems: No (WEARS RX GLASSES) - RENAL Hx Chronic Kidney Disease: No - ENDOCRINE/METABOLIC Hx Diabetes Mellitus Type 2: Yes - HEMATOLOGICAL/ONCOLOGICAL Hx Blood Disorders: Yes Hx Anemia: Yes Other/Comment: h/o L subclavian vein occlusive thrombosis - INTEGUMENTARY Hx Dermatological Problems: No - MUSCULOSKELETAL/RHEUMATOLOGICAL Hx Falls: No - GASTROINTESTINAL Hx Gastrointestinal Disorders: No - GENITOURINARY/GYNECOLOGICAL Hx Genitourinary Disorders: No - PSYCHIATRIC Hx Psychophysiologic Disorder: No Hx Emotional Abuse: No Hx Physical Abuse: No Hx Substance Use: No - SURGICAL HISTORY Hx Coronary Stent: Yes - ANESTHESIA Hx Anesthesia: Yes Hx Anesthesia Reactions: No Hx Malignant Hyperthermia: No Meds Allergies/Adverse Reactions: Allergies Allergy/AdvReac Type Severity Reaction Status Date / Time No Known Allergies Allergy Verified 08/08/17 14:47 Physical Exam - Constitutional Appears: Non-toxic, No Acute Distress - Head Exam Head Exam: NORMAL INSPECTION - Eye Exam Eye Exam: EOMI, Normal appearance. absent: Periorbital swelling - ENT Exam ENT Exam: Mucous Membranes Moist - Respiratory Exam Respiratory Exam: Clear to Auscultation Bilateral, NORMAL BREATHING PATTERN. absent: Accessory Muscle Use, Decreased Breath Sounds, Rales, Rhonchi, Wheezes, Respiratory Distress Additional comments: No egophany + orthopnea at ~30 degrees - Cardiovascular Exam Cardiovascular Exam: RRR. absent: Tachycardia, JVD Additional comments: Distant heart sounds - GI/Abdominal Exam GI & Abdominal Exam: Soft. absent: Distended, Firm, Tenderness - Extremities Exam Extremities exam: Negative for: calf tenderness, joint swelling, pedal edema Additional comments: No peripheral edema - Neurological Exam Neurological exam: Alert, Oriented x3 - Psychiatric Exam Psychiatric exam: Normal Affect, Normal Mood - Skin Skin Exam: Dry, Intact, Normal Color Results - Vital Signs Recent Vital Signs: Last Vital Signs Temp 98 F 08/08/17 07:31 Pulse 66 08/08/17 09:45 Resp 18 08/08/17 09:45 BP 138/78 08/08/17 09:45 Pulse Ox 98 08/08/17 09:45 - Labs Result Diagrams: 08/08/17 07:04 08/08/17 07:04 Assessment & Plan - Assessment and Plan (Free Text) Assessment: 72 yo M with PMH of Lung carcinoma treated with chemotherapy, HTN, high cholesterol, DM, end stage dilated cardiomyopathy with CHF with LVEF 14% (Dec 2016) and s/p AICD placement, CAD s/p stents, prior cardiac arrest in 12/2016, and LUE DVT in the past presents complaining of shortness of breath for the past 4-5 days. Likely 2/2 decompensated heart failure. Dyspnea - Likely 2/2 decompensated HF; r/o PNA, r/o ACS (initial trop negative) - BNP mildly elevated at 1080; EKG shows low voltage; BP is low - Patient was recently started on Uloric; may be contributing to polypharmacy, precipitating HF; will hold Uloric - Per cardio, start dobutamine drip and lasix 40 IV BID - Hold all antihypertensives - Continue amiodarone - Ordered CXR PA/Lat to r/o infiltrate - f/u serial troponins; repeat EKG in AM - f/u echocardiogram; last echo done in 12/2016 showed global hypokinesis and LVEF 10-15% - Heart healthy, low salt diet - Admit to telemetry; Vitals Q4; HOB >30; Strict I&O; Daily weights - Requested cardio consult; appreciate recs h/o DM - HbA1c in 06/2017 was 5.4; random blood glucose elevated - Hold oral antihyperglycemics - Start ISS low with accucheck ACHS h/o CAD s/p stents - Continue ASA, Plavix - Continue statin - Hold BB; Hold Entresto - f/u ACS workup h/o hypothyroidism - Continue synthroid 25mcg daily - f/u TSH h/o hyperuricemia - Patient was newly started on Uloric for asymptomatic hyperuricemia - Will hold Uloric pending further workup DVT Ppx: Lovenox Case discussed with Dr. Pettit <Andres Pettit - Last Filed: 08/08/17 16:26> Results - Vital Signs Recent Vital Signs: Last Vital Signs Temp 98.4 F 08/08/17 11:49 Pulse 84 08/08/17 11:49 Resp 20 08/08/17 11:49 BP 121/76 08/08/17 11:49 Pulse Ox 98 08/08/17 09:45 - Labs Result Diagrams: 08/08/17 07:04 08/08/17 07:04 Labs: Laboratory Results - last 24 hr 08/08/17 08/08/17 12:30 12:30 Troponin I < 0.01 TSH 3rd Generation 3.27 Attending/Attestation - Attestation I have personally seen and examined this patient.: Yes I have fully participated in the care of the patient.: Yes I have reviewed all pertinent clinical information: Yes Notes (Text): Please see/read my dictated notes.
[2017-08-08] MEDS: Enoxaparin 40 mg Syringe SC SCH (10:38)
[2017-08-08] MEDS: Oxycodone/Acetaminophen 5/325 mg Tab PO PRN ×2 (10:49→19:59)
--- NOTE | 2017-08-08 15:04 | CON ---
DATE: 08/08/2017 CARDIOLOGY CONSULTATION HISTORY: The patient is a 72-year-old male with a documented cardiomyopathy in the past. His cardiomyopathy is severe and he was sent to [facility] where he underwent evaluation for heart transplantation. He was turned down for heart transplantation due to various reasons. He has been treated medically. Recently, the patient has been treated with diuretics, CHINEDU inhibitors, beta-blockers as well as Entresto. Over the past several days, he has developed progressive exertional shortness of breath where he needs to stop after walking 10-15 steps. PAST MEDICAL HISTORY: The patient's past medical history is notable for cardiogenic shock in the past. This is due to his cardiomyopathy. His documented ejection fraction is approximately 20-25%. He is status post ICD placement. His cardiac risk factors include diabetes mellitus. SOCIAL HISTORY: The patient does not smoke. REVIEW OF SYSTEMS: Fourteen-point review of systems is predominately exertional shortness of breath. No edema in the lower extremities. PHYSICAL EXAMINATION: VITAL SIGNS: Blood pressure is 100/54, heart rate is in the 60s. NECK: Negative JVD. LUNGS: Decreased breath sounds bilaterally. HEART: Reveals S1, S2. EXTREMITIES: Without edema. EKG is unchanged from his previous. LABORATORY DATA: Hemoglobin is 11.2. Chemistries: BUN and creatinine are unremarkable. ProBNP is 1030 with a troponin of 0.01. IMPRESSION: 1. End-stage dilated cardiomyopathy with an ejection fraction of 20-25%. 2. History of cardiogenic shock. 3. Diabetes mellitus. 4. The patient has been treated medically and has been turned down for cardiac transplantation. PLAN: Given these findings, the patient will be admitted for IV dobutamine for the next 24-48 hours. Anuj Mcclain MD
[2017-08-08] MEDS ORDERED: Pneumococcal 23-Valent Vaccine IM ONE (17:00)
[2017-08-08] MEDS: Cholecalciferol 1,000 INTLU TAB PO SCH (17:38)
--- NOTE | 2017-08-08 17:38 | RAD ---
HISTORY: SOB COMPARISON: Portable chest 08/08/2017 7:14 a.m.. TECHNIQUE: Chest PA and lateral FINDINGS: LUNGS: AICD/pacemaker again identified in position. No interval airspace disease bilaterally. PLEURA: No significant pleural effusion identified. No pneumothorax apparent. CARDIOVASCULAR: Normal. OSSEOUS STRUCTURES: Scoliotic thoracic spinal deformity reiterated. VISUALIZED UPPER ABDOMEN: Normal. OTHER FINDINGS: None. IMPRESSION: No interval acute cardiopulmonary disease appreciated. AICD/pacemaker again evident.
[2017-08-08] MEDS: Pantoprazole 40 mg EC Tab PO SCH (18:30)
[2017-08-08] MEDS: Mupirocin 2% Ointment 15 GM TUBE TOP SCH (18:30)
--- NOTE | 2017-08-08 22:22 | CARD ---
APPROVED REPORT EKG Measurement Heart [id number] <Conclusion> Atrial sensed, ventricular paced rhythm
[2017-08-08 23:45] VITALS: RESP 20
[2017-08-09] MEDS: DOBUTamine 500mg/250ml D5W 500 MG/250 ML BAG IV PRN (04:16)
[2017-08-09] MEDS: Pantoprazole 40 mg EC Tab PO SCH (05:10)
[2017-08-09] MEDS: Oxycodone/Acetaminophen 5/325 mg Tab PO PRN (05:14)
[2017-08-09 05:52] VITALS: O2SAT 98
[2017-08-09] MEDS ORDERED: Pantoprazole 40 mg EC Tab PO SCH (06:00)
[2017-08-09 06:27] LABS: HEMOGLOBIN 11.1 g/dL (14.0-18.0); MEAN CELL VOLUME 91.8 fl (80.0-105.0); MEAN CORPUSCULAR HEMOGLOBIN 30.4 pg (25.0-35.0); MEAN CORPUSCULAR HGB CONC 33.1 g/dl (31.0-37.0); MEAN PLATELET VOLUME 9.5 fl (7.0-11.0); RBC 3.65 10^6/uL (3.5-6.1); RED CELL DISTRIBUTION WIDTH 14.9 % (11.5-14.5)
[2017-08-09 06:57] LABS: ALB/GLOB RATIO 1.5 (1.1-1.8); ALBUMIN 4.3 g/dL (3.0-4.8); ALT/SGPT 25 U/L (7-56); AST/SGOT 29 U/L (17-59); BILIRUBIN,DIRECT 0.1 mg/dL (0.0-0.4); BLOOD UREA NITROGEN 19 mg/dL (7-21); CALCIUM 8.9 mg/dL (8.4-10.5); GFR AFRICAN-AMERICAN > 60; GFR NON-AFRICAN AMERICAN 50; HDL CHOLESTEROL 38 mg/dL (29-60)
[2017-08-09 07:10] LABS: LDL CHOLESTEROL 75 mg/dL (0-129)
[2017-08-09] MEDS: Insulin Lispro (humaLOG) MEDIUM Coverage SC SCH ×2 (07:40→10:57)
--- NOTE | 2017-08-09 07:52 | CP.PCM.PN ---
Subjective - Date & Time of Evaluation Date of Evaluation: 08/09/17 Time of Evaluation: 07:48 - Subjective Subjective: Patient seen and examined at bedside. Patient states he had trouble sleeping overnight. Patient admits to no shortness of breath since on Dobutamine drip. Patient has been walking around with no dyspnea on exertion. Denies chest pain, SOB, nausea, vomiting, diarrhea, fever, chills. Objective - Vital Signs/Intake and Output Vital Signs (last 24 hours): Temp Pulse Resp BP Pulse Ox 97.6 F 77 20 111/68 98 08/09/17 05:50 08/09/17 05:50 08/09/17 05:50 08/09/17 05:50 08/09/17 05:50 Intake and Output: 08/09/17 08/09/17 06:59 18:59 Intake Total 777 Balance 777 - Medications Medications: Current Medications Acetaminophen (Tylenol 650 Mg Supp) 650 mg RC Q6H PRN PRN Reason: Fever >=99.5f Amiodarone HCl (Cordarone) 200 mg PO DAILY [facility] Aspirin (Aspirin Chewable) 81 mg PO DAILY [facility] Atorvastatin Calcium (Lipitor) 40 mg PO DAILY [facility] Last Admin: 08/08/17 21:25 Dose: 40 mg Carvedilol (Coreg) 12.5 mg PO BID [facility] Last Admin: 08/08/17 17:39 Dose: 12.5 mg Cholecalciferol (Vitamin D) 1,000 intlu PO BID [facility] Last Admin: 08/08/17 17:38 Dose: 1,000 intlu Clopidogrel Bisulfate (Plavix) 75 mg PO DAILY [facility] Enoxaparin Sodium (Lovenox) 40 mg SC DAILY [facility] PRN Reason: Protocol Last Admin: 08/08/17 10:38 Dose: 40 mg Furosemide (Lasix) 40 mg PO BID [facility] Insulin Human Lispro (Humalog Med) 0 units SC AC [facility] PRN Reason: Protocol Last Admin: 08/09/17 07:40 Dose: Not Given Levothyroxine Sodium (Synthroid) 25 mcg PO DAILY [facility] Multivitamins (Thera Tab) 1 tab PO DAILY [facility] Mupirocin (Bactroban Ointment) 0 gm TOP TID [facility] Last Admin: 08/08/17 18:30 Dose: 1 applic Oxycodone/Acetaminophen (Percocet 5/325 Mg Tab) 1 tab PO TID PRN PRN Reason: Pain, severe (8-10) Stop: 08/11/17 10:14 Last Admin: 08/09/17 05:14 Dose: 1 tab Pantoprazole Sodium (Protonix Ec Tab) 40 mg PO 0600 [facility] Last Admin: 08/09/17 05:10 Dose: 40 mg - Labs Labs: 08/09/17 06:00 08/09/17 06:00 PT 10.7 SECONDS (9.4-12.5) 08/08/17 07:04 INR 0.93 (0.93-1.08) 08/08/17 07:04 APTT 28.2 Seconds (25.1-36.5) 08/08/17 07:04 - Constitutional Appears: Non-toxic, No Acute Distress - Head Exam Head Exam: ATRAUMATIC, NORMAL INSPECTION, NORMOCEPHALIC - Eye Exam Eye Exam: EOMI, Normal appearance - ENT Exam ENT Exam: Mucous Membranes Moist, Normal Exam - Respiratory Exam Respiratory Exam: Clear to Ausculation Bilateral, NORMAL BREATHING PATTERN - Cardiovascular Exam Cardiovascular Exam: RRR, +S1, +S2 - GI/Abdominal Exam GI & Abdominal Exam: Soft, Normal Bowel Sounds. absent: Tenderness - Extremities Exam Extremities Exam: Normal Inspection. absent: Calf Tenderness, Pedal Edema - Neurological Exam Neurological Exam: Alert, Awake, Oriented x3 - Psychiatric Exam Psychiatric exam: Normal Affect, Normal Mood - Skin Skin Exam: Intact, Normal Color, Warm Assessment and Plan - Assessment and Plan (Free Text) Plan: 72 yo M with PMH of Lung carcinoma treated with chemotherapy, HTN, high cholesterol, DM, end stage dilated cardiomyopathy with CHF with LVEF 14% (Dec 2016) and s/p AICD placement, CAD s/p stents, prior cardiac arrest in 12/2016, and LUE DVT in the past presents with CHF exarcerbation. Decompensated Heart Failure Troponin negative x3 Elevated BNP Lasix 40 q12 Dobutamine as per Cardio for 24-48 hours, will await recs Repeat Chest x-ray negative for acute pathology h/o DM ISS h/o CAD s/p stents Continue ASA, Plavix Continue statin Hold antihypertensives h/o hypothyroidism Continue synthroid 25mcg daily TSH normal DVT PPX: Lovenox GI PPX: Protonix Samir, PGY-2
[2017-08-09] MEDS: Enoxaparin 40 mg Syringe SC SCH (09:11)
[2017-08-09] MEDS: Mupirocin 2% Ointment 15 GM TUBE TOP SCH (09:11)
[2017-08-09] MEDS: Cholecalciferol 1,000 INTLU TAB PO SCH (09:12)
[2017-08-09 09:31] LABS: URINE BILIRUBIN NEGATIVE (NEGATIVE); URINE BLOOD NEGATIVE (NEGATIVE); URINE GLUCOSE (UA) NEGATIVE (NEGATIVE); URINE LEUKOCYTE ESTERASE NEGATIVE Leu/uL (NEGATIVE); URINE PROTEIN NEGATIVE mg/dL (<30 mg/dL); URINE UROBILINOGEN 0.2 E.U./dL (<1 E.U./dL)
[2017-08-09 09:41] LABS: URINE APPEARANCE CLEAR (CLEAR); URINE COLOR YELLOW (YELLOW)
[2017-08-09] MEDS ORDERED: Multivitamin Therapeutic Tab PO SCH (10:00)
[2017-08-09] MEDS ORDERED: Non Formulary Medication (Multivitamin [Daily Vite] 1 TAB) PO SCH (10:00)
[2017-08-09] MEDS ORDERED: SACUBITRIL 24mg/VALSARTAN 26mg tab PO SCH (10:00)
[2017-08-09 12:13] VITALS: BP 104/60; PULSE 61; TEMP 97.9
--- NOTE | 2017-08-09 12:51 | CP.PCM.DIS ---
<Joon Dawson - Last Filed: 08/09/17 12:53> Provider - Provider Date of Admission: 08/08/17 08:38 Attending physician: Andres Pettit MD Consults: Cardio - Dr. Mcclain Time Spent in preparation of Discharge (in minutes): 45 Diagnosis - Discharge Diagnosis (1) Acute on chronic congestive heart failure Status: Resolved (2) Congestive heart failure Status: Chronic (3) Respiratory distress Status: Resolved Hospital Course - Lab Results Lab Results: Most Recent Lab Values WBC 6.0 10^3/ul (4.5-11.0) 08/09/17 06:00 RBC 3.65 10^6/uL (3.5-6.1) 08/09/17 06:00 Hgb 11.1 g/dL (14.0-18.0) L 08/09/17 06:00 Hct 33.5 % (42.0-52.0) L 08/09/17 06:00 MCV 91.8 fl (80.0-105.0) 08/09/17 06:00 MCH 30.4 pg (25.0-35.0) 08/09/17 06:00 MCHC 33.1 g/dl (31.0-37.0) 08/09/17 06:00 RDW 14.9 % (11.5-14.5) H 08/09/17 06:00 Plt Count 201 10^3/uL (120.0-450.0) 08/09/17 06:00 MPV 9.5 fl (7.0-11.0) 08/09/17 06:00 Gran % 64.6 % (50.0-68.0) 08/08/17 07:04 Lymph % (Auto) 26.7 % (22.0-35.0) 08/08/17 07:04 [place] % (Auto) 5.8 % (1.0-6.0) 08/08/17 07:04 Eos % (Auto) 2.3 % (1.5-5.0) 08/08/17 07:04 Baso % (Auto) 0.6 % (0.0-3.0) 08/08/17 07:04 Gran # 4.58 (1.4-6.5) 08/08/17 07:04 Lymph # (Auto) 1.9 (1.2-3.4) 08/08/17 07:04 [place] # (Auto) 0.4 (0.1-0.6) 08/08/17 07:04 Eos # (Auto) 0.2 (0.0-0.7) 08/08/17 07:04 Baso # (Auto) 0.04 K/mm3 (0.0-2.0) 08/08/17 07:04 PT 10.7 SECONDS (9.4-12.5) 08/08/17 07:04 INR 0.93 (0.93-1.08) 08/08/17 07:04 APTT 28.2 Seconds (25.1-36.5) 08/08/17 07:04 Sodium 141 mmol/L (132-148) 08/09/17 06:00 Potassium 4.3 mmol/L (3.6-5.0) 08/09/17 06:00 Chloride 99 mmol/L (98-107) 08/09/17 06:00 Carbon Dioxide 28 mmol/L (21-33) 08/09/17 06:00 Anion Gap 18 (10-20) 08/09/17 06:00 BUN 19 mg/dL (7-21) 08/09/17 06:00 Creatinine 1.4 mg/dl (0.8-1.5) 08/09/17 06:00 Est GFR ( Amer) > 60 08/09/17 06:00 Est GFR (Non-Af Amer) 50 08/09/17 06:00 POC Glucose (mg/dL) 148 mg/dL (65-110) H 08/09/17 10:56 Random Glucose 137 mg/dL (70-110) H 08/09/17 06:00 Calcium 8.9 mg/dL (8.4-10.5) 08/09/17 06:00 Phosphorus 3.5 mg/dL (2.5-4.5) 08/09/17 06:00 Magnesium 2.3 mg/dL (1.7-2.2) H 08/09/17 06:00 Total Bilirubin 0.4 mg/dL (0.2-1.3) 08/09/17 06:00 Direct Bilirubin 0.1 mg/dL (0.0-0.4) 08/09/17 06:00 AST 29 U/L (17-59) 08/09/17 06:00 ALT 25 U/L (7-56) 08/09/17 06:00 Alkaline Phosphatase 66 U/L (38-126) 08/09/17 06:00 Lactate Dehydrogenase 348 U/L (333-699) 08/08/17 07:04 Total Creatine Kinase 46 U/L (35-230) 08/08/17 07:04 Troponin I 0.02 ng/mL D 08/08/17 19:06 NT-Pro-B Natriuret Pep 1030 pg/mL (0-450) H 08/08/17 07:04 Total Protein 7.2 g/dL (5.8-8.3) 08/09/17 06:00 Albumin 4.3 g/dL (3.0-4.8) 08/09/17 06:00 Globulin 2.9 gm/dL 08/09/17 06:00 Albumin/Globulin Ratio 1.5 (1.1-1.8) 08/09/17 06:00 Triglycerides 217 mg/dL (35-160) H 08/09/17 06:00 Cholesterol 160 mg/dL (130-200) 08/09/17 06:00 LDL Cholesterol Direct 75 mg/dL (0-129) 08/09/17 06:00 HDL Cholesterol 38 mg/dL (29-60) 08/09/17 06:00 Prostate Specific Ag 1.6 ng/mL (0.00-2.5) 08/09/17 06:00 TSH 3rd Generation 3.27 mIU/mL (0.46-4.68) 08/08/17 12:30 Urine Color Yellow (YELLOW) 08/09/17 08:52 Urine Appearance Clear (CLEAR) 08/09/17 08:52 Urine pH 6.0 (4.7-8.0) 08/09/17 08:52 Ur Specific [employer] [place] 1.020 (1.005-1.035) 08/09/17 08:52 Urine Protein Negative mg/dL (<30 mg/dL) 08/09/17 08:52 Urine Glucose (UA) Negative mg/dL (NEGATIVE) 08/09/17 08:52 Urine Ketones Negative mg/dL (NEGATIVE) 08/09/17 08:52 Urine Blood Negative (NEGATIVE) 08/09/17 08:52 Urine Nitrate Negative (NEGATIVE) 08/09/17 08:52 Urine Bilirubin Negative (NEGATIVE) 08/09/17 08:52 Urine Urobilinogen 0.2 E.U./dL (<1 E.U./dL) 08/09/17 08:52 Ur Leukocyte Esterase Negative Ramya/uL (NEGATIVE) 08/09/17 08:52 - Hospital Course Hospital Course: 72 yo M with PMH of Lung carcinoma treated with chemotherapy, HTN, high cholesterol, DM, end stage dilated cardiomyopathy with CHF with LVEF 14% (Dec 2016) and s/p AICD placement, CAD s/p stents, prior cardiac arrest in 12/2016, and LUE DVT in the past - presents to the ER complaining of intermittent shortness of breath, worse than his baseline, for the past 4-5 days. He also reports "left chest fullness" which is intermittent, and similar to his baseline. He denies chest pain, cough, nausea, vomiting, diarrhea, fever, chills , dysuria, hematuria, abdominal pain, leg swelling, palpitations. He reports that about one week ago, his entresto dose was decreased to once-daily dosing from twice daily dosing, and he was also started on Uloric for high uric acid levels; there have otherwise been no changes in his diet, medications, or daily routine. He denies recently eating large salty meals, or any change in his diet. He denies weight gain/loss in the past week, and weighs himself daily. He admits to orthopnea, but no different than his baseline. Patient was admitted for CHF exacerbation. Patient was seen by Dr. Mcclain who placed the patient on Dobutamine, which lead to resolution of shortness of breath. Patient had home torsemide changed to Lasix 40 mg BID. Patient will follow up with Dr. Pettit and Dr. Mcclain within a week. Discharge Exam - Head Exam Head Exam: NORMAL INSPECTION - Eye Exam Eye Exam: EOMI, Normal appearance - ENT Exam ENT Exam: Mucous Membranes Moist, Normal Exam - Respiratory Exam Respiratory Exam: Clear to PA & Lateral, NORMAL BREATHING PATTERN. absent: Decreased Breath Sounds - Cardiovascular Exam Cardiovascular Exam: RRR, +S1, +S2 - GI/Abdominal Exam GI & Abdominal Exam: Normal Bowel Sounds, Soft. absent: Tenderness - Extremities Exam Extremities exam: normal inspection - Neurological Exam Neurological exam: Alert, CN II-XII Intact, Oriented x3 - Psychiatric Exam Psychiatric exam: Normal Affect, Normal Mood - Skin Skin Exam: Intact, Normal Color, Warm Discharge Plan - Discharge Medications Prescriptions: Furosemide [Lasix] 40 mg PO BID #28 tab - Follow Up Plan Condition: GOOD Disposition: HOME/ ROUTINE Instructions: Heart Failure (DC), Heart Failure (GEN), Pacemaker (DC), Pacemaker (GEN), Pulmonary Edema (DC), Pulmonary Edema (GEN), Hypokalemia (DC), Hypokalemia (GEN), Ascites (DC), Ascites (GEN) Referrals: Andres Pettit MD [Staff Provider] - 1 Week Anuj Mcclain MD [Staff Provider] - 1 Week <Andres Pettit - Last Filed: 08/11/17 15:02> Provider - Provider Date of Admission: 08/08/17 08:38 Attending physician: Andres Pettit MD Hospital Course - Lab Results Lab Results: Micro Results 08/09/17 08:52 Urine,Clean Catch Urine Culture - Final Gram Negative Richard Most Recent Lab Values WBC 6.0 10^3/ul (4.5-11.0) 08/09/17 06:00 RBC 3.65 10^6/uL (3.5-6.1) 08/09/17 06:00 Hgb 11.1 g/dL (14.0-18.0) L 08/09/17 06:00 Hct 33.5 % (42.0-52.0) L 08/09/17 06:00 MCV 91.8 fl (80.0-105.0) 08/09/17 06:00 MCH 30.4 pg (25.0-35.0) 08/09/17 06:00 MCHC 33.1 g/dl (31.0-37.0) 08/09/17 06:00 RDW 14.9 % (11.5-14.5) H 08/09/17 06:00 Plt Count 201 10^3/uL (120.0-450.0) 08/09/17 06:00 MPV 9.5 fl (7.0-11.0) 08/09/17 06:00 Gran % 64.6 % (50.0-68.0) 08/08/17 07:04 Lymph % (Auto) 26.7 % (22.0-35.0) 08/08/17 07:04 [place] % (Auto) 5.8 % (1.0-6.0) 08/08/17 07:04 Eos % (Auto) 2.3 % (1.5-5.0) 08/08/17 07:04 Baso % (Auto) 0.6 % (0.0-3.0) 08/08/17 07:04 Gran # 4.58 (1.4-6.5) 08/08/17 07:04 Lymph # (Auto) 1.9 (1.2-3.4) 08/08/17 07:04 [place] # (Auto) 0.4 (0.1-0.6) 08/08/17 07:04 Eos # (Auto) 0.2 (0.0-0.7) 08/08/17 07:04 Baso # (Auto) 0.04 K/mm3 (0.0-2.0) 08/08/17 07:04 PT 10.7 SECONDS (9.4-12.5) 08/08/17 07:04 INR 0.93 (0.93-1.08) 08/08/17 07:04 APTT 28.2 Seconds (25.1-36.5) 08/08/17 07:04 Sodium 141 mmol/L (132-148) 08/09/17 06:00 Potassium 4.3 mmol/L (3.6-5.0) 08/09/17 06:00 Chloride 99 mmol/L (98-107) 08/09/17 06:00 Carbon Dioxide 28 mmol/L (21-33) 08/09/17 06:00 Anion Gap 18 (10-20) 08/09/17 06:00 BUN 19 mg/dL (7-21) 08/09/17 06:00 Creatinine 1.4 mg/dl (0.8-1.5) 08/09/17 06:00 Est GFR ( Amer) > 60 08/09/17 06:00 Est GFR (Non-Af Amer) 50 08/09/17 06:00 POC Glucose (mg/dL) 148 mg/dL (65-110) H 08/09/17 10:56 Random Glucose 137 mg/dL (70-110) H 08/09/17 06:00 Hemoglobin A1c 6.5 % (4.2-6.5) 08/09/17 06:00 Calcium 8.9 mg/dL (8.4-10.5) 08/09/17 06:00 Phosphorus 3.5 mg/dL (2.5-4.5) 08/09/17 06:00 Magnesium 2.3 mg/dL (1.7-2.2) H 08/09/17 06:00 Total Bilirubin 0.4 mg/dL (0.2-1.3) 08/09/17 06:00 Direct Bilirubin 0.1 mg/dL (0.0-0.4) 08/09/17 06:00 AST 29 U/L (17-59) 08/09/17 06:00 ALT 25 U/L (7-56) 08/09/17 06:00 Alkaline Phosphatase 66 U/L (38-126) 08/09/17 06:00 Lactate Dehydrogenase 348 U/L (333-699) 08/08/17 07:04 Total Creatine Kinase 46 U/L (35-230) 08/08/17 07:04 Troponin I 0.02 ng/mL D 08/08/17 19:06 NT-Pro-B Natriuret Pep 1030 pg/mL (0-450) H 08/08/17 07:04 Total Protein 7.2 g/dL (5.8-8.3) 08/09/17 06:00 Albumin 4.3 g/dL (3.0-4.8) 08/09/17 06:00 Globulin 2.9 gm/dL 08/09/17 06:00 Albumin/Globulin Ratio 1.5 (1.1-1.8) 08/09/17 06:00 Triglycerides 217 mg/dL (35-160) H 08/09/17 06:00 Cholesterol 160 mg/dL (130-200) 08/09/17 06:00 LDL Cholesterol Direct 75 mg/dL (0-129) 08/09/17 06:00 HDL Cholesterol 38 mg/dL (29-60) 08/09/17 06:00 Prostate Specific Ag 1.6 ng/mL (0.00-2.5) 08/09/17 06:00 25-OH Vitamin D Total 26.3 NG/ML (30.0-100.0) L 08/09/17 06:00 TSH 3rd Generation 3.27 mIU/mL (0.46-4.68) 08/08/17 12:30 Urine Color Yellow (YELLOW) 08/09/17 08:52 Urine Appearance Clear (CLEAR) 08/09/17 08:52 Urine pH 6.0 (4.7-8.0) 08/09/17 08:52 Ur Specific [employer] [place] 1.020 (1.005-1.035) 08/09/17 08:52 Urine Protein Negative mg/dL (<30 mg/dL) 08/09/17 08:52 Urine Glucose (UA) Negative mg/dL (NEGATIVE) 08/09/17 08:52 Urine Ketones Negative mg/dL (NEGATIVE) 08/09/17 08:52 Urine Blood Negative (NEGATIVE) 08/09/17 08:52 Urine Nitrate Negative (NEGATIVE) 08/09/17 08:52 Urine Bilirubin Negative (NEGATIVE) 08/09/17 08:52 Urine Urobilinogen 0.2 E.U./dL (<1 E.U./dL) 08/09/17 08:52 Ur Leukocyte Esterase Negative Ramya/uL (NEGATIVE) 08/09/17 08:52 Attending/Attestation - Attestation I have personally seen and examined this patient.: Yes I have fully participated in the care of the patient.: Yes I have reviewed all pertinent clinical information, including history, physical exam and plan: Yes Notes (Text): Please see/read my dictated notes.
--- NOTE | 2017-08-09 13:21 | PN ---
DATE: 08/09/2017 CARDIOLOGY FOLLOWUP SUBJECTIVE: The patient's breathing is markedly improved. He is able to walk 3-4 times on the nurse's station without shortness of breath. PHYSICAL EXAMINATION: VITAL SIGNS: Blood pressure is 111/68, the heart rates in the 70s. NECK: Negative JVD. LUNGS: Without rales. HEART: With S1, S2. EXTREMITIES: Without edema. LABORATORY DATA: Potassium is 4.3, magnesium is 2.3, glucose is137. IMPRESSION: 1. Resolution of congestive heart failure on 24 hours of intravenous dobutamine. 2. End-stage dilated cardiomyopathy. 3. Coronary artery disease. 4. Diabetes mellitus. 5. Dyspnea, which is resolved. PLAN: Given these findings, we will discontinue IV dobutamine today. We will change his Lasix to p.o. Lasix. We will discontinue telemetry today. From a cardiac perspective, the patient can be discharged today. He has been instructed to go on Lasix 40 b.i.d. He will go back on his home medications which includes Entresto at home. Follow up in 2-3 weeks' in the office. Anuj Mcclain MD
--- NOTE | 2017-08-10 06:42 | DS ---
HISTORY OF PRESENT ILLNESS: The patient was seen by Dr. Mcclain earlier this morning. The patient was cleared for discharge. The patient's IV dobutamine drip was stopped. The patient denies any chest pain, shortness of breath. Denies dyspnea on exertion. Denies paroxysmal nocturnal dyspnea. Denies orthopnea. REVIEW OF SYSTEMS: A 13-system review was done, pertinent positive and negative dictated above. PHYSICAL EXAMINATION: VITAL SIGNS: T-max 98.1; telemetry shows paced rhythm; heart rate was in the 70s , 77, 78; blood pressure 111/68, 112/66, 130/70, 142/81; respirations 20; O2 sat 98%. HEENT: Head: Normocephalic, atraumatic. HEENT examination shows pinkish conjunctivae. Anicteric sclerae. NECK: No jugular venous distention. CHEST: Kyphosis. Positive left upper chest AICD. LUNGS: Show no rales, crackles or wheezing. CARDIOVASCULAR: S1 and S2, regular rhythm. Positive systolic murmur in left sternal border, right second intercostal space, left second intercostal space. ABDOMEN: Soft, protuberant. Positive bowel sounds. GENITALIA: Male. RECTAL: Deferred. EXTREMITIES: No pitting edema, no calf tenderness, no Homans' sign. NEUROLOGIC: The patient is alert, awake, oriented x3. Cranial nerves II-XII intact. Gait examination is independent. VASCULAR: Palpable pulses. MUSCULOSKELETAL: Body mass index is 29.5. DIAGNOSTICS: 08/09/2017, WBC 6, hemoglobin/hematocrit 11.1/33.5, platelets 201. Sodium 141, potassium 4.3, chloride 99, CO2 of 28, anion gap 18, BUN 19, creatinine 1.4, GFR greater than 60, glucose 137, 121 and 148, calcium 8.9, phosphorus 3.5, magnesium 2.3. LFTs are normal. Triglyceride 217, cholesterol 160, LDL 75, HDL 35. PSA 1.6. TSH is 3.27. Troponin 3 sets are negative. Urinalysis is negative. IMPRESSION AND PLAN: 1. Symptomatic end-stage dilated ischemic cardiomyopathy with symptoms of shortness of breath, dyspnea on exertion, paroxysmal nocturnal dyspnea and orthopnea. 2. Noninsulin-requiring diabetes mellitus. 3. Normocytic anemia. 4. Hypertriglyceridemia. 5. Hypothyroidism. 6. Hyperuricemia. 7. . At present, the patient is seen by Cardiology. We had cleared him for discharge. The patient is to be discharged home with resumption of all his home medications including Demadex 20 mg three times a day, Aldactone 12.5 mg daily, Entresto 24/26 twice a day, Percocet 5/325 one tablet t.i.d. p.r.n., metformin 1000 mg twice a day, Synthroid 25 mcg daily, Uloric 80 mg daily, Plavix 75 mg daily, vitamin D3 2000 units daily or 1000 units twice a day, Coreg 12.5 twice a day, Lipitor 40 mg daily, Ecotrin 81 mg daily, amiodarone 200 mg daily. Discharge followup with Dr. Pettit within 1 week and follow up with Dr. Mcclain within 1 to 2 weeks. During this hospitalization, the patient was explained about the details of his medical condition and including his was also explained about the end-stage dilated cardiomyopathy. The patient has been turned down for heart transplant as per Cardiology recommendation and the patient has to be medically treated. The patient was given a trial of IV dobutamine drip. CURRENT MEDICATIONS: Aspirin 81 mg p.o. daily, amiodarone 200 mg daily, Coreg 12.5 twice a day, Entresto 24 mg/26 mg twice a day, Humalog medium dose sliding scale coverage, Lasix 40 mg p.o. b.i.d. which is today's dose, Lipitor 40 mg daily, Lovenox 40 mg subcutaneous daily, Percocet 5/325 one tablet t.i.d. p.r.n., Plavix 75 mg daily, Protonix 40 mg daily, Synthroid 25 mcg daily, Tylenol 650 every 6 hours p.r.n., vitamin D 2000 units daily. The patient's Demadex has been stopped. The patient is now switched to Lasix 40 mg twice a day. Time spent in the entire discharge process is more than 45 minutes. Dictated and electronically signed, not read. Andres Pettit MD
--- NOTE | 2017-08-12 22:20 | PQF ---
PROVIDER RESPONSE TEXT: ACUTE ON CHRONIC SYSTOLIC CHF REVIEWER QUERY TEXT: CHF Acuity and Type Congestive Heart Failure is documented in the Medical Record. Please document the type and acuity (in cludes probable or suspected) Such as: Type: -- Systolic -- Diastolic -- Combined -- Other, please specify Acuity: -- Acute -- Chronic -- Acute on chronic -- Other, please specify Also please document the underlying cause of the CHF (includes probable or suspected) The patient's Clinical Indicators include: high BNP; EF - 20-25%;PN 08/09 -resolution of CHF with 24 hours of IV dobutamine; IV lasix Query created by: Kortney Blake on 08/12/2017 9:27 AM Electronically signed by: Andres Pettit MD 08/12/2017 10:17 PM
== END 2017-08-09 13:50 | disposition home or self-care (01) | DRG 314 ==
LOC: ED 06:48 → ERH 08:38 → 2RNO 09:01
PROVIDERS: ADMIT Internal Medicine; ATTEND Internal Medicine
DX: I42.0 Dilated cardiomyopathy (principal); I50.23 Acute on chronic systolic (congestive) heart failure; I25.5 Ischemic cardiomyopathy; I11.0 Hypertensive heart disease with heart failure; E11.9 Type 2 diabetes mellitus without complications; I25.10 Atherosclerotic heart disease of native coronary artery without angina pectoris; E03.9 Hypothyroidism, unspecified; E79.0 Hyperuricemia without signs of inflammatory arthritis and tophaceous disease; E78.1 Pure hyperglyceridemia; D64.9 Anemia, unspecified; E78.00 Pure hypercholesterolemia, unspecified; Z85.118 Personal history of other malignant neoplasm of bronchus and lung; Z92.21 Personal history of antineoplastic chemotherapy; Z86.74 Personal history of sudden cardiac arrest; Z86.718 Personal history of other venous thrombosis and embolism; Z79.02 Long term (current) use of antithrombotics/antiplatelets; Z95.810 Presence of automatic (implantable) cardiac defibrillator; Z95.5 Presence of coronary angioplasty implant and graft; Z87.891 Personal history of nicotine dependence

== ENCOUNTER 2017-12-19 06:58 | Observation (INO) | payer MEDICARE, OTHER ==
[2017-12-19 07:23] VITALS: BMI 30.2
--- NOTE | 2017-12-19 07:47 | ED PDOC ---
Arrival/HPI - General Chief Complaint: Shortness Of Breath Historian: Patient - History of Present Illness Narrative History of Present Illness (Text): 12/19/17 07:40 Kenton Fitzpatrick is a 72 year old male, whose past medical history includes lung carcinoma, hypertension, hyperlipidemia, diabetes, CHF, AICD placement, cardiac arrest, CAD with 4 cardiac stents, and LUE DVT, who presents to the Emergency department complaining of gradually increasing shortness of breath for the past few days. Patient notes he is unable to sleep secondary to associated orthopnea, which is improved after sitting up for about 20 minutes. Patient also reports some chest discomfort, describes as "fullness." Patient was advised to come to the Emergency department by his machine etcher for further evaluation. Patient states he had a stress test on 09/2017 and has not taken any of his medications yet today. Patient denies any fever, chills, cough, nausea, vomiting, headache, dizziness, or any other complaints. Patient received a flu vaccination 2 weeks ago. PMD: Dr. Pettit Advertising Assistant Manager: Dr. Mcclain Symptom Onset: Gradual Symptom Course: Unchanged Activities at Onset: Light Context: Home Past Medical History - Provider Review Nursing Documentation Reviewed: Yes - Past History Past History: No Previous - Infectious Disease Hx of Infectious Diseases: None - Tetanus Immunization Tetanus Immunization: Unknown - Cardiac Hx Cardiac Disorders: Yes Hx GA: Yes Hx Internal Defibrillator: Yes Hx Pacemaker: Yes - Pulmonary Hx Respiratory Disorders: Yes Hx Lung Cancer: Yes Hx Pneumonia: Yes - Neurological Hx Neurological Disorder: No - HEENT Hx HEENT Disorder: No (WEARS RX GLASSES) - Renal Hx Renal Disorder: No - Endocrine/Metabolic Hx Diabetes Mellitus Type 2: Yes - Hematological/Oncological Hx Blood Disorders: Yes Hx Anemia: Yes Other/Comment: h/o L subclavian vein occlusive thrombosis - Integumentary Hx Dermatological Disorder: No - Musculoskeletal/Rheumatological Hx Falls: No - Gastrointestinal Hx Gastrointestinal Disorders: No - Genitourinary/Gynecological Hx Genitourinary Disorders: No - Psychiatric Hx Psychophysiologic Disorder: No Hx Emotional Abuse: No Hx Physical Abuse: No Hx Substance Use: No - Surgical History Hx Cardiac Catheterization: Yes Hx Coronary Stent: Yes - Anesthesia Hx Anesthesia: Yes Hx Anesthesia Reactions: No Hx Malignant Hyperthermia: No - Suicidal Assessment Feels Threatened In Home Enviroment: No Family/Social History - Physician Review Nursing Documentation Reviewed: Yes Family/Social History: Unknown Family HX Smoking Status: Former Smoker Hx Alcohol Use: No Hx Substance Use: No Hx Substance Use Treatment: No Allergies/Home Meds Allergies/Adverse Reactions: Allergies No Known Allergies Allergy (Verified 12/19/17 07:19) Home Medications: Home Meds Medication Instructions Recorded Confirmed Amiodarone [Cordarone] 200 mg PO DAILY 02/22/17 12/19/17 Atorvastatin [Lipitor] 20 mg PO DAILY 02/22/17 12/19/17 Carvedilol [Coreg] 12.5 mg PO BID 02/22/17 12/19/17 Cholecalciferol (Vitamin D3) 1,000 unit PO BID 02/22/17 12/19/17 [Vitamin D3] MetFORMIN [glucoPHAGE] 500 mg PO DAILY 02/22/17 12/19/17 Sacubitril/Valsartan [Entresto 24 1 each PO BID 02/22/17 12/19/17 mg-26 mg Tablet] Spironolactone [Aldactone] 25 mg PO DAILY 02/22/17 12/19/17 Levothyroxine [Synthroid] 50 mcg PO DAILY 06/26/17 12/19/17 oxyCODONE/Acetaminophen [Percocet 1 tab PO TID PRN 06/26/17 12/19/17 5/325 mg Tab] Furosemide [Lasix] 20 mg PO BID 12/19/17 12/19/17 Review of Systems - Physician Review All systems were reviewed & negative as marked: Yes - Review of Systems Constitutional: Normal. absent: Fevers Eyes: Normal ENT: Normal Respiratory: SOB Cardiovascular: Chest Pain (+chest "fullness"), Orthopnea Gastrointestinal: Normal. absent: Abdominal Pain, Diarrhea, Nausea, Vomiting Genitourinary Male: Normal. absent: Dysuria, Frequency, Hematuria, Urinary Output Changes Musculoskeletal: Normal. absent: Back Pain, Neck Pain Skin: Normal. absent: Rash Neurological: Normal. absent: Headache, Dizziness Endocrine: Normal Hemo/Lymphatic: Normal Psychiatric: Normal Physical Exam Vital Signs Reviewed: Yes Vital Signs Temp Pulse Resp BP Pulse Ox 12/19/17 07:17 97.6 F 71 18 138/74 96 Temperature: Afebrile Blood Pressure: Normal Pulse: Regular Respiratory Rate: Normal Appearance: Positive for: Well-Appearing, Non-Toxic, Comfortable Pain Distress: None Mental Status: Positive for: Alert and Oriented X 3 - Systems Exam Head: Present: Atraumatic, Normocephalic Pupils: Present: PERRL Extroacular Muscles: Present: EOMI Conjunctiva: Present: Normal Mouth: Present: Moist Mucous Membranes Neck: Present: Normal Range of Motion. No: Meningeal Signs, MIDLINE TENDERNESS, Paraspinal Tenderness Respiratory/Chest: Present: Clear to Auscultation, Good Air Exchange. No: Respiratory Distress, Accessory Muscle Use Cardiovascular: Present: Regular Rate and Rhythm, Normal S1, S2. No: Murmurs Abdomen: No: Tenderness, Distention, Peritoneal Signs Back: Present: Normal Inspection. No: CVA Tenderness, Midline Tenderness, Paraspinal Tenderness Upper Extremity: Present: Normal Inspection. No: Cyanosis, Edema Lower Extremity: Present: Normal Inspection. No: Edema Neurological: Present: GCS=15, CN II-XII Intact, Speech Normal Skin: Present: Warm, Dry, Normal Color. No: Rashes Psychiatric: Present: Alert, Oriented x 3, Normal Insight, Normal Concentration Medical Decision Making ED Course and Treatment: 12/19/17 07:40 Impression: 72 year old male complaining of shortness of breath, orthopnea, and chest "fullness." Plan: -- EKG -- Chest X-ray -- Labs, cardiac enzymes, BNP -- Rapid influenza -- Urinalysis -- Reassess and disposition Prior Visits: Notes and results from previous visits were reviewed. On 08/08/2017, pt was seen in the Emergency department for worsening shortness of breath/dyspnea on exertion. Pt was admitted to the hospital for further evaluation. Progress Notes: Reviewed EKG, ventricularlly paced at 67 bpm. - RAD Interpretation Narrative RAD Interpretations (Text): 12/19/17 10:00 Chest X-ray reviewed by radiologist, shows: FINDINGS: LUNGS: The lungs are well inflated and clear. PLEURA: No pleural effusions or pneumothorax. CARDIOVASCULAR: The heart is normal in size. Atherosclerotic aortic arch calcifications are present. Stable position of left-sided permanent pacing device. OSSEOUS STRUCTURES: Within normal limits for the patient's age. VISUALIZED UPPER ABDOMEN: Normal. OTHER FINDINGS: None. IMPRESSION: No active pulmonary disease. Radiology Orders: 12/19/17 07:27 CHEST PORTABLE [RAD] Stat Fire Tender: Radiologist - EKG Interpretation Interpreted by ED Physician: Yes Type: 12 lead EKG - Scribe Statement The provider has reviewed the documentation as recorded by the Tedibswati Rodas Provider Scribe Attestation: All medical record entries made by the Scribe were at my direction and personally dictated by me. I have reviewed the chart and agree that the record accurately reflects my personal performance of the history, physical exam, medical decision making, and the department course for this patient. I have also personally directed, reviewed, and agree with the discharge instructions and disposition. Disposition/Present on Arrival - Present on Arrival Any Indicators Present on Arrival: No History of DVT/PE: No History of Uncontrolled Diabetes: No Urinary Catheter: No (light red urine inserted in ed) History of Decub. Ulcer: No History Surgical Site Infection Following: None - Disposition Have Diagnosis and Disposition been Completed?: Yes Diagnosis: Chest pain, Congestive heart failure Disposition: HOSPITALIZED Disposition Time: 08:30 Condition: FAIR
[2017-12-19 08:01] LABS: BASO # 0.05 K/mm3 (0.0-2.0); BASO % 0.7 % (0.0-3.0); EOS # 0.3 (0.0-0.7); EOS % 4.8 % (1.5-5.0); GRAN # 4.37 (1.4-6.5); GRAN % 63.7 % (50.0-68.0); HEMOGLOBIN 11.7 g/dL (14.0-18.0); LYMPH # 1.6 (1.2-3.4); LYMPH % 23.1 % (22.0-35.0); MEAN CORPUSCULAR HEMOGLOBIN 30.2 pg (25.0-35.0); MEAN CORPUSCULAR HGB CONC 32.4 g/dl (31.0-37.0); MEAN PLATELET VOLUME 9.8 fl (7.0-11.0); MONO # 0.5 (0.1-0.6); MONO % 7.7 % (1.0-6.0); RBC 3.88 10^6/uL (3.5-6.1); WHITE BLOOD COUNT 6.9 10^3/uL (4.5-11.0)
[2017-12-19 08:11] LABS: INR 0.94; PARTIAL THROMBOPLASTIN TIME 27.9 Seconds (25.1-36.5); PROTHROMBIN TIME 10.8 SECONDS (9.4-12.5)
[2017-12-19 08:12] LABS: ALB/GLOB RATIO 1.4 (1.1-1.8); ALBUMIN 4.3 g/dL (3.0-4.8); ALT/SGPT 35 U/L (7-56); AST/SGOT 26 U/L (17-59); BLOOD UREA NITROGEN 27 mg/dL (7-21); CALCIUM 8.9 mg/dL (8.4-10.5); GFR NON-AFRICAN AMERICAN 50
[2017-12-19] MEDS ORDERED: Dextrose 50% SYRINGE Inj (50 ml) IV PRN (08:19)
[2017-12-19 08:24] LABS: B-TYPE NATRIURETIC PEPTIDE 1010 pg/mL (0-450); TROPONIN I < 0.01 ng/mL
[2017-12-19] MEDS ORDERED: Ergocalciferol 50,000 Intl Units Cap PO SCH (08:30)
--- NOTE | 2017-12-19 08:54 | CP.PCM.HP ---
History of Present Illness - History of Present Illness History of Present Illness: CC: Shortness of breath with orthopnea 72 yo M with PMH of Lung carcinoma treated with chemotherapy, HTN, high cholesterol, DM, end stage dilated cardiomyopathy with CHF with LVEF 20% and s/p AICD placement, CAD s/p stents, prior cardiac arrest in 12/2016, and LUE DVT in the past presents with gradually increasing shortness of breath for the past few days. Patient also complains of orthopnea which improves when he sits up. Patient also reports some chest discomfort, describes as "fullness." Patient states he had a stress test on 09/2017 and has not taken any of his medications today. Patient denies any fever, chills, cough, nausea, vomiting, headache, dizziness, or any other complaints. Patient received a flu vaccination 2 weeks ago. PMH: Lung carcinoma treated with chemotherapy, HTN, high cholesterol, DM, end stage dilated cardiomyopathy with CHF with LVEF 14% (Dec 2016) and s/p AICD placement, CAD s/p stents, prior cardiac arrest in 12/2016, and LUE DVT in the past PSH: Denies Soc: Social History: quit smoking at 29, denies alcohol or illicit drug use FHx: Father with [place] at age 19 All: [employer] Branch Sales Manager: Dr. Mcclain Park Attendant: Dr. Vitale Present on Admission - Present on Admission Any Indicators Present on Admission: No Review of Systems - Constitutional Constitutional: absent: Chills, Fever - EENT Eyes: absent: Change in Vision Nose/Mouth/Throat: absent: Nasal Congestion, Nasal Discharge - Cardiovascular Cardiovascular: Dyspnea, Dyspnea on Exertion, Orthopnea. absent: Chest Pain at Rest, Chest Pain with Activity, Pain Radiating to Arm/Neck/Jaw, Lightheadedness, Pedal Edema, Radiating Pain, Rapid Heart Rate, Slow Heart Rate, Syncope - Respiratory Respiratory: Dyspnea, Dyspnea on Exertion, Chest Congestion. absent: Cough, Wheezing Additional comments: chest fullness - Genitourinary Genitourinary: absent: Change in Urinary Stream, Difficulty Urinating - Musculoskeletal Musculoskeletal: absent: Muscle Weakness, Numbness, Tingling Past Patient History - Infectious Disease Hx of Infectious Diseases: None - Tetanus Immunizations Tetanus Immunization: Unknown - Past Social History Smoking Status: Former Smoker - CARDIAC Hx Cardiac Disorders: Yes Hx Heart Attack: Yes Hx Internal Defibrillator: Yes Hx Pacemaker: Yes - PULMONARY Hx Respiratory Disorders: Yes Hx Lung Cancer: Yes Hx Pneumonia: Yes - NEUROLOGICAL Hx Neurological Disorder: No - HEENT Hx HEENT Problems: No (WEARS RX GLASSES) - RENAL Hx Chronic Kidney Disease: No - ENDOCRINE/METABOLIC Hx Diabetes Mellitus Type 2: Yes - HEMATOLOGICAL/ONCOLOGICAL Hx Blood Disorders: Yes Hx Anemia: Yes Other/Comment: h/o L subclavian vein occlusive thrombosis - INTEGUMENTARY Hx Dermatological Problems: No - MUSCULOSKELETAL/RHEUMATOLOGICAL Hx Falls: No - GASTROINTESTINAL Hx Gastrointestinal Disorders: No - GENITOURINARY/GYNECOLOGICAL Hx Genitourinary Disorders: No - PSYCHIATRIC Hx Psychophysiologic Disorder: No Hx Emotional Abuse: No Hx Physical Abuse: No Hx Substance Use: No - SURGICAL HISTORY Hx Cardiac Catheterization: Yes Hx Coronary Stent: Yes - ANESTHESIA Hx Anesthesia: Yes Hx Anesthesia Reactions: No Hx Malignant Hyperthermia: No Meds Allergies/Adverse Reactions: Allergies Allergy/AdvReac Type Severity Reaction Status Date / Time No Known Allergies Allergy Verified 12/19/17 07:19 Physical Exam - Constitutional Appears: Non-toxic, No Acute Distress - Head Exam Head Exam: ATRAUMATIC, NORMAL INSPECTION, NORMOCEPHALIC - Eye Exam Eye Exam: EOMI, Normal appearance, PERRL Pupil Exam: NORMAL ACCOMODATION - ENT Exam ENT Exam: Mucous Membranes Moist - Respiratory Exam Respiratory Exam: Clear to Auscultation Bilateral, NORMAL BREATHING PATTERN - Cardiovascular Exam Cardiovascular Exam: REGULAR RHYTHM, +S1, +S2 - GI/Abdominal Exam GI & Abdominal Exam: Normal Bowel Sounds, Soft - Extremities Exam Extremities exam: Positive for: normal inspection, pedal pulses present. Negative for: pedal edema, tenderness - Back Exam Back exam: NORMAL INSPECTION. absent: paraspinal tenderness - Neurological Exam Neurological exam: Alert, CN II-XII Intact, Oriented x3 - Psychiatric Exam Psychiatric exam: Normal Affect, Normal Mood - Skin Skin Exam: Intact, Warm Results - Vital Signs Recent Vital Signs: Last Vital Signs Temp 97.6 F 12/19/17 07:17 Pulse 71 12/19/17 07:17 Resp 18 12/19/17 07:17 BP 138/74 12/19/17 07:17 Pulse Ox 96 12/19/17 07:17 - Labs Result Diagrams: 12/19/17 07:55 12/19/17 07:55 Labs: Laboratory Results - last 24 hr 12/19/17 12/19/17 12/19/17 07:55 07:55 07:55 WBC 6.9 RBC 3.88 Hgb 11.7 L Hct 36.1 L MCV 93.0 MCH 30.2 MCHC 32.4 RDW 15.0 H Plt Count 183 MPV 9.8 Gran % 63.7 Lymph % (Auto) 23.1 [place] % (Auto) 7.7 H Eos % (Auto) 4.8 Baso % (Auto) 0.7 Gran # 4.37 Lymph # (Auto) 1.6 [place]y # (Auto) 0.5 Eos # (Auto) 0.3 Baso # (Auto) 0.05 PT 10.8 INR 0.94 APTT 27.9 Sodium 139 Potassium 4.4 Chloride 101 Carbon Dioxide 27 Anion Gap 15 BUN 27 H Creatinine 1.4 Est GFR ( Amer) > 60 Est GFR (Non-Af Amer) 50 Random Glucose 224 H Calcium 8.9 Magnesium 2.3 H Total Bilirubin 0.4 AST 26 ALT 35 Alkaline Phosphatase 101 Lactate Dehydrogenase 411 Total Creatine Kinase 46 Troponin I < 0.01 D NT-Pro-B Natriuret Pep 1010 H Total Protein 7.3 Albumin 4.3 Globulin 3.1 Albumin/Globulin Ratio 1.4 Influenza Typ A,B (EIA) 12/19/17 07:55 WBC RBC Hgb Hct MCV MCH MCHC RDW Plt Count MPV Gran % Lymph % (Auto) [place]y % (Auto) Eos % (Auto) Baso % (Auto) Gran # Lymph # (Auto) [place]y # (Auto) Eos # (Auto) Baso # (Auto) PT INR APTT Sodium Potassium Chloride Carbon Dioxide Anion Gap BUN Creatinine Est GFR ( Amer) Est GFR (Non-Af Amer) Random Glucose Calcium Magnesium Total Bilirubin AST ALT Alkaline Phosphatase Lactate Dehydrogenase Total Creatine Kinase Troponin I NT-Pro-B Natriuret Pep Total Protein Albumin Globulin Albumin/Globulin Ratio Influenza Typ A,B (EIA) Negative for flu a/b Assessment & Plan - Assessment and Plan (Free Text) Assessment: 72 yo M with PMH of Lung carcinoma treated with chemotherapy, HTN, high cholesterol, DM, end stage dilated cardiomyopathy with CHF with LVEF 20% and s/p AICD placement, CAD s/p stents, prior cardiac arrest in 12/2016, and LUE DVT in the past presents with gradually increasing shortness of breath for the past few days. Plan: Dyspnea - BNP mildly elevated at 1010 - EKG showing - CXR showing: - initial troponin negative, will follow serially x2 - cardio consulted, Johny, follow recs - Per cardio, started on primacor drip - Continue amiodarone, carvedilol - Echo from 09/03 shows EF of 20% - Heart healthy, low salt diet - Admit to telemetry; Vitals Q4; HOB >30; - Strict I&O; Daily weights h/o DM - Hold oral hypoglycemics - ISS medium with accucheck ACHS - glycomark, fructosamine pending h/o CAD s/p stents - Continue ASA, Plavix - Continue statin h/o hypothyroidism - Continue home synthroid - f/u TSH DVT Ppx: Lovenox
[2017-12-19] MEDS ORDERED: Primacor 1 mg/ml Inj (10 ml) IVP ONE (08:56)
[2017-12-19] MEDS: Milrinone 20mg/100ml D5W 100 ML IV PRN (09:20)
--- NOTE | 2017-12-19 09:34 | RAD ---
Date of service: 12/19/2017 HISTORY: SOB COMPARISON: 08/08/2017 FINDINGS: LUNGS: The lungs are well inflated and clear. PLEURA: No pleural effusions or pneumothorax. CARDIOVASCULAR: The heart is normal in size. Atherosclerotic aortic arch calcifications are present. Stable position of left-sided permanent pacing device. OSSEOUS STRUCTURES: Within normal limits for the patient's age. VISUALIZED UPPER ABDOMEN: Normal. OTHER FINDINGS: None. IMPRESSION: No active pulmonary disease.
[2017-12-19] MEDS: Oxycodone/Acetaminophen 5/325 mg Tab PO PRN ×3 (10:08→22:38)
[2017-12-19] MEDS: Enoxaparin 40 mg Syringe SC SCH (10:09)
[2017-12-19] MEDS: Levothyroxine 50 MCG TAB PO SCH (10:10)
[2017-12-19] MEDS: Cholecalciferol 1,000 INTLU TAB PO SCH ×2 (10:10→17:07)
--- NOTE | 2017-12-19 13:19 | CON ---
CARDIOLOGY CONSULTATION DATE: 12/19/2017 HISTORY OF PRESENT ILLNESS: The patient is a 72-year-old male who presented with progressive shortness of breath over the past few days. PAST MEDICAL HISTORY: Includes end-stage dilated cardiomyopathy which the patient has been refused for heart transplantation. MEDICATIONS: He is currently being treated with Entresto, Aldactone, diuretics as well as beta-blockers. His symptoms now are progressive exertional shortness of breath. He has responded to intravenous ionotropic therapy in the past. SOCIAL HISTORY: The patient does not smoke. REVIEW OF SYSTEMS: A 14-point review of systems is reviewed in detail. No other cardiac symptoms are noted. PHYSICAL EXAMINATION: VITAL SIGNS: Blood pressure is 111/41 and heart rates in the 60s. NECK: Negative JVD. LUNGS: Decreased breath sounds bilaterally. HEART: Reveals S1 and S2. EXTREMITIES: Without edema. LABORATORY DATA: Hemoglobin is 11.7. BUN and creatinine is 27 and 1.4. [place] 224 [place] [address]. IMPRESSION: 1. Acute systolic congestive heart failure. 2. Low cardiac output syndrome. 3. End-stage dilated cardiomyopathy. 4. Diabetes mellitus. 5. Coronary artery disease. 6. Obesity. Given these findings, we will put the patient on IV milrinone for 24 hours. This should increase his forward outflow as well as improve his dyspnea symptoms. Anuj Mcclain MD
[2017-12-19 14:02] LABS: TROPONIN I < 0.01 ng/mL
--- NOTE | 2017-12-19 15:37 | CARD ---
APPROVED REPORT Date of service: 12/19/2017 EKG Measurement Heart [id number] <Conclusion> Electronic ventricular pacemaker
[2017-12-19] MEDS: Levalbuterol 0.63 MG/3 ML Inhal Soln UD IH SCH ×2 (17:01→19:46)
[2017-12-19] MEDS: Insulin Lispro (humaLOG) MEDIUM Coverage SC SCH ×2 (17:02→17:28)
[2017-12-19 20:09] LABS: URINE BILIRUBIN NEGATIVE (NEGATIVE); URINE BLOOD NEGATIVE (NEGATIVE); URINE GLUCOSE (UA) NEGATIVE (NEGATIVE); URINE LEUKOCYTE ESTERASE NEGATIVE Leu/uL (NEGATIVE); URINE PROTEIN NEGATIVE mg/dL (<30 mg/dL); URINE UROBILINOGEN 0.2 E.U./dL (<1 E.U./dL)
[2017-12-19 20:15] LABS: URINE APPEARANCE CLEAR (CLEAR); URINE COLOR LIGHT YELLOW (YELLOW)
[2017-12-19 20:26] LABS: TROPONIN I < 0.01 ng/mL
--- NOTE | 2017-12-19 21:48 | HP ---
DATE OF EXAM: 12/19/2017 HISTORY OF PRESENT ILLNESS: The patient is a 72-year-old male who has been followed up by Dr. Anuj Mcclain in the cardiac rehab yesterday. The patient was seen in the office recently within the last week or so. The patient has been progressively complaining of increasing shortness of breath and dyspnea on exertion. The patient's diuretics were adjusted outpatient adjustment of diuretics. The patient was seen by Dr. Mcclain yesterday, and the patient mentioned there are increasing symptoms of dyspnea on exertion, shortness of breath, orthopnea, and paroxysmal nocturnal dyspnea. The patient was advised to come to the emergency room, but the patient refused yesterday and day before, but the patient came to the emergency room today because of the patient's symptoms of shortness of breath, dyspnea on exertion, paroxysmal nocturnal dyspnea, and orthopnea did not resolve despite adjustment of diuretic therapy. REVIEW OF SYSTEMS: The patient's 14-system review was done, pertinent positive and negative as dictated above. CODE STATUS: Full code. LIVING WILL ADVANCE DIRECTIVE: None. ALLERGIES: PER THE [facility]. Body weight, height and BMI as per the [email or web address] summary page which is reviewed. SOCIAL HISTORY: Negative for smoking. Negative for alcohol. Negative for drug use. Negative for communicable transmissible disease. OCCUPATIONAL HISTORY: Disabled male. FAMILY HISTORY Not available at present. HOME MEDICATIONS: Lasix 40 mg daily, Aldactone 12.5 mg daily or twice a day, Entresto 24/26 mg one tablet daily or twice a day. The patient is on Synthroid 50 mcg daily, Lipitor 20 or 10 mg daily, vitamin D supplementation. The patient is on magnesium 400 mg twice a day. The patient is on Glucophage 500 mg once a day. The patient is on Lasix. The patient is on vitamin D. The patient is also on Ecotrin. The patient is on Plavix 75 mg daily. The patient's home medications were reviewed as per the [email or web address]. The patient is in the emergency room bed 1. PAST MEDICAL AND SURGICAL HISTORY: History of multivessel coronary artery disease, history of multiple myocardial infarction, non-ST elevation myocardial infarction, history of multiple coronary angioplasty and stent placement, history of ventilator-dependent respiratory failure, history of cardiogenic hypovolemic hypotensive shock in 12/2016, history of ventricular tachycardia, ventricular fibrillation, cardiac arrest, history of multiple organ dysfunction syndrome and multisystem organ failure in 12/2016, history of cardiac arrest, history of ventilator-dependent respiratory failure, history of pulmonary edema, history of dilated ischemic cardiomyopathy with left ventricular ejection fraction in the teens and 20s, history of non-insulin requiring diabetes mellitus, history of AICD implant, history of left upper extremity deep venous thrombosis, post-AICD implant, history of cardiac arrest, history of ventricular fibrillation, ventricular tachycardia, cardiac arrest, history of hypothyroidism, history of relative hypotension, history of hyperlipidemia, history of type 2 diabetes, history of right lung carcinoma, status post chemotherapy, history of iron-deficiency anemia, history of vitamin B12 deficiency, history of cervical spine degenerative disk disease and chronic pain syndrome, history of symptomatic systolic congestive heart failure, history of dilated ischemic cardiomyopathy, history of multivessel coronary artery disease and history of multiple angioplasty, history of obesity with elevated body mass index, history of questionable prostatic hypertrophy, history of remote left upper extremity deep venous thrombosis secondary to AICD implant. PHYSICAL EXAMINATION: GENERAL: The patient is in the emergency room bed 1. VITAL SIGNS: The patient is afebrile, temperature 97.6, pulse 68 to 74, respiration 18 to 20, blood pressure 138/84, and O2 sat 95% to 98%. HEAD EXAMINATION: Normocephalic, atraumatic. HEENT EXAMINATION: Shows pink conjunctivae. No oropharyngeal lesion. No neck rigidity. CHEST EXAMINATION: Kyphosis. LUNG EXAMINATION: Crackles and crepitations bilaterally and decreased breath sound at the bases, left more than the right. Positive crepitations, crackles, rales noted bilaterally, right more than the left with decreased breath sounds at the bases, left more than right. Positive left upper chest AICD noted. CARDIOVASCULAR EXAMINATION: S1 and S2, regular rhythm. Positive systolic murmur in left sternal border, right second intercostal space. ABDOMEN: Obese. Positive bowel sounds. Protuberant. No palpable hepatosplenomegaly. GENITALIA: Male. RECTAL EXAMINATION: Deferred. EXTREMITIES: Show trace swelling of the lower extremity. No swelling of the ankles and feet noted. MUSCULOSKELETAL EXAMINATION: Shows an elevated body mass index. NEUROLOGIC: The patient is alert, awake, oriented x3. Cranial nerves II through XII grossly intact. Gait examination is not tested. VASCULAR EXAMINATION: Palpable pulses. DIAGNOSTICS: From 12/19/2017, CBC shows hemoglobin and hematocrit of 11.7 and 33, platelets are within normal limits. PT and PTT are within normal limits. Chemistry, CMP, LFTs were noted. BNP is elevated at greater than 1000. Troponin is negative to indeterminate. Chemistries within normal limit with slightly elevated BUN of 27. EKG was done in the emergency room. Chest x-ray shows cardiomegaly, increased pulmonary vascular marking with possible left small pleural effusion with blunting of the left costophrenic angle. The patient is evaluated and seen in the emergency room. The patient was already seen by Dr. Anuj Mcclain yesterday and was advised to be admitted for IV inotrope therapy. IMPRESSION AND PLAN: 1. Acute exacerbation of symptomatic systolic congestive heart failure with symptoms of dyspnea on exertion, shortness of breath, paroxysmal nocturnal dyspnea, and orthopnea. 2. Acute on chronic recurrent systolic congestive heart failure with elevated BNP. 3. Dilated ischemic cardiomyopathy with decreased ejection fraction in teens and 20%. 4. History of hypertension with relative hypotension. 5. Prerenal kidney injury. 6. Status post automatic implantable cardioverter-defibrillator implant. 7. History of ventilator-dependent respiratory failure. 8. History of ventricular tachycardia, ventricular fibrillation, cardiac arrest. 9. History of cardiogenic hypotensive hypovolemic shock. 10. History of multiple system organ failure and multi organ dysfunction syndrome. 11. History of non-insulin requiring diabetes mellitus. 12. History of hyperlipidemia. 13. History of hypovitaminosis D. 14. History of hypothyroidism. 15. History of possible prostatic hypertrophy. 16. History of right lung carcinoma. 17. History of iron-deficiency anemia. 18. History of vitamin B12 deficiency. 19. History of cervical spine degenerative disk disease. 20. History of obesity. PLAN: At this time, the patient is to be admitted to Telemetry. Cardiology consultation ordered. Serial cardiac enzymes ordered. Serial EKG ordered. Repeat labs ordered for the morning. Cardiology consultation ordered. The patient will be started on IV dobutamine drip or IV Primacor drip depending upon cardiology evaluation. The patient is started on IV diuretics. The patient is resumed on GI and DVT prophylaxis. The patient is ordered resumption of most of his home medications. Oral diuretics will be held. The patient will be resumed on fingerstick blood sugar before meals and at bedtime with sliding scale coverage with Humalog. The patient will be continued on antiplatelet therapy. The patient will be resumed on beta anurag which the patient is taking at home. The patient at present will be admitted to Telemetry. The patient is awaiting for a telemetry bed. The patient has been ordered out of bed to chair. Heart healthy, diabetic diet ordered. VAMSI stockings and SCDs ordered. Physical therapy, occupational therapy, ambulation therapy, gait training ordered. The patient is resumed on his narcotic pain medications. The patient has been ordered head of the bed at 30 degrees. The patient has been ordered physical therapy, occupational therapy, TCU evaluation, certified lactation educator evaluation. At present, the patient is awaiting for a telemetry bed. The patient's further management will be dependent upon the patient's clinical condition, hemodynamic status and as per the patient's subjective, objective data and as per recommendation of Cardiology. Dictated and electronically signed, not read. Andres Pettit MD
[2017-12-20] MEDS: Levalbuterol 0.63 MG/3 ML Inhal Soln UD IH SCH ×2 (01:45→07:48)
[2017-12-20] MEDS: Milrinone 20mg/100ml D5W 100 ML IV PRN (01:51)
[2017-12-20] MEDS: Oxycodone/Acetaminophen 5/325 mg Tab PO PRN ×2 (04:18→09:51)
[2017-12-20] MEDS ORDERED: Pantoprazole 40 mg EC Tab PO SCH (06:00)
[2017-12-20 07:00] VITALS: RESP 16; TEMP 97.4; O2SAT 97
[2017-12-20 07:19] LABS: BASO # 0.06 K/mm3 (0.0-2.0); BASO % 0.9 % (0.0-3.0); EOS # 0.4 (0.0-0.7); EOS % 5.4 % (1.5-5.0); GRAN # 3.71 (1.4-6.5); GRAN % 57.3 % (50.0-68.0); HEMOGLOBIN 10.7 g/dL (14.0-18.0); LYMPH # 1.8 (1.2-3.4); LYMPH % 27.7 % (22.0-35.0); MEAN CELL VOLUME 92.1 fl (80.0-105.0); MEAN CORPUSCULAR HEMOGLOBIN 30.2 pg (25.0-35.0); MEAN CORPUSCULAR HGB CONC 32.8 g/dl (31.0-37.0); MEAN PLATELET VOLUME 9.7 fl (7.0-11.0); MONO # 0.6 (0.1-0.6); MONO % 8.7 % (1.0-6.0); RBC 3.54 10^6/uL (3.5-6.1); RED CELL DISTRIBUTION WIDTH 14.7 % (11.5-14.5); WHITE BLOOD COUNT 6.5 10^3/uL (4.5-11.0)
[2017-12-20 07:29] LABS: LDL CHOLESTEROL 80 mg/dL (0-129)
[2017-12-20 07:34] LABS: ALB/GLOB RATIO 1.3 (1.1-1.8); ALBUMIN 3.8 g/dL (3.0-4.8); ALT/SGPT 33 U/L (7-56); AST/SGOT 22 U/L (17-59); BILIRUBIN,DIRECT 0.2 mg/dL (0.0-0.4); BLOOD UREA NITROGEN 29 mg/dL (7-21); CALCIUM 8.4 mg/dL (8.4-10.5); GFR NON-AFRICAN AMERICAN 50; HDL CHOLESTEROL 32 mg/dL (29-60); URIC ACID 8.2 mg/dL (3.5-8.5)
[2017-12-20 08:50] LABS: FREE T4 1.19 ng/dL (0.78-2.19); T4 10.1 ug/dL (5.5-11.0)
--- NOTE | 2017-12-20 09:42 | CARD ---
APPROVED REPORT Date of service: 12/20/2017 EKG Measurement Heart [id number] <Conclusion> Electronic ventricular pacemaker
[2017-12-20] MEDS: Enoxaparin 40 mg Syringe SC SCH (09:53)
[2017-12-20] MEDS: Levothyroxine 50 MCG TAB PO SCH (09:53)
[2017-12-20] MEDS: Cholecalciferol 1,000 INTLU TAB PO SCH (09:53)
[2017-12-20 09:59] VITALS: BP 108/60
[2017-12-20 12:06] VITALS: PULSE 74
--- NOTE | 2017-12-20 13:00 | DS ---
HISTORY OF PRESENT ILLNESS: The patient is being discharged from 262, bed 2. Overnight, nurse's notes were reviewed. The patient was started on Lasix IV push yesterday, which was ordered earlier in the emergency room when the patient came to the emergency room. The patient was started on IV Primacor drip by Dr. Mcclain. After the patient started on IV Primacor and IV Lasix, the patient's symptoms of shortness of breath and dyspnea on exertion and orthopnea resolved. PHYSICAL EXAMINATION: VITAL SIGNS: T-max 98.3. Telemetry shows ventricular paced rhythm at 75, blood pressure 108/60, respirations 16-18, O2 sat 96-100%. Head examination normocephalic, atraumatic. HEENT examination shows pinkish pale conjunctivae. Anicteric sclerae. No oropharyngeal lesion. NECK: No neck rigidity. CHEST: Kyphosis. LUNGS: Show no audible crackles, rales or wheezing. CARDIOVASCULAR: S1, S2. Questionable soft systolic murmur at left sternal border, left second intercostal space, right second intercostal space. Positive left upper chest AICD noted. ABDOMEN: Slightly protuberant. Positive bowel sounds. Genitalia: Male. Rectal examination is deferred. EXTREMITIES: Extremity shows no pitting edema, no calf tenderness, no Homans signs. No ankle or feet swelling noted. No palpable hepatosplenomegaly noted. MUSCULOSKELETAL: Shows an elevated body mass index. NEUROLOGICAL: The patient is alert, awake, oriented x3. Cranial nerves II-XII intact. Gait examination is independent. LABORATORY DATA: WBC 6.5, hemoglobin/hematocrit 10.7/32.6, platelets 162,000. Sodium 136, potassium 4.2, chloride 100, CO2 of 26, BUN 29, creatinine 1.4, glucose 167, calcium 8.2, phosphorus 4.4, magnesium 2.0. LFTs are within normal limit. Cholesterol 142, triglycerides 216, LDL 80, HDL 32. PSA 0.2. TSH 4.81. Total T4 is 10.1. DIAGNOSTICS: EKG shows ventricular paced rhythm. Chest x-ray shows cardiomegaly with some prominence of vascular markings from yesterday. The patient was seen and evaluated by Cardiology this morning. The patient was cleared for discharge. FINAL IMPRESSION, PLAN AND DISCHARGE DIAGNOSES: 1. Acute exacerbation of systolic congestive heart failure with elevated BNP and severe symptomatic exacerbation of acute systolic congestive heart failure with symptoms of dyspnea on exertion, shortness of breath, paroxysmal nocturnal dyspnea and orthopnea. 2. Status post IV Primacor pulse therapy. 3. History of hypertension. 4. Hypotension. 5. Status post automatic implantable cardioverter-defibrillator implant. 6. Normocytic anemia. 7. Chronic kidney disease stage III. 8. Bjw-mocopgv-jhfctacre diabetes mellitus. 9. Hypertriglyceridemia. 10. History of hypothyroidism. 11. History of hyperlipidemia. 12. History of vitamin B12 deficiency. 13. Cervical spine degenerative disk disease. 14. History of ventilator-dependent respiratory failure. 15. History of ventricular tachycardia, ventricular fibrillation, cardiac arrest. 16. History of cardiogenic hypotensive hypovolemic shock. 17. History of multisystem organ failure and multiple organ dysfunction syndrome. 18. Dilated ischemic cardiomyopathy. 19. Hypovitaminosis D. PLAN: At this time, the patient was cleared by Cardiology for discharge after the patient was treated with IV Primacor for more than 24 hours with resolution of patient's pulmonary symptoms. The patient is to be discharged home. Discharge followup with Dr. Pettit within 1 week. Discharge followup with Dr. Mcclain within 1 week. Discharge followup with cardiac rehab. The patient's discharge medications are as per the home medications which include Lasix 40 mg daily, Aldactone 12.5 mg once or twice a day, metformin once or twice a day, magnesium oxide 400 mg once or twice a day, Lipitor, vitamin D 50,000 units. The patient is to resume on Plavix, aspirin and antiplatelet therapy. The patient is to resume home medications. The patient is to resume Percocet 5/325 p.r.n. for cervical spine disk disease pain. During this hospitalization, the patient was extensively explained about the details of his medical condition, diagnosis, treatment plan, management plan, outpatient followup and outpatient treatment. The patient was advised strict compliance with diet, medication and outpatient followup and to continue cardiac rehab. Time spent in the discharge process 45 minutes. Dictated and electronically signed, not read. Andres Pettit MD
--- NOTE | 2017-12-20 13:36 | PN ---
DATE: 12/20/[address] Anuj Mcclain. SUBJECTIVE: I was asked to clear the patient for discharge. The patient is on Primacor infusion. Shortness of breath has improved. Denies any substernal chest pain. PHYSICAL EXAMINATION: VITAL SIGNS: 108/60, heart rate 75, temperature 97.4, respirations 16. HEENT: Normocephalic. CHEST: Minimal occasional rhonchi. HEART: S1, S2 regular. ABDOMEN: Soft. EXTREMITIES: Trace leg edema. EKG revealed a ventricular paced rhythm at rate of 71. LABORATORY DATA: Today's hemoglobin and hematocrit 10.7 and 32.6. White count and platelet count are within normal limit. Today's SMA-7 is within normal limit except for glucose of 167 and BUN of 29. ASSESSMENT: 1. Cardiomyopathy, status post implantable cardioverter-defibrillator placement. 2. Uncontrolled diabetes mellitus. 3. History of coronary artery disease. RECOMMENDATIONS: The patient can be discharged from the cardiac point of view on his current medications including Coreg 12.5 mg twice a day, amiodarone 200 mg once a day, aspirin 81 mg once a day, Lasix 40 mg p.o. once a day, Lipitor 40 mg once a day, Plavix 75 mg once a day, Synthroid 30 mcg once a day. Quinn Higginbotham MD
[2017-12-22 22:02] LABS: GLYCOMARK(R) 17.1 mcg/mL (7.3-36.6)
== END 2017-12-20 13:00 | disposition home or self-care (01) ==
LOC: ED 06:58 → INTOOBSV 08:40 → ERH 08:40 → 2RNO 15:54
PROVIDERS: ADMIT Internal Medicine; ATTEND Internal Medicine
DX: I13.0 Hypertensive heart and chronic kidney disease with heart failure and stage 1 through stage 4 chronic kidney disease, or unspecified chronic kidney disease (principal); I50.23 Acute on chronic systolic (congestive) heart failure; N18.3 Chronic kidney disease, stage 3 (moderate); I42.0 Dilated cardiomyopathy; E11.22 Type 2 diabetes mellitus with diabetic chronic kidney disease; E11.65 Type 2 diabetes mellitus with hyperglycemia; D64.9 Anemia, unspecified; E03.9 Hypothyroidism, unspecified; E55.9 Vitamin D deficiency, unspecified; E78.2 Mixed hyperlipidemia; I25.5 Ischemic cardiomyopathy; I25.10 Atherosclerotic heart disease of native coronary artery without angina pectoris; M50.30 Other cervical disc degeneration, unspecified cervical region; I25.2 Old myocardial infarction; E66.9 Obesity, unspecified; G89.4 Chronic pain syndrome; Z68.30 Body mass index [BMI] 30.0-30.9, adult; Z79.02 Long term (current) use of antithrombotics/antiplatelets; Z79.84 Long term (current) use of oral hypoglycemic drugs; Z85.118 Personal history of other malignant neoplasm of bronchus and lung; Z86.718 Personal history of other venous thrombosis and embolism; Z86.74 Personal history of sudden cardiac arrest; Z87.891 Personal history of nicotine dependence; Z95.5 Presence of coronary angioplasty implant and graft; Z95.810 Presence of automatic (implantable) cardiac defibrillator
CPT/HCPCS: 36415; 71045; 80053; 80061; 81003; 82248; 82306; 82550; 82948; 82985; 83036; 83615; 83735; 83880; 83970; 84100; 84153; 84378; 84439; 84443; 84484; 84550; 85025; 85610; 85730; 87804; 93005; 94640; 94760; 96372; 96374; 96375; 96376; 99284; G0378; J1650; J1940; J2260

== ENCOUNTER 2018-05-22 12:02 | Outpatient (CLI) | payer MEDICARE, OTHER | END 2018-05-22 12:03 | disposition home or self-care (01) | LOC: RAD 12:02 ==

== ENCOUNTER 2018-06-03 10:32 | Outpatient (CLI) | payer MEDICARE | END 2018-06-03 10:33 | disposition home or self-care (01) | LOC: PULMO 10:32 ==

== ENCOUNTER 2018-07-03 10:27 | Outpatient (CLI) | payer MEDICARE | END 2018-07-03 10:28 | disposition home or self-care (01) | LOC: CARDIO 10:27 | DX: I25.10 Atherosclerotic heart disease of native coronary artery without angina pectoris (principal); I50.9 Heart failure, unspecified ==